=== PATIENT | female | born 1940 | race Caucasian/White ===

== ENCOUNTER 2022-09-09 09:46 | Outpatient (OUT) | payer MEDICARE, SELFPAY | END 2022-09-09 09:47 | LOC: WC 09:47 | PROVIDERS: Visit Provider Podiatrist Foot & Ankle Surgery | DX: E11.621 Type 2 diabetes mellitus with foot ulcer (principal); L97.412 Non-pressure chronic ulcer of right heel and midfoot with fat layer exposed | CPT/HCPCS: 11042 ==

== ENCOUNTER 2022-10-03 09:45 | Outpatient (OUT) | payer MEDICARE, SELFPAY | END 2022-10-03 09:46 | disposition home or self-care (01) | LOC: WC 09:45 | PROVIDERS: Visit Provider Podiatrist Foot & Ankle Surgery | DX: E11.621 Type 2 diabetes mellitus with foot ulcer (principal); L02.611 Cutaneous abscess of right foot; L03.818 Cellulitis of other sites; L97.419 Non-pressure chronic ulcer of right heel and midfoot with unspecified severity | CPT/HCPCS: 11042 ==

== ENCOUNTER 2023-04-10 10:10 | Outpatient (REF) | payer MEDICARE, SELFPAY ==
[2023-04-10 12:54] LABS: Alanine Aminotransferase 21 U/L (14-59); Albumin Globulin Ratio 0.7; Albumin Level 3.1 g/dL (3.4-5.0); Alkaline Phosphatase 108 U/L (46-116); Anion Gap 17.1; Aspartate Amino Transferase 17 U/L (15-37); BUN Creatinine Ratio 24.5; Bilirubin Total 0.2 mg/dL (0.2-1.0); Carbon Dioxide 25.5 mmol/L (21.0-32.0); Chloride 101 mmol/L (98-107); Chol HDL Ratio 3.3; Cholesterol 194 mg/dL (<=200); Estimated GFR (African America >60 (>=60); Estimated GFR (Non-African Ame 52 (>=60); Globulin 4.4 g/dL; Glucose 246 mg/dL (74-106); HDL Cholesterol 59 mg/dL (40-60); Potassium 4.6 mmol/L (3.5-5.1); Sodium 139 mmol/L (136-145); Thyroid Stimulating Hormone 6.157 uIU/mL (0.358-3.740); Total Protein 7.5 g/dL (6.4-8.2); Triglycerides 130 mg/dL (<=150)
== END 2023-04-10 10:11 | disposition home or self-care (01) ==
LOC: LAB 10:10
PROVIDERS: Visit Provider Family Medicine
DX: E11.8 Type 2 diabetes mellitus with unspecified complications (principal)
CPT/HCPCS: 36415; 80053; 80061; 83036; 84436; 84443

== ENCOUNTER 2023-04-16 15:01 | Outpatient (REF) | payer MEDICARE, SELFPAY ==
--- OUTSIDE RECORDS SUMMARY | 2023-04-16 15:06 | XMS_ITS | CCD ---
Author Name Unknown Address [address] [place] [address] Organization [facility] Care Team Providers Care Telephone Quotation Clerk Name Role Phone SAVANNAH CUEVA Primary Care Physician [facility] [facility] [place] Attending Unavailable [facility] Consulting Un[facility] DR ALARCON Admitting Unavailable ANAY, DR NUÑEZ Primary Care Unavailable HIGHLANDER, LETY Leahy Attending Unavailable HIGHLANDERLETY Admitting Unavailable WEST, DR ZEENAT Summers Consulting Unavailable ANAY, DR NUÑEZ Primary Care Unavailable LETY HOLGUIN Consulting Unavailable GWENANDERLETY Admitting Unavailable HIGHLANDER, LETY Leahy Attending Unavailable ANAY, DR NUÑEZ Primary Care Unavailable HIGHLANDER, LETY Leahy Attending Unavailable GWENANDERLETY Admitting Unavailable ANAY, DR NUÑEZ Primary Care Unavailable ANAY, DR NUÑEZ Primary Care Unavailable HIGHLANDER, LETY Leahy Admitting Unavailable GWENANDER, LETY Leahy Attending Unavailable TANYA MARCH Attending Unavailable TANYA MARCH Attending Unavailable TANYA MARCH Attending Unavailable ATNYA MARCH Admitting Unavailable PUNEET BUENO Attending Unavailable SAVANNAH CUEVA Referring Unavailable SAVANNAH CUEVA Attending Unavailable SAVANNAH CUEVA Referring Unavailable Allergies Allergy Classification Reported Allergen(s) Allergy Type Date of Onset Reaction(s) Facility (4 sources) Contrast media; Translations: [Contrast Dye] Drug allergy Itching [facility] (6 sources) Penicillins; Translations: [penicillins] Drug allergy 5 Unknown (qualifier value) [facility] (4 sources) Sulfonamides (Antibiotic); Translations: [sulfa drugs] Drug allergy Unknown (qualifier value) [facility] (1 source) Iodine (And Iodine Containting Drugs) Drug allergy (disorder) 0 [facility] (2 sources) Sulfonamides (Antibiotic) Drug allergy (disorder) 5 [facility] Medications Current Medications Medication Drug Class(es) Dates Sig (Normalized) Sig (Original) amoxicillin 500 mg / clavulanate 125 mg oral tablet (3 sources) Penicillin-class Antibacterial Start: 03-31-2022 Augmentin 500 mg-125 mg Tab 500 mg, Oral, Every other day, 30 cap(s), Refill(s) 6, [facility]/pharmacy #[id number], 165, cm, 11/04/21 12:20:00 EDT, Height/Length Dosing, 88, kg, 11/04/21 12:20:00 EDT, Weight Dosing Start Date: 03/31/22 Status: Ordered busPIRone hydrochloride 10 mg oral tablet (3 sources) Start: 11-21-2019 take 1 mg by mouth twice daily busPIRone 10 mg Tab mg tab(s), Oral, BID, Refills(s) 0 Start Date: 11/21/19 Status: Ordered D-mannose (3 sources) Start: 02-18-2021 D-mannose D-mannose Start Date: 02/18/21 Status: Ordered donepezil (3 sources) Start: 12-03-2018 donepezil Oral, Once a day (at bedtime), Refills(s) 0 Start Date: 12/03/18 Status: Ordered estradiol 0.1 mg/g vaginal cream (3 sources) Start: 02-18-2021 estradiol 0.1 mg/g vaginal cream 1 gm, Vaginal, MonFri, # 42.5 gm, Refills(s) 3, Pharmacy: [facility]/pharmacy #[id number], 165, cm, 02/18/21 10:54:00 EST, Height/Length Dosing, 87, kg, 11/21/19 13:18:00 EDT, Weight Dosing Start Date: 02/18/21 Status: Ordered Synthroid (3 sources) l-Thyroxine Start: 12-03-2018 Synthroid Oral, Daily, Refills(s) 0 Start Date: 12/03/18 Status: Ordered metFORMIN hydrochloride 500 mg / SITagliptin 50 mg oral tablet (3 sources) Biguanide, Dipeptidyl Peptidase 4 Inhibitor Start: 02-18-2021 Janumet 50 mg/500 mg oral tablet 1 tab(s), Oral, BID, 60 tab(s), Refill(s) 0 Start Date: 02/18/21 Status: Ordered 24 hr mirabegron 25 mg extended release oral tablet (3 sources) beta3-Adrenergic Agonist Start: 05-07-2022 End: 01-02-2023 take 1 tablet by mouth once daily Myrbetriq 25 mg oral tablet, extended release 25 mg = 1 tab(s), Oral, Daily, X 30 day(s), # 30 tab(s), Refills(s) 7, Pharmacy: [facility]/pharmacy #[id number], 165, cm, 05/07/22 13:26:00 EST, Height/Length Dosing, 88, kg, 05/07/22 13:26:00 EST, Weight Dosing Start Date: 05/07/22 Stop Date: 01/02/23 Status: Ordered Omeprazole (3 sources) Proton Pump Inhibitor Start: 10-08-2020 omeprazole Oral, Daily, Refills(s) 0 Start Date: 10/08/20 Status: Ordered QUEtiapine 100 mg oral tablet (6 sources) Atypical Antipsychotic Start: 02-18-2021 take 1 mg by mouth twice daily quetiapine 100 mg Tab mg tab(s), Oral, BID, Refills(s) 0 Start Date: 02/18/21 Status: Ordered Start: 12-03-2018 quetiapine Ora l, Refills(s) 0 Start Date: 12/03/18 Status: Ordered Trazodone (3 sources) Serotonin Reuptake Inhibitor Start: 12-03-2018 trazodone Oral, Refi lls(s) 0 Start Date: 12/03/18 Status: Ordered Verapamil (3 sources) Calcium Channel Sarah Start: 12-03-2018 verapa mil Refills(s) 0 Start Date: 12/03/18 Status: Ordered Vitamin D (3 sources) Start: 02-18-2021 Vitamin D International_Unit, Oral, qWeek, Refills(s) 0 Start Date: 02/18/21 Status: Ordered Problems Active Problems Problem Classification Problem Date Documented Date Episodic/Chronic Cancer of breast (3 sources) Malignant tumor of breast 12-03-2018 Chronic Cardiac dysrhythmias (4 sources) Atrial fibrillation; Translations: [Unspecified atrial fibrillation] Onset: 06-06-2022 12-03-2018 Chronic Chronic ulcer of skin (3 sources) 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; Translations: [Non-pressure chronic ulcer of other part of right foot with fat layer exposed] Onset: 06-06-2022 Chronic Deficiency and other anemia (1 source) Other iron deficiency anemias; Translations: [OTHER IRON DEFICIENCY ANEMIAS] Onset: 06-06-2022 Episodic Diabetes mellitus with complications (5 sources) Type 2 diabetes mellitus with foot ulcer; Translations: [TYPE 2 DM W/FOOT ULCER] Onset: 06-06-2022 Chronic Diabetes mellitus without complication (7 sources) Diabetes mellitus; Translations: [Type 2 diabetes mellitus without complications] Onset: 02-24-2022 12-03-2018 Chronic Disorders of lipid metabolism (4 sources) Hyperlipidemia; Translations: [Hyperlipidemia, unspecified] Onset: 06-06-2022 12-03-2018 Chronic Esophageal disorders (3 sources) Gastroesophageal reflux disease 12-03-2018 Chronic Essential hypertension (4 sources) Hypertensive disorder; Translations: [Essential (primary) hypertension] Onset: 06-06-2022 12-03-2018 Chronic Genitourinary symptoms and ill-defined conditions (7 sources) 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 sensory awareness; Translations: [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 sensory awareness] Onset: 05-07-2022 Chronic Genitourinary symptoms and ill-defined conditions (6 sources) Must strain to pass urine; Translations: [Urgent desire to urinate] 03-02-2020 Episodic Other connective tissue disease (4 sources) Pain in right foot; Translations: [PAIN IN RIGHT FOOT] Onset: 05-28-2022 Episodic Other diseases of bladder and urethra (4 sources) Urethral stricture; Translations: [Other urethral stricture, female] Onset: 05-07-2022 Episodic Other diseases of kidney and ureters (3 sources) Renal mass 12-03-2018 Chronic Other hereditary and degenerative nervous system conditions (1 source) Other idiopathic peripheral autonomic neuropathy; Translations: [OTH IDIO PERIPH AUTONOM NEUROPATHY] Onset: 06-06-2022 Chronic Other non-traumatic joint disorders (1 source) Other specified arthritis, unspecified site; Translations: [OTHER SPECIFIED ARTHRITIS UNS SITE] Onset: 06-06-2022 Chronic Skin and subcutaneous tissue infections (2 sources) Cutaneous abscess of right foot; Translations: [Cellulitis of other sites] Onset: 06-25-2022 Episodic Thyroid disorders (1 source) Hypothyroidism, unspecified; Translations: [HYPOTHYROIDISM UNSPECIFIED] Onset: 03-01-2022 Chronic Urinary tract infections (4 sources) Urinary tract infectious disease; Translations: [Urinary tract infection, site not specified] Onset: 05-07-2022 Episodic Past or Other Problems Problem Classification Problem Date Documented Da te Episodic/Chronic Other and unspecified benign neoplasm (1 source) Benign neoplasm of left kidney; Translations: [BENIGN NEOPLASM OF LEFT KIDNEY] Onset: 03-01-2022 Episodic Residual codes; unclassified (1 source) Acquired absence of both cervix and uterus; Translations: [ACQUIRED ABSENCE BOTH CERVIX AND UTERUS] Onset: 03-01-2022 Episodic Residual codes; unclassified (1 source) Acquired absence of unspecified breast and nipple; Translations: [ACQUIRED ABSENCE UNS BREAST AND NIPPLE] Onset: 03-01-2022 Episodic Results Test Name Value Interpretation Reference Range Facility Coding Summary.on 05-12-2022 Coding Summary. [id number] Gh 0bWw+PGhlYWQ+ED0QPOUjV 40cbRUeiO5AE1rFCN6MCDP YKURTFO9LHI6anOS6JVghL 2VybiAv BytjsRHxNO64ZKc0EIP4gA qoIAcwwQ6duCUiQ1j9JyCl AL09eA38STteEOKfXeN7Fy ZpbjsgbWFy E5xbRrYmcMKbXxs+PHRhYm xlIHdpZHRoPScxMDAlJyBz hLkwDO0iRn3fCOPqABEsgA xhcHNlOiBj b5vzEMAtIYqmTL7weGfcY0 QyxJW5UMIwh9l7Fw63pHC+ RYWuGTO2mNomEXfqq215Ic Dcz0dlMAE7 hVFwAZzaWJF7J33iz6G9JZ XlTNFgTMK5cKY2rL0smLbk lbswZ4JzkKRoShH2HMA8lT OqgV7xmOyg msnepW5nCgd+B63BTF5UOP UQXC9WSam6N5AcRykviTL+ FT83TQFoCR92qGCeqSGfw0 iynCz8WqRd FWTeJGW2gCisMOjnm1FkKZ DnK31eqAWql1D3YOYjyUug nWRyOlXtdEN7wF2iBByztj kir3vgdljl Rxwwg0kzqr87xA00Y78cQM iiILExMXW0LIKkZXYgeErl gu7qeX5uIk6+JYixp8krs4 pdjCo4CgOz NEZonbFloFkvQHK5t0YvKv 13V9ZmsIvez4BuGyb6yb63 dQSaz6L6kHI1EZamOUPunR 5oKPjyRoQ2 VTYkTyHveS52qJIiPGlpJt 5tgXkiyAqbWO5zNXXfuqhm DWGzoZ6yRMVlpZKxqVvkAT 4wNTBpbjtm z259SaDgQQS7ISSkeGCmN8 ZjdA1eGeLjWZGzKMBkT0Ys aJQyKTddZ859NSbcUhE7GN LmupDgH2Zr VIPwkNieSjI6o2Z4Ug8Gu0 HlbofyWBB9MRyrAJUuBsYw EsViRrP7B6RqLks3GASwwR qpTE3vK4Kf GIAojwrasdnevAX1AGAzMN FruJ10vTOgKDirCv2lp0D9 t109DEXyDVTbtO22Jy8xeK ogMTBwdCBU rG5vbyqbq7qcecvdVdUrVB NzKWp8TSq5EVVqfFvdYuJo NGB0UsX6HHM4pOLtzC9ozN abnyyqxV1j Oyc+Y37pyX8bGTT3XIR3dy umPZDaejNsUJ62QD62E3Xi PjwvdGFibGU+PGRpdiBzdH ldSS6oXaRh g1vzz9SzDCnhZ4WvPTRnQD gfNja9LARqSSS6yIZ6vV3e SRWyFNzso7O7nQO3O4Vzaz Pblr4xw1ju WALnVIyrS46guWWir2B9UH TzdJX2NJWtyKttSkOokQ72 Oyc+IACmhAvxq7PnQoasa0 sti1femBi6 WwVmXJScjuUabCflKBJ7d0 QtOk05V72kAGelBIGqLYPy TPTyRZHkpGoges2fuJ7dYt 8+PGNvbCB3 fNG4hU4zHNZzGaS2GGudI6 94QqQoiWJlNbktg6srs8sj oEm4StYmYMXsrdTavQdhCU N7m0TlUl42 U43xIVkcQZDjDYAdQTCgPZ XzwQytcc5uhO8uAb3+PC9j u3ioel24zO53pQU+PHRkIH H9kKeeJYmj BLBgoC9wRVisYbJ4HYZlJd MpjU10fOKcAJckHa1bdAxe tFlmKM5nHASoxvdge448Lt Afk7qlLHHy yXMoRRqpRAW7N02ld1K3UG NbMVCwICG9kNM9uW7wzCrh bjogbGVmdDsgdmVydGljYW yvWIywL598 IHRvcDsnPlBhdGllbnQgTm YoKTn9K0FtVsh8IUIeeLkt OW7rnOMnZLipDe6zlFxfbJ eaDI7lQPSw diptt409MzUii7pcYTMaqZ AgYHdhZGK1R42ba2Q6ACBt QPHwRKX7oWO7cM5jxWzqaf ogbGVmdDsg rdGrbTcbJYjkIGcdO360GV RvcDsnPkJpcnRoIERhdGU6 VH87NW27nZZnb7W3gMH2C0 BhZGRpbmct rtrxeGZ4ENVvTVOuvG90Pi 1phQcuYz1wSCTpFKR3CGKj nACtP9GsxV2oTqLkIUJhME TzJ3NqoLUf LOgnJ384ZJcuAaP4YPZblx TnY8CkVORmpLmbBsC8n6J2 Uz8MM2G2MG96AR95bOZum0 Z4dXL0P8Bp YNQystykyfbdpXM1CMHjWZ DswQ92By2grWueSe2fNPLg LIM4YXFalOQgY7FvxB0vZp AjMDAwMDAw O5TdsAVoKRpkU411POuuFv D6PNNyocTdL2KrCVUxiNjl NeG7r0F0Ys7GDZv7XJ09TC 18pFQsc6O3 uRQ9O7PwNRDhrtzgpvhbeT O2NLJkJKAtgD20Bf6xnYnh Hp5eNTBlUPR8DVZbxANwC0 LpsC4rFmYt LHFgCRNrK2ZonIEkJTwgB9 81OPfwPzY2GRSgosJcV1Ky HJVltKyfLuI6e8L0Iw0KMN XmIN53YYP2 sNI9YR03ZZ60R5FoDfomsE FibGU+PHRhYmxlIHdpZHRo TTchLYAeCqYzlAfsKV0kWt 9yZGVyLWNv bKklmFXvDyYnx6rtHQXpKU rkZW3ziIxzW6FrsYR7TFKs a2u8Su10S13xP4VfsBX+PG TqbMO3cEZ3 rE8wKjLbAqP8TJmuG354Vy FmqPGbCoiju5gbq8ajzSl1 WsD2FWTsskLdxShlLAG8t0 FeMn36C20x IHdpZHRoPSIxNSUiIHZhbG bxtb9daU8mIb1+PGNvbCB3 jJO2sB8lLrOeLpH6XLewZ4 49InRvcCIv Ytgyy8pqm1gdpNb5EzDvBB JwzzAfpIdmQUM5v9UcFk34 I6CqtLxiw1KtVyt1qc01wZ Dzu6F0sZS3 H3RuHOHlowihyCJglQzcVX 6gDSTvdyxeENUlmD2cUVWq J0p0VxUoQjV9MZsbH0Gbkq F3CLGhvTNu AKxuJMT2M35nb1E2OBRzUT WhINL2bQZ6wF9inEjjltbk bGVmdDsgdmVydGljYWwtYW vzX979HRUt yIipGCMbpU3xQUQfzBLizV olHK2iRNZlcdsbXh5CGF4P BXHFYCKNOJNUVJ54VI53pO Kep7C0xAO0 G6ItRVYqitrpvhnylCT9OI UuESJjgA99cHKyBUszFf2q v6Y9j273GJBeFSNgeJ59Pj 9udDogMTBw bYGEqR0swckdj1zwywukLk KbTYZlANi3XCf7CDTcwQsh FjBsDHS1CmZ6OAI3nCEvaR 1hbGlnbjog mC8yJqa+MDQvMTQvMTkzOT wvdGQ+KXLyUYV9qDrrTJbn CKRhqB4uASFyY8z9QxIdSu O1VStrY9Cw NSKplrquTr80hU8kZyHeVt X4GWrfR4UqhaK4XZEalGSq CSveWYV3R63yi0Y2QXZmEW QkERM1aVU0 bB2hiVyqrloamZGyzJuzlv UdvRbwPEmgDWgaC955OYRo iJzdFfmuMLehLZAtDO89JL 74oCLya9E0 aOO4M4PcLMHbjzbqquwjcO Q0SBAxLSXbfH05rVDvZKgl Or9of3B0u397VKMoHYBzwM 63Km1gfNuf VHDyaXYQaM9jzpizo1ggut eyUsMgNBNaZPu9HKr2KKCq dAonPkNeARH3CpA8OHE3uM QqdO7azDlr gxlreX1qOrc+RmVtYWxlPC 03BG28pSKjs3N1tEA0S3Hv CSXcnqxzwegyvPY2INCqRB UrqA70yJIk TJexQt5hf9K6h481SRFhUG RahI24Ed9slAolOKSbfCHT iN3tjmzbf9ezcwevXnYqYU UoVFs4KCm7 ZJSfgJbjIjRdQKV4LkU0OX K4pBAugJ7axRpyliqyzM2t Oyc+SWOwKWLjz1Ujx0YiOG 73PN80G5Uk PjwvdGFibGU+PHRhYmxlIH dpZHRoPScxMDAlJyBzdHls UP5cXd1eWEMoPOCokVwttZ KjOoSwb3zr GCMnVBkaNR2myQpdA6HchY C3QONea2k1Aw49U66aR3Gh dXA+ZSZylZO3qLT3mE1xDj SoQlK1VAds B806FbHilFBiCjxrj3nwj2 xkfEk8VyCsHAOvhdEuzBtf SMB8j1PkMe66X38lMHssNS RoPSIyMCUi EEOliGbcft1qmB8aRr4+PG KnoSN9dDF9iT3dTtCpTqQ3 DQmeT267PoSjaQCoZgttQ3 7pD0BgwZK+ QJEqFfz3DBFzrQvaHD9xfR JfXEhzVx2vHUA0ViJxWyCe QJoiX6EeHUDvmvtvrwjkfE O8RDEjJTJi rV57Ie7hkKnwPt4tPUEhYP Q2IOOstJOcU1EugN9qTqOe FZXzDBCvA3IjoEVvBTbbQ9 84EOpaPmG4 MKZwpeSsL9IyBGQqdKdcJh S8d8H7Qv1AzEqdaXMdVW9z IeYxHTc9G7UySta7NQVyhM khDY2pvMTu MVmoYy7zwIiboXwkWP1zMV Mfzvksc197PoAcm4zbWRUk mLRzOXgkVYJ0X38oy1H0KS MwMDAwMDA7 pVE0aY2cjCxqgjshyXEnqX hjfyCqpKliSEcwSZkwJ323 XEZtiQbnGgGFUtc5P4QtVe n4ZANbtMcj FB0kaXDnYEcpJf3bmIdrmK evPE6wHECbhvncc895MfIu d3bmUMZbwBPpPDcbRDV7N2 2cu9V4XXHr JKQjZVV9fGP2tT2zkKqbzj ogbGVmdDsgdmVydGljYWwt YXkyV227ELObxDueIn3BRj a5V4QmEjw5 MHWtuMemHY2yzQYbXGbbAh 0osOvsgMaoBX4vKYOedqof v948YwLwb7rcMLNivCMcGT hvXXA1G13f q0J5XXQlALDxTSA5nQG4lN 1hbGlnbjogbGVmdDsgdmVy kDfqWAyaQPglF183BYDxgB snPlBheWVy OjwvdGQ+KG61hm01L2JhMh yqFde6EXEfYWE3zBU3qW1t GSSgZOwll1O1cOI3G4Lyhb Hrhv2gj2om YXBz (more content not included)... Normal [facility] C Urineon 05-09-2022 Bacteria identified Cx Nom (U) Microbiology PROCEDURE: Urine Culture [R1] SOURCE: U Random BODY SITE: COLLECTED DATE/TIME: 05/07/2022 14:02 EST RECEIVED DATE/TIME: 05/07/2022 17:40 EST START DATE/TIME: 05/07/2022 17:40 EST FREE TEXT SOURCE: TANYA MARCH PA-C, PA-C, JENNIFER E FINAL REPORTS Final Report [] Verified Date/Time: 05/09/2022 11:00 EST 25,000 cfu/ml Mixed skin contaminants Mixed omid (multiple species present) >3 colony types Performing Locations R1: This test was performed at: [facility], [address] [place] [address], [id number] [place] [address], [facility] Comment on above: Performed By: #### [id number] #### [facility] [address] [place] [address] Ambulatory Visit Summaryon 0 05-07-2022 Ambulatory Visit Summary MILTON IBRAHIM :1940 Visit Date:05/07/2022 Ambulatory Visit Instructions Your Diagnosis Urinary tract infection 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 sensory awareness Other urethral stricture, female Tests Performed Urnls Dip Stick Auto w/o Microscopy POC [id number] Your Care Team Attending Physician - TANYA MARCH PA-C Primary Care Physician - SAVANNAH CUEVA DO This Is Your Medications List amoxicillin-clavulanat e (Augmentin 500 mg-125 mg Tab) estradiol topical (estradiol 0.1 mg/g vaginal cream) mirabegron (Myrbetriq 25 mg oral tablet, extended release) Contact prescribing physician if questions or concerns Non-Formulary Medication (D-mannose) busPIRone (busPIRone 10 mg Tab) donepezil ergocalciferol (Vitamin D) levothyroxine (Synthroid) metformin-sitagliptin (Janumet 50 mg/500 mg oral tablet) omeprazole quetiapine quetiapine (quetiapine 100 mg Tab) trazodone verapamil [Image Removed: STOP]Stop taking these medications oxybutynin (oxybutynin 5 mg Tab) Procedures Performed Cystourethroscopy with dilation of urethral stricture (03/19/2021), Cystourethroscopy with dilation of urethral stricture (08/19/2016), Urodynamics (07/16/2016), Appendectomy, Bilateral mastectomy, Cholecystectomy, Hysterectomy. Discharge Vitals Heart Rate (Peripheral) 68 Respiratory Rate 16 Blood Pressure 132/74 Height 165 cm Height 65 in Weight 88 kg Weight 193.6 lb BMI 32.32 What to do next Scheduled Follow-Up Appointments Thursday 1:00 PM EDT With: TANYA MARCH PA-C Where: [facility] Patient Educationon 05-07-19 Patient Education Urology Urodynamic Testing What is urodynamic testing? Urodynamic tests are done to determine how well your lower urinary tract is working. The lower urinary tract includes your bladder and the part of your body that drains urine from the bladder (urethra). When your kidneys filter your blood, urine is stored in your bladder until you feel the urge to urinate. Urination requires coordination between the nerves and muscles of your bladder and urethra. When your lower urinary tract is working well, you should be able to: ? Start urinating when your bladder is full. ? Empty your bladder completely. ? Control the flow of your urine. Why do I need urodynamic testing? You may need urodynamic testing to help find the cause of any of these problems: ? Leaking urine (incontinence). ? Problems starting or stopping your urine flow. ? Frequent or painful urination. ? Frequent urinary tract infections. ? Being unable to empty your bladder completely. ? Having strong urges to pass urine (urgency). ? Having a weak flow of urine. How do I prepare for the tests? ? Ask your health care provider about changing or stopping your regular medicines. This is especially important if you are taking diabetes medicines or blood thinners. ? You may be asked to avoid urinating before coming to the test so that you arrive with a full bladder. ? Tell a health care provider about: ? Any allergies you have. ? All medicines you are taking, including vitamins, herbs, eye drops, creams, and yaoq-dbl-rugndkp medicines. ? Whether you are or may be . What are the risks of this testing? Generally, these tests are safe. However, some of the tests have risks, including: ? Discomfort. ? Frequent urge to urinate. ? Bleeding. ? Infection. ? Allergic reactions to medicines or dyes (contrast material). How is urodynamic testing done? You may have various urodynamic tests. The tests may be done separately or may all be done during one testing visit. You may be given an antibiotic medicine before or after testing to help prevent infection. The types of tests that may be done include: Uroflowmetry This test measures how much urine you pass and how long it takes to pass. ? You will urinate into a certain type of toilet or device (flowmeter). ? The device will measure the volume and the time of your urine flow. ? These measurements will be sent to a computer that creates a graph of your urine flow. Postvoid residual measurement This test measures how much urine is left in your bladder after you urinate. ? The test may be done with ultrasound. In this method, sound waves and a computer will be used to create an image of your bladder. ? The test can also be done by inserting a thin, flexible tube (catheter) into your bladder after you urinate. The remaining urine will be removed through the catheter so it can be measured. ? Remaining urine will be measured in milliliters (mL). If you have more than 100 mL left in your bladder after you urinate, your bladder is not emptying as it should. Cystometric testing This test uses a type of bladder catheter that can measure pressure. ? You may be given a medicine to numb the area (local anesthetic). ? The area around the opening of your urethra will be cleaned. ? A urinary catheter will be passed through your urethra into your bladder and used to empty your bladder completely. ? Then a measuring catheter will be placed, and your bladder will be filled with warm, germ-free (sterile) water. ? Pressure measurements will be taken: ? As your bladder fills. ? When you feel the need to urinate. ? As your bladder is emptied. ? You may be asked to cough or bear down to check for leakage. ? In some cases, your bladder may be filled with a material that shows up on X-rays (contrast material) so that X-ray pictures can be taken during the test. Electromyogram This test measures the electrical activity of the nerves and muscles of your bladder and the opening of your urethra. ? Sticky patches (electrodes) will be placed near your rectum and urethra to measure electrical activity. ? The measurements will show how well your nerves are communicating with your muscles. What happens after the testing? ? You should be able to go home right away and do your usual activities. ? You may be told to drink a glass of water every 30 minutes for the first 2 hours after testing. ? Taking a warm bath or using warm, wet cloths (warm compresses) may relieve any discomfort near your urethra. ? Contact your health care provider if you have: ? Pain. ? Blood in your urine. ? Chills. ? Fever. What do the results mean? Talk with your health care provider about what your results mean. Some common causes for abnormal results from urodynamic tests include: ? Enlarged prostate in men. ? Overactive bladder. ? Urinary tract infection. ? Nervous system diseases. (more content not included)... Normal [facility] Urology Office/Clinic Noteon 05-07-2022 Urology Office/Clinic Note Chief Complaint 6m HPI Staff PRW pt here for 4m to incontinence w/o sensory awareness, UTI & Urethral Stricture. *Started on Oxybutynin 5mg QHS at last encounter. Stopped taking due to cognitive side effects. Son did not notice improvement with leaking when she was taking it. *Estradiol Cream 2x/wk. Augmentin 500mg decreased from QD to 2x/wk at last encounter. ((Augmentin was just refilled 03/28 w/ instructions to take QOD)). Has noticed odor to urine about 7-10 days ago. Started taking the Augmentin daily. Was taking it 2x/wk. No new infections since last encounter. Pt denies pain/burning. Son denies visible blood in urine. Still going through 3-4pads a day. Son thinks it may be due to mobility and cognitive status. Son is comfortable with pt's current voiding status. More concerned with UTI's. History of Present Illness staff HPI reviewed and agree. Tests Reviewed: Reviewed UA. Review of Systems PHQ Score Initial Depression Screen Score: 0 no fever, chills, malaise, myalgia. no rash/lesions. no chest pain, palpitations, or SOB. no abdominal pain, nausea, vomiting. no unilateral calf swelling, redness, pain Physical Exam Vitals & Measurements HR: 68(Peripheral) RR: 16 BP: 132/74 HT: 65 in HT: 165 cm WT: 88 kg WT: 193.6 lb BMI: 32.32 General: nontoxic, NAD Mouth: moist mucosa Lungs: normal respiratory effort Cardio: regular rate, good distal perfusion Abdomen: nondistended, no suprapubic distention or tenderness, no CVA tenderness Skin: No rashes or suspicious lesions Assessment/Plan Pt here with her son today. lives w her. does have dementia. 1. Urinary tract infection (N39.0: Urinary tract infection, site not specified) Continues Estradiol Cream 2x/wk. Augmentin 500 mg decreased from QD to 2x/wk at last encounter. Has noticed odor to urine about 7-10 days ago. Started taking the Augmentin daily. Otherwise No new infections since last encounter. Son denies visible blood in urine. UA today shows trace leuks. -send urine for cx -cont Augmentin 500 mg QD, until results from cx. may start new abx pending cx results. To call for refills in future. -cont Estradiol 2x/week 2. 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 Stopped taking due to cognitive side effects. Son did not notice improvement with leaking when she was taking it. Still going through 3-4 pads a day. Son thinks it may be due to mobility and cognitive status. discussed other tx options including other anticholinergics (not recommended due to similar risk of confusion), beta-3s (sometimes difficult to get covered/affordable), botox. son would like to try Myrbetriq. side effects discussed - he will monitor her BP when she's on it and call office if HTN increase. myrbetriq 25mg sent to [facility]. -void q2hrs, void before sensation 3. Other urethral stricture, female (N35.82: Other urethral stricture, female) S/p cysto/UD done 03/20/21. Follow up in 6 mos or sooner if needed. Pt to call with regarding any issues with Myrbetriq. Pt's son acknowledges understanding and agrees with plan. Follow-up With When Contact Information JOAQUIM MEEK, TANYA Weir, URL [address] [place] [address] Additional Instructions: f/u 6 mos Patient Education Urodynamic Testing Documentation recorded by the scrjordan Hobbs accurately reflects the services(s) I performed and decisions made by me. Authenticated by Tanya March PA-C on 05/07/2022 14:05:19. IAshia, personally scribed for MARIA ISABEL Menjivar on 05/07/2022 13:59:04. . Problem List/Past Medical History Ongoing Afib Breast cancer DM - Diabetes mellitus GERD (gastroesophageal reflux disease) Hyperlipidemia Hypertension 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 sensory awareness Other urethral stricture, female Renal mass Straining on urination Urge urinary incontinence Urgency - urination Urinary tract infection Historical No qualifying data Procedure/Surgical History Cystourethroscopy with dilation of urethral stricture (03/19/2021), Cystourethroscopy with dilation of urethral stricture (08/19/2016), Urodynamics (07/16/2016), Appendectomy, Bilateral mastectomy, Cholecystectomy, Hysterectomy. Medications Augmentin 500 mg oral tablet, 500 mg, Oral, Every other day, 2 refills Augmentin 500 mg-125 mg Tab, 500 mg, Oral, Every other day, 6 refills busPIRone 10 mg Tab, Oral, BID D-mannose donepezil, Oral, Once a day (at bedtime) estradiol 0.1 mg/g vaginal cream, 1 gm, Vaginal, MonFri, 3 refills Janumet 50 mg/500 mg oral tablet, 1 tab(s), Oral, BID omeprazole, Oral, Daily oxybutynin 5 mg Tab, 5 mg= 1 tab(s), Oral, Daily, 6 refills, Not taking: Cognitive Side Effects quetiapine, Oral quetiapine 100 mg Tab, Oral, BID Synthroid, Oral, Daily trazodone, Oral verapamil Vitamin D, Oral, qWeek (more content not included)... Normal [facility] Comment on above: Result Comment: Elec tronically Signed By: TANYA MARCH PA-C\.br\Date and Time Signed: 05/07/22 14:05 EST\.br\Electronically Co-Signed By: Ashia Hobbs\.br\Date and Time Co-Signed: 05/07/22 13:59 EST CBC AUTO DIFFon 02-24-2022 BASO # 0.1 103/ul Normal 0.0-0.1 [facility] Comment on above: Performed By: #### C BC #### [facility] [address] [address] [address] Ginette Ivan Basophils/100 WBC (Bld) 0.5 % Normal 0.2-2.0 [facility] Comment on above: Performed By: #### C BC #### [facility] [address] [place], [place] [address] Dr. Ginette Ivan EO # 0.3 103/ul Normal 0.0-0.7 [facility] Comment on above: Performed By: #### C BC #### [facility] [address] [place] [address] Dr. Ginette Ivan Eosinophils/100 WBC (Bld) 2.3 % Normal 0.9-7.0 [facility] Comment on above: Performed By: #### C BC #### [facility] [address] [place] [address] Dr. Ginette Ivan Erythrocyte distribution width (RBC) [Ratio] 13.6 % Normal 11.0-15.0 [facility] Comment on above: Performed By: #### C BC #### [facility] [address] [place] [address] Dr. Ginette Ivan Hematocrit (Bld) [Volume fraction] 36.8 % Normal 36.0-48.0 [facility] Comment on above: Performed By: #### C BC #### [facility] [address] [place] [address] Dr. Ginette Ivan Hemoglobin (Bld) [Mass/Vol] 12.0 g/dL Normal 12.0-16.0 [facility] Comment on above: Performed By: #### C BC #### [facility] [address] [place] [address] Dr. Ginette Ivan IG # 0.03 10e3/ul Normal 0.00-0.03 [facility] Comment on above: Performed By: #### C BC #### [facility] [address] [place] [address] Dr. Ginette Ivan IG % 0.3 % Normal 0.0-0.5 [facility] Comment on above: Performed By: #### C BC #### [facility] [address] [place] [address] Dr. Ginette Ivan LYMPH # 3.9 103/ul Critically high 1.2-3.8 [facility] Comment on above: Performed By: #### C BC #### [facility] [address] [place] [address] Dr. Ginette Ivan Lymphocytes/100 WBC (Bld) 34.8 % Normal 20.5-60.0 [facility] Comment on above: Performed By: #### C BC #### [facility] [address] [place] [address] Dr. Ginette Ivan MANUAL DIFF REQ NO Normal [facility] Comment on above: Performed By: #### C BC #### [facility] [address] [place] [address] Dr. Ginette Ivan MCH (RBC) [Entitic mass] 28.4 pg Normal 26.7-34.0 [facility] Comment on above: Performed By: #### C BC #### [facility] [address] [place] [address] Dr. Ginette Ivan MCHC (RBC) [Mass/Vol] 32.6 g/dL Normal 29.9-35.2 [facility] Comment on above: Performed By: #### C BC #### [facility] [address] [place] [address] Dr. Ginette Ivan MCV (RBC) [Entitic vol] 87.0 fL Normal 81.0-99.0 [facility] Comment on above: Performed By: #### C BC #### [facility] [address] [place] [address] Dr. Ginette Ivan MONO # 0.8 103/ul Normal 0.3-0.8 [facility] Comment on above: Performed By: #### C BC #### [facility] [address] [place] [address] Dr. Ginette Ivan Monocytes/100 WBC (Bld) 7.0 % Normal 1.7-12.0 [facility] Comment on above: Performed By: #### C BC #### [facility] [address] [place] [address] Dr. Ginette Ivan NEUT # 6.2 103/ul Normal 1.4-6.5 [facility] Comment on above: Performed By: #### C BC #### [facility] [address] [place] [address] Dr. Ginette Ivna Neutrophils/100 WBC (Bld) 55.1 % Normal 43.0-75.0 [facility] Comment on above: Performed By: #### C BC #### [facility] [address] [address] [address] Ginette Ivan Platelet mean volume (Bld) [Entitic vol] 9.8 fL Normal 9.5-13.5 [facility] Comment on above: Performed By: #### C BC #### [facility] [address] [place] [address] Dr. Ginette Ivan PLT 304 103/ul Normal 150-450 [facility] Comment on above: Performed By: #### C BC #### [facility] [address] [address] [address] Ginette Ivan RBC 4.23 106/ul Normal 4.20-5.40 [facility] Comment on above: Performed By: #### C BC #### [facility] [address] [place] [address] Dr. Ginette Ivan WBC 11.2 103/ul Critically high 4.0-11.0 [facility] Comment on above: Performed By: #### C BC #### [facility] [address] [place] [address] Dr. Ginette Ivan FREE T4on 02-24-2022 Free T4 [Mass/Vol] 1.17 ng/dL Normal 0.76-1.46 [facility] Comment on above: Performed By: #### F T4 #### [facility] [address] [place] [address] Dr. Ginette Ivan GLYCOHEMOGLOBIN A1Con 2021 ADA RECOMMENDATION SEE BELOW Normal [facility] Comment on above: Result Comment: ADA RECOMMENDED LIMIT 4.0 - 6.0 ADA THERAPEUTIC TARGET < 7.0 ACTION SUGGESTED > 7.0 Performed By: #### A 1C #### [facility] [address] [place] [address] Dr. Ginette Ivan Glucose [Mass/Vol] 134 mg/dL Normal [facility] Comment on above: Performed By: #### A 1C #### [facility] [address] [place] [address] Dr. Ginette Ivan HbA1c (Bld) [Mass fraction] 6.3 % Critically high 4.5-6.2 [facility] Comment on above: Performed By: #### A 1C #### [facility] [address] [address] [address] Ginette Ivan LIPID PROFILEon 02-24-2022 CHOL-HDL RATIO NORM SEE BELOW Normal [facility] Comment on above: Result Comment: 3.3 - 4.4 LOW RISK 4.4 - 7.1 AVERAGE RISK 7.1 - 11.0 MODERATE RISK >11.0 HIGH RISK Performed By: #### T SH, LIPID, CMP #### [facility] [address] [address] [address] Ginette Ivan Cholesterol [Mass/Vol] 211 mg/dL Critically high <=200 [facility] Comment on above: Performed By: #### T SH, LIPID, CMP #### [facility] [address] [address] [address] Ginette Ivan Cholesterol in HDL [Mass/Vol] 62 mg/dL Critically high 40-60 [facility] Comment on above: Performed By: #### T SH, LIPID, CMP #### [facility] [address] [address] [address] Ginette Ivan Cholesterol in LDL [Mass/Vol] 113.6 mg/dL Normal [facility] Comment on above: Performed By: #### T SH, LIPID, CMP #### [facility] [address] [address] [address] Ginette Ivan Cholesterol.total/Ch olesterol in HDL [Mass ratio] 3.4 {ratio} Normal [facility] Comment on above: Performed By: #### T SH, LIPID, CMP #### [facility] [address] [address] [address] Ginette Ivan HDL NORMAL > or = 60 mg/dl - LO W CARDIOVASCULAR RISK <40 mg/dl - HIGH CARDIOVASCULAR RISK Normal [facility] Comment on above: Performed By: #### T SH, LIPID, CMP #### [facility] [address] [address] [address] Ginette Ivan LDL CALC NORMAL SEE BELOW Normal [facility] Comment on above: Result Comment: <100 mg/dl OPTIMAL 100 - 129 mg/dl NEAR OR ABOVE OPTIMAL 130 - 159 mg/dl BORDERLINE HIGH 160 - 189 mg/dl HIGH >190 mg/dl VERY HIGH Performed By: #### T SH, LIPID, CMP #### [facility] [address] [place] [address] Dr. Ginette Ivan Triglyceride [Mass/Vol] 177 mg/dL Critically high <=150 [facility] Comment on above: Performed By: #### T SH, LIPID, CMP #### [facility] [address] [place] [address] Dr. Ginette Ivan VLDL CALC 35.4 mg/dL Normal [facility] Comment on above: Performed By: #### T IFEANYI, LIPID, CMP #### [facility] [address] [place] [address] Dr. Ginette Ivan MICROALBUMIN, RAND URon 11-2 mALB 3.2 mg/L Normal <=30.0 [facility] Comment on above: Performed By: #### M ALBR #### [facility] [address] [place] [address] Dr. Ginette Ivan PROF 14(COMP METB)on 022 Albumin [Mass/Vol] 3.3 g/dL Critically low 3.4-5.0 [facility] Comment on above: Performed By: #### T IFEANYI, LIPID, CMP #### [facility] [address] [place] [address] Dr. Ginette Ivan Albumin/Globulin [Mass ratio] 0.7 {ratio} Normal [facility] Comment on above: Performed By: #### T SH, LIPID, CMP #### [facility] [address] [place] [address] Dr. Ginette Ivan ALP [Catalytic activity/Vol] 117 U/L Critically high 46-116 [facility] Comment on above: Performed By: #### T SH, LIPID, CMP #### [facility] [address] [place] [address] Dr. Ginette Ivan ALT [Catalytic activity/Vol] 11 U/L Critically low 14-59 [facility] Comment on above: Performed By: #### T SH, LIPID, CMP #### [facility] [address] [address] [address] Ginette Ivan Anion gap [Moles/Vol] 12.7 mmol/L Normal [facility] Comment on above: Performed By: #### T SH, LIPID, CMP #### [facility] [address] [address] [address] Ginette Ivan AST [Catalytic activity/Vol] 18 U/L Normal 15-37 [facility] Comment on above: Performed By: #### T SH, LIPID, CMP #### [facility] [address] [address] [address] Ginette Ivan Bilirubin [Mass/Vol] 0.2 mg/dL Normal 0.2-1.0 [facility] Comment on above: Performed By: #### T SH, LIPID, CMP #### [facility] [address] [address] [address] Ginette Ivan Calcium [Mass/Vol] 9.1 mg/dL Normal 8.5-10.1 [facility] Comment on above: Performed By: #### T SH, LIPID, CMP #### [facility] [address] [address] [address] Ginette Ivan Chloride [Moles/Vol] 100 mmol/L Normal 98-107 [facility] Comment on above: Performed By: #### T SH, LIPID, CMP #### [facility] [address] [address] [address] Ginette Ivan CO2 [Moles/Vol] 26.3 mmol/L Normal 21.0-32.0 [facility] Comment on above: Performed By: #### T SH, LIPID, CMP #### [facility] [address] [address] [address] Ginette Ivan Creatinine [Mass/Vol] 0.72 mg/dL Normal 0.55-1.02 [facility] Comment on above: Performed By: #### T SH, LIPID, CMP #### [facility] [address] [address] [address] Ginette Ivan EGFR-AF ESTONIAN >60 Normal >=60 [facility] Comment on above: Performed By: #### T SH, LIPID, CMP #### [facility] [address] [address] [address] Ginette Ivan EGFR-NON AF ESTONIAN >60 Normal >=60 [facility] Comment on above: Performed By: #### T SH, LIPID, CMP #### [facility] [address] [place] [address] Dr. Ginette Ivan Globulin (S) [Mass/Vol] 4.6 g/dL Normal [facility] Comment on above: Performed By: #### T SH, LIPID, CMP #### [facility] [address] [place] [address] Dr. Ginette Ivan Glucose [Mass/Vol] 133 mg/dL Critically high 74-106 [facility] Comment on above: Performed By: #### T SH, LIPID, CMP #### [facility] [address] [place] [address] Dr. Ginette Ivan Potassium [Moles/Vol] 4.0 mmol/L Normal 3.5-5.1 [facility] Comment on above: Performed By: #### T SH, LIPID, CMP #### [facility] [address] [place] [address] Dr. Ginette Ivan Protein [Mass/Vol] 7.9 g/dL Normal 6.4-8.2 [facility] Comment on above: Performed By: #### T SH, LIPID, CMP #### [facility] [address] [place] [address] Dr. Ginette Ivan Sodium [Moles/Vol] 135 mmol/L Critically low 136-145 [facility] Comment on above: Performed By: #### T SH, LIPID, CMP #### [facility] [address] [place] [address] Dr. Ginette Ivan Urea nitrogen [Mass/Vol] 21.0 mg/dL Critically high 7.0-18.0 [facility] Comment on above: Performed By: #### T SH, LIPID, CMP #### [facility] [address] [place] [address] Dr. Ginette Ivan Urea nitrogen/Creatinine [Mass ratio] 29.2 mg/mg Normal [facility] Comment on above: Performed By: #### T SH, LIPID, CMP #### [facility] [address] [place], [place] [address] Dr. Ginette Ivan TSHon 02-24-2022 TSH 9.395 uIU/mL Critically high 0.358-3.740 [facility] Comment on above: Performed By: #### T SH, LIPID, CMP #### [facility] [address] [place], [place] [address] Dr. Ginette Ivan Vital Signs Date Time Vital Sign Value Performing Clinician Faci lity 05-07-2022 13:24-0500 Blood Pressure Location TANYA MARCH [facility] 05-07-2022 13:24-0500 Diastolic blood pressure 74 mm[Hg] TANYA MARCH [facility] 05-07-2022 13:24-0500 Heart rate 68 /min TANYA MARCH [facility] 05-07-2022 13:24-0500 Respiratory rate 16 /min TANYA MARCH [facility] 05-07-2022 13:24-0500 Systolic blood pressure 132 mm[Hg] TANYA MARCH [facility] Encounters Encounter Date Encounter Type Care Provider Facility Start: 03-12-2023 End: 03-13-2023 ambulatory SAVANNAH CUEVA Not Available Start: 11-05-2022 End: 11-06-2022 ambulatory TANYA MARCH Facility:[facility] Start: 11-05-2022 End: 11-05-2022 Patient encounter procedure TANYA MARCH [facility] Start: 08-15-[address] SAVANNAH CUEVA Facility :[facility] Start: 07-14-2022 End: 07-15-2022 ambulatory [facility] Leah[facility] Facility:[facility] Start: 06-18-2022 End: 06-19-2022 ambulatory LETY Leahy [facility] Facility:[facility] Start: 05-28-2022 End: 05-29-2022 ambulatory LETY Leahy [facility] Facility:[facility] Start: 05-07-2022 End: 05-08-2022 ambulatory TANYA MARCH Facility:[facility] Start: 05-07-2022 End: 05-07-2022 Lab Drop off TANYA MARCH [facility] Start: 05-07-2022 End: 05-07-2022 Patient encounter procedure TANYA MARCH [facility] Start: 02-24-2022 End: 02-25-[address] DOCTOR DUKE Facility:[facility] Procedures Date Procedure Procedure Detail Performing Clinician Start: 03-19-2021 Cystourethroscopy wi th dilation of urethral stricture TANYA MARCH Start: 08-19-2016 Cystourethroscopy wi th dilation of urethral stricture TANYA MARCH Start: 07-16-2016 Urodynamic studies VETO ZIEGLER JOAQUIM Appendectomy TANYA MARCH Bilateral mastectomy JENERROLFE R JOAQUIM Cholecystectomy TANYA HARTLEY RY Hysterectomy TANYA MARCH Immunizations Immunization Date Immunization Notes Care Provider Marsha calix 05-29-2020 SARS-CoV-2 (COVID-19 ) mRNA-1273 vaccine TANYA JOAQUIM [facility] 05-07-2020 SARS-CoV-2 (COVID-19 ) mRNA-1273 vaccine TANYA MARCH [facility] 05-01-2020 SARS-CoV-2 (COVID-19 ) mRNA-1273 vaccine TANYA MARCH [facility] 12-25-2017 influenza virus vaccine, unspecified formulation TANYA MARCH [facility] 12-17-2015 influenza virus vaccine, unspecified formulation TANYA MARCH [facility] Payers Date Payer Category Payer Private Health Insurance [id number] 1961 Medicare [id number] 1961 Medicare [id number] 1940 Unknown [id number] 2.16.84 [id number] 1938 Unknown [id number] 2.16.84 [id number] 1938 Unknown [id number] 2.16.84 [id number] 1938 Unknown [id number] 2.16.84 [id number] 1938 Unknown [id number] 2.16.84 [id number] 1938 Unknown [id number] 2.16.8 [id number] 1938 Unknown [id number] 2.16.8 [id number] 1938 Unknown [id number] 2.16.8 [id number] 1938 Unknown [id number] 1938 Unknown [id number] Social History Date Type Detail Facility Start: 05-07-2022 Tobacco smoking status Never s moked tobacco (finding) [facility] Tobacco smoking status Never [facility] Sex Assigned At Female [facility] Functional Status Date Assessment Result Facility 05-07-2022 Functional Status N/A [facility] Clinical Note 05-28-2022 Note Date & Type Note Facility 05-28-2022 Note PROCEDURE: XR FOOT R T MIN 3 VIEWS COMPARISON: 10/17/2019 HISTORY: Pain in right foot FINDINGS: BONES:Remote bimalleolar fractures with internal fixation. Moderate diffuse degenerative changes with joint space narrowing and marginal osteophyte formation. Moderate enthesopathic calcaneus SOFT TISSUES:Negative. No visible soft tissue swelling. EFFUSION:None visible. OTHER: Negative. IMPRESSION: Moderate degenerative changes Electronically authenticated by: ZEENAT WASHINGTON Date: 2022-05-28 18:02 [facility] Discharge instructions 05-07-2022 Note Date & Type Note Facility 05-07-2022 Hospital Discharg e instructions Patient Education 05/07/2022 13:46:19 Urodynamic Testing Urodynamic Testing What is urodynamic testing? Urodynamic tests are done to determine how well your lower urinary tract is working. The lower urinary tract includes your bladder and the part of your body that drains urine from the bladder (urethra). When your kidneys filter your blood, urine is stored in your bladder until you feel the urge to urinate. Urination requires coordination between the nerves and muscles of your bladder and urethra. When your lower urinary tract is working well, you should be able to: Start urinating when your bladder is full. Empty your bladder completely. Control the flow of your urine. Why do I need urodynamic testing? You may need urodynamic testing to help find the cause of any of these problems: Leaking urine (incontinence). Problems starting or stopping your urine flow. Frequent or painful urination. Frequent urinary tract infections. Being unable to empty your bladder completely. Having strong urges to pass urine (urgency). Having a weak flow of urine. How do I prepare for the tests? Ask your health care provider about changing or stopping your regular medicines. This is especially important if you are taking diabetes medicines or blood thinners. You may be asked to avoid urinating before coming to the test so that you arrive with a full bladder. Tell a health care provider about: ?Any allergies you have. ?All medicines you are taking, including vitamins, herbs, eye drops, creams, and [id number] medicines. ?Whether you are or may be . What are the risks of this testing? Generally, these tests are safe. However, some of the tests have risks, including: Discomfort. Frequent urge to urinate. Bleeding. Infection. Allergic reactions to medicines or dyes (contrast material). How is urodynamic testing done? You may have various urodynamic tests. The tests may be done separately or may all be done during one testing visit. You may be given an antibiotic medicine before or after testing to help prevent infection. The types of tests that may be done include: Uroflowmetry This test measures how much urine you pass and how long it takes to pass. You will urinate into a certain type of toilet or device (flowmeter). The device will measure the volume and the time of your urine flow. These measurements will be sent to a computer that creates a graph of your urine flow. Postvoid residual measurement This test measures how much urine is left in your bladder after you urinate. The test may be done with ultrasound. In this method, sound waves and a computer will be used to create an image of your bladder. The test can also be done by inserting a thin, flexible tube (catheter) into your bladder after you urinate. The remaining urine will be removed through the catheter so it can be measured. Remaining urine will be measured in milliliters (mL). If you have more than 100 mL left in your bladder after you urinate, your bladder is not emptying as it should. Cystometric testing This test uses a type of bladder catheter that can measure pressure. You may be given a medicine to numb the area (local anesthetic). The area around the opening of your urethra will be cleaned. A urinary catheter will be passed through your urethra into your bladder and used to empty your bladder completely. Then a measuring catheter will be placed, and your bladder will be filled with warm, germ-free (sterile) water. Pressure measurements will be taken: ?As your bladder fills. ?When you feel the need to urinate. ?As your bladder is emptied. You may be asked to cough or bear down to check for leakage. In some cases, your bladder may be filled with a material that shows up on X-rays (contrast material) so that X-ray pictures can be taken during the test. Electromyogram This test measures the electrical activity of the nerves and muscles of your bladder and the opening of your urethra. Sticky patches (electrodes) will be placed near your rectum and urethra to measure electrical activity. The measurements will show how well your nerves are communicating with your muscles. What happens after the testing? You should be able to go home right away and do your usual activities. You may be told to drink a glass of water every 30 minutes for the first 2 hours after testing. Taking a warm bath or using warm, wet cloths (warm compresses) may relieve any discomfort near your urethra. Contact your health care provider if you have: ?Pain. ?Blood in your urine. ?Chills. ?Fever. What do the results mean? Talk with your health care provider about what your results mean. Some common causes for abnormal results from urodynamic tests include: Enlarged prostate in men. Overactive bladder. Urinary tract infection. Nervous system diseases. Spinal cord damage. Questions to ask your health care provider Ask your health care provider, or the department that is doing the test: When will my results be ready? How will I get my results? What are my treatment options? What other tests do I need? What are my next steps? Summary Urodynamic tests are done to determine how well your lower urinary tract is working. The lower urinary tract includes your bladder and urethra. You may need urodynamic testing to help find the cause of various problems with urination, such as leaking urine (incontinence) or problems starting or stopping your urine flow. You may have various urodynamic tests. The tests may be done separately or may all be done during one testing visit. Talk with your health care provider about what your results mean. Contact your health care provider if you have pain, chills, a fever, or blood in your urine. This information is not intended to replace advice given to you by your health care provider. Make sure you discuss any questions you have with your health care provider. Document Released: 01/11/2008 Document Revised: 07/05/2019 Document Reviewed: 01/18/2018 [employer] Patient Education 2019 [email or web address]. Follow Up Care 11/04/2021 13:08:14 With:TANYA MARCH PA-C, URL Address: [place] [address] When: Unknown [facility] Evaluation + Plan note Note Date & Type Note Facility Evaluation + Plan note Future Appointments Appointment Date:11/05/2022 01:00:00 PM Scheduled Provider:TANYA MARCH PA-C Location:[facility] Appointment Type:URO Office Visit [facility] [employer] Evaluation + Plan note Note Date & Type Note Facility Evaluation + Plan note Future Appointments Appointment Date:11/05/2022 01:00:00 PM Scheduled Provider:TANYA MARCH PA-C Location:[facility] Appointment Type:URO Office Visit Diagnostic Tests PendingUrine Culture 05/07/22 [facility] Hospital course Narrative Note Date & Type Note Facility Hospital course Narrative No data available for this section [facility] [employer] [facility] Discharge instructions Note Date & Type Note Facility Hospital Discharge instructions No data available for this section [facility] Progress note Note Date & Type Note Facility Progress note No data available for this section [facility] Summary Purpose Family History No Family History Records FoundNo Family History Records FoundNo Family History Records Found Advance Directives No Advanced Directives Records FoundNo Advanced Directives Records FoundNo Advanced Directives Records Found Additional Source Comments Patient Care team informatio n (unrecognized section and content) Personnel Name: SAVANNAH CUEVA DO Address: Address: [address] [place] [address] Personnel Name: SAVANNAH CUEVA DO Address: Address: [address] [place] [address] Personnel Name: SAVANNAH CUEVA DO Address: Address: [address] [place] [address], [address] [place], [place] [address] INFORMATION SOURCE (unrecogn ized section and content) DATE CREATED AUTHOR 08/08/2022 [facility] DATE CREATED AUTHOR AUTHOR'S ORGANIZ ATION 11/06/2022 [facility] DATE CREATED AUTHOR AUTHOR'S ORGANIZ ATION 03/14/2023 [facility] FOR RECORDS PERTAINING TO PATIENTS WHO ARE OR HAVE BEEN ENROLLED IN A CHEMICAL DEPENDENCY/SUBSTANCEABUSE PROGRAM, SOME INFORMATION MAY BE OMITTED. This clinical summary was aggregated from multiple sources. Caution should be exercised in using it in the provision of clinical care. This summary normalizes information from multiple sources, and as a consequence, information in this document may materially change the coding, format and clinical context of patient data. In addition, data may be omitted in some cases. CLINICAL DECISIONS SHOULD BE BASED ON THE PRIMARY CLINICAL RECORDS. [facility] [employer] [facility]. provides no warranty or guarantee of the accuracy or completeness of information in this document.
[2023-04-16 15:28] LABS: Creatinine Urine Random 120.54 mg/dL (20.00-300.00); Microalbum Creatinine Ratio Ur 11.6 mg/g (0.0-29.9); Microalbumin Urine Random 1.4 mg/dL (<=30.0)
== END 2023-04-16 15:02 | disposition home or self-care (01) ==
LOC: LAB 15:01
PROVIDERS: Visit Provider Family Medicine
DX: E11.42 Type 2 diabetes mellitus with diabetic polyneuropathy (principal); E78.5 Hyperlipidemia, unspecified; I10 Essential (primary) hypertension; E03.9 Hypothyroidism, unspecified
CPT/HCPCS: 82043; 82570

== ENCOUNTER 2023-11-04 11:57 | Outpatient (REF) | payer MEDICARE, SELFPAY ==
--- OUTSIDE RECORDS SUMMARY | 2023-11-04 12:05 | XMS_ITS | CCD ---
Author Organization [facility] Care Team Providers Care [employer]illery [employer] 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 Name Role Phone LENNY CUEVA Primary Care Physician MIS, DR ALARCON Attending Unavailable MISC, DR ALARCON Consulting [facility]available [facility] DR AL[facility]CON Admitting Unavailable ANAY, DR NUÑEZ Primary Care Unavailable LETY MCCONNELL Attending Unavailable LETY MCCONNELL Admitting Unavailable WEST, DR ZEENAT Summers Consulting Unavailable ANAY, DR NUÑEZ Primary Care Unavailable LETY MCCONNELL Consulting Unavailable LETY MCCONNELL Admitting Unavailable LETY MCCONNELL Attending Unavailable ANAY, DR NUÑEZ Primary Care Unavailable LETY MCCONNELL Attending Unavailable LETY MCCONNELL Admitting Unavailable ANAY, DR NUÑEZ Primary Care Unavailable ANAY, DR NUÑEZ Primary Care Unavailable LETY MCCONNELL Admitting Unavailable LETY MCCONNELL Attending Unavailable TANYA MARCH Attending Unavailable TANYA MARCH Attending Unavailable TANYA MARCH Attending Unavailable TANYA MARCH Admitting Unavailable Lenny Cueva DO Primary Care Provider Faustino Cruz MD Unavailable Kristofer Carlton MD Unavailable [phone] Lety Mcconnell MD Unavailable SHAUNNA BRUNO Attending Unavailable LENNY CUEVA Referring Unavailable SHAUNNA BRUNO Attending Unavailable LENNY CUEVA Attending Unavailable PUNEET BUENO Attending Unavailable LENNY CUEVA Referring Unavailable LENNY CUEVA Attending Unavailable LENNY CUEVA Referring Unavailable Allergies Allergy Classification Reported Allergen(s) Allergy Type Date of Onset Reaction(s) Facility (4 sources) Contrast media; Translations: [Contrast Dye] [facility] ([facility]) Penicillins; Translations: [penicillins] Drug allergy 5 Unknown (qualifier value), Unknown [facility] (4 sources) Sulfonamides (Antibiotic); Translations: [sulfa drugs] Drug allergy Unknown (qualifier value) [facility] (1 source) Iodine (And Iodine Containting Drugs) Drug allergy (disorder) 0 [facility] (2 sources) Sulfonamides (Antibiotic) Drug allergy (disorder) 5 [facility] (4 sources) Sulfonamides (Antibiotic) Drug Allergy 3 [facility] Medications Current Medications Medication Drug Class(es) Dates Sig (Normalized) Sig (Original) amoxicillin 500 mg / clavulanate 125 mg oral tablet (3 sources) Penicillin-class Antibacterial Start: 03-31-2022 Augmentin 500 mg-125 mg Tab 500 mg, Oral, Every other day, 30 cap(s), Refill(s) 6, [id number], 165, cm, 11/04/21 12:20:00 EDT, Height/Length Dosing, 88, kg, 11/04/21 12:20:00 EDT, Weight Dosing Start Date: 03/31/22 Status: Ordered busPIRone hydrochloride 10 mg oral tablet (7 sources) Start: 11-21-2019 take 1 mg by mouth twice daily busPIRone 10 mg Tab mg tab(s), Oral, BID, Refills(s) 0 Start Date: 11/21/19 Status: Ordered collagenase 0.25 unt/mg topical ointment (4 sources) Collagen-specific Enzyme Start: 08-18-2022 Santyl 250 UNIT/GM ointment APPLY TO WOUND DAILY DIRECTED 0 08/18/2022 Active D-mannose (3 sources) Start: 02-18-2021 D-mannose D-mannose Start Date: 02/18/21 Status: Ordered 24 hr dilTIAZem hydrochloride 240 mg extended release oral capsule (4 sources) Calcium Channel Sarah Start: 03-26-2023 End: 03-25-2024 take 1 capsule by mouth every twenty-four hours in the morning dilTIAZem ER (Tiazac) 240 MG 24 hr capsule Indications: Primary hypertension (CMS/HCC) Take 1 capsule (240 mg) by mouth in the morning. 30 capsule 3 03/26/2023 03/25/2024 Active donepezil (7 sources) Start: 12-03-2018 donepezil Oral, Once a day (at bedtime), Refills(s) 0 Start Date: 12/03/18 Status: Ordered donepezil (Arice pt) 10 MG tablet 1 (one) time each day at the same time 0 Active estradiol 0.1 mg/g vaginal cream (3 sources) Start: 02-18-2021 estradiol 0.1 mg/g vaginal cream 1 gm, Vaginal, MonFri, # 42.5 gm, Refills(s) 3, Pharmacy: [id number], 165, cm, 02/18/21 10:54:00 EST, Height/Length Dosing, 87, kg, 11/21/19 13:18:00 EDT, Weight Dosing Start Date: 02/18/21 Status: Ordered levothyroxine sodium 0.075 mg oral tablet (7 sources) l-Thyroxine Start: 04-16-2023 levothyroxine (Synthroid) 75 MCG tablet Indications: Acquired hypothyroidism (CMS/HCC) 1 tablet before a meal qd 90 tablet 3 04/16/2023 Active Start: 12-03-2018 Synthroid Oral , Daily, Refills(s) 0 Start Date: 12/03/18 Status: Ordered memantine hydrochloride 10 mg oral tablet (4 sources) T-iqqggy-X-aspartate Receptor Antagonist Start: 02-04-2023 memantine (Namenda) 10 MG tablet metFORMIN hydrochloride 500 mg / SITagliptin 50 mg oral tablet (7 sources) Biguanide, Dipeptidyl Peptidase 4 Inhibitor Start: 12-02-2022 take 1 tablet by mouth once daily at mealtime Janumet 50-500 MG tablet Indications: Diabetes mellitus due to underlying condition with hyperosmolarity without coma, without long-term current use of insulin (CMS/HCC) TAKE 1 TABLET BY MOUTH EVERY DAY WITH A MEAL FOR 90 DAYS 90 tablet 4 12/02/2022 Active Start: 02-18-2021 Janumet 50 mg/ 500 mg oral tablet 1 tab(s), Oral, BID, 60 tab(s), Refill(s) 0 Start Date: 02/18/21 Status: Ordered 24 hr mirabegron 25 mg extended release oral tablet (3 sources) beta3-Adrenergic Agonist Start: 05-07-2022 End: 01-02-2023 take 1 tablet by mouth once daily Myrbetriq 25 mg oral tablet, extended release 25 mg = 1 tab(s), Oral, Daily, X 30 day(s), # 30 tab(s), Refills(s) 7, Pharmacy: [facility]/pharmacy #[id number], 165, cm, 05/07/22 13:26:00 EST, Height/Length Dosing, 88, kg, 05/07/22 13:26:00 EST, Weight Dosing Start Date: 05/07/22 Stop Date: 01/02/23 Status: Ordered omeprazole 20 mg delayed release oral capsule (7 sources) Proton Pump Inhibitor Start: 05-04-2023 take 1 capsule by mouth once daily 30 minutes before breakfast omeprazole (PriLOSEC) [address] capsule Indications: Gastroesophageal reflux disease without esophagitis TAKE 1 CAPSULE BY MOUTH EVERY DAY 30 MINUTES BEFORE BREAKFAST IN THE MORNING 90 capsule 3 05/04/2023 Active Start: 10-08-2020 omeprazole Ora l, Daily, Refills(s) 0 Start Date: 10/08/20 Status: Ordered QUEtiapine 100 mg oral tablet (10 sources) Atypical Antipsychotic Start: 02-18-2021 take 1 mg by mouth twice daily quetiapine 100 mg Tab mg tab(s), Oral, BID, Refills(s) 0 Start Date: 02/18/21 Status: Ordered Start: 12-03-2018 quetiapine Ora l, Refills(s) 0 Start Date: 12/03/18 Status: Ordered traZODone hydrochloride 100 mg oral tablet (7 sources) Serotonin Reuptake Inhibitor Start: 01-15-2023 take 1 tablet by mouth at bedtime traZODone (Desyrel) 100 MG tablet Take 100 mg by mouth at bedtime 0 01/15/2023 Active Start: 12-03-2018 trazodone Oral , Refills(s) 0 Start Date: 12/03/18 Status: Ordered valproic acid 50 mg/ml oral solution (4 sources) Mood Stabilizer, Anti-epileptic Agent Start: 02-04-2023 valproic acid (Depakene) 250 MG/5ML oral liquid Verapamil (3 sources) Calcium Channel Sarah Start: 12-03-2018 verapa mil Refills(s) 0 Start Date: 12/03/18 Status: Ordered Vitamin D (3 sources) Start: 02-18-2021 Vitamin D International_Unit, Oral, qWeek, Refills(s) 0 Start Date: 02/18/21 Status: Ordered Problems Active Problems Problem Classification Problem Date Documented Date Episodic/Chronic Cancer of breast (7 sources) Malignant tumor of breast ; Translations: [Malignant neoplasm of unspecified site of unspecified female breast] Onset: 03-12-2023 12-03-2018 Chronic Cardiac dysrhythmias (8 sources) Atrial fibrillation; Translations: [Unspecified atrial fibrillation] Onset: 06-06-2022 12-03-2018 Chronic Chronic ulcer of skin (5 sources) 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; Translations: [Non-pressure chronic ulcer of other part of right foot with fat layer exposed] Onset: 06-06-2022 05-07-2023 Chronic Deficiency and other anemia (1 source) Other iron deficiency anemias; Translations: [OTHER IRON DEFICIENCY ANEMIAS] Onset: 06-06-2022 Episodic Delirium, dementia, and amnestic and other cognitive disorders (10 sources) Dementia; Translations: [Unspecified dementia without behavioral disturbance] Onset: 11-04-2022 11-04-2022 Chronic Diabetes mellitus with complications (13 sources) Type 2 diabetes mellitus with foot ulcer; Translations: [Retinopathy due to type 2 diabetes mellitus] Onset: 06-06-2022 Chronic Diabetes mellitus without complication (15 sources) Diabetes mellitus; Translations: [Type 2 diabetes mellitus without complications] Onset: 02-24-2022 12-03-2018 Chronic Disorders of lipid metabolism (8 sources) Hyperlipidemia; Translations: [Hyperlipidemia, unspecified] Onset: 06-06-2022 12-03-2018 Chronic Esophageal disorders (11 sources) Gastroesophageal reflux disease; Translations: [Gastro-esophageal reflux disease without esophagitis] Onset: 11-04-2022 12-03-2018 Chronic Essential hypertension (12 sources) Hypertensive disorder; Translations: [Essential (primary) hypertension] Onset: 06-06-2022 12-03-2018 Chronic Genitourinary symptoms and ill-defined conditions (15 sources) 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 sensory awareness; Translations: [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 sensory awareness] Onset: 05-07-2022 Chronic Genitourinary symptoms and ill-defined conditions (14 sources) Must strain to pass urine; Translations: [Urgent desire to urinate] Onset: 03-12-2023 03-02-2020 Episodic Malaise and fatigue (2 sources) Asthenia; Translations: [Weakness] 05-07-2023 Episodic Miscellaneous mental health disorders (4 sources) Primary insomnia; Translations: [Primary insomnia] Onset: 11-04-2022 11-04-2022 Chronic Other connective tissue disease (4 sources) Pain in right foot; Translations: [PAIN IN RIGHT FOOT] Onset: 05-28-2022 Episodic Other connective tissue disease (2 sources) Pain in right foot; Translations: [Pain in right foot] 05-07-2023 Episodic Other diseases of bladder and urethra (8 sources) Urethral stricture; Translations: [Other urethral stricture, female] Onset: 05-07-2022 Episodic Other diseases of kidney and ureters (7 sources) Renal mass; Translations: [Other specified disorders of kidney and ureter] Onset: 03-12-2023 12-03-2018 Chronic Other hereditary and degenerative nervous [...] other sites] Onset: 06-25-2022 Episodic Thyroid disorders (5 sources) Hypothyroidism, unspecified; Translations: [Hypothyroidism] Onset: 03-01-2022 11-04-2022 Chronic Urinary tract infections (8 sources) Urinary tract infectious disease; Translations: [Urinary tract infection, site not specified] Onset: 05-07-2022 Episodic Past or Other Problems Problem Classification Problem Date Documented Da te Episodic/Chronic Mood disorders (4 sources) Mood disorders Onset: 03-12-2023 03-12-2023 Other and unspecified benign neoplasm (1 source) Benign neoplasm of left kidney; Translations: [BENIGN NEOPLASM OF LEFT KIDNEY] Onset: 03-01-2022 Episodic Other and unspecified benign neoplasm (4 sources) Oncocytoma of left kidney; Translations: [Benign neoplasm of left kidney] Onset: 11-04-2022 11-04-2022 Episodic Residual codes; unclassified (1 source) Acquired absence of both cervix and uterus; Translations: [ACQUIRED ABSENCE BOTH CERVIX AND UTERUS] Onset: 03-01-2022 Episodic Residual codes; unclassified (1 source) Acquired absence of unspecified breast and nipple; Translations: [ACQUIRED ABSENCE UNS BREAST AND NIPPLE] Onset: 03-01-2022 Episodic Residual codes; unclassified (4 sources) Acquired absence of breast; Translations: [Acquired absence of unspecified breast and nipple] Onset: 11-04-2022 11-04-2022 Episodic Residual codes; unclassified (4 sources) Memory impairment; Translations: [Other amnesia] Onset: 11-04-2022 11-04-2022 Episodic Results Test Name Value Interpretation Reference Range Facility Coding Summary.on 05-12-2022 Coding Summary. CD:[id number] Gh 0bWw+PGhlYWQ+XV6ICFCwB 23huQOnnV9VC3xCHI6BERF PBBOXGJ1USQ9drDP9OKogW 2VybiAv HwkdsXMoRQ26HUm3TGY8wG yhIGblgM3dsLDvN5f6YvBe WA72uW96YEiwSMUrJgV7Ac ZpbjsgbWFy W6rmGqZklOTmDwq+PHRhYm xlIHdpZHRoPScxMDAlJyBz wNobYJ2gOt4nSPGnCKEgpS xhcHNlOiBj j7rgZCDmVBmiKC0grWnaT9 ZjeHE3KTAdz5m1Zl31xDZ+ BCQvSJS9wZlsNHaae825Qh Fcp2dmNWL6 mWSzJHydSMD4C54lc6N3TB HvPLElRFE0fLB6hA8faYyg xlsiL8HynVTkKcG4YAN5iS PvkS2jeEnv bxlfxV5fBbe+Q77EUL5GLZ SMMV7IVjs2M7McQivjsGN+ MD54BBMpRY98bLMgvQUxy9 kxeRd7ZaEw LESbCXX0jFneMZckv8NqVF NuO88nwPBrq4I0YDDywLzs wKHzCxBqxLQ3tJ4oHEgwrw ohd6zjzpst Miqjv6sroo50qT97Q13zGC vpNVHeGMV1GXZwQXHzjFsj nz9uoR9qDk6+HYkwe6oyr9 gzeGb3HmAm YENwggOjfCvbIAA2b1HpTc 83M4CnxAobv3PlBrt1hm05 gPOas2Q5gXI1BMrqCAJuiM 3mTCbjVwZ0 RMLiBfYjjA60hCJkUVveZj 3jvNzmvBczGJ6tKRKagzob SJPjbA2eMDCbaUBqfRhjGV 4wNTBpbjtm i946CdVoHSN6AXZkwKHqH4 HgzW7qVkWrLCUvHLDmH7Vw tLJfXFayM759HWvkXbO5PE MesxHfG2Pg SVDzaSfzAjA3o5Z1Op8Je6 YlbzfvBRA3MZthTPYaHqYw BrQrLqF7P1TrKcr5DOOizK tvCX8eR5Oc FTYubrmjuvroqID6AYPhNL SexP75xARyJUtoLi5bl2Z0 v482GUJyNTOteX89Tx6htG ogMTBwdCBU gI5kyumui4xrnkoyKhQvZW XjWWo8IJs8SNZtnGxnQySx NQX0RnO7LJU1cSNkgP1kgC angkljhB3e Oyc+Z23tuZ7yXMF4FNJ2wk pkDYGpwxKzKU95SF65B6Ca PjwvdGFibGU+PGRpdiBzdH enWM0gPmZb l6fol2YsLWzaC4YqYQCwGF qzRwc9PZRgPGX8qUH2jQ5m HVJsTCnoe4O1iYL3T1Rswv Zyrk5py6id PZSkKYjiZ58lkRMug6N3LX QxyLB8ROZvkIqvGnGxkR77 Oyc+CAQttJwlj8AvGipji4 sgc9hwxNa9 UbQcIEUyomNomZmzUNQ4r0 TuYb25B17rRYnrTRAeYGAb RAEpCLWmxVlmqz2ixU0eKm 8+PGNvbCB3 tAS2cW9cAGSiTlR2CTwqI8 52GbAwqVNhUemri9xln6qe dZr5EoTmJFOnwkJenPghXI X1g4UcVr67 J01rFDkdHILbDBXcRATfJG FvnUondk5pkJ3pTa7+PC9j z8efcw48lY61mOT+PHRkIH L7fNapWJdg TIDqjR6jLQqeNoD6QTByWo ZzgC39vXKiMBoyBd3jiOft tAvjRJ2qJLWfpclrg116Rs Wom1gxCDRa wCNnGLjsMKP7F95dd2T8RT GsITYeSRY6sTZ1yO9jbPgj bjogbGVmdDsgdmVydGljYW ffQHtkF774 IHRvcDsnPlBhdGllbnQgTm VfOKa9C9OpNfo4BXZnwIbe GE5bhQVxRFroVq7xpUpmcQ tuAS4rRAXv xanyz056MuYqf0xtHGYnqA BxJNxkASH8L83hp6P3JMGe SBPuXWN0cQU6tG3juUqhzq ogbGVmdDsg pgMxjWudDSofKKnaY028ES RvcDsnPkJpcnRoIERhdGU6 CW36TA66qHPhk0Y9xZX9B8 BhZGRpbmct xnzvgJI8FJHdHIQxlS44Cb 1gtKbyPl7mSYVcMHL5KFOo mKKaV2KprK1zLlBmALKjVM MbS8VoaIZe LFgdP073GNrmNtS3UNKdmb EqV6GnTZPeqLolRjK0j8X2 Il3YL8A7DH17EH93nQCae4 H6vYM0W0Md WZDdhpkxkpcmmTE1DWEvYJ ZkpA91Wb4vbXykUp3dUGPs VSR2UIHosXVqR3XjtI4tCn AjMDAwMDAw D1BitYVxHQpfY044HHmyMp D6TEKkvdUlX0DuJIHkoIvi XvN1h9O0Pv2IYLj0DE34SI 36eOWgo6C5 lGJ4S8OtKOJxsrxchmdsoJ P2NOQeWZJorD70Ru3blItb Qs5qUENoWIM4XTKhaXIhN1 KfkB6iKhLz XGTgNFKaD8ZxaUVqRVrxR4 00IOpuHrZ7FMQjhcHtU9Xa HMPvmEubNlL8a9E4Xj4SUJ FxPV99HEQ0 bRU1DD97IL79F8ToFrmtvQ FibGU+PHRhYmxlIHdpZHRo SSqcEXHcPaBjmLsvOZ3pHs 9yZGVyLWNv lVdmrNPbWcXjr4idTJZzGP ajXT2zsSwfV2XinAO3MITp k9z9Zd42X02dL0QnoUU+PG OmqLK6eSF0 hN9oMyLvVaB4ZOfcQ179Fp VbwJTzYzexx6dio4vaaSl0 DfJ4TUQqwvKanZpgRES6b4 EaCe35C37i IHdpZHRoPSIxNSUiIHZhbG tsnt7ldE4fXw1+PGNvbCB3 lHR0wG9wUjIlGgR4NYisG5 49InRvcCIv Mydqu0zuz4vlsUd4TdFkQJ WubhZytSxcGSK5u1HiCm76 Y0GsgLnoa9HoAsg2oy21oT Ydp1R7wMT8 Z9PzXNRccbfhfCMkaQjkZR 4jTZBsskfhWWXqtN0fUAIs A7b7CzYaTsW7KXcgD4Msom Q7QIHngFDc NGwwXEP4M23ag5J3LOGsPS YoKFV2vKB7sY8mlAsjhuir bGVmdDsgdmVydGljYWwtYW jiK249KHSf uIqbGZDswP6oIFDudMPcoG dhHW2nLOSlmipsUp7NRW9U QTFMGDHTXMYQNJ82NP84hH Tyx1Q7kHK5 D5FoOKKxunctcocfhTX1FM ZvLTBhfJ89qRUsPLvyFr7b x7A6l922TEIfPCRxvE39Ko 9udDogMTBw oIFKyA1slxwle7nveksvPf CbDEGwOCa8VYj5PWOaqFkm GtDxIUC3LeF5RQG4rUVcwT 1hbGlnbjog kR9zZqi+MDQvMTQvMTkzOT wvdGQ+HRDhQFW6gFrvPGiy OMIkdR7dJUHuS6o0IzQtLp F8RJynI1Nm XKAztmsnSj76jC9rTuPzPv M3XNdkI5QcxbB0RAUmdCWw CXvrBQN2E89qw9E0ZGGzWI QqLQI9fPN3 gM4nsSkjfymgnXDbhNevxh ZjpRmyRDcxLTcpR276NIXx cOziCyzmPAeoZNPoUW89ZU 74rBNoi6B2 rXY5W9NbOHWkqhfcwyxvzB C2GDYkCKYxhQ41oUOkAYpz Vu5nq1N8k190BVVxGKIuoB 32Uw0syKqb TDUozFWTsF3pcasrw2kicd dvOjSfMGXsNAt6DAu8MVIw rKqjVnNxWJD3WhM1MGS5hI XifL3ycUir yrmavI3sNph+RmVtYWxlPC 48MH78zGHen7C3iBJ7R2Sk WMYgshdtrstihCL6TQZuNU OxzA38oNWd WDnmSn0fe1W6f039MGHsTN MqhK85Tn8rqZsmTTEyvBHR yN0gamzqh6wzmxddCvLjNJ VjHWg5NGo7 LHPqbOkwIaOnEPK2EhJ5CD O6sAHwsH5xaGrpybiusU6d Oyc+THFfYXRaj6Mre9OhOP 97TC70O9Jy PjwvdGFibGU+PHRhYmxlIH dpZHRoPScxMDAlJyBzdHls UH9iDl2qHULvNOHdzOogxF DjFqXul3ty PAVfNEnyCQ6acDxsS7EokS M9DOBmf3o8Rv50B30fO6Nh dXA+KDKkaOY8xYW1cS5hYt OcCcA5QPgg F882ZuSitXMdXwanz2swq7 dilPi9GhOtUUIruhPcbEjw JSR2f6FrNp84C72jUTqaFD RoPSIyMCUi DJMxmKawuy3imD1pTd2+PG VcmVI8uXW4uU8lOjVlSqS7 JIpzI649OjZawATfEphcN1 4dE5QldRS+ ZJUtTux4TDXdgYtnUO7flT KeHYswLa4gTPE8NmYfPnXe LZczS0WlQEGkbjcoweokfX G4XMFwCXBh tH52Wm7hoFyxKw3eGWSuWB V2OGUigLMkU7VjqN4aEvHq ZMUnCYMbL5UehWJeZJpwA3 04QGxaIuH4 BBCmokRoZ8CvIFHczFwsVc V8x0I7Nv0AvRggjWExVT3v TvTtCBr8Z0ChUiw0UGUgwO sbST1lkLZm XNbwPk9rqNwmkZegZN6pVQ Zcqjxle700WlZnp4ztZDGv hMDpFWmfSGP7Q55jh4O2FQ MwMDAwMDA7 wMT6aT1ceYodkvyttXWsrP qiieWjePwhOEehKXmlN212 JGVqsVoiImBVNzl8W5LoHp u6UVCdqZdg IP3wnBRoYOyeYl6hsPbdwW iaLG6eFWKurvlao451VuQq t1kvWQOuyCMtHJapWSM6Y5 7sv9R3OGFl NRKxCXT6bDV3bH4toUixdm ogbGVmdDsgdmVydGljYWwt PTffY369ORRfpIrrIl4ZRa x3I7MgHnr8 ZHXafZheWW6wzIRrYCllAt 9klUysgFlePB1jKOOoguxj u287PrOod3frVGWdnUIrES qyIUW6I79l j5H9KOExSVOjOOV5pSQ3aL 1hbGlnbjogbGVmdDsgdmVy yUndJIjyLBfaN302NLDepQ snPlBheWVy OjwvdGQ+CZ72nq19I4AnBz kzTzk8WOJdOTY7zEK4dU0d TGKyMGtpo1B7yRO2Q4Haft Rjxa9jl1oi YXBz (more content not included)... [facility] C Urineon 05-09-2022 Bacteria identified Cx Nom [...] Locations R1: This test was performed at: [facility], [address] [place] [address], [facility] , , [facility] Comment on above: Performed By: #### [id number] #### [facility] [address] [place] [address] Ambulatory Visit Summaryon 0 05-07-2022 Ambulatory Visit Summary MILTON IBRAHIM :1940 Visit Date:05/07/2022 Ambulatory Visit Instructions Your Diagnosis Urinary tract infection 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 sensory awareness Other urethral stricture, female Tests Performed Urnls Dip Stick Auto w/o Microscopy POC 50921 Your Care Team Attending Physician - TANYA MARCH PA-C Primary Care Physician - LENNY CUEVA DO This Is Your Medications List [...] TANYA MARCH PA-C Where: [facility] Patient Educationon 05-07-19 Patient Education Urology [...] including vitamins, herbs, eye drops, creams, and cvts-srm-jycbfag medicines. ? Whether you are or may [...] diseases. (more content not included)... Normal [facility] Urology Office/Clinic Noteon 05-07-2022 Urology [...] if HTN increase. myrbetriq 25mg sent to [facility]. -void q2hrs, void before sensation 3. Other urethral stricture, female (N35.82: Other urethral stricture, female) S/p cysto/UD done 03/20/21. Follow up in 6 mos or sooner if needed. Pt to call with regarding any issues with Myrbetriq. Pt's son acknowledges understanding and agrees with plan. Follow-up With When Contact Information JOAQUIM MEEK, TANYA Weir, URL [address] [facility] [place] [address] Additional Instructions: f/u 6 mos Patient Education Urodynamic Testing Documentation recorded by the albert Hobbs accurately reflects the services(s) I performed and decisions made by me. Authenticated by Tanya March PA-C on 05/07/2022 14:05:19. Ashia Collins, personally scribed for MARIA ISABEL Menjivar on [...] Oral, qWeek (more content not included)... Normal [facility] Comment on above: Result Comment: Elec tronically Signed By: TANYA MARCH PA-C\.br\Date and Time Signed: 05/07/22 14:05 EST\.br\Electronically Co-Signed By: Ashia Hobbs\.br\Date and Time Co-Signed: 05/07/22 13:59 EST CBC AUTO DIFFon 02-24-2022 BASO # 0.1 103/ul Normal 0.0-0.1 [facility] Comment on above: Performed By: #### C BC #### [facility] [address] [place] [address] Dr. Ginette Ivan Basophils/100 WBC (Bld) 0.5 % Normal 0.2-2.0 [facility] Comment on above: Performed By: #### C BC #### [facility] [address] [address] [address] Ginette Ivan EO # 0.3 103/ul Normal 0.0-0.7 [facility] Comment on above: Performed By: #### C BC #### [facility] [address] [place] [address] Dr. Ginette Ivan Eosinophils/100 WBC (Bld) 2.3 % Normal 0.9-7.0 [facility] Comment on above: Performed By: #### C BC #### [facility] [address] [place] [address] Dr. Ginette Ivan Erythrocyte distribution width (RBC) [Ratio] 13.6 % Normal 11.0-15.0 [facility] Comment on above: Performed By: #### C BC #### [facility] [address] [place] [address] Dr. Gniette Ivan Hematocrit (Bld) [Volume fraction] 36.8 % Normal 36.0-48.0 [facility] Comment on above: Performed By: #### C BC #### [facility] [address] [place] [address] Dr. Ginette Ivan Hemoglobin (Bld) [Mass/Vol] 12.0 g/dL Normal 12.0-16.0 [facility] Comment on above: Performed By: #### C BC #### [facility] [address] [place] [address] Dr. Ginette Ivan IG # 0.03 10e3/ul Normal 0.00-0.03 [facility] Comment on above: Performed By: #### C BC #### [facility] [address] [place] [address] Dr. Ginette Ivan IG % 0.3 % Normal 0.0-0.5 [facility] Comment on above: Performed By: #### C BC #### [facility] [address] [place] [address] Dr. Ginette Ivan LYMPH # 3.9 103/ul Critically high 1.2-3.8 [facility] Comment on above: Performed By: #### C BC #### [facility] [address] [place] [address] Dr. Ginette Ivan Lymphocytes/100 WBC (Bld) 34.8 % Normal 20.5-60.0 [facility] Comment on above: Performed By: #### C BC #### [facility] [address] [place] [address] Dr. Ginette Ivan MANUAL DIFF REQ NO Normal [facility] Comment on above: Performed By: #### C BC #### [facility] [address] [place] [address] Dr. Ginette Ivan MCH (RBC) [Entitic mass] 28.4 pg Normal 26.7-34.0 [facility] Comment on above: Performed By: #### C BC #### [facility] [address] [place] [address] Dr. Ginette Ivan MCHC (RBC) [Mass/Vol] 32.6 g/dL Normal 29.9-35.2 [facility] Comment on above: Performed By: #### C BC #### [facility] [address] [place] [address] Dr. Ginette Ivan MCV (RBC) [Entitic vol] 87.0 fL Normal 81.0-99.0 [facility] Comment on above: Performed By: #### C BC #### [facility] [address] [place] [address] Dr. Ginette Ivan MONO # 0.8 103/ul Normal 0.3-0.8 [facility] Comment on above: Performed By: #### C BC #### [facility] [address] [place] [address] Dr. Ginette Ivan Monocytes/100 WBC (Bld) 7.0 % Normal 1.7-12.0 [facility] Comment on above: Performed By: #### C BC #### [facility] [address] [place] [address] Dr. Ginette Ivan NEUT # 6.2 103/ul Normal 1.4-6.5 [facility] Comment on above: Performed By: #### C BC #### [facility] [address] [place] [address] Dr. Ginette Ivan Neutrophils/100 WBC (Bld) 55.1 % Normal 43.0-75.0 [facility] Comment on above: Performed By: #### C BC #### [facility] [address] [place] [address] Dr. Ginette Ivan Platelet mean volume (Bld) [Entitic vol] 9.8 fL Normal 9.5-13.5 [facility] Comment on above: Performed By: #### C BC #### [facility] [address] [place] [address] Dr. Ginette Ivan PLT 304 103/ul Normal 150-450 [facility] Comment on above: Performed By: #### C BC #### [facility] [address] [place] [address] Dr. Ginette Ivan RBC 4.23 106/ul Normal 4.20-5.40 [facility] Comment on above: Performed By: #### C BC #### [facility] [address] [place] [address] Dr. Ginette Ivan WBC 11.2 103/ul Critically high 4.0-11.0 [facility] Comment on above: Performed By: #### C BC #### [facility] [facility] [address] [place] [address] Dr. Ginette Ivan FREE T4on 02-24-2022 Free T4 [Mass/Vol] 1.17 ng/dL Normal 0.76-1.46 [facility] Comment on above: Performed By: #### F T4 #### [facility] [address] [place] [address] Dr. Ginette Ivan GLYCOHEMOGLOBIN A1Con 2021 ADA RECOMMENDATION SEE BELOW Normal [facility] Comment on above: Result Comment: ADA RECOMMENDED LIMIT 4.0 - 6.0 ADA THERAPEUTIC TARGET < 7.0 ACTION SUGGESTED > 7.0 Performed By: #### A 1C #### [facility] [address] [place] [address] Dr. Ginette Ivan Glucose [Mass/Vol] 134 mg/dL Normal [facility] Comment on above: Performed By: #### A 1C #### [facility] [address] [place] [address] Dr. Ginette Ivan HbA1c (Bld) [Mass fraction] 6.3 % Critically high 4.5-6.2 [facility] Comment on above: Performed By: #### A 1C #### [facility] [address] [address] [address] Ginette Ivan LIPID PROFILEon 02-24-2022 CHOL-HDL RATIO NORM SEE BELOW Normal [facility] Comment on above: Result Comment: 3.3 - 4.4 LOW RISK 4.4 - 7.1 AVERAGE RISK 7.1 - 11.0 MODERATE RISK >11.0 HIGH RISK Performed By: #### T SH, LIPID, CMP #### [facility] [address] [address] [address] Ginette Ivan Cholesterol [Mass/Vol] 211 mg/dL Critically high <=200 [facility] Comment on above: Performed By: #### T SH, LIPID, CMP #### [facility] [address] [address] [address] Ginette Ivan Cholesterol in HDL [Mass/Vol] 62 mg/dL Critically high 40-60 [facility] Comment on above: Performed By: #### T SH, LIPID, CMP #### [facility] [address] [address] [address] Ginette Ivan Cholesterol in LDL [Mass/Vol] 113.6 mg/dL Normal [facility] Comment on above: Performed By: #### T SH, LIPID, CMP #### [facility] [address] [address] [address] Ginette Ivan Cholesterol.total/Ch olesterol in HDL [Mass ratio] 3.4 {ratio} Normal [facility] Comment on above: Performed By: #### T SH, LIPID, CMP #### [facility] [address] [address] [address] Ginette Ivan HDL NORMAL > or = 60 mg/dl - LO W CARDIOVASCULAR RISK <40 mg/dl - HIGH CARDIOVASCULAR RISK Normal [facility] Comment on above: Performed By: #### T SH, LIPID, CMP #### [facility] [address] [place] [address] Dr. Ginette Ivan LDL CALC NORMAL SEE BELOW Normal [facility] Comment on above: Result Comment: <100 mg/dl OPTIMAL 100 - 129 mg/dl NEAR OR ABOVE OPTIMAL 130 - 159 mg/dl BORDERLINE HIGH 160 - 189 mg/dl HIGH >190 mg/dl VERY HIGH Performed By: #### T SH, LIPID, CMP #### [facility] [address] [address] [address] Ginette Ivan Triglyceride [Mass/Vol] 177 mg/dL Critically high <=150 [facility] Comment on above: Performed By: #### T SH, LIPID, CMP #### [facility] [address] [place] [address] Dr. Ginette Ivan VLDL CALC 35.4 mg/dL Normal [facility] Comment on above: Performed By: #### T SH, LIPID, CMP #### [facility] [address] [place] [address] Dr. Ginette Ivan MICROALBUMIN, RAND URon 01-29 mALB 3.2 mg/L Normal <=30.0 [facility] Comment on above: Performed By: #### M ALBR #### [facility] [address] [place] [address] Dr. Ginette Ivan PROF 14(COMP METB)on 022 Albumin [Mass/Vol] 3.3 g/dL Critically low 3.4-5.0 [facility] Comment on above: Performed By: #### T SH, LIPID, CMP #### [facility] [address] [place] [address] Dr. Ginette Ivan Albumin/Globulin [Mass ratio] 0.7 {ratio} Normal [facility] Comment on above: Performed By: #### T SH, LIPID, CMP #### [facility] [address] [place] [address] Dr. Ginette Ivan ALP [Catalytic activity/Vol] 117 U/L Critically high 46-116 [facility] Comment on above: Performed By: #### T SH, LIPID, CMP #### [facility] [address] [place] [address] Dr. Ginette Ivan ALT [Catalytic activity/Vol] 11 U/L Critically low 14-59 [facility] Comment on above: Performed By: #### T SH, LIPID, CMP #### [facility] [address] [place] [address] Dr. Ginette Ivan Anion gap [Moles/Vol] 12.7 mmol/L Normal [facility] Comment on above: Performed By: #### T IFEANYI, LIPID, CMP #### [facility] [address] [place] [address] Dr. Ginette Ivan AST [Catalytic activity/Vol] 18 U/L Normal 15-37 [facility] Comment on above: Performed By: #### T SH, LIPID, CMP #### [facility] [address] [place] [address] Dr. Ginette Ivan Bilirubin [Mass/Vol] 0.2 mg/dL Normal 0.2-1.0 [facility] Comment on above: Performed By: #### T IFEANYI LIPID, CMP #### [facility] [address] [place] [address] Dr. Ginette Ivan Calcium [Mass/Vol] 9.1 mg/dL Normal 8.5-10.1 [facility] Comment on above: Performed By: #### T IFEANYI, LIPID, CMP #### [facility] [address] [place] [address] Dr. Ginette Ivan Chloride [Moles/Vol] 100 mmol/L Normal 98-107 [facility] Comment on above: Performed By: #### T IFEANYI LIPID, CMP #### [facility] [address] [place] [address] Dr. Ginette Ivan CO2 [Moles/Vol] 26.3 mmol/L Normal 21.0-32.0 [facility] Comment on above: Performed By: #### T IFEANYI, LIPID, CMP #### [facility] [address] [place] [address] Dr. Ginette Ivan Creatinine [Mass/Vol] 0.72 mg/dL Normal 0.55-1.02 [facility] Comment on above: Performed By: #### T SH, LIPID, CMP #### [facility] [address] [place] [address] Dr. Ginette Ivan EGFR-AF [place] >60 Normal >=60 [facility] Comment on above: Performed By: #### T SH, LIPID, CMP #### [facility] [address] [address] [address] Ginette Ivan EGFR-NON AF [place] >60 Normal >=60 [facility] Comment on above: Performed By: #### T IFEANYI, LIPID, CMP #### [facility] [address] [place] [address] Dr. Ginette Ivan Globulin (S) [Mass/Vol] 4.6 g/dL Normal [facility] Comment on above: Performed By: #### T IFEANYI, LIPID, CMP #### [facility] [address] [place] [address] Dr. Ginette Ivan Glucose [Mass/Vol] 133 mg/dL Critically high 74-106 [facility] Comment on above: Performed By: #### T IFEANYI, LIPID, CMP #### [facility] [address] [place] [address] Dr. Ginette Ivan Potassium [Moles/Vol] 4.0 mmol/L Normal 3.5-5.1 [facility] Comment on above: Performed By: #### T IFEANYI, LIPID, CMP #### [facility] [address] [place] [address] Dr. Ginette Ivan Protein [Mass/Vol] 7.9 g/dL Normal 6.4-8.2 [facility] Comment on above: Performed By: #### T IFEANYI, LIPID, CMP #### [facility] [address] [place] [address] Dr. Ginette Ivan Sodium [Moles/Vol] 135 mmol/L Critically low 136-145 [facility] Comment on above: Performed By: #### T IFEANYI, LIPID, CMP #### [facility] [address] [place] [address] Dr. Ginette Ivan Urea nitrogen [Mass/Vol] 21.0 mg/dL Critically high 7.0-18.0 [facility] Comment on above: Performed By: #### T IFEANYI, LIPID, CMP #### [facility] [address] [place] [address] Dr. Ginette Ivan Urea nitrogen/Creatinine [Mass ratio] 29.2 mg/mg Normal [facility] Comment on above: Performed By: #### T IFEANYI, LIPID, CMP #### [facility] [address] [place], [place] [address] Dr. Ginette Ivan TSHon 02-24-2022 TSH 9.395 uIU/mL Critically high 0.358-3.740 [facility] Comment on above: Performed By: #### T SH, LIPID, CMP #### [facility] [address] [place], [place] [address] Dr. Ginette Ivan Vital Signs Date Time Vital Sign Value Performing Clinician Faci lity 05-07-2022 13:24-0500 Blood Pressure Location TANYAPENELOPE HARTLEYRY [facility] 05-07-2022 13:24-0500 Diastolic blood pressure 74 mm[Hg] TANYA JOAQUIM [facility] 05-07-2022 13:24-0500 Heart rate 68 /min TANYA JOAQUIM [facility] 05-07-2022 13:24-0500 Respiratory rate 16 /min TANYA JOAQUIM [facility] 05-07-2022 13:24-0500 Systolic blood pressure 132 mm[Hg] TANYA JOAQUIM 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); Ulcer of right foot with fat layer exposed (CMS/HCC); Diabetes mellitus due to underlying condition with diabetic polyneuropathy, without long-term current use of insulin (CMS/HCC); Right foot pain; Generalized weakness; Dementia without behavioral disturbance ([facility]/HCC) Start: 05-07-2023 End: 05-07-2023 ambulatory SHAUNNA Celestin KIANA Not Available Start: 03-12-2023 End: 03-13-2023 ambulatory LENNY CUEVA Not Available Start: 11-05-2022 End: 11-06-2022 ambulatory TANYA MARCH Facility: [facility] Start: 11-05-2022 End: 11-05-2022 Patient encounter procedure TANYA MARCH [facility] Start: 08-15-[address] LENNY CUEVA Facility :[facility] Start: 07-14-2022 End: 07-15-2022 ambulatory LETY MCCONNELL Facility:[facility] Start: 06-18-2022 End: 06-19-2022 ambulatory LETY MCCONNELL Facility:[facility] Start: 05-28-2022 End: 05-29-2022 ambulatory LETY MCCONNELL Facility: Start: 05-07-2022 End: 05-08-2022 ambulatory TANYA MARCH Facility:[facility] Start: 05-07-2022 End: 05-07-2022 Lab Drop off TANYA MARCH [facility] Start: 05-07-2022 End: 05-07-2022 Patient encounter procedure TANYA MARCH [facility] Start: 02-24-2022 End: 02-25-[address] DOCTOR DUKE Facility:[facility] Procedures Date Procedure Procedure Detail Performing Clinician Start: 11-04-2022 H/O: hysterectomy H/O: hysterectomy Shaunna Bruno DPM Work Phone: Start: 03-19-2021 Cystourethroscopy with dilation of urethral stricture TANYA MARCH Start: 08-19-2016 Cystourethroscopy with dilation of urethral stricture TANYA MARCH Start: 07-16-2016 Urodynamic studies TANYA MARCH Appendectomy TANYA MARCH Bilateral mastectomy MATHEW MARCH Cholecystectomy TANYA MAY Hysterectomy TANYA MARCH Plan of Treatment Date Care Activity Detail Author Start: 03-12-2024 Medicare Annual Well ness (AWV) Medicare Annual Wellness (AWV) [facility] Start: 06-11-2023 Hemoglobin A1c measurement Diabetes: Hemoglobin A1C [facility] Start: 05-27-2023 End: 05-27-2023 Patient encounter procedure 05/27/2023 3:45 PM EST Office Visit [facility] [address] [place] [phone] Shaunna Bruno, DPM [address] [place] [address] [facility] Start: 05-14-2023 Glaucoma screening Diabetes: R etinopathy Screening [facility] Start: 05-07-2023 End: 05-07-2023 Patient encounter procedure 05/07/2023 2:00 PM EST Office Visit [facility] [address] [place] [phone] Shaunna Bruno, DPM [address] [place] [address] [facility] Start: 11-28-2022 Influenza vaccination Influenza Vacc ine (#1) [facility] Start: 02-14-2022 Urine screening for protein Diabetes: Urine Protein Screening [facility] Immunizations Immunization Date Immunization Notes Care Provider Marsha calix 05-29-2020 SARS-CoV-2 (COVID-19 ) mRNA-1273 vaccine TANYA JOAQUIM [facility] 05-07-2020 SARS-CoV-2 (COVID-19 ) mRNA-1273 vaccine TANYA JOAQUIM [facility] 05-01-2020 SARS-CoV-2 (COVID-19 ) mRNA-1273 vaccine TANYA JOAQUIM [facility] 12-25-2017 influenza virus vaccine, unspecified formulation TANYA JOAQUIM [facility] 12-25-2017 influenza, injectabl e, quadrivalent, preservative free Shaunna Wingina DPM Work Phone: [facility] 12-12-2016 influenza, injectabl e, madin alcon canine kidney, preservative free Shaunna Wingina DPM Work Phone: [facility] 12-12-2016 Influenza, injectabl e, Madin [place] Canine Kidney, preservative free, quadrivalent Shaunna Wingina DPM Work Phone: [facility] 12-17-2015 influenza virus vaccine, unspecified formulation TANYA JOAQUIM [facility] 12-17-2015 influenza, injectabl e, quadrivalent, contains preservative Shaunna Wingina DPM Work Phone: [facility] 12-17-2015 influenza, injectabl e, quadrivalent, preservative free Shaunna Wingina DPM Work Phone: [facility] 12-27-2014 influenza, seasonal, injectable, preservative free Shaunna Wingina DPM Work Phone: [facility] 12-27-2014 pneumococcal conjuga te vaccine, 13 valent Shaunna Manzonthal DPM Work Phone: [facility] 03-28-2013 pneumococcal polysaccharide vaccine, 23 valent Shaunna Manzonthal DPM Work Phone: [facility] Payers Date Payer Category Payer Medicare [employer] MEDICARE REPLACEMENT [id number] 2022-Present [address] [address] [place] [address] [id number] 2022 Private Health Insurance [id number] 1961 Medicare [id number] 1961 Medicare [id number] 1938 Unknown [id number]. 593 1938 Unknown [id number] [id number]. 593 1938 Unknown [id number] [id number]. 593 1938 Unknown [id number] [id number]. 593 1938 Unknown [id number] 2.16.840.1.524729.3.579.2. 593 1938 Unknown [id number] [id number]. 727 1938 Unknown [id number] [id number]. 727 1938 Unknown [id number] 2.16.840.1.095838.3.579.2. 727 1938 Unknown [id number] 2.16.840.1.277715.3.579.2. 1259 1938 Unknown [id number] 2.16.840.1.621743.3.579.2. 1259 1938 Unknown [id number] 2.16.840.1.881990.3.579.2. 9 1938 Unknown [id number] [id number]. 9 1938 Unknown [id number]. 1259 Social History Date Type Detail Facility Start: 05-07-2022 End: 03-12-2023 Tobacco smoking status Never smoked tobacco (finding) [facility] Tobacco smoking status Never [facility] Start: 03-12-2023 End: 05-07-2023 Sex Assigned At Female [facility] Start: 03-12-2023 Tobacco use and exposure Smokeless tobacco non-user [facility] Start: 03-12-2023 End: 05-07-2023 Alcohol intake Lifetime non-drinker (finding) [facility] Start: 03-12-2023 End: 05-07-2023 History of Social function [facility] Start: 02-09-2023 Alcohol Comment no caffeine intake [facility] Start: 1940 Sex Assigned At Not on file [facility] NEGATED: Highlighted rowStart: NINF History of tobacco use Passive smoker [facility] Medical Equipment Procedure Code Equipment Code Equipment Origin al Text Equipment Identifier Dates USE 1 TEST STRIP IN VITRO ONCE DAILY 50 DAYS [id number] Start: 03-01-2023 Functional Status Date Assessment Result Facility 05-07-2022 Functional Status N/A [facility] History of Present illness Narrative 05-07-2023 Shaunna Bruno DPM - 05/07/2023 2:00 PM EST Note Date & Type Note Facility 05-07-2023 History of Presen t illness Narrative HPI: Patient presents today for evaluation of a wound/ulcer on the right plantar foot. Wound has been present for months. (02/2023) Previous treatment consists of: Evaluaed by PCP, Dr Cueva, [facility] . Patient has not had a history of amputation. Patient is diabetic. No other complaints. A1C 6.4 Exam: FOOT EXAM: 05/07/23 General Examination: GENERAL APPEARANCE: awake, aware of surroundings, in no acute distress Vascular: DORSALIS PEDIS PULSE: 1/4 bilaterally POSTERIOR TIBIAL PULSE: 0/4 bilaterally TEMPERATURE GRADIENT: warm to cool EDEMA: minimal CAPILLARY FILLING TIME(sec): capillary fill intact bilateral digits less than 3 secs Neurologic: VIBRATORY: not tested SEMMES-SYDNI 5.07 MONOFILAMENT: decreased sensation distal to the midfoot bilaterally Dermatologic: HYPERKERATOSIS: hyperkeratotic lesion with underlying ulcer plantar 1st met head right NAIL PATHOLOGY: digits 1-5 bilateral are intact SKIN PATHOLOGY: ulceration plantar 1st met head right Ulcer: LOCATION: plantar 1st metatarsal head right THICKNESS: full STAGE: Rees stage II PREVIOUS MEASUREMENT: N/a PRE DEBRIDEMENT SIZE: lesion was covered by hyperkeratotic tissue POST DEBRIDEMENT SIZE: 0.4 x 0.2 cm in diameter and 0.3 cm in depth DRAINAGE: none MALODOR: none BASE: granular WOUND EDGES: hyperkeratotic SURROUNDING TISSUE: normal SURROUNDING SOI: none Orthopedic: FOOT MORPHOLOGY: pronation JOINT RANGE OF MOTION: limited ability to ambulate, patient is in a wheelchair at this time. DEFORMITIES: Mild hammertoe deformities 2 through 5 bilaterally MUSCLE STRENGTH: 4/5 for all pedal groups tested Assessment: 1. Ulcer of right foot with fat layer exposed - L97.512 2. 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 Right foot pain - M79.671 5. Generalized weakness- R53.1 6. Dementia without behavioral disturbance - F03.90 Plan: 1. Completed initial examination. Discussed etiology and treatment options with the patient and her sons at length. Debrided ulceration on the plantar 1st met head right with tissue nippers and curette. Minimal bleeding encountered controlled with direct pressure. A total of 0.08 cm2 was debrided today. Dry sterile dressing was applied. This may be one of a series of staged debridements in order to heal this wound which has been present for well over 6 months now. 2. Orders will be sent to home health for daily dressing changes which will include flushing the wound with Vashe soaked sponge for 5 minutes followed by dressing with Medihoney, nonstick Telfa gauze, 4x4s, Kerlix, and Dileep wrap. Patient will continue to ambulate in her postop shoe. A diabetic replacement kit was dispensed today to increase offloading. 3. Patient and family are advised to keep dressings clean and dry. The patient ambulates minimally at this point but is okay to work with physical therapy as long as she ambulates in her postop shoe. 4. Patient is to reappoint in 2 weeks. Family is advised to call if signs of infection develop and progress including increased redness swelling or purulent drainage. 5. I believe the patient would benefit from having a hospital bed in her home. The patient currently sleeps in a recliner and has a restless leg type disorder which causes her to constantly move and put pressure on the right forefoot which will impede the healing of this wound. Chest will require elevation To offload and alleviate painas well as positioning in bed to help offload the right lower extremity and minimize lower extremity edema. This can not be accomplished in her recliner. The patient will likely require this bed for the duration of her life that she has a progressive dementia in addition to her other multiple comorbidities including diabetes with peripheral neuropathy. documented in this encounter [facility] Clinical Note 05-28-2022 Note Date & Type [...] authenticated by: ZEENAT WASHINGTON Date: 2022-05-28 18:02 [facility] Discharge instructions 05-07-2022 Note Date & Type [...] including vitamins, herbs, eye drops, creams, and [id number]-rnegmgv medicines. ?Whether you are or may be [...] 01/11/2008 Document Revised: 07/05/2019 Document Reviewed: 01/18/2018 [employer] Patient Education 2020 [employer]. Follow Up Care 11/04/2021 13:08:14 With:TANYA MARCH PA-C, URL Address: [address] [place] [address] When: Unknown [facility] Evaluation + Plan note Note Date & Type Note Facility Evaluation + Plan note Future Appointments Appointment Date:11/05/2022 01:00:00 PM Scheduled Provider:TANYA MARCH PA-C Location:[facility] Appointment Type:URO Office Visit 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/HCC)- Primary Ulcer of right foot with fat layer exposed (CMS/HCC) Diabetes mellitus due to underlying condition with diabetic polyneuropathy, without long-term current use of insulin (CMS/HCC) Right foot pain Pain in soft tissues of limb Generalized weakness Dementia without behavioral disturbance (CMS/HCC) documented in this encounter [facility] Hospital course Narrative Note Date & Type Note Facility Hospital course Narrative No data available for this section [facility] Hospital Discharge instructions Note Date & Type Note Facility Hospital Discharge instructions No data available for this section [facility] Progress note Note Date & Type Note Facility Progress note No data available for this section [facility] Summary Purpose Family History No Family History Records FoundNo Family History Records FoundNo Family History Records Found Advance Directives No Advanced Directives Records FoundNo Advanced Directives Records FoundNo Advanced Directives Records Found Additional Source Comments Patient Care team informatio n (unrecognized section and content) [employer] 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 Relationship Specialty Start Date End Date Lenny Cueva DO [address] [place] [address] PCP - General Family Medicine 08/05/22 Faustino Cruz MD [address] [place] [address] Referring Physician Neurology 03/12/23 Kristofer Carlton MD [address] [place] [phone] Referring Physician Psychiatry 03/12/23 Lety Mcconnell MD [address] [place] [phone] Referring Physician Podiatry 03/12/23 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 Relationship Specialty Start Date End Date Lenny Cueva DO [address] [place] [address] PCP - General Family Medicine 08/05/22 Faustino Cruz MD [address] [place] [id number] Referring Physician Neurology 03/12/23 Kristofer Carlton MD [address] [place] [address] Referring Physician Psychiatry 03/12/23 Lety Mcconnell MD [address] [place] [address] Referring Physician Podiatry 03/12/23 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 Relationship Specialty Start Date End Date Lenny Cueva DO [address] [address] PCP - General Family Medicine 08/05/22 Faustino Cruz MD [address] [place] [address] Referring Physician Neurology 03/12/23 Kristofer Carlton MD [address] [place] [id number] Referring Physician Psychiatry 03/12/23 Lety Mcconnell MD [address] [place] [address] Referring Physician Podiatry 03/12/23 INFORMATION SOURCE (unrecogn ized section and content) DATE CREATED AUTHOR 08/08/2022 Estefani perez DATE CREATED AUTHOR AUTHOR'S ORGANIZ ATION 11/06/2022 [facility] DATE CREATED AUTHOR AUTHOR'S ORGANIZ ATION 10/14/2023 [facility] EPIC Reason for Visit (unrecogniz ed section and content) Reason Comments Foot Ulcer Specialty Diagnoses / Procedures Referred By Shira t Referred To Contact Podiatry Diagnoses Ulcer of right foot with fat layer exposed ([facility]) Procedures [place] OFFICE/OUTPATIENT [facility] MDM 60 MINUTES Lenny Cueva DO [address] [place] [address] Shaunna Bruno DPM [address] [place] [address] Referral ID Status Reason Start Date Expiration Date V isits Requested Visits Authorized [id number] Closed Specialty Services Required 04/23/2023 10/20/2023 1 1 FOR RECORDS PERTAINING TO PATIENTS WHO ARE [...] BE BASED ON THE PRIMARY CLINICAL RECORDS. [facility]. provides no warranty or guarantee of the accuracy or completeness of information in this document.
[2023-11-04 12:26] LABS: Hematocrit 38.3 % (36.0-48.0); Hemoglobin 12.4 g/dL (12.0-16.0); Mean Corpuscular HGB Conc 32.4 g/dL (29.9-35.2); Mean Corpuscular Hemoglobin 28.4 pg (26.7-34.0); Mean Corpuscular Volume 87.8 fL (81.0-99.0); Mean Platelet Volume 11.4 fL (9.5-13.5); Platelet Count 282 10^3/uL (150-450); Red Blood Count 4.36 10^6/uL (4.20-5.40); Red Cell Distribution Width 13.8 % (11.0-15.0); White Blood Count 10.6 10^3/uL (4.0-11.0)
[2023-11-04 12:28] LABS: Bilirubin Urine NEGATIVE (NEGATIVE); Blood Urine SMALL (NEGATIVE); Clarity Urine CLOUDY (CLEAR); Color Urine YELLOW (YELLOW); Glucose Urine UA NEGATIVE (NEGATIVE); Ketones Urine NEGATIVE (NEGATIVE); Leukocyte Esterase Urine LARGE (NEGATIVE); Nitrite Urine POSITIVE (NEGATIVE); Protein Urine TRACE mg/dL (NEG/TRACE)
[2023-11-04 12:47] LABS: Estimated Average Glucose 134 mg/dL; Glycohemoglobin A1C 6.3 % (4.5-6.2)
[2023-11-04 13:00] LABS: Alanine Aminotransferase 23 U/L (14-59); Albumin Globulin Ratio 0.7; Alkaline Phosphatase 118 U/L (46-116); Anion Gap 14.5; Aspartate Amino Transferase 20 U/L (15-37); BUN Creatinine Ratio 25.4; Bilirubin Total 0.3 mg/dL (0.2-1.0); Calcium 9.5 mg/dL (8.5-10.1); Carbon Dioxide 28.2 mmol/L (21.0-32.0); Chloride 101 mmol/L (98-107); Estimated GFR (African America >60 (>=60); Estimated GFR (Non-African Ame >60 (>=60); Globulin 4.5 g/dL; Glucose 114 mg/dL (74-106); Potassium 4.7 mmol/L (3.5-5.1); Sodium 139 mmol/L (136-145); Total Protein 7.5 g/dL (6.4-8.2)
== END 2023-11-04 11:58 | disposition home or self-care (01) ==
LOC: LAB 11:57
PROVIDERS: Visit Provider Family Medicine
DX: E11.8 Type 2 diabetes mellitus with unspecified complications (principal); G30.9 Alzheimer's disease, unspecified; I48.91 Unspecified atrial fibrillation; R82.998 Other abnormal findings in urine
CPT/HCPCS: 36415; 80053; 81003; 83036; 84443; 85027; 87086; 87150; 87186

== ENCOUNTER 2023-12-16 14:00 | Emergency (ER) | payer MEDICARE, SELFPAY ==
[2023-12-16 14:04] VITALS: BP 157/105; PULSE 109; TEMP 36.8; O2SAT 93
--- NOTE | 2023-12-16 14:05 | CT_ITS ---
The [address] [address] Patient Name: MILTON IBRAHIM MRN: [id number] date: 1940 Sex: F Assigned Patient Location: ER Current Patient Location: ED.MAIN Accession/Order Number: [id number] Exam Date: 12/16/2023 15:18 Report Date: 12/16/2023 17:43 At the request of: ROMY ALDRICH Procedure: CT pelvis w con CT pelvis with contrast, 12/16/2023. HISTORY: Sacral ulcer. COMPARISON: CT abdomen and pelvis, 04/04/2019. TECHNIQUE: Postcontrast axial CT images obtained through the pelvis. Reconstructions obtained in the sagittal and coronal planes. Dose reduction techniques were achieved by using automated exposure control and/or adjustment of mA and/or kV according to patient size and/or use of iterative reconstruction technique. FINDINGS: There is a small decubitus ulcer overlying the lower portion of the sacrum to the left side measuring approximately 4 mm in depth and 6 mm in width. There is surrounding soft tissue swelling and edema. The underlying bone appears to be intact. No abscess identified. There is some swelling and edema around the left hip without a fluid collection or abscess. The visualized pelvic structures are unremarkable. Prior hysterectomy. Diverticulosis of the sigmoid colon. CT/CT pelvis w con IMPRESSION: There is a small area of sacral decubitus ulceration overlying the lower sacrum on the left side measuring 4 mm in depth. This does not extend down to the bone. No evidence of osteomyelitis. No abscess. Electronically authenticated by: BARON MORFIN Date: 12/16/2023 17:43
--- NOTE | 2023-12-16 14:06 | ED.GENADUL1 ---
HPI HPI - General Adult General Chief complaint: Skin/Abscess/Foreign Body Stated complaint: WOUND IRRITATION Time Seen by Provider: 12/16/23 14:03 Source: EMR Mode of arrival: ambulance History of Present Illness HPI narrative: Patient is an 83-year-old female with dementia who presents to the emergency department by ambulance for evaluation of an apparently worsening sacral ulcer. EMS reports that home health manages the patient at home, she has been previously diagnosed with a stage II sacral ulcer but home health thought she should be evaluated in the emergency department as they believe the sacral ulcer is now stage IV and the patient was complaining of increased pain. Unknown if the patient has had any fevers or vomiting. She is apparently a full code. EMS reports that the home health nurse and family were concerned that the patient may have displaced her coccyx as they felt a bulge near the area of the ulcer Related Data Previous Rx's ?Medication ?Instructions ?Recorded doxycycline hyclate 100 mg tablet 100 mg PO BID 10 days #20 tabs 12/16/23 Allergies Allergy/AdvReac Type Severity Reaction Status Date / Time Penicillins Allergy Unknown Unknown Verified 12/16/23 15:08 sulfabenzamide Allergy Unknown Unknown Verified 12/16/23 15:08 Opioid HPI Opioid Management Most Recent Opioid Data: No Data to Display Review of Systems ROS Status of ROS unobtainable due to mental status Exam Narrative Exam Narrative: Gen.: Awake, alert, in no distress Head: Normocephalic, atraumatic ENT: Moist mucous membranes Respiratory: No respiratory distress Back: Stage II sacral ulcer, approximately 3 x 2 cm with surrounding erythema, no palpable deformity of the spine or posterior pelvis Extremities: Moves extremities equally Psych: Normal mood and affect Neuro: No focal neuro deficit Skin: Warm, dry, intact Constitutional Vital Signs, click to edit/add: Last Vital Signs Temp 98.2 F 12/16/23 14:04 Pulse 109 H 12/16/23 14:04 Resp 12/16/23 14:04 BP 157/105 H 12/16/23 14:04 Pulse Ox 93 L 12/16/23 14:04 O2 Del Method Room Air 12/16/23 14:04 Course Vital Signs Vital signs: Vital Signs Temperature 98.2 F 12/16/23 14:04 Pulse Rate 109 H 12/16/23 14:04 Respiratory Rate 12/16/23 14:04 Blood Pressure 157/105 H 12/16/23 14:04 Pulse Oximetry 93 L 12/16/23 14:04 Oxygen Delivery Method Room Air 12/16/23 14:04 Temperature 98.2 F 12/16/23 14:04 Pulse Rate 109 H 12/16/23 14:04 Respiratory Rate 17 12/16/23 14:04 Blood Pressure 157/105 H 12/16/23 14:04 Pulse Oximetry 93 L 12/16/23 14:04 Oxygen Delivery Method Room Air 12/16/23 14:04 Medical Decision Making MDM Narrative Medical decision making narrative: Lab studies are within normal limits, inflammatory markers are elevated. Exam of the sacral area shows a stage II-III ulcer with no evidence of bone exposure or obvious deformity. CT of the pelvis shows no evidence of bony deformity or displacement. No evidence of osteomyelitis or abscess. Patient will be started on antibiotics, referred to wound care, return to the ER if symptoms change or worsen. Patient's son did want to file a DNR order, he states he believes that the patient was a DNR but home health in this facility do not have any DNR on record. This was done by attending physician at the bedside with the patient's son. Patient is now a DNR comfort care. She is discharged home with Augmentin, wound care referral and return to the emergency department if symptoms change or worsen. SHARED APC VISIT, PHYSICIAN ATTESTATION: [id number] I performed a substantive part of the MDM during the patient?s E/M visit. I personally evaluated and examined the patient. I personally made or approved the documented management plan and acknowledge its risk of complications. Medical Records Medical records reviewed: Yes I reviewed the patient's medical records Lab Data Lab results reviewed: Yes I reviewed the patient's lab results Labs: Lab Results 12/16/23 Range/Units 14:37 WBC 10.7 (4.0-11.0) 10^3/uL RBC 4.50 (4.20-5.40) 10^6/uL Hgb 12.6 (12.0-16.0) g/dL Hct 39.5 (36.0-48.0) % MCV 87.8 (81.0-99.0) fL MCH 28.0 (26.7-34.0) pg MCHC 31.9 (29.9-35.2) g/dL RDW 14.1 (11.0-15.0) % Plt Count 433 (150-450) 10^3/uL MPV 9.3 L (9.5-13.5) fL Neut % (Auto) 60.3 (43.0-75.0) % Lymph % (Auto) 30.2 (20.5-60.0) % Custer % (Auto) 6.2 (1.7-12.0) % Eos % (Auto) 2.1 (0.9-7.0) % Baso % (Auto) 0.7 (0.2-2.0) % Neut # (Auto) 6.5 (1.4-6.5) 10^3/uL Lymph # (Auto) 3.2 (1.2-3.8) 10^3/uL Custer # (Auto) 0.7 (0.3-0.8) 10^3/uL Eos # (Auto) 0.2 (0.0-0.7) 10^3/uL Baso # (Auto) 0.1 (0.0-0.1) 10^3/uL Abs Immat Gran (auto) 0.05 H (0.00-0.03) 10^3/uL Imm/Tot Granulo (auto) 0.5 (0.0-0.5) % ESR >130 H (<=30) mm/hr PT 10.4 (9.0-11.6) sec INR 0.98 VBG pH 7.413 (7.330-7.430) VBG pCO2 42.4 (40.0-52.0) mmHg Sodium 135 L (136-145) mmol/L Potassium 4.0 (3.5-5.1) mmol/L Chloride 100 (98-107) mmol/L Carbon Dioxide 28.9 (21.0-32.0) mmol/L Anion Gap 10.1 BUN 20.0 H (7.0-18.0) mg/dL Creatinine 0.67 (0.55-1.02) mg/dL Est GFR ( Amer) >60 (>=60) Est GFR (Non-Af Amer) >60 (>=60) BUN/Creatinine Ratio 29.9 Glucose 157 H (74-106) mg/dL Lactate 1.8 (0.4-2.0) mmol/L Calcium 9.5 (8.5-10.1) mg/dL Total Bilirubin 0.4 (0.2-1.0) mg/dL AST 18 (15-37) U/L ALT 15 (14-59) U/L Alkaline Phosphatase 115 (46-116) U/L C-Reactive Protein 1.37 H (<=0.50) mg/dL Total Protein 8.3 H (6.4-8.2) g/dL Albumin 2.9 L (3.4-5.0) g/dL Globulin 5.4 g/dL Albumin/Globulin Ratio 0.[address] scan - pelvis: Attestation: I have reviewed the pertinent imaging results. Radiologist's impression: ITS Impressions Pelvis CT 12/16/23 14:05 IMPRESSION: There is a small area of sacral decubitus ulceration overlying the lower sacrum on the left side measuring 4 mm in depth. This does not extend down to the bone. No evidence of osteomyelitis. No abscess. Electronically authenticated by: BARON MORFIN Date: 12/16/2023 16:41 Discharge Plan Discharge Chief Complaint: Skin/Abscess/Foreign Body Clinical Impression: Sacral ulcer Patient Disposition: Home, Self-Care Time of Disposition Decision: 16:50 Condition: Good Prescriptions / Home Meds: New doxycycline hyclate 100 mg tablet 100 mg PO BID 10 Days Qty: 20 0RF Print Language: [place] Citizen Instructions: Acute Wounds (ED) Additional Instructions: [address], [place] [address] ? Contact Information For more information or to schedule an appointment please dial the following: [facility] [phone]:[phone] Referrals: Physician,Non-Staff, [Primary Care Provider] - 1 week
--- OUTSIDE RECORDS SUMMARY | 2023-12-16 14:23 | XMS_ITS | CCD ---
Author Organization [facility] Care Team Providers Care Rock Mason Name Role Phone LENNY CUEVA Primary Care Physician MIS, DR ALARCON Attending Unavailable MISC, DR ALARCON Consulting [facility]available [facility] Admitting Unavailable ANAY, [...] Unavailable Lenny Cueva DO Primary Care Provider [phone] Faustino Cruz MD Unavailable Kristofer Carlton MD Unavailable Lety Mcconnell MD Unavailable [phone] SHAUNNA BRUNO Attending Unavailable LENNY CUEVA Referring Unavailable SHAUNNA BRUNO Attending Unavailable LENNY CUEVA Attending Unavailable BONNIE RODRIGUEZ Attending Unavailable PUNEET BEUNO Attending Unavailable LENNY CUEVA Referring Unavailable LENNY CUEVA Attending Unavailable LENNY CUEVA Referring Unavailable Allergies Allergy Classification Reported Allergen(s) Allergy Type Date of Onset Reaction(s) Facility (4 sources) Contrast media; Translations: [Contrast Dye] Drug allergy [facility] (10 sources) Penicillins; Translations: [penicillins] Drug allergy 5 Unknown (qualifier value), Unknown [facility] (4 sources) Sulfonamides (Antibiotic); Translations: [sulfa drugs] Drug allergy Unknown (qualifier value) [facility] (1 source) Iodine (And Iodine Containting Drugs) Drug allergy (disorder) 0 [facility] (2 sources) Sulfonamides (Antibiotic) Drug allergy (disorder) 5 [facility] (4 sources) Sulfonamides (Antibiotic) Drug Allergy 3 [facility] Medications Current Medications Medication Drug Class(es) Dates Sig (Normalized) Sig (Original) amoxicillin 500 mg / clavulanate 125 mg oral tablet (3 sources) Penicillin-class Antibacterial Start: 03-31-2022 Augmentin 500 mg-125 mg Tab 500 mg, Oral, Every other day, 30 cap(s), Refill(s) 6, [facility]/pharmacy #[id number], 165, cm, 11/04/21 12:20:00 EDT, [...] MonFri, # 42.5 gm, Refills(s) 3, Pharmacy: [facility]/pharmacy #[id number], 165, cm, 02/18/21 10:54:00 EST, [...] hydrochloride 10 mg oral tablet (4 sources) F-ovsify-A-aspartate Receptor Antagonist Start: 02-04-2023 memantine (Namenda) 10 [...] day(s), # 30 tab(s), Refills(s) 7, Pharmacy: [facility]/pharmacy #[id number], 165, cm, 05/07/22 13:26:00 EST, [...] Range Facility Coding Summary.on 05-12-2022 Coding Summary. [id number] Gh 0bWw+PGhlYWQ+DJ8VAVTgK 65bjCDfwU6ZJ0zMYT3YTLN NYXCWSO3ASR2koJI5DKdqX 2VybiAv YxifqSJvEH91APj1AVW1wB ncOSfliR5kwIDhQ9w7XyIb BY35sM40SBemAMQvCyE5Jh ZpbjsgbWFy J6wvTtRjhMOaUxr+PHRhYm xlIHdpZHRoPScxMDAlJyBz dIxcDU4nWw3dTOZlVRJcgX xhcHNlOiBj d5gbSLWjEDylMM7woMjgW4 UrzZA1TVSvg9x9Rw20lQY+ QIMvGQZ1hPmfHFmim975Pk Drd7wuAMM0 gZJfTUtkMCK6F48mo8C1HV IhYVGjSBB4oVY9aX0kjFdr aodxT7JeqNUaBbZ5APQ8cO WykI5csUtp stslvH3fGlh+K86PWD8ORR UCBV5NRza6M7LfQeacoPQ+ BK69FLBcSY51aUBlkMDpx8 mlqMb5UjMv FGUsBUN2yUucKCwrj6SbMY NqT26efCJxk6X9ADKgrUgp eEEcLgIrtGP9aR7eNDsofv eod2wacaxq Jtovn6owah40kM97Z94eIF onTZUwTQM0PRHfFHMxyBqi ti9kpO4bHc7+MCpbg6yvy1 qphDk5MqDx TZWbuoAvmEldOSH8m5CjFc 86V7AtwZptm2MgLtf6ak50 aAQbk1H8nCU5BUxlLYKvxN 5bDGavQqM2 DCCrMyFoyP22bMOaBAvvWc 2huLndpRquXA5oANOkcrvy EPEajA4pZHYslQVzdJhgXS 4wNTBpbjtm h663NtSjMJQ9IJQehRLoO4 RylL7hZaJcZIUaDFEvR3Iv pXOvXHtwR148UMzeVdM6WC YmfsDeV9Gp YTCanSwiXmH3d3E7Qd7Xs7 CzefvtUZW5JZimGNGjNzVe LpJhXuB1O5UoXdb3YMZjpE ubVV1jT5Dj IHMsswsxdhviyOS8UUYnLT ZfeV97nTGtMSxgHe7xy4F1 b539ALGbFJDoeM53Jz9diT ogMTBwdCBU zL0deycht7oepcvxCfTeCA DaQHq3DVh3IHZhnZusBwAq NWW1UdF9DPN1dCPdbK2gvP ofvdxrjX6l Oyc+J60jyC9tUJA4WJN3pb xeGPVkpvYfYC86OG37I7Oo PjwvdGFibGU+PGRpdiBzdH dkRG3lXqIz x8elq4YgJQuuB8MmSMMpSS jkMgy0NDIzCDX9oQF5gN2o NIZhRLlnh1Q7zSV2F8Pazo Ewqq9ik5xd WEJzPDssP47vkZVsj6K3GS TwtCY0RCKicUplKcLfuH90 Oyc+YARikBpmo2UqDfcpg6 gtk6aklKb4 AwEnIPIydsLboEqhIDU1q8 AeCe46K73rPIbcTIWrGXFu IINfUZDamViahs9mxQ9nHz 8+PGNvbCB3 xGZ3tU4eRDJoSiJ1ZEqiT1 95GmObkJJoHfsrh0qre3gk kEb8CeFeIFUdltKjeQuoME N2t4PpXi12 C74lLRhsHLThPWFdMFPkFR AbfIgpyg2ynN8jFw8+PC9j d9cqxm98fA32sYR+PHRkIH X3xEemOKnm EIEemP6bVUzjYsI4JNMwYl WgaS44wWJvHQiiRj7pcEic cQroCJ5fMRLqsosby390Ec Aue0yaLDDg jAJvIRtzSTN4W67te9L0GX JxRLByVOE9qYI7jQ1vvKil bjogbGVmdDsgdmVydGljYW xcVWilQ566 IHRvcDsnPlBhdGllbnQgTm KsRMu7D2OtSpa9PNOgvYap LL3ftDCgTKjhRw4loUdqpU laXW9jHJMd qsptk249RwBlr4zzAHTzfA BrAYveWLL0A00bs6P9WDNt RLMjXPF5aCI2fC3yqTqqje ogbGVmdDsg tpLfxUsmZIjjCTojH000CV RvcDsnPkJpcnRoIERhdGU6 AF83CP34yMIgi1M5lCI9U2 BhZGRpbmct ivzfqMK1NNItGRYigF16Ha 5rzZxmWr4vBNXhKZF1QDUz vMUuD6DpmG6lYcElFBDwRV WmT4EgbDHy JNcbI896OWbrQeJ6NFLvwj DhJ6NmXMSegLhePyA1b5E6 Qi1NU5C4ET55ZR03gLLcm2 R7gYU5E2Xs PDSvhwrywtzwyGJ1GDOnTN CvmZ82Vg9hbLnsXr5dLSCz ZSL1XRIcyWXqW8NecA7yJk AjMDAwMDAw B1HriMQrXTglR230TSyaFd M3RTCltvUiY3XbRNFquUmg QdA1h5O8Dn3BPXb1CN57MD 02rBYef6I3 vVQ0B7LdVJMylvmcriwtpP X3DNAmJMNvjI16Ff5mzWxz Fz8jHVVfMGA1SATgkEWhF0 DuoX9eElRg VYCtUNQuB8AatRVhODdwX9 53LWkoDwI3HSUkkjCjS0Hw YADykUawLpV5v0I3Pm2ZIG PsWT48PUP2 nFV5FP16EK59Z4XpZkxhwE FibGU+PHRhYmxlIHdpZHRo OXwpDKDsMkUwoMafXR0bVy 9yZGVyLWNv eMciuIKjAhMqn9grWIWjUW beYR8hwCgxR3JghUZ4PLAd k4u9Aa13F32xS8QywKC+PG HzoEQ0rYD9 yT4yVjWdPrI3PJtnM636Cs JdaUVlHsprk7vsu7qdkKu6 RvZ0DWNhodJpwZwiEJW0j2 WpRl90W28k IHdpZHRoPSIxNSUiIHZhbG cbbt6yjA7yUp3+PGNvbCB3 nHU9aX8aDsBeXaE8EOuqF2 49InRvcCIv Hgrwx0ram8beyNw4FoAcST TqgcYndBzoWOC4d2YzKv64 M0QfcJust0JkUvv0hi22dI Rqd2Z8yXW1 A3OsOEUyyyiqlJYxcVbuBX 0hPAStoldeSZFfmC0dTLYg O6g9HtCiFjB8KQrnF6Gwsh K2WWWghREr CUnhZYN0A96md1B4KVHySA YuCVK6zOR8oI0jjLnitdev bGVmdDsgdmVydGljYWwtYW pgN862FVTm aFyaIREayM1oXOPdxCWkbY yhKK5cSXNvemfeMu0BIG1K KJVFBAOIOHCWUP10PU10wP Uhs7J7mIW2 G8WbNJFiwlacbublcGC9OA LmEIXwiI85dLTaMSywLz2j x4O2x740EPZoBWWeyV82Lp 9udDogMTBw sCFGoX6qmepdk4ykjqvpMw FaUIHnZBp3RRw7KACkrMdb SnClLZD0XeC3EMA8pSOtzD 1hbGlnbjog oG2gSbt+MDQvMTQvMTkzOT wvdGQ+HOUdXKT3rBjfMFkq ACIooY3bLICeL9k5QoMpIn O4TKqnJ3Bj PIKnucbwNr67zL5tUxWpEf X5ZGfpB4YbbdB4WLRquZFq YHstGSY2H33hk6O7GAWlGL ErXIJ7aNB1 qZ5ngZvmrtviaEMnlLvpcx XkyRpkQOexLJheO093JNKl zSytEhmnHCerLCPsFQ32LY 13yRSve7X0 rRM9H3CrPFVrezdnhbuulJ F4QLZaFHJwcL37eXZoOJov Ym8ci7E3x284WKHfURIezB 78Cm0iuQyk DKRagPPQxG1evgevu7qqcq yjJzVtPJXsDEl1JGu0NDZk uUcrQaHdOAV4OdR2FZN6fD ApnQ3vtYtr tvswjV2tPmj+RmVtYWxlPC 99EA17dUFab7B3pXP5F6Af QGAzilwdzcdnxIR7OMMuTI WxeO09bSVj WUdgAx4mf4C5i239SLJwYQ ZnyW26Jt5ouKegWTHxwGCR xA9tkangg0sgxewiMuHbVI DxLXg4FZu7 XVRckGovBtFoZXF6XeC0BN Q1gDSqqT3sqVfrsfsqdL0n Oyc+ECKiGAOcv6Ypj9IyLD 69TS98E2Sy PjwvdGFibGU+PHRhYmxlIH dpZHRoPScxMDAlJyBzdHls NA7zZn8qIJHaIDJojIgopR VzMuYmd9co SPEtQLpkHK2jpJddA6WdsD C7OGJrc8q7Ng08Z07pP8Hi dXA+ZVAakBJ6wSR6gW0uUh TdFgX7VZvh J092VgUebTXyPhzyv4vpx9 eiqLn9KlIvKXZjyvEpaIhe KGL6p0MuMa88O39sEFdaQO RoPSIyMCUi LUOuzZgxxw5qdE5gTk4+PG UaoCM9qNO1aV8xLkCyUvS6 BZgeJ103LaCxdPQmAujbD0 0yC7QyyAH+ YGTsRcw0EQIkgDanBE8bqI LrTCcdHx5dGHK1IlUbPxQh FDcjS4OcIDWucfyjkotelN G4QFRrDAMk zE70Pa1ztSvqIl8iLKDiJU L2CKMygNTyI6IvxD7oUvVj IWReSWOqD2ByeAUyMKixB9 29LRjkSzV9 MGRuvtUoD2PsLDKabTbaGq G3h3B7Hp9PfStarPXdLG3c SzMbJQa0V5UzLjk5OQBcqH vuEK9axHAo JDyoCj9bdLoyaUhePD6tHW Rsyunlu759FiIqy8pjPVCg mOZoLBycFWC0V57gs7G0YU MwMDAwMDA7 hOP0iP5mzHvgeixsjCPqbS uykoCkvAagYEnuIVnbC000 ETDyzJbwOyAVNwh4E1NkOr s3GCWfeChx CB0buUWrISaqLo4zeUnksL xrBA1fJJXpiasmg116QuFt q5fcRWLdsZFbXYogFMS2A4 6te5Y2NGFr KZHcWWO4eUG6yL1lcYlxhj ogbGVmdDsgdmVydGljYWwt PMkpP901ZSTqlMtyJn0ZXm l0K3NrUft1 MHWhvXboAS8ezNBmBDrmJr 4diOnswHgyLV0kAVJmivzy y608MpFau2gqBXGihBNaAR mpKZB0S77h w8R7PWBoWPCjIKJ1dDE2zI 1hbGlnbjogbGVmdDsgdmVy vGntYWlwOZboA421QQDhcN snPlBheWVy OjwvdGQ+TM14wx69L1RwGw iuOcc2ZWMzXAC4nIO1vW9b OZGbLIkhg4I2bHF1V6Gojs Unof9hd0ii YXBz (more content not included)... [facility] C Urineon 05-09-2022 Bacteria identified Cx Nom (U) Microbiology PROCEDURE: Urine Culture [R1] SOURCE: U Random BODY SITE: COLLECTED DATE/TIME: 05/07/2022 14:02 EST RECEIVED DATE/TIME: 05/07/2022 17:40 EST START DATE/TIME: 05/07/2022 17:40 EST FREE TEXT SOURCE: TANYA MARCH PA-C, PA-C, TANYA Weir FINAL REPORTS Final Report [] Verified Date/Time: 05/09/2022 11:00 EST 25,000 cfu/ml Mixed skin contaminants Mixed omid (multiple species present) >3 colony types Performing Locations R1: [facility], [address] [place] [address], [id number] , , [facility] Comment on above: Performed By: #### 2 [id number] #### [facility] [address] [place] [address] Ambulatory Visit Summaryon 0 05-07-2022 Ambulatory Visit Summary MILTON IBRAHIM :1940 Visit Date:05/07/2022 Ambulatory Visit Instructions Your Diagnosis Urinary tract infection 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 sensory awareness Other urethral stricture, female Tests Performed Urnls Dip Stick Auto w/o Microscopy POC [id number] Your Care Team Attending Physician - TANYA [...] TANYA MARCH PA-C Where: [facility] Patient Educationon 05-07-19 Patient Education Urology [...] including vitamins, herbs, eye drops, creams, and nake-fcy-epcxcti medicines. ? Whether you are or may [...] system diseases. (more content not included)... Normal [facility] Urology Office/Clinic Noteon 05-07-2022 Urology Office/Clinic Note [...] if HTN increase. myrbetriq 25mg sent to [facility]. -void q2hrs, void before sensation 3. Other urethral stricture, female (N35.82: Other urethral stricture, female) S/p cysto/UD done 03/20/21. Follow up in 6 mos or sooner if needed. Pt to call with regarding any issues with Myrbetriq. Pt's son acknowledges understanding and agrees with plan. Follow-up With When Contact Information JOAQUIM MEEK, TANYA Weir, [facility] [address] [facility] [place] [address] Additional Instructions: f/u 6 mos Patient Education [...] Oral, qWeek (more content not included)... Normal [facility] Comment on above: Result Comment: Elec tronically Signed By: TANYA MARCH PA-C\.br\Date and Time Signed: 05/07/22 14:05 EST\.br\Electronically Co-Signed By: Ashia Hobbs\.br\Date and Time Co-Signed: 05/07/22 13:59 EST CBC AUTO DIFFon 02-24-2022 BASO # 0.1 103/ul Normal 0.0-0.1 [facility] Comment on above: Performed By: #### C BC #### [facility] [address] [address] [address] Ginette Ivan Basophils/100 WBC (Bld) 0.5 % Normal 0.2-2.0 [facility] Comment on above: Performed By: #### C BC #### [facility] [address] [address] [address] Ginette Ivan EO # 0.3 103/ul Normal 0.0-0.7 [facility] Comment on above: Performed By: #### C BC #### [facility] [address] [place] [address] Dr. Ginette Ivan Eosinophils/100 WBC (Bld) 2.3 % Normal 0.9-7.0 [facility] Comment on above: Performed By: #### C BC #### [facility] [address] [place] [address] Dr. Ginette Ivan Erythrocyte distribution width (RBC) [Ratio] 13.6 % Normal 11.0-15.0 [facility] Comment on above: Performed By: #### C BC #### [facility] [address] [place] [address] Dr. Ginette Ivan Hematocrit (Bld) [Volume fraction] 36.8 % Normal 36.0-48.0 [facility] Comment on above: Performed By: #### C BC #### [facility] [address] [place] [address] Dr. Ginette Ivan Hemoglobin (Bld) [Mass/Vol] 12.0 g/dL Normal 12.0-16.0 [facility] Comment on above: Performed By: #### C BC #### [facility] [address] [place] [address] Dr. Ginette Ivan IG # 0.03 10e3/ul Normal 0.00-0.03 [facility] Comment on above: Performed By: #### C BC #### [facility] [address] [place] [address] Dr. Ginette Ivan IG % 0.3 % Normal 0.0-0.5 [facility] Comment on above: Performed By: #### C BC #### [facility] [address] [place] [address] Dr. Ginette Ivan LYMPH # 3.9 103/ul Critically high 1.2-3.8 [facility] Comment on above: Performed By: #### C BC #### [facility] [address] [place] [address] Dr. Ginette Ivan Lymphocytes/100 WBC (Bld) 34.8 % Normal 20.5-60.0 [facility] Comment on above: Performed By: #### C BC #### [facility] [address] [place] [address] Dr. Ginette Ivan MANUAL DIFF REQ NO Normal [facility] Comment on above: Performed By: #### C BC #### [facility] [address] [place] [address] Dr. Ginette Ivan MCH (RBC) [Entitic mass] 28.4 pg Normal 26.7-34.0 [facility] Comment on above: Performed By: #### C BC #### [facility] [address] [place] [address] Dr. Ginette Ivan MCHC (RBC) [Mass/Vol] 32.6 g/dL Normal 29.9-35.2 [facility] Comment on above: Performed By: #### C BC #### [facility] [address] [place] [address] Dr. Ginette Ivan MCV (RBC) [Entitic vol] 87.0 fL Normal 81.0-99.0 [facility] Comment on above: Performed By: #### C BC #### [facility] [address] [place] [address] Dr. Ginette Ivan MONO # 0.8 103/ul Normal 0.3-0.8 [facility] Comment on above: Performed By: #### C BC #### [facility] [address] [place] [address] Dr. Ginette Ivan Monocytes/100 WBC (Bld) 7.0 % Normal 1.7-12.0 [facility] Comment on above: Performed By: #### C BC #### [facility] [address] [place] [address] Dr. Ginette Ivan NEUT # 6.2 103/ul Normal 1.4-6.5 [facility] Comment on above: Performed By: #### C BC #### [facility] [address] [place] [address] Dr. Ginette Ivan Neutrophils/100 WBC (Bld) 55.1 % Normal 43.0-75.0 [facility] Comment on above: Performed By: #### C BC #### [facility] [address] [place], [place] [id number] Dr. Ginette Ivan Platelet mean volume (Bld) [Entitic vol] 9.8 fL Normal 9.5-13.5 [facility] Comment on above: Performed By: #### C BC #### [facility] [address] [place] [address] Dr. Ginette Ivan PLT 304 103/ul Normal 150-450 [facility] Comment on above: Performed By: #### C BC #### [facility] [address] [place] [address] Dr. Ginette Ivan RBC 4.23 106/ul Normal 4.20-5.40 [facility] Comment on above: Performed By: #### C BC #### [facility] [address] [place] [address] Dr. Ginette Ivan WBC 11.2 103/ul Critically high 4.0-11.0 [facility] Comment on above: Performed By: #### C BC #### [facility] [address] [place] [address] Dr. Ginette Ivan FREE T4on 02-24-2022 Free T4 [Mass/Vol] 1.17 ng/dL Normal 0.76-1.46 [facility] Comment on above: Performed By: #### F T4 #### [facility] [address] [place] [address] Dr. Ginette Ivan GLYCOHEMOGLOBIN A1Con 2021 ADA RECOMMENDATION SEE BELOW Normal [facility] Comment on above: Result Comment: ADA RECOMMENDED LIMIT 4.0 - 6.0 ADA THERAPEUTIC TARGET < 7.0 ACTION SUGGESTED > 7.0 Performed By: #### A 1C #### [facility] [address] [place] [address] Dr. Ginette Ivan Glucose [Mass/Vol] 134 mg/dL Normal [facility] Comment on above: Performed By: #### A 1C #### [facility] [address] [place] [address] Dr. Ginette Ivan HbA1c (Bld) [Mass fraction] 6.3 % Critically high 4.5-6.2 [facility] Comment on above: Performed By: #### A 1C #### [facility] [address] [address] [address] Ginette Ivan LIPID PROFILEon 02-24-2022 CHOL-HDL RATIO NORM SEE BELOW Normal [facility] Comment on above: Result Comment: 3.3 - 4.4 LOW RISK 4.4 - 7.1 AVERAGE RISK 7.1 - 11.0 MODERATE RISK >11.0 HIGH RISK Performed By: #### T SH, LIPID, CMP #### [facility] [address] [address] [address] Ginette Ivan Cholesterol [Mass/Vol] 211 mg/dL Critically high <=200 [facility] Comment on above: Performed By: #### T SH, LIPID, CMP #### [facility] [address] [address] [address] Ginette Ivan Cholesterol in HDL [Mass/Vol] 62 mg/dL Critically high 40-60 [facility] Comment on above: Performed By: #### T IFEANYI, LIPID, CMP #### [facility] [address] [address] [address] Ginette Ivan Cholesterol in LDL [Mass/Vol] 113.6 mg/dL Normal [facility] Comment on above: Performed By: #### T SH, LIPID, CMP #### [facility] [address] [place] [address] Dr. Ginette Ivan Cholesterol.total/Ch olesterol in HDL [Mass ratio] 3.4 {ratio} Normal [facility] Comment on above: Performed By: #### T SH, LIPID, CMP #### [facility] [address] [place] [address] Dr. Ginette Ivan HDL NORMAL > or = 60 mg/dl - LO W CARDIOVASCULAR RISK <40 mg/dl - HIGH CARDIOVASCULAR RISK Normal [facility] Comment on above: Performed By: #### T SH, LIPID, CMP #### [facility] [address] [place] [address] Dr. Ginette Ivan LDL CALC NORMAL SEE BELOW Normal [facility] Comment on above: Result Comment: <100 mg/dl OPTIMAL 100 - 129 mg/dl NEAR OR ABOVE OPTIMAL 130 - 159 mg/dl BORDERLINE HIGH 160 - 189 mg/dl HIGH >190 mg/dl VERY HIGH Performed By: #### T SH, LIPID, CMP #### [facility] [address] [place] [address] Dr. Ginette Ivan Triglyceride [Mass/Vol] 177 mg/dL Critically high <=150 [facility] Comment on above: Performed By: #### T SH, LIPID, CMP #### [facility] [address] [place] [address] Dr. Ginette Ivan VLDL CALC 35.4 mg/dL Normal [facility] Comment on above: Performed By: #### T SH, LIPID, CMP #### [facility] [address] [place] [address] Dr. Ginette Ivan MICROALBUMIN, RAND URon 11-2 mALB 3.2 mg/L Normal <=30.0 [facility] Comment on above: Performed By: #### M ALBR #### [facility] [address] [place] [address] Dr. Ginette Ivan PROF 14(COMP METB)on 022 Albumin [Mass/Vol] 3.3 g/dL Critically low 3.4-5.0 [facility] Comment on above: Performed By: #### T IFEANYI, LIPID, CMP #### [facility] [address] [place] [address] Dr. Ginette Ivan Albumin/Globulin [Mass ratio] 0.7 {ratio} Normal [facility] Comment on above: Performed By: #### T SH, LIPID, CMP #### [facility] [address] [place] [address] Dr. Ginette Ivan ALP [Catalytic activity/Vol] 117 U/L Critically high 46-116 [facility] Comment on above: Performed By: #### T SH, LIPID, CMP #### [facility] [address] [place] [address] Dr. Ginette Ivan ALT [Catalytic activity/Vol] 11 U/L Critically low 14-59 [facility] Comment on above: Performed By: #### T SH, LIPID, CMP #### [facility] [address] [place], [place] [id number] Dr. Ginette Ivan Anion gap [Moles/Vol] 12.7 mmol/L Normal [facility] Comment on above: Performed By: #### T IFEANYI, LIPID, CMP #### [facility] [address] [place] [address] Dr. Ginette Ivan AST [Catalytic activity/Vol] 18 U/L Normal 15-37 [facility] Comment on above: Performed By: #### T IFEANYI, LIPID, CMP #### [facility] [address] [place] [address] Dr. Ginette Ivan Bilirubin [Mass/Vol] 0.2 mg/dL Normal 0.2-1.0 [facility] Comment on above: Performed By: #### T IFEANYI LIPID, CMP #### [facility] [address] [place] [address] Dr. Ginette Ivan Calcium [Mass/Vol] 9.1 mg/dL Normal 8.5-10.1 [facility] Comment on above: Performed By: #### T IFEANYI, LIPID, CMP #### [facility] [address] [place] [address] Dr. Ginette Ivan Chloride [Moles/Vol] 100 mmol/L Normal 98-107 [facility] Comment on above: Performed By: #### T IFEANYI, LIPID, CMP #### [facility] [address] [place] [address] Dr. Ginette Ivan CO2 [Moles/Vol] 26.3 mmol/L Normal 21.0-32.0 [facility] Comment on above: Performed By: #### T IFEANYI, LIPID, CMP #### [facility] [address] [place] [address] Dr. Ginette Ivan Creatinine [Mass/Vol] 0.72 mg/dL Normal 0.55-1.02 [facility] Comment on above: Performed By: #### T IFEANYI, LIPID, CMP #### [facility] [address] [place] [address] Dr. Ginette Ivan EGFR-AF PALESTINIAN >60 Normal >=60 [facility] Comment on above: Performed By: #### T IFEANYI, LIPID, CMP #### [facility] [address] [address] [address] Ginette Ivan EGFR-NON AF PALESTINIAN >60 Normal >=60 [facility] Comment on above: Performed By: #### T SH, LIPID, CMP #### [facility] [address] [address] [address] Ginette Ivan Globulin (S) [Mass/Vol] 4.6 g/dL Normal [facility] Comment on above: Performed By: #### T SH, LIPID, CMP #### [facility] [address] [address] [address] Ginette Ivan Glucose [Mass/Vol] 133 mg/dL Critically high 74-106 T [facility] Comment on above: Performed By: #### T SH, LIPID, CMP #### [facility] [address] [place] [address] Dr. Ginette Ivan Potassium [Moles/Vol] 4.0 mmol/L Normal 3.5-5.1 [facility] Comment on above: Performed By: #### T SH, LIPID, CMP #### [facility] [address] [address] [address] Ginette Ivan Protein [Mass/Vol] 7.9 g/dL Normal 6.4-8.2 [facility] Comment on above: Performed By: #### T SH, LIPID, CMP #### [facility] [address] [place] [address] Dr. Ginette Ivan Sodium [Moles/Vol] 135 mmol/L Critically low 136-145 [facility] Comment on above: Performed By: #### T SH, LIPID, CMP #### [facility] [address] [place] [address] Dr. Ginette Ivan Urea nitrogen [Mass/Vol] 21.0 mg/dL Critically high 7.0-18.0 [facility] Comment on above: Performed By: #### T SH, LIPID, CMP #### [facility] [address] [place] [address] Dr. Ginette Ivan Urea nitrogen/Creatinine [Mass ratio] 29.2 mg/mg Normal [facility] Comment on above: Performed By: #### T SH, LIPID, CMP #### [facility] [address] [place], [place] [address] Dr. Ginette Ivan TSHon 02-24-2022 TSH 9.395 uIU/mL Critically high 0.358-3.740 [facility] Comment on above: Performed By: #### T SH, LIPID, CMP #### [facility] [address] [place], [place] [address] Dr. Ginette Ivan Vital Signs Date Time Vital Sign Value Performing Clinician Faci lity 05-07-2022 13:24-0500 Blood Pressure Location [email or web address] [facility] 05-07-2022 13:24-0500 Diastolic blood pressure 74 mm[Hg] TANYA JOAQUIM [facility] 05-07-2022 13:24-0500 Heart rate 68 /min TANYA JOAQUIM [facility] 05-07-2022 13:24-0500 Respiratory rate 16 /min TANYA JOAQUIM [facility] 05-07-2022 13:24-0500 Systolic blood pressure 132 mm[Hg] TANYA JOAQUIM [facility] Encounters Encounter Date Encounter Type Care Provider Facility Start: 11-04-2023 End: 11-04-2023 ambulatory BONNIE RODRIGUEZ Not Available Start: 10-08-2023 End: 10-08-2023 ambulatory LENNY CUEVA Not Available Start: 05-27-2023 End: 05-27-2023 ambulatory SHAUNNA BRUNO Not Available Start: 05-27-2023 Chart abstracting Shaunna stoll DPM Work Phone: [facility] Start: 05-07-2023 Chart abstracting Shaunna Manzo ntluis DPM Work Phone: [facility] Start: 05-07-2023 End: 05-07-2023 Office outpatient new 30 minutes Shaunna Bruno DPM Work Phone: [facility] Comment on above: 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); Ulcer of right foot with fat layer exposed (CMS/HCC); Diabetes mellitus due to underlying condition with diabetic polyneuropathy, without long-term current use of insulin (CMS/HCC); Right foot pain; Generalized weakness; Dementia without behavioral disturbance (CMS/HCC) Start: 05-07-2023 End: 05-07-2023 ambulatory SHAUNNA BRUNO Not Available Start: 03-12-2023 End: 03-13-2023 ambulatory LENNY CUEVA Not Available Start: 11-05-2022 End: 11-06-2022 ambulatory TANYA MARCH Facility: [facility] Start: 11-05-2022 End: 11-05-2022 Patient encounter procedure TANYA MARCH [facility] Start: 08-15-[address] LENNY CUEVA Facility : Start: 07-14-2022 End: 07-15-2022 ambulatory LETY MCCONNELL Facility:[facility] Start: 06-18-2022 End: 06-19-2022 ambulatory [facility] Leah[facility] Facility:[facility] Start: 05-28-2022 End: 05-29-2022 ambulatory LETY Leahy [facility] Facility: Start: 05-07-2022 End: 05-08-2022 ambulatory TANYA MARCH Facility:[facility] Start: 05-07-2022 End: 05-07-2022 Lab Drop off TANYA MARCH [facility] Start: 05-07-2022 End: 05-07-2022 Patient encounter procedure TANYA MARCH [facility] Start: 02-24-2022 End: 02-25-2022 ambulatory [...] Well ness (AWV) Medicare Annual Wellness (AWV) [facility] Start: 06-11-2023 Hemoglobin A1c measurement Diabetes: Hemoglobin A1C [facility] Start: 05-27-2023 End: 05-27-2023 Patient encounter procedure 05/27/2023 3:45 PM EST Office Visit [facility] [address] [place] [phone] Shaunna Bruno DPM [address] [place] [address] [facility] Start: 05-14-2023 Glaucoma screening Diabetes: R etinopathy Screening [facility] Start: 05-07-2023 End: 05-07-2023 Patient encounter procedure 05/07/2023 2:00 PM EST Office Visit [facility] [address] [place] [phone] Shaunna Bruno DPM [address] [place] [address] [facility] Start: 11-28-2022 Influenza vaccination Influenza Vacc ine (#1) [facility] Start: 02-14-2022 Urine screening for protein Diabetes: Urine Protein Screening [facility] Immunizations Immunization Date Immunization Notes Care Provider Fa cility 05-29-2020 SARS-CoV-2 (COVID-19 ) mRNA-1273 vaccine TANYA JOAQUIM [facility] 05-07-2020 SARS-CoV-2 (COVID-19 ) mRNA-1273 vaccine TANYA JOAQUIM [facility] 05-01-2020 SARS-CoV-2 (COVID-19 ) mRNA-1273 vaccine TANYA JOAQUIM [facility] 12-25-2017 influenza virus vaccine, unspecified formulation TANYA JOAQUIM [facility] 12-25-2017 influenza, injectabl e, quadrivalent, preservative free Shaunna [place] DPM Work Phone: [facility] 12-12-2016 influenza, injectabl e, madin alcon canine kidney, preservative free Shaunna [place] DPM Work Phone: [facility] 12-12-2016 Influenza, injectabl e, Madin Alcon Canine Kidney, preservative free, quadrivalent Shaunna [place] DPM Work Phone: [facility] 12-17-2015 influenza virus vaccine, unspecified formulation TANYA JOAQUIM [facility] 12-17-2015 influenza, injectabl e, quadrivalent, contains preservative Shaunna [place] DPM Work Phone: [facility] 12-17-2015 influenza, injectabl e, quadrivalent, preservative free Shaunna [place] DPM Work Phone: [facility] 12-27-2014 influenza, seasonal, injectable, preservative free Shaunna Manzonthal DPM Work Phone: [facility] 12-27-2014 pneumococcal conjuga te vaccine, 13 valent Shaunna [place] DPM Work Phone: [facility] 03-28-2013 pneumococcal polysaccharide vaccine, 23 valent Shaunna [place] DPM Work Phone: [facility] Payers Date Payer Category Payer Medicare [employer] MEDICARE REPLACEMENT [id number] 2022-Present [address] [address] [place] [address] [id number] 2022 Private Health Insurance [id number] 1959 Medicare [id number] 1961 Medicare [id number] 1938 Unknown [id number] [id number]. 593 1938 Unknown [id number] 2.16.840.1.261909.3.579.2. 593 1938 Unknown [id number] 2.16.840.1.255118.3.579.2. 593 1938 Unknown [id number] 2.16.840.1.675635.3.579.2. 593 1938 Unknown [id number] 2.16.840.1.671727.3.579.2. 593 1938 Unknown [id number] 2.16.840.1.889186.3.579.2. 727 1938 Unknown [id number] 2.16.840.1.754346.3.579.2. 727 1938 Unknown [id number] 2.16.840.1.709254.3.579.2. 727 1938 Unknown [id number] 2.16.840.1.745897.3.579.2. 1259 1938 Unknown [id number] 2.16.840.1.114929.3.579.2. 1259 1938 Unknown [id number] 2.16.840.1.941918.3.579.2. 125 1938 Unknown [id number] 2.16.840.1.898369.3.579.2. 1259 1938 Unknown [id number] 2.16.840.1.466435.3.579.2. 1259 1938 Unknown [id number] 2.16.840.1.869762.3.579.2. 1259 Social History Date Type Detail Facility Start: 05-07-2022 End: 03-12-2023 Tobacco smoking status Never smoked tobacco (finding) [facility] Tobacco smoking status Never [facility] Start: 03-12-2023 End: 05-07-2023 Sex Assigned [address] Female [facility] Start: 03-12-2023 Tobacco use and exposure Smokeless tobacco non-user [facility] Start: 03-12-2023 End: 05-07-2023 Alcohol intake Lifetime non-drinker (finding) [facility] Start: 03-12-2023 End: 05-07-2023 History of Social function [facility] Start: 02-09-2023 Alcohol Comment no caffeine intake [facility] Start: 1940 Sex Assigned At Not on file [facility] NEGATED: Highlighted rowStart: NINF History of tobacco use Passive smoker [facility] Medical Equipment Procedure Code Equipment Code Equipment Origin al Text Equipment Identifier Dates USE 1 TEST STRIP IN VITRO ONCE DAILY 50 DAYS [id number] Start: 03-01-2023 Functional Status Date Assessment Result Facility 05-07-2022 Functional Status N/A [facility] History of Present illness Narrative 05-07-2023 Shaunna Bruno DPM - 05/07/2023 2:00 PM EST Note Date & Type Note Facility 05-07-2023 History of Presen t illness Narrative HPI: Patient presents today for evaluation of a wound/ulcer on the right plantar foot. Wound has been present for months. (02/2023) Previous treatment consists of: Evaluaed by PCP, Dr Cueva, [facility] . Patient has not had a history [...] with peripheral neuropathy. documented in this encounter [facility] Clinical Note 05-28-2022 Note [...] authenticated by: ZEENAT WASHINGTON Date: 2022-05-28 18:02 [facility] Discharge instructions 05-07-2022 Note Date & [...] including vitamins, herbs, eye drops, creams, and niyg-wjr-[id number] medicines. ?Whether you are or may be [...] 01/11/2008 Document Revised: 07/05/2019 Document Reviewed: 01/18/2018 [employer] Patient Education 2020 [employer]. Follow Up Care 11/04/2021 13:08:14 With:TANYA MARCH PA-C, URL Address: [address] [place] [address]. [place] [address] When: Unknown [facility] Evaluation + Plan note Note Date & Type Note Facility Evaluation + Plan note Future Appointments Appointment Date:11/05/2022 01:00:00 PM Scheduled Provider:TANYA MARCH PA-C Location:[facility] Appointment Type:URO Office Visit [facility] Evaluation + Plan note Note Date & Type Note Facility Evaluation + Plan note Future Appointments Appointment Date:11/05/2022 01:00:00 PM Scheduled Provider:TANYA MARCH PA-C Location:[facility] Appointment Type:URO Office Visit Diagnostic Tests PendingUrine Culture 05/07/22 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)- Primary Ulcer of right foot with fat layer exposed (CMS/HCC) Diabetes mellitus due to underlying condition with diabetic polyneuropathy, without long-term current use of insulin (CMS/HCC) Right foot pain Pain in soft tissues of limb Generalized weakness Dementia without behavioral disturbance ([facility]/HCC) documented in this encounter [facility] Hospital course Narrative Note Date & Type Note Facility Hospital course Narrative No data available for this section [facility] Hospital Discharge instructions Note Date & Type Note Facility Hospital Discharge instructions No data available for this section [facility] Progress note Note Date & Type Note Facility Progress note No data available for this section [facility] Summary Purpose Family History No Family History Records FoundNo Family History Records FoundNo Family History Records Found Advance Directives No Advanced Directives Records FoundNo Advanced Directives Records FoundNo Advanced Directives Records Found Additional Source Comments Patient Care team informatio n (unrecognized section and content) Rock Mason Relationship Specialty Start Date End Date Lenny Cueva DO [address] [address] PCP - General Family Medicine 08/05/22 Faustino Cruz MD [address] [place] [address] Referring Physician Neurology 03/12/23 Kristofer Carlton MD [address] [place] [phone] Referring Physician Psychiatry 03/12/23 Lety Mcconnell MD [address] [place] [phone] Referring Physician Podiatry 03/12/23 Rock Mason Relationship Specialty Start Date End Date Lenny Cueva DO [address] [place] [address] PCP - General Family Medicine 08/05/22 Faustino Cruz MD [address] [place] [address] Referring Physician Neurology 03/12/23 Kristofer Carlton MD [address] [place] [phone] Referring Physician Psychiatry 03/12/23 Lety Mcconnell MD [address] [place] [phone] Referring Physician Podiatry 03/12/23 Rock Mason Relationship Specialty Start Date End Date Lenny Cueva DO [address] [place] [address] PCP - General Family Medicine 08/05/22 Faustino Cruz MD [address] [place] [address] Referring Physician Neurology 03/12/23 Kristofer Carlton MD [address] [place] [phone] Referring Physician Psychiatry 03/12/23 Lety Mcconnell MD [address] [place] [phone] Referring Physician Podiatry 03/12/23 INFORMATION SOURCE (unrecogn ized section and content) DATE CREATED AUTHOR 08/08/2022 [facility] DATE CREATED AUTHOR AUTHOR'S ORGANIZ ATION 11/06/2022 Raj Otero [facility] DATE CREATED AUTHOR AUTHOR'S ORGANIZ ATION 11/06/2023 [facility] Special[facility] EPIC Reason for Visit (unrecogniz ed section and content) Reason Comments Foot Ulcer Specialty Diagnoses / Procedures Referred By Contac t Referred To Contact Podiatry Diagnoses Ulcer of right foot with fat layer exposed ([facility]) Procedures SC OFFICE/OUTPATIENT NEW HIGH MDM 60 MINUTES Lenny Cueva, [address] [place] [address] Shaunna Bruno DPM [address] [place] [address] Referral ID Status Reason Start Date Expiration Date V isits Requested Visits Authorized [id number] Closed Specialty Services Required 04/23/2023 10/20/2023 1 [...] BE BASED ON THE PRIMARY CLINICAL RECORDS. [facility] [employer] provides no warranty or guarantee of the accuracy or completeness of information in this document.
[2023-12-16 14:55] LABS: Basophils Absolute Auto 0.1 10^3/uL (0.0-0.1); Basophils Percent Auto 0.7 % (0.2-2.0); Eosinophils Absolute Auto 0.2 10^3/uL (0.0-0.7); Eosinophils Percent Auto 2.1 % (0.9-7.0); Hematocrit 39.5 % (36.0-48.0); Hemoglobin 12.6 g/dL (12.0-16.0); Immature Granulocytes Abs Auto 0.05 10^3/uL (0.00-0.03); Immature Granulocytes Pct Auto 0.5 % (0.0-0.5); Lymphocytes Absolute Auto 3.2 10^3/uL (1.2-3.8); Lymphocytes Percent Auto 30.2 % (20.5-60.0); Mean Corpuscular HGB Conc 31.9 g/dL (29.9-35.2); Mean Corpuscular Volume 87.8 fL (81.0-99.0); Mean Platelet Volume 9.3 fL (9.5-13.5); Monocytes Absolute Auto 0.7 10^3/uL (0.3-0.8); Monocytes Percent Auto 6.2 % (1.7-12.0); Neutrophils Absolute Auto 6.5 10^3/uL (1.4-6.5); Neutrophils Percent Auto 60.3 % (43.0-75.0); Platelet Count 433 10^3/uL (150-450); Red Cell Distribution Width 14.1 % (11.0-15.0); White Blood Count 10.7 10^3/uL (4.0-11.0); pH VBG 7.413 (7.330-7.430)
[2023-12-16 14:56] LABS: PCO2 VBG 42.4 mmHg (40.0-52.0)
[2023-12-16 15:01] LABS: Erythrocyte Sedimentation Rate >130 mm/hr (<=30)
[2023-12-16 15:07] LABS: INR 0.98; Prothrombin Time 10.4 sec (9.0-11.6)
[2023-12-16 15:09] LABS: Alanine Aminotransferase 15 U/L (14-59); Albumin Globulin Ratio 0.5; Albumin Level 2.9 g/dL (3.4-5.0); Alkaline Phosphatase 115 U/L (46-116); Anion Gap 10.1; Aspartate Amino Transferase 18 U/L (15-37); BUN Creatinine Ratio 29.9; Bilirubin Total 0.4 mg/dL (0.2-1.0); C Reactive Protein 1.37 mg/dL (<=0.50); Calcium 9.5 mg/dL (8.5-10.1); Carbon Dioxide 28.9 mmol/L (21.0-32.0); Chloride 100 mmol/L (98-107); Estimated GFR (African America >60 (>=60); Estimated GFR (Non-African Ame >60 (>=60); Globulin 5.4 g/dL; Glucose 157 mg/dL (74-106); Sodium 135 mmol/L (136-145); Total Protein 8.3 g/dL (6.4-8.2)
[2023-12-16] MEDS: 0.9 % SODIUM CHLORIDE 1,000 ML 250 ML IV (15:09)
[2023-12-16] MEDS: FENTANYL CITRATE/PF 100 MCG/2 ML VIAL 25 MCG IV (15:10)
[2023-12-16] MEDS: ONDANSETRON PF 4 MG/2 ML VIAL IV (15:10)
[2023-12-16 15:11] LABS: Lactate/Lactic Acid 1.8 mmol/L (0.4-2.0)
[2023-12-16 18:27] VITALS: BP 124/83; PULSE 89; O2SAT 94
[2023-12-17 10:54] LABS: A. calcoaceticus-baumannii Cpx NOT DETECTED (NOT DETECTE); Bacteroides fragilis NOT DETECTED (NOT DETECTE); Candida albicans NOT DETECTED (NOT DETECTE); Candida auris NOT DETECTED (NOT DETECTE); Candida glabrata NOT DETECTED (NOT DETECTE); Candida krusei NOT DETECTED (NOT DETECTE); Candida parapsilosis NOT DETECTED (NOT DETECTE); Candida tropicalis NOT DETECTED (NOT DETECTE); Cryptococcus neoformans/gattii NOT DETECTED (NOT DETECTE); Enterobacter cloacae complex NOT DETECTED (NOT DETECTE); Enterobacterales NOT DETECTED (NOT DETECTE); Enterococcus faecalis NOT DETECTED (NOT DETECTE); Enterococcus faecium NOT DETECTED (NOT DETECTE); Haemophilus influenzae NOT DETECTED (NOT DETECTE); Klebsiella aerogenes NOT DETECTED (NOT DETECTE); Klebsiella pneumoniae group NOT DETECTED (NOT DETECTE); Listeria monocytogenes NOT DETECTED (NOT DETECTE); Neisseria meningitidis NOT DETECTED (NOT DETECTE); Proteus spp. NOT DETECTED (NOT DETECTE); Pseudomonas aeruginosa NOT DETECTED (NOT DETECTE); Salmonella spp. NOT DETECTED (NOT DETECTE); Serratia marcescens NOT DETECTED (NOT DETECTE); Staphylococcus epidermidis NOT DETECTED (NOT DETECTE); Staphylococcus lugdunensis NOT DETECTED (NOT DETECTE); Stenotrophomonas maltophilia NOT DETECTED (NOT DETECTE); Streptococcus agalactiae NOT DETECTED (NOT DETECTE); Streptococcus pneumoniae NOT DETECTED (NOT DETECTE); Streptococcus pyogenes NOT DETECTED (NOT DETECTE); Streptococcus spp. NOT DETECTED (NOT DETECTE)
[2023-12-17 12:12] LABS: Source Blood
[2023-12-17 12:14] LABS: Staphylococcus spp. DETECTED (NOT DETECTE)
== END 2023-12-16 18:37 | disposition home or self-care (01) ==
PROVIDERS: Physician Assistant; Emergency Provider Emergency Medicine
DX: L89.153 Pressure ulcer of sacral region, stage 3 (principal); Z66 Do not resuscitate
CPT/HCPCS: 36415; 72193; 80053; 82800; 83605; 85025; 85610; 85652; 86140; 87040; 87150; 87186; 96374; 96375; 99285; J2405; J3010; Q9967

== ENCOUNTER 2024-08-12 13:31 | Outpatient (REF) | payer MEDICARE, SELFPAY ==
[2024-08-12 13:56] LABS: Bilirubin Urine NEGATIVE (NEGATIVE); Blood Urine MODERATE (NEGATIVE); Clarity Urine CLOUDY (CLEAR); Color Urine YELLOW (YELLOW); Glucose Urine UA NEGATIVE (NEGATIVE); Ketones Urine NEGATIVE (NEGATIVE); Leukocyte Esterase Urine LARGE (NEGATIVE); Nitrite Urine POSITIVE (NEGATIVE); Protein Urine TRACE mg/dL (NEG/TRACE); Specific Gravity Urine 1.025 (1.005-1.025); Urobilinogen Urine 0.2 EU/dL (0.2-1.0)
== END 2024-08-12 13:32 | disposition home or self-care (01) ==
LOC: LAB 13:31
PROVIDERS: Visit Provider Internal Medicine Hematology & Oncology
DX: N39.0 Urinary tract infection, site not specified (principal)
CPT/HCPCS: 81003; 87086; 87088; 87186

== ENCOUNTER 2025-02-27 14:22 | Outpatient (REF) | payer MEDICARE, SELFPAY ==
--- OUTSIDE RECORDS SUMMARY | 2025-02-17 13:00 | XMS_ITS | Encounter Summary ---
Author Organization [facility] Address [address] [place] [address] Care Team Providers Care Laundry Tub Maker Name Role Phone Lenny Suresh DO Primary Care Provider [phone] Faustino Cruz MD Unavailable [phone] Kristofer Carlton MD Unavailable [phone] Jack Mcconnell MD Unavailable [phone] Reason for Visit * ReasonCommentsMedicare Annual Wellness Visit Subsequent Encounter Details DateTypeDepartmentCare Team (Latest Contact Info)Rnmpvsfvxvx45/21/2025 1:00 PM ESTOffice Visit [facility] [address] [place] [address] Amalia Carrion, PARTS CASTING MACHINE OPERATOR [address] [place] [address] Medicare annual wellness visit, subsequent (Primary Dx); Hypertension, unspecified type; Atrial fibrillation, unspecified type (HCC); Gastroesophageal reflux disease, unspecified whether esophagitis present; 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, without long-term current use of insulin (HCC); Diabetic retinopathy associated with controlled type 2 diabetes mellitus (HCC); 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); Acquired hypothyroidism; Mixed hyperlipidemia; SunDown syndrome; Hallucination; Pressure ulcer of left lower back, stage 1; Difficulty sleeping; Reese catheter in place; History of breast cancer; Acquired absence of breast and absent nipple, unspecified laterality; Renal oncocytoma of left kidney Social History Tobacco UseTypesPacks/DayYears UsedDateSmoking Tobacco: NeverPassive Smoke Exposure: NeverSmokeless Tobacco: Never Tobacco Cessation:Counseling Given: Not Answered Alcohol UseStandard Drinks/WeekCommentsNever0 (1 standard drink = 0.6 oz pure alcohol)no caffeine [id number] Health LiteracyAnswerDate RecordedHow often do you need to have someone help you when you read instructions, pamphlets, or other written material from your doctor or pharmacy?Gaqmlw1510/08/2023Social Connection and Isolation PanelAnswerDate RecordedIn a typical week, how many times do you talk on the phone with family, friends, or neighbors?Never 10/08/2023How often do you get together with friends or relatives?More than three times a week10/08/2023How often do you attend protestant or congregational services?More than 4 times per year10/08/2023o you belong to any clubs or organizations such as protestant groups, unions, fraternal or athletic groups, or school groups?No10/08/2023How often do you attend meetings of the clubs or organizations you belong to?Never10/08/2023re you , , , , never , or living with a partner?Fjrojra0510/08/2023Overall Financial Resource Strain (CARDIA)AnswerDate RecordedHow hard is it for you to pay for the very basics like food, housing, medical care, and heating?Not hard at all10/08/2023HQ-2AnswerDate RecordedPatient Health Questionnaire-2 Score5 02/10/2025[facility] [place] [facility] - Occupational Stress QuestionnaireAnswerDate RecordedDo you feel stress - tense, restless, nervous, or anxious, or unable to sleep at night because yourmind is troubled all the time - these days?To some grqjob6210/08/2023Exercise Vital SignAnswerDate Recorded On average, how many days per week do you engage in moderate to strenuous exercise (like a brisk walk)?0 days10/08/2023On average, how many minutes do you engage in exercise at this level?0 min10/08/2023Hunger Vital SignAnswerDate RecordedWithin the past 12 months, you worried that your food would run out before you got the money to buymore.Never true10/08/2023Within the past 12 months, the food you bought just didn't last and you didn't have money to get more.Never true10/08/2023RAPARE - TransportationAnswerDate RecordedIn the past 12 months, has lack of transportation kept you from medical appointments or from getting medications?No10/08/2023In the past 12 months, has lack of transportation kept you from meetings, work, or from getting things needed for daily living?No10/08/2023Housing Stability Vital SignAnswerDate RecordedIn the last 12 months, was there a time when you were not able to pay the mortgage or rent on time?No10/08/2023In the past 12 months, how many times have you moved where you were living?t any time in the past 12 months, were you homeless or living in a custodial (including now)?No10/08/2023UDIT-CAnswerDate RecordedQ1: How often do you have a drink containing alcohol?Never02/17/2025Q2: How many drinks containing alcohol do you have on a typical day when you are drinking?Patient does not drink02/17/2025Q3: How often do you have six or more drinks on one occasion?Never02/17/2025CommentsUnknownSex and Gender InformationValueDate RecordedSex Assigned at BirthNot on fileLegal SexFemale 06/11/2022 7:15 PM EDTGender IdentityNot on fileSexual OrientationNot on file documented as of this encounter Last Filed Vital Signs Vital SignReadingTime TakenCommentsBlood Cvvlhytt948/7802/17/2025 1:00 PM EST Rwrtb334202/17/2025 1:00 PM LRBDenxsiofwbx13.1 ??C (97 ??F)02/17/2025 1:00 PM EST Respiratory Rate--Oxygen Vulxnrzgfs46%02/17/2025 1:00 PM ESTInhaled Oxygen Concentration--Weight--Height--Body Mass Index--documented in this encounter Functional Status * AUDIT-C ScoreAnswerDate of UznwdpprhmAodvql602/ 4:18 PM Amalia Barreto NP * QuestionAnswerDate of AssessmentAuthorQ1: How often do you have a drink containing alcohol?Never02/17/2025 4:18 PM Amalia Barreto NPQ2: How many drinks containing alcohol do you have on a typical day when you are drinking? Patient does not drink02/17/2025 4:18 PM Amalia Barreto NPQ3: How often do you have six or more drinks on one occasion?Never02/17/2025 4:18 PM Amalia Gaines NP documented as of this encounter Progress Notes * Amalia Carrion NP - 02/17/2025 1:00 PM EST Images from the original note were not included. Subjective Ely Bain is a 84 y.o. female who presents for an annual Medicare wellness visit. She is seen today in her home due to difficulty in getting out of the house due to being bed bound. She continuesto receive home health nursing care for wounds and reese catheter care. Son is primary caregiver. Denies any issues or concerns at this time. Does admit that dementia decline has sped up over th past4 hours and pt is now bed bound and dependent for all care with no discernable speech. Medicare Annual Visit Preventative Care Summary - Date last done DEXA - declined Vision - no recent Dentist - no recent Lipid - 2021 Diabetes - 10/2023 Other Providers: Neurology - [facility] ([place]) Psychiatry - Dr. Carlton Depression Screen PHQ2 Q1: Over the past two weeks, have you felt down, depressed or hopeless? Unable to answer due to dementia Q2: Over the past two weeks, have you felt little interest or pleasure in doing things? Unable to answer due to dementia Fall Risk Assessment Have you fallen two or more times in the past year? Yes - did have one fall out of the bed until 2 rails were obtained for the hospital bed Are you afraid of falling?: No Does the patient require any assistive devices? Dependent on wheelchair for mobility, 3 person assist to get out of bed. Pt is unable to bear weight. Was the patient's timed Up & Go test unsteady or longer than 30 seconds? Pt is not ambulatory Health Risk Assessment In your present state of health, do you have any difficulty performing the following activities: - Preparing food?: Yes - Eating?: on a soft diet - ground beef, small bites - no hard foots, crush pills and put in applesauce or oatmeal - Grocery shopping? Yes - Doing your own housework without help? Yes - Trouble using the phone? Yes - Bathing yourself?: Yes - Getting dressed?: Yes - Using the toilet?:Yes - Moving around from place to place?: Yes Do you exercise for about 20 minutes 3 or more days a week? no Do you manage your own money, credit cards and accounts, pay bills and taxes? yes Do you manage your own medicines without help? no Do you still drive? no If you need help with any of the above, is someone available to help you? yes Do you feel safe in your current home environment? Pt is unable to answer Are you having pain that interferes with your ability to care for yourself or socialize? No Are you a current smoker? No Do you drink alcohol? No How confident are you that you can control and manage most of your health problems? I cannot managemy medical problems Advanced Care Planning Do you have a Living Will? Yes Do you have a DPOA for Healthcare? Yes and son Wojciech Code Status? [facility] Cognitive Screening Cognitive concerns: Severe dementia Comprehensive Medical and Social History: Problem List[1] Medical History[2] Surgical History[3] Allergies[4] Social History Socioeconomic History Marital status: Spouse name: Not on file Number of children: Not on file Years of education: Not on file Highest education level: Not on file Occupational History Not on file Tobacco Use Smoking status: Never Passive exposure: Never Smokeless tobacco: Never Vaping Use Vaping status: Unknown Substance and Sexual Activity Alcohol use: Never Comment: no caffeine intake Drug use: Never Sexual activity: Not Currently Partners: Male control/protection: None Other Topics Concern Not on file Social History Narrative Not on file Social Drivers of Health Financial Resource Strain: Low Risk (10/08/2023) Overall Financial Resource Strain (CARDIA) Difficulty of Paying Living Expenses: Not hard at all Food Insecurity: No Food Insecurity (10/08/2023) Hunger Vital Sign Worried About Running Out of Food in the Last Year: Never true Ran Out of Food in the Last Year: Never true Transportation Needs: No Transportation Needs (10/08/2023) PRAPARE - Transportation Lack of Transportation (Medical): No Lack of Transportation (Non-Medical): No Physical Activity: Inactive (10/08/2023) Exercise Vital Sign Days of Exercise per Week: 0 days Minutes of Exercise per Session: 0 min Stress: Stress Concern Present (10/08/2023) [place] [facility] - Occupational Stress Questionnaire Feeling of Stress : To some extent Social Connections: Moderately Isolated (10/08/2023) Social Connection and Isolation Panel Frequency of Communication with Friends and Family: Never Frequency of Social Gatherings with Friends and Family: More than three times a week Attends Alevism Services: More than 4 times per year Active Member of Clubs or Organizations: No Attends Club or Organization Meetings: Never Marital Status: Intimate Partner Violence: Not on file Housing Stability: Low Risk (10/08/2023) Housing Stability Vital Sign Unable to Pay for Housing in the Last Year: No Number of Times Moved in the Last Year: 0 Homeless in the Last Year: No Current Outpatient Medications Medication Instructions busPIRone (BUSPAR) 15 mg, Oral, 2 times daily dilTIAZem ER (TIAZAC) 240 mg, Oral, Daily donepezil (ARICEPT) 10 mg, Oral, Nightly Janumet 50-500 MG tablet TAKE 1 TABLET BY MOUTH EVERY DAY WITH A MEAL levothyroxine (Synthroid, Levoxyl) 75 MCG tablet TAKE 1 TABLET BY MOUTH BEFORE A MEAL EVERY DAY memantine (NAMENDA) 10 mg, Oral, 2 times daily QUEtiapine (SEROQUEL) 100 mg, Oral, Nightly traZODone (DESYREL) 100 mg, Oral, Nightly Review of Systems Unable to perform ROS: Dementia Son denies any problems or concerns Objective BP 128/78 Pulse 67 Temp 97 ??F SpO2 93% There is no height or weight on file to calculate BMI. Physical Exam Constitutional: Appearance: Normal appearance. She is obese. HENT: Head: Normocephalic and atraumatic. Nose: Nose normal. Mouth/Throat: Mouth: Mucous membranes are moist. Eyes: Conjunctiva/sclera: Conjunctivae normal. Pupils: Pupils are equal, round, and reactive to light. Neck: Vascular: No carotid bruit. Cardiovascular: Rate and Rhythm: Normal rate and regular rhythm. Heart sounds: Normal heart sounds. Pulmonary: Effort: Pulmonary effort is normal. No respiratory distress. Breath sounds: Normal breath sounds. No wheezing, rhonchi or rales. Abdominal: General: Bowel sounds are normal. Palpations: Abdomen is soft. Tenderness: There is no abdominal tenderness. Musculoskeletal: Cervical back: Neck supple. Lymphadenopathy: Cervical: No cervical adenopathy. Skin: General: Skin is warm and dry. Comments: No current open areas - redness to posterior left side Neurological: General: No focal deficit present. Mental Status: She is alert. Comments: Speech is not discernable - speaks gibberish Psychiatric: Mood and Affect: Mood normal. Behavior: Behavior normal. The following health maintenance schedule was reviewed with the patient and provided in printed form in the after-visit summary: Health Maintenance Topic Date Due Diabetes: Retinopathy Screening 05/14/2023 Diabetes: Hemoglobin A1C 06/11/2023 Diabetes: Urine Protein Screening 04/16/2024 Influenza Vaccine (1) 11/28/2024 COVID-19 Vaccine (2024- season) 2024 Pneumococcal Vaccine: 65+ Years Completed During the course of the visit the patient was educated and counseled about appropriate screening and preventive services including: Tdap vaccine Shingles Vaccine RSV vaccine Bone Density (DEXA) Advanced directives: DNI/DNR, has an advanced directive - a copy HAS NOT been provided. Lab draw attempted today. Verbal consent obtained. Number of attempts: 1 - unsuccessful Gauge needle: 23 g butterfly Patient tolerated procedure Well tolerated by patient.. Assessment/Plan 1. Medicare annual wellness visit, subsequent (Primary) Patient here for annual medicare wellness visit. Demographics were updated. Self-assessment was completed. Past medical, family, and social history were updated. The medication list, including supplements being taken, was updated. A list of other current medical providers was established/updated. Time was spend discussing health maintenance issues, ordering proper testing if applicable, and a schedule was provided regarding recommended screening. We discussed safety issues and fall risk. Depression screening was completed and addressed. Fall screening was completed and addressed. Cognitive function was assessed by direct observation and assessment of ability to perform ADL's and IADL's was done. We also discussed advanced directives and code status. Discussed healthy living and maintenance of a healthy weight. Will continue BMI at in office visits. Major risk factors for chronic diseaseincluding family history were discussed and a list was provided with the care plan. 2. Hypertension, unspecified type This is a chronic medical condition that is stable since last assessment. No changes in treatment are suggested at this time. 3. Atrial fibrillation, unspecified type (HCC) This is a chronic medical condition that is stable since last assessment. No changes in treatment are suggested at this time. Regular rate/rhythm today 4. Gastroesophageal reflux disease, unspecified whether esophagitis present This is a chronic medical condition that is stable since last assessment. No changes in treatment are suggested at this time. 5. 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 Diabetic retinopathy associated with controlled type 2 diabetes mellitus (HCC) Pt is unable to get out for vision check due to bed bound status, as well as advancement of Alzheimer's Dementia 7. 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 Acquired hypothyroidism This is a chronic medical condition that is stable since last assessment. No changes in treatment are suggested at this time. 9. Mixed hyperlipidemia Lipid panel ordered Lab draw unsuccessful today 10. SunDown syndrome Follows with neurology This is a chronic medical condition that is stable since last assessment. No changes in treatment are suggested at this time. 11. Hallucination This is a chronic medical condition that is stable since last assessment. No changes in treatment are suggested at this time. 12. Pressure ulcer of left lower back, stage 1 Currently applying Triad Paste - pt tends to lean to left side despite repositioning Home health is monitoring 13. Difficulty sleeping This is a chronic medical condition that is stable since last assessment. No changes in treatment are suggested at this time. 14. Reese catheter in place This is a chronic medical condition that is stable since last assessment. No changes in treatment are suggested at this time. Home health is monitoring 15. History of breast cancer No s/s of reoccurence 16. Acquired absence of breast and absent nipple, unspecified laterality 17. Renal oncocytoma of left kidney No imaging in chart since 2022 Pt is bed bound and son declines any further imaging LIFESTYLE INTERVENTIONS Patient Name: Ely Bain Date of : 1940 Date: 02/17/2025 It has been determined that you may need additional information and a possible referral for a healthier lifestyle. NUTRITION: A healthy diet is one that provides you with essential nutrients from all basic food groups. A healthy diet provides adequate energy while maintaining a healthy weight. A healthy diet reduces risk ofchronic disease. Certain diseases and digestive problems will require more education by someone that is especially trained in nutrition. You may want to make an appointment to discuss your options with your physician. [1] Patient Active Problem List Diagnosis Acquired absence of unspecified breast and nipple Dementia (HCC) Memory loss Diabetic retinopathy associated with controlled type 2 diabetes mellitus (HCC) DM w/o complication type II (HCC) Gastroesophageal reflux disease H/O: hysterectomy HTN (hypertension) Hyperlipidemia Hypothyroidism Insomnia Renal oncocytoma of left kidney SunDown syndrome Afib (HCC) Breast cancer (HCC) Diabetes mellitus (HCC) 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 sensory awareness Other urethral stricture, female Renal mass Straining on urination Urge urinary incontinence Urinary tract infection Urinary urgency GERD (gastroesophageal reflux disease) Hypertension Pseudobulbar affect Alzheimer's dementia (HCC) Hallucination Difficulty sleeping [2] Past Medical History: Diagnosis Date A-fib (HCC) Anxiety 2017 Breast cancer (HCC) Broken ankle 2001 Depression 2017 Diabetes (HCC) Difficulty walking GERD (gastroesophageal reflux disease) HLD (hyperlipidemia) HTN (hypertension) Thyroid disease Weakness of limb [3] Past Surgical History: Procedure Laterality Date APPENDECTOMY BONE RESECTION, RIB Left CHOLECYSTECTOMY FOOT SURGERY Right 10/18/2019 skin lesion HYSTERECTOMY MASTECTOMY MASTECTOMY Right 2014 RIB FRACTURE SURGERY Left rib ressection [4] Allergies Allergen Reactions Penicillins Unknown Sulfa Antibiotics Other Reaction(s): Unknown documented in this encounter Plan of Treatment Not on file documented as of this encounter Visit Diagnoses Diagnosis Medicare annual wellness visit, subsequent- Primary Hypertension, unspecified type Atrial fibrillation, unspecified type (HCC) Gastroesophageal reflux disease, unspecified whether esophagitis present 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, without long-term current use of insulin (HCC) Diabetic retinopathy associated with controlled type 2 diabetes mellitus (HCC) 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) Acquired hypothyroidism Unspecified hypothyroidism Mixed hyperlipidemia SunDown syndrome Hallucination Hallucinations Pressure ulcer of left lower back, stage 1 Difficulty sleeping Unspecified sleep disturbance Reese catheter in place Other postprocedural status History of breast cancer Personal history of malignant neoplasm of breast Acquired absence of breast and absent nipple, unspecified laterality Renal oncocytoma of left kidney documented in this encounter Additional Health Concerns AssessmentNoted TimePHQ-9 Depression Total Score: 3:53 PM EST documented as of this encounter Care Teams Team MemberRelationshipSpecialtyStart DateEnd Date Lenny Suresh DO [address] [address] PCP - GeneralFamily Medicine08/05/22 Faustino Cruz MD [address] [place] [address] Referring IwyxzxjdiZnrcaiuvs18/14/23 Kristofer Carlton MD [address] [place] [id number] Referring JeqhyctuhVwhacnfidb23/14/23 Jack Mcconnell MD [address] [facility] [place] [address] Referring RycaqchwxUywotske69/14/23documented as of this encounter
--- OUTSIDE RECORDS SUMMARY | 2025-02-27 14:26 | XMS_ITS | Clinical Summary ---
Author Organization [facility] Address [address] [place], [place] [address] Care Team Providers Care Chromium Plater Name Role Phone Unavailable Primary Care Provider Unavailabl e Allergies Active AllergyReactionsCriticalityNoted WpmhXshvaipoUwkerjiygzcDperxzf76/15/2013 Sulfa (Sulfonamide Antibiotics)Schupdw0207/12/2012 Medications MedicationSigDispense QuantityRefillsLast FilledStart DateEnd DateStatus sertraline (ZOLOFT) 100 mg tablet Take 1 tablet by mouth once daily.ctive furosemide 40 mg tablet Take 1 tablet by mouth once daily as needed.07/12/2012ctive levothyroxine (SYNTHROID) 50 mcg tablet Take 1 tablet by mouth once daily.ctive verapamil 120 mg tablet Take 1 tablet by mouth three times daily.ctive sitaGLIPtin-metFORMIN (JANUMET XR) 50-500 mg TM24 Take by mouth.Active JANUMET 50-500 mg per tablet 01/09/2014ctive Active Problems ProblemNoted DateDiagnosed DateBreast cancer Overview (07/13/2012): Left; T2N2M0; Family History Medical HistoryRelationCommentsCancerBrotherkidneyHeartBrotherMS [Other]Daughter CancerSister 1kidneyEmphysemaSister 1HeartSister 1HeartSister 2RelationStatus CommentsBrotherDaughterSister 1Sister 2 Social History Tobacco UseTypesPacks/DayYears UsedDateSmoking Tobacco: NeverSmokeless Tobacco: NeverAlcohol UseStandard Drinks/WeekCommentsNo0 (1 standard drink = 0.6 oz pure alcohol)CommentsNoSex and Gender InformationValueDate RecordedSex Assigned at BirthNot on fileLegal VcoVivatp80/02/2012 9:26 AM ESTGender Identity Not on fileSexual OrientationNot on file Last Filed Vital Signs Vital SignReadingTime TakenCommentsBlood Tfbkqhiy659/75007/26/2014 1:55 PM EDT Uhmuk664507/26/2014 1:55 PM DVVXwvebgcnorx23.7 ??C (98 ??F)07/26/2014 1:55 PM EDT Respiratory Rate--Oxygen Saturation--Inhaled Oxygen Concentration--Lfjlcg19.7 kg (189 lb)07/26/2014 1:55 PM YLGOsuqrz424.6 cm (5' 6 )07/26/2014 1:55 PM EDT verified dmcBody Mass Index30.51007/26/2014 1:55 PM EDT Plan of Treatment Health MaintenanceDue DateLast DoneCommentsAnxiety Fumovshoy69/14/1957Depression Cctogxwdg66/14/1957DTaP,Tdap,Td Vaccine (1 - Tdap)1957Pneumococcal Vaccine: 50+ (1 of 1 - PCV)1988Shingrix Vaccine (1 of 2)1988Bone Density Rruyihbxj33/14/2004RSV Vaccine (1 - 1-dose 75+ series)2013Diabetes Xjqfuksjg64dvance Directive Kpqkddbwha00/01/2025ovid-19 Vaccine ( - season)2024Influenza Vaccine (#1)2024 Procedures Procedure NamePriorityDate/TimeAssociated DiagnosisCommentsCOMPREHENSIVE METABOLIC YPKIAQrvrrfu35/29/2015 2:00 PM EDT Breast cancer (HCC) from Last 3 Months or Most Recently Relevant to Health Maintenance Results * (ABNORMAL) COMP METABOLIC PANEL (07/26/2014 2:00 PM EDT)ComponentValueRef RangeTest MethodAnalysis TimePerformed AtPathologist SignatureProtein, Total 7.86.0 - 8.4 g/dL07/27/2014 3:[facility]ORYAlbumin 4.63.5 - 5.0 g/dL07/27/2014 3:20 AM [facility] LABORATORYCalcium 9.88.5 - 10.5 mg/dL07/27/2014 3:20 AM [facility] Bilirubin, Total0.30.0 - 1.5 mg/dL07/27/2014 3:20 AM [facility] LABORATORYAlkaline Lqtnfeetfxy2008 - 150 U/L07/27/2014 3:20 AM [facility] YIYOVWUUWDNRA655 - 40 U/L07/27/2014 3:20 AM [facility] TZLFEUVSDZBokxhnt2305 - 100 mg/dL07/27/2014 3:20 AM [facility] AUXTQPTCIGGLT646 - 25 mg/dL07/27/2014 3:20 AM [facility] LABORATORYCreatinine0.55(L)0.70 - 1.40 mg/dL07/27/2014 3:20 AM [facility] GQXWHFPSVSRcvixl235317 - 148 mmol/L07/27/2014 3:20 AM [facility] LABORATORYPotassium4.63.5 - 5.0 mmol/L07/27/2014 3:20 AM T [facility] OOCWJXPZTAXttaubja07325 - 110 mmol/L07/27/2014 3:20 AM [facility] PYSVCFFIJIHY52576 - 32 mmol/L07/27/2014 3:20 AM [facility] LABORATORYAnion Bxj356 - 15 mmol/L07/27/2014 3:20 AM [facility] ZPOFINBQTLQWP016 - 45 U/L07/27/2014 3:20 AM [facility] LABORATORYeGFR->6004 3:20 AM [facility] LABORATORYeGFR-All Other Races>60.07/27/2014 3:20 AM [facility] LABORATORYComment: eGFR (Estimated GFR) Units of measure: mL/min/1.73 meters squared eGFR is derived from the reexpressed MDRD Study equation using the following parameters: serum creatinine, age, gender and race. The creatinine assay has been calibrated to be traceable to IDMS. An eGFR <60 mL/min/1.73m2 for >3 months is consistent with chronic kidney disease. Refer to KDOQI guidelines for clinical interpretation. In patients with unstable renal function, e.g. those with acute kidney injury, the eGFR may not accurately reflect actual GFR. Specimen (Source)Anatomical Location / LateralityCollection Method / Volume Collection TimeReceived TimeBlood specimen (specimen)BLOOD SPECIMEN / Unknown 07/26/2014 2:00 PM EDT07/26/2014 2:02 PM EDT Narrative Authorizing ProviderResult TypeResult StatusHolly Teofilo MANAGER RADIO.CNPLABORATORY Final ResultPerforming OrganizationAddressCity/State/ZIP CodePhone Number [facility] [address] [place] [address] from Last 3 Months or Most Recently Relevant to Health Maintenance Insurance
--- OUTSIDE RECORDS SUMMARY | 2025-02-27 14:26 | XMS_ITS | Encounter Summary ---
Author Organization [facility] Address [address] [place] [address] Care Team Providers Care Salesperson Used Cars Name Role Phone Lenny Suresh DO Primary Care Provider [phone] Faustino Cruz MD Unavailable [phone] Kristofer Carlton MD Unavailable [phone] Jack Mcconnell MD Unavailable [phone] Encounter Details DateTypeDepartmentCare Team (Latest Contact Info)Uiqcyyllgty62/05/2025Telephone [facility] [address] [facility] [address] [place] [id number] Lenny Suresh, DO [address] [facility] [address] [place] [address] Social History Tobacco UseTypesPacks/DayYears UsedDateSmoking Tobacco: NeverPassive Smoke Exposure: NeverSmokeless Tobacco: NeverAlcohol UseStandard Drinks/WeekComments Never0 (1 standard drink = 0.6 oz pure alcohol)no caffeine xmnypfJ2435 Health LiteracyAnswerDate RecordedHow often do you need to have someone help you when you read instructions, pamphlets, or other written material from your doctor or pharmacy?Winkrc0310/08/2023Social Connection and Isolation PanelAnswerDate RecordedIn a typical week, how many times do you talk on the phone with family, friends, or neighbors?Never10/08/2023How often do you get together with friends or relatives?More than three times a week10/08/2023How often do you attend jehovah's witness or episcopal services?More than 4 times per year10/08/2023o you belong to any clubs or organizations such as jehovah's witness groups, unions, fraternal or athletic groups, or school groups?No10/08/2023How often do you attend meetings of the clubs or organizations you belong to?Never10/08/2023re you , , , , never , or living with a partner? 10/08/2023Overall Financial Resource Strain (CARDIA)AnswerDate RecordedHow hard is it for you to pay for the very basics like food, housing, medical care, and heating?Not hard at all10/08/2023HQ-2AnswerDate RecordedPatient Health Questionnaire-2 Shasl64104/12/2024Fin[facility] [place] [facility] Occupational Health - Occupational Stress QuestionnaireAnswerDate RecordedDo you feel stress - tense, restless, nervous, or anxious, or unable to sleep at night because yourmind is troubled all the time - these days?To some xqwvjw4410/08/2023Exercise Vital Sign AnswerDate RecordedOn average, how many days per week do you engage in moderate to strenuous exercise (like a brisk walk)?0 days10/08/2023On average, how many minutes do you engage in exercise at this level?0 min10/08/2023Hunger Vital Sign AnswerDate RecordedWithin the past 12 months, you worried [...] were you homeless or living in a mcc (including now)?No10/08/2023UDIT-CAnswerDate RecordedQ1: How often do you [...] on file documented as of this encounter Functional Status * AUDIT-C ScoreAnswerDate of NllgdcywrePunjps999/21/2025 4:18 PM Amalia Barreto NP * QuestionAnswerDate of AssessmentAuthorQ1: How often do you have a drink containing alcohol?Never02/17/2025 4:18 PM Amalia Barreto NPQ2: How many drinks containing alcohol do you have on a typical day when you are drinking? Patient does not drink02/17/2025 4:18 PM Amalia Barreto, GRZEGORZQ3: How often do you have six or more drinks on one occasion?Never02/17/2025 4:18 PM Amalia Gaines NP * Over the past 2 weeks, how often have you been bothered by any of the following problems?QuestionAnswerDate of AssessmentAuthorPatient Health Questionnaire-2 Mrqvf38504/12/2024 11:46 AM Obie Sanchez * Little interest or pleasure in doing thingsAnswerDate of AssessmentAuthor Nearly every day02/10/2025 11:46 AM Obie Sanchez * Feeling down, depressed, or hopelessAnswerDate of AssessmentAuthorMore than half the days02/10/2025 11:46 AM Obie Sanchez * QuestionAnswerDate of AssessmentAuthorPatient Health Questionnaire-9 Score15 02/10/2025 11:46 AM ESTMychart, Generic * Trouble falling or staying asleep, or sleeping too muchAnswerDate of AssessmentAuthorNearly every day02/10/2025 11:46 AM ESTMychart, Generic * Feeling tired or having little energyAnswerDate of AssessmentAuthorNearly every day02/10/2025 11:46 AM ESTMychart, Generic * Poor appetite or overeatingAnswerDate of AssessmentAuthorSeveral days 02/10/2025 11:46 AM ESTMychart, Generic * Feeling bad about yourself - or that you are a failure or have let yourself or your family downAnswerDate of AssessmentAuthorSeveral days02/10/2025 11:46 AM ESTMychart, Generic * Trouble concentrating on things, such as reading the newspaper or watching televisionAnswerDate of AssessmentAuthorSeveral days02/10/2025 11:46 AM EST Mycisabellet, Generic * Moving or speaking so slowly that other people could have noticed? Or the opposite - being so fidgety or restless that you have been moving around a lot more than usual.AnswerDate of AssessmentAuthorSeveral days02/10/2025 11:46 AM ESTMychart, Generic * Thoughts that you would be better off or hurting yourself in some way AnswerDate of AssessmentAuthorNot at all02/10/2025 11:46 AM Laura, Generic documented as of this encounter Miscellaneous Notes * Telephone Encounter - Amalia Carrion NP - 02/20/2025 10:03 AM EST MW/chronic condition follow up completed on 02/17/25. Pt is bed bound and dependent for all care. No sensible verbalization. She continues with a reese catheter which home health manages/changes. She also continues with stage 1 pressure on Left lower back, treated with repositioning and Triad wound paste. Son remains primary child care and pt appears well taken care of. No other issues or concerns brought up. Lab draw was attempted on pt, however, she is a very difficult blood draw. I also did not have a way to access clean urine from her reese cathter. She does have home health, so could the orders for the blood and urine be sent to them for an attempt? Any questions please let me know. * Addendum Note - Lenny Suresh DO - 02/03/2025 5:54 PM ESTAddended by: LENNY SURESH on: 02/03/2025 05:54 PM Modules accepted: Orders * Telephone Encounter - Monica Mcconnell - 02/01/2025 2:56 PM EST Sean, patients son, called because he wanted to set up an appointment for her to be seen, however, he is asking for Dr. Suresh to do a virtual visit. He also wanted to see about the visit for her wellness visit that she usually does with Kim Galvan. He says that he has heard about a [facility] provider that does homebound visits, the provider's name is Lynda Carrion. Would this patient qualify to be seen by Lynda? Please advise and call son back. Ph # listed on his information is verified and correct. 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, without long-term current use of insulin (HCC) Expected: 02/03/2025 (Approximate), Expires: 02/03/2026Hemoglobin a1c with eag LabRoutine 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, without long-term current use of insulin (HCC) Expected: 02/03/2025 (Approximate), Expires: 02/03/2026Microalbumin / creatinine, urine ratioLabRoutine 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, without long-term current use of insulin (HCC) Expected: 02/03/2025 (Approximate), Expires: 02/03/2026Urine culture (clean catch)MicrobiologyRoutine Frequent UTI Expected: 02/03/2025 (Approximate), Expires: 02/03/2026TSHLabRoutine Acquired hypothyroidism Expected: 02/03/2025 (Approximate), Expires: 02/03/2026documented as of this encounter Visit Diagnoses Diagnosis Mixed hyperlipidemia- Primary Acquired hypothyroidism Unspecified hypothyroidism 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, without long-term current use of insulin (HCC) Frequent UTI Urinary tract infection, site not specified documented in this encounter Additional Health Concerns AssessmentNoted TimePHQ-9 Depression Total Score: 3:53 PM EST documented as of this encounter Care Teams Team MemberRelationshipSpecialtyStart DateEnd Date Lenny Suresh DO [address] [address] PCP - GeneralFamily Medicine08/05/22 Faustino Cruz MD [address] [place] [address] [place] [address] Referring UyxzllyecXnmwywtqz29/14/23 Kristofer Carlton MD [address] [place] [address] Referring AlmpuqwhoDoxncmcheu84/14/23 Jack Mcconnell MD [address] [facility] [place] [address] Referring AbcnmjiirXjwutalb64/14/23documented as of this encounter
--- OUTSIDE RECORDS SUMMARY | 2025-02-27 14:26 | XMS_ITS | Clinical Summary ---
Author Organization [facility] Address [address] [place] [address] Care Team Providers Care Larry Car Operator Name Role Phone Lenny Suresh DO Primary Care Provider Faustino Cruz MD Unavailable [phone] Kristofer Carlton MD Unavailable [phone] Jack Mcconnell MD Unavailable [phone] Allergies Active AllergyReactionsCriticalityNoted AjxuJbmavehtCrujwqrdejnVflhfjo06/08/2023 Sulfa Oaqturiwynm38/08/2023 Other Reaction(s): Unknown Medications MedicationSigDispense QuantityRefillsLast FilledStart DateEnd DateStatus levothyroxine (Synthroid, Levoxyl) 75 MCG tablet Indications:Acquired hypothyroidismTAKE 1 TABLET BY MOUTH BEFORE A MEAL EVERY DAY 90 tablet 4Active Janumet 50-500 MG tablet Indications:Diabetes mellitus due to underlying condition with hyperosmolarity without coma, without long-term current use of insulin (HCC)TAKE 1 TABLET BY MOUTH EVERY DAY WITH A MEAL 90 tablet 4Active traZODone (Desyrel) 100 MG tablet Indications:Insomnia, unspecified typeTake 1 tablet (100 mg) by mouth at bedtime 90 tablet 415Active donepezil (Aricept) 10 MG tablet Indications:SunDown syndromeTake 1 tablet (10 mg) by mouth at bedtime 90 tablet 5Active QUEtiapine (SEROquel) 100 MG tablet Indications:DeliriumTake 1 tablet (100 mg) by mouth at bedtime 90 tablet 5Active memantine (Namenda) 10 MG tablet Indications:Unspecified dementia, unspecified severity, without behavioral disturbance, psychotic disturbance, mood disturbance, and anxiety (HCC)TAKE 1 TABLET BY MOUTH TWICE A DAY 180 tablet 5Active dilTIAZem ER (Tiazac) 240 MG 24 hr capsule Indications:Primary hypertensionTAKE 1 CAPSULE BY MOUTH EVERY DAY 90 capsule 5Active busPIRone (Buspar) 10 MG tablet Take 1.5 tablets (15 mg) by mouth in the morning and 1.5 tablets (15 mg) before bedtime.5Active Santyl 250 UNIT/GM ointment APPLY TO WOUND DAILY CRGTOGJE74Discontinued(Med list cleanup) busPIRone (Buspar) 10 MG tablet Take 10 mg by mouth in the morning and 10 mg in the evening and 10 mg before bedtime.02/17/2025Discontinued(Dose adjustment) omeprazole (PriLOSEC) [address] capsule Indications:Gastroesophageal reflux disease without esophagitisTAKE 1 CAPSULE BY MOUTH EVERY DAY 30 MINUTES BEFORE BREAKFAST IN THE MORNING 90 capsule Discontinued(Med list cleanup) OneTouch Ultra Test test strip Indications:Type 2 diabetes mellitus with diabetic polyneuropathy (HCC)USE 1 TEST STRIP IN VITRO ONCE DAILY 50 DAYS 50 strip 705/Discontinued(Med list cleanup) nystatin (Nystop) 400183 UNIT/GM powder Indications:Moniliasis skinApply topically 2 (two) times a day 60 g 110/Discontinued(Med list cleanup) traZODone (Desyrel) 100 MG tablet Indications:Insomnia, unspecified typeTAKE 1 TABLET BY MOUTH EVERY DAY AT BEDTIME 90 tablet Discontinued(Med list cleanup) Active Problems ProblemNoted DateDiagnosed DateFoley catheter in place02/17/2025Pseudobulbar flbxjd5811/01/2023 Overview (11/01/2023): 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 She has declined wanting to trial Nudexta. Stable. Jqhzbkckjbqnc24/04/2024 Overview (11/01/2023): She previously had auditory hallucinations and insomnia which have lessened with seroquel. Her son notes that her hallucinations are stable. Difficulty hmksoaoe89/04/4144Mwbm05/14/2023History of breast lvrjah1603/12/2023 Overview (03/12/2023): Left; T2N2M0; 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 sensory cpqkevgko61/14/2023Other urethral stricture, female 03/12/2023Renal mass03/12/2023cquired absence of unspecified breast and nipple 11/04/2022Memory loss11/04/2022iabetic retinopathy associated with controlled type 2 diabetes tycwzpye00/08/2023H/O: wxltlpgsjawu37/08/2023Hyperlipidemia 11/04/20227403Ztaozmylbfrhgx18/08/6363Yqastmwh98/08/2023 Overview (11/01/2023): Persisting but has improved with medications. Her son states that she is sleeping well. Renal oncocytoma of left qzwjkh3711/04/2022SunDown kglesgjr18/08/2023iabetes aysnrbpx90/08/2023ERD (gastroesophageal reflux disease)11/04/2022Hypertension 11/04/2022lzheimer's cuouyysw66/08/2023 Overview (02/20/2025): Dementia in other diseases classified elsewhere without behavioral disturbance 331.0/F02.80 memory loss consistent with dementia. Has seen an improvement since starting Namenda. No longer haviong diarrhea from Aricept. MMSE last visit was which has improved compared to last visit of . >>OVERVIEW FOR DEMENTIA (HCC) WRITTEN ON 11/01/2023 7:15 AM BY JOE RODRIGUEZ MMSE 07/2018 and repeat 03/2019. Currently on Aricept and Namenda. She follows with Dr. Carlton for anxiety and depression which could be contributing to decline in memory and her medications have been adjusted. MOCA 11/2019 was 530. Sleep-wake cycle is off likely contributing to memory loss. She continues to have hallucinations of people that do not seem to be bothersome or a safety concern. She is not consistently taking her medications, she spits them out. She needs 24 hour care. She needs help with ADLs. He understands that she may need more help than he can provide at home without other family members or outside resources. Resolved Problems ProblemNoted DateDiagnosed DateResolved DateStraining on vxjuzxecv35/14/2023 02/17/2025Urge urinary imsduqfzqxzk40Urinary tract infection Urinary abtwxgw95 Encounters DateTypeDepartmentCare UftmDkrbxmdqksj24/21/2025 1:00 PM ESTOffice Visit [facility] [address] [place] [id number] Amalia Carrion NP Medicare annual wellness visit, subsequent (Primary Dx); [...] left lower back, stage 1; Difficulty sleeping; Apple catheter in place; History of breast cancer; Acquired absence of breast and absent nipple, unspecified laterality; Renal oncocytoma of left mazhdm8702/10/20254283Dhdaoh44/05/2025Telephone [facility] [address] [place] [phone] Lenny Suresh DO from Last 3 Months Immunizations ImmunizationAdministration DatesNext DueInfluenza, Injectable, MDCK, preservative free12/12/2016Influenza, Rpiijtihgrq50/28/2018Influenza, injectable, MDCK, preservative free, raiztuhvoidf76/15/2017Influenza, injectable, uoepcytgmfno11/19/2016Influenza, injectable, quadrivalent, preservative free12/25/2017,12/17/2015Influenza, seasonal, injectable, preservative free12/27/2014Moderna SARS-CoV-2 Umxwdqymycs46/08/2021Pneumococcal Conjugate PCV 13012/27/2014Pneumococcal Polysaccharide QJYY0691 Family History Medical HistoryRelationNameCommentsMultiple hglujckjbWxjktckb7Djgxtrfy artery diseaseSiblingMental parifuwIpi1TcbcyyclPwieKvolvsSvheligiMwdtfbg2KnsseXqjvtfnu0 KzdhyDzrwfcEmuivpntJbacwnGrrxdactJymcypyYdxosd0OittlYhf4Xiihxfhr Social History Tobacco UseTypesPacks/DayYears UsedDateSmoking Tobacco: NeverPassive Smoke Exposure: NeverSmokeless Tobacco: Never Tobacco Cessation:Counseling Given: Not Answered Alcohol UseStandard Drinks/WeekCommentsNever0 (1 standard drink = 0.6 oz pure alcohol)no caffeine fkjuidK8710 Health LiteracyAnswerDate RecordedHow often do you need to have someone help you when you read instructions, pamphlets, or other written material from your doctor or pharmacy?Nyagiy7410/08/2023Social Connection and Isolation PanelAnswerDate RecordedIn a typical week, how many times do you talk on the phone with family, friends, or neighbors?Never 10/08/2023How often do you get together with friends or relatives?More than three times a week10/08/2023How often do you attend episcopalian or sabianist services?More than 4 times per year10/08/2023o you belong to any clubs or organizations such as episcopalian groups, unions, fraternal or athletic groups, or school groups?No10/08/2023How often do you attend meetings of the clubs or organizations you belong to?Never10/08/2023re you , , , , never , or living with a partner?Djerenm3710/08/2023Overall Financial Resource Strain (CARDIA)AnswerDate RecordedHow hard is it for you to pay for the very basics like food, housing, medical care, and heating?Not hard at all10/08/2023HQ-2AnswerDate RecordedPatient Health Questionnaire-2 Score5 02/10/2025[facility] [place] [facility] - Occupational Stress QuestionnaireAnswerDate RecordedDo you feel stress - tense, restless, nervous, or anxious, or unable to sleep at night because yourmind is troubled all the time - these days?To some mwnzmy4910/08/2023Exercise Vital SignAnswerDate Recorded On average, how many [...] were you homeless or living in a half-way (including now)?No10/08/2023UDIT-CAnswerDate RecordedQ1: How often do you have a drink containing alcohol?Never02/17/2025Q2: How many drinks containing alcohol do you have on a typical day when you are drinking?Patient does not drink02/17/2025Q3: How often do you have six or more drinks on one occasion?Never11/21/2025CommentsUnknownSex and Gender InformationValueDate RecordedSex Assigned at BirthNot on fileLegal SexFemale 06/11/2022 7:15 PM EDTGender IdentityNot on fileSexual OrientationNot on file Last Filed Vital Signs Vital SignReadingTime TakenCommentsBlood Scvbkczl027/7802/17/2025 1:00 PM EST Ybkul621902/17/2025 1:00 PM MCHFczqeclhgwl25.1 ??C (97 ??F)02/17/2025 1:00 PM EST Respiratory Rate--Oxygen Clqbyodzys41%02/17/2025 1:00 PM ESTInhaled Oxygen Concentration--Ftzean55.9 kg (196 lb)03/12/2023 4:11 PM BVHJjivmi439.1 cm (5' 5 )03/12/2023 4:11 PM ESTBody Mass Index32.6203/12/2023 4:11 PM EST Plan of Treatment Health MaintenanceDue DateLast DoneCommentsDiabetes: Retinopathy Screening /, 01/16/2021, 01/11/2020, Additional history existsDiabetes: Hemoglobin A1C/, 08/11/2022, 02/24/2022, Additional history existsDiabetes: Urine Protein Rqlsvpmxu45/18/769845/, 02/14/2021OVID-19 Vaccine ( season)503/04/2020, 05/07/2020, 05/01/2020 Influenza Vaccine (#1)5012/25/2017, 12/25/2017, 12/12/2016, Additional history existsPneumococcal Vaccine: 65+ UilnsQpetqrbio93/30/2015, 03/28/2013 Procedures Procedure NamePriorityDate/TimeAssociated DiagnosisCommentsPOCT GLYCATED HEMOGLOBIN, HXXYRYsclmwx47/14/2023 4:11 PM EST Type 2 diabetes mellitus without complication, unspecified whether terminal clerk insulin use (HCC) COLOR FUNDUS PHOTOGRAPHY - OU - BOTH LSIHWyiqakt12/15/2023 12:00 PM EST MICROALBUMIN (W/O CREAT)Yoeedly7302/14/2021 from Last 3 Months or Most Recently Relevant to Health Maintenance Results * (ABNORMAL) POCT Glycated hemoglobin, total (03/12/2023 4:11 PM EST)Component ValueRef RangeTest MethodAnalysis TimePerformed AtPathologist Signature Hemoglobin A1C6.4Specimen (Source)Anatomical Location / LateralityCollection Method / VolumeCollection TimeReceived PwciJyihc63/14/2023 4:11 PM EST Narrative Authorizing ProviderResult TypeResult StatusKim Galvan NPPOINT OF CARE TEST ENTER/EDIT ORDERABLESFinal Result * Color Fundus Photography - OU - Both Eyes (05/14/2022 12:00 PM EST)Anatomical RegionLateralityModalityHeadFundus PhotographySpecimen (Source)Anatomical Location / LateralityCollection Method / VolumeCollection TimeReceived Time 05/14/2022 12:00 PM EST Narrative 05/14/2022 12:00 PM EST PERFORMED AT [facility] LOCATION:[id number] [facility] Procedure Note CONVERSION, GENERIC - 08/13/2022 PERFORMED AT [facility] LOCATION:[id number] [facility] Authorizing ProviderResult TypeResult StatusLenny Suresh [facility] Final Result * (ABNORMAL) MICROALBUMIN (W/O CREAT) (02/14/2021)ComponentValueRef RangeTest MethodAnalysis TimePerformed AtPathologist SignatureMALB<1.2(L)[facility] LABComment:mALB reference range not established.Specimen (Source) Anatomical Location / LateralityCollection Method / VolumeCollection Time Received Time02/14/2021 Narrative Authorizing ProviderResult TypeResult StatusKim Galvan NPECW LABSFinal Result Performing OrganizationAddressCity/State/ZIP CodePhone Number [facility] from Last 3 Months or Most Recently Relevant to Health Maintenance Insurance Care Teams Team MemberRelationshipSpecialtyStart DateEnd Date Lenny Suresh DO [address] [facility] [address] [place] [address] PCP - GeneralFamily Medicine08/05/22 Faustino Cruz MD [address] [place] [address] Referring RfhbrtecsKwvyjecqj90/14/23 Kristofer Carlton MD [address] [place] [id number] Referring EuszcqisbAkvtqncquk16/14/23 Jack Mcconnell MD [address] [place] [address] Referring YofltqiqyXmkucexn37/14/23
[2025-02-27 15:02] LABS: Microalbum Creatinine Ratio Ur 28.0 mg/g (0.0-29.9)
--- OUTSIDE RECORDS SUMMARY | 2025-02-27 15:03 | XMS_ITS | CCD ---
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 Name Role Phone LENNY CUEVA Primary Care Physician [phone] MISC, DR ALARCON Attending Unavailable MISC, DR ALARCON Consulting Unavailable MISC, DR ALARCON Admitting Unavailable ANAY, DR NUÑEZ [...] Carlton MD Unavailable Lety Mcconnell MD Unavailable Lety Mcconnell MD Unavailable ERMELINDA WOMACK Attending Unavailable LENNY CUEVA Attending Unavailable BONNIE RODRIGUEZ Attending Unavailable BONNIE RODRIGUEZ Attending Unavailable Faustino Cruz MD Unavailable Willam Tolliver MD Attending Provider Unavailab Lenny Natarajan DO Primary Care Provider [phone] Gerson Tolliver MD Attending Provider Willam Tolliver Admitting Unavailable Willam Tolliver Attending Unavailable Lenny Cueva Primary Care Unavailable Gerson Tolliver Admitting Unavailable Gerson Tolliver Attending Unavailable Alanna Romero APRN Attending Provider Kristofer Carlton MD Unavailable [phone] Lety Mcconnell MD Unavailable Allergies Allergy ClassificationReported Allergen(s)Allergy TypeDate of OnsetReaction(s) Facility (4 sources)Contrast media; Translations: [Contrast Dye][facility] (20 sources)Penicillins; Translations: [penicillins]Drug hpeiwdl15-04-2419 Unknown (qualifier value), [facility] (4 sources)Sulfonamides (Antibiotic); Translations: [sulfa drugs]Drug allergy Unknown (qualifier value)[facility] (1 source)Iodine (And Iodine Containting Drugs)Drug allergy (disorder)04-04-2019 [facility] Repository (2 sources)Sulfonamides (Antibiotic)Drug allergy (disorder)32-24-4245[facility] (14 sources)Sulfonamides (Antibiotic)Drug Oxuqaoo38-70-9291[facility] (3 sources)Sulfonamides (Antibiotic); Translations: [Sulfa (Sulfonamide Antibiotics)]Allergy to -85-4352[facility]ip[facility] (3 sources)Gadolinium-Containing Contrast Medi; Translations: [Gadolinium- Containing Contrast Medi]Allergy to -88-7086JqcapbmMag[facility] (3 sources)Iodinated Contrast Media; Translations: [Iodinated Contrast Media] Allergy to zaeaaqdsg76-76-2095[facility] of [facility] Medications Current Medications MedicationDrug Class(es)DatesSig (Normalized)Sig (Original)amoxicillin 500 mg / clavulanate 125 mg oral tablet (3 sources)Penicillin-class AntibacterialStart: 16-30-4134Qcekbxwuh 500 mg-125 mg Tab 500 mg, Oral, Every other day, 30 cap(s), Refill(s) 6, [id number], 165, cm, 11/04/21 12:20:00 EDT, Height/Length Dosing, 88, kg, 11/04/21 12:20:00 EDT, Weight Dosing Start Date: 03/31/22 Status: OrderedbusPIRone hydrochloride 15 mg oral tablet (19 sources)Start: 89-65-9958zmwr 1 tablet by mouth twice dailyStart: 11-21-2019 take 1 mg by mouth twice dailybusPIRone 10 mg Tab mg tab(s), Oral, BID, Refills(s) 0 Start Date: 11/21/19 Status: Orderedcephalexin 500 mg oral capsule (2 sources)Cephalosporin AntibacterialStart: 99-02-3571hffl 1 capsule by mouth every eight hoursclobetasol propionate 0.5 mg/ml topical cream (2 sources)CorticosteroidStart: 06-23-7168lrnnhjajrbx 0.25 unt/mg topical ointment (14 sources)Collagen-specific EnzymeStart: 46-24-4986Eflpjk 250 UNIT/GM ointment APPLY TO WOUND DAILY DIRECTED 08/18/2022 ActiveD-mannose (3 sources)Start: 83-71-6470S-mannose D-mannose Start Date: 02/18/21 Status: Atiqyoo03 hr dilTIAZem hydrochloride 240 mg extended release oral capsule (17 sources)Calcium Channel BlockerStart: 50-74-1273cusc 1 capsule by mouth once dailydilTIAZem ER (Tiazac) 240 MG 24 hr capsule Indications: Primary hypertension TAKE 1 CAPSULE BY MOUTH EVERY DAY 90 capsule 3 09/26/2024 Active Start: 09-25-2023 End: 32-52-0646lofp 1 capsule by mouth once daily, then take 1 capsule by mouth every twenty-four hoursStart: 03-26-2023 End: 43-40-1383lztp 1 capsule by mouth every twenty-four hours in the morning dilTIAZem ER (Tiazac) 240 MG 24 hr capsule Indications: Primary hypertension (CMS/HCC) Take 1 capsule (240 mg) by mouth in the morning. 30 capsule 3 03/26/2023 03/25/2024 Activedonepezil hydrochloride 10 mg oral tablet (18 sources)Start: 01-11-2024 End: 64-34-0787dtff 1 tablet by mouth at bedtimedonepezil (Aricept) 10 MG tablet Indications: SunDown syndrome Take 1 tablet (10 mg) by mouth at bedtime 90 tablet 04/11/2024 ActiveStart: 92-70-3070exjklcqny Oral, Once a day (at bedtime), Refills(s) 0 Start Date: 12/03/18 Status: Orderedestradiol 0.1 mg/g vaginal cream (3 sources)Start: 22-70-7695tyakewtlr 0.1 mg/g vaginal cream 1 gm, Vaginal, MonFri, # 42.5 gm, Refills(s) 3, Pharmacy: [facility][id number], 165, cm, 02/18/21 10:54:00 EST, Height/Length Dosing, 87, kg, 11/21/19 13:18:00 EDT, Weight Dosing Start Date: 02/18/21 Status: Orderedsodium hypochlorite 2.5 mg/ml topical solution (2 sources)Start: 06-07-5074ehelkapzwizoy sodium 0.075 mg oral tablet (18 sources)l-ThyroxineStart: 29-06-7439jmtg 1 tablet by mouth once daily before mealtimelevothyroxine (Synthroid, Levoxyl) 75 MCG tablet Indications: Acquired hypothyroidism TAKE 1 TABLETBY MOUTH BEFORE A MEAL EVERY DAY 90 tablet 3 01/11/2024 ActiveStart: 16-00-7650slxn 1 tablet by mouth once dailyStart: 31-21-0905drohjwlgkdzny (Synthroid) 75 MCG tablet Indications: Acquired hypothyroidism (CMS/HCC) 1 tablet before a meal qd 90 tablet 3 04/16/2023 Active Start: 02-48-9982Lljlscpas Oral, Daily, Refills(s) 0 Start Date: 12/03/18 Status: Orderedmemantine hydrochloride 10 mg oral tablet (16 sources)C-gyhpvc-F-aspartate Receptor AntagonistStart: 72-95-5726uprk 1 tablet by mouth twice dailymemantine (Namenda) 10 MG tablet Indications: Unspecified dementia, unspecified severity, without behavioral disturbance, psychotic disturbance, mood disturbance, and anxiety (HCC) TAKE 1 TABLET BY [facility] TWICE A DAY 180 tablet 2 08/03/2024 ActiveStart: 00-98-1900aweahazwn (Namenda) 10 MG tabletmetFORMIN hydrochloride 500 mg / SITagliptin 50 mg oral tablet (18 sources)Biguanide, Dipeptidyl Peptidase 4 InhibitorStart: 28-58-0790whkd 1 tablet by mouth once daily at mealtimeJanumet 50-500 MG tablet Indications: Diabetes mellitus due to underlying condition with hyperosmolarity without coma, without long-term current use of insulin (HCC) TAKE 1 TABLET BY MOUTH EVERY DAY WITH A MEAL 90 tablet 4 02/29/2024 ActiveStart: 01-42-0556Lqgxtmb 50 mg/500 mg oral tablet 1 tab(s), Oral, BID, 60 tab(s), Refill(s) 0 Start Date: 02/18/21 St atus: Afovhbo29 hr mirabegron 25 mg extended release oral tablet (3 sources)beta3-Adrenergic AgonistStart: 05-07-2022 End: 55-17-7291auos 1 tablet by mouth once dailyMyrbetriq 25 mg oral tablet, extended release 25 mg = 1 tab(s), Oral, Daily, X 30 day(s), # 30 tab(s), Refills(s) 7, Pharmacy: [facility]/pharmacy #[id number], 165, cm, 05/07/22 13:26:00 EST, Height/Length Dosing, 88, kg, 05/07/22 13:26:00 EST, Weight Dosing Start Date: 05/07/22 Stop Date: 01/02/23 Status: Orderednystatin 100 unt/mg topical powder (10 sources)Polyene AntifungalStart: 10-21-2023 End: 61-85-1805mzcowvzz (Nystop) 658908 UNIT/GM powder Indications: Moniliasis skin Apply topically 2 (two) times a day 60 g 1 01/21/2024 Activeomeprazole 20 mg delayed release oral capsule (17 sources)Proton Pump InhibitorStart: 21-66-9539lqzm 1 capsule by mouth once daily 30 minutes before breakfastomeprazole (PriLOSEC) [address] capsule Indications: Gastroesophageal reflux disease without esophagitis TAKE 1 CAPSULE BY MOUTH EVERY DAY 30 MINUTES BEFORE BREAKFAST IN THE MORNING 90 capsule 3 05/04/2023 ActiveStart: 34-61-2776mrprqbjlqm Oral, Daily, Refills(s) 0 Start Date: 10/08/20 Status: OrderedQUEtiapine 100 mg oral tablet (20 sources)Atypical AntipsychoticStart: 12-22-2023 End: 76-69-2704qrhq 1 tablet by mouth at bedtimeQUEtiapine (SEROquel) 100 MG tablet Indications: Delirium Take 1 tablet (100 mg) by mouth at bedtime 90 tablet 1 06/09/2024 ActiveStart: 04-90-4382ppmh 1 mg by mouth twice daily quetiapine 100 mg Tab mg tab(s), Oral, BID, Refills(s) 0 Start Date: 02/18/21 Status: OrderedStart: 41-05-1388ddtogmpzyc Oral, Refills(s) 0 Start Date: 12/03/18 Status: OrderedtraZODone hydrochloride 100 mg oral tablet (20 sources)Serotonin Reuptake InhibitorStart: 12-22-2023 End: 05-12-1580lwto 1 tablet by mouth at bedtimetraZODone (Desyrel) 100 MG tablet Indications: Insomnia, unspecified type Take 1 tablet (100 mg) bymouth at bedtime 90 tablet 3 03/21/2024 03/21/2025 ActiveStart: 33-09-8679ymht 1 tablet by mouth at bedtimetraZODone (Desyrel) 100 MG tablet Take 100 mg by mouth at bedtime 0 01/15/2023 ActiveStart: 47-34-0756yudrbrojb Oral, Refills(s) 0 Start Date: 12/03/18 Status: Orderedvalproic acid 50 mg/ml oral solution (4 sources)Mood Stabilizer, Anti-epileptic AgentStart: 21-88-7438qrbtevbm acid (Depakene) 250 MG/5ML oral liquidVerapamil (3 sources)Calcium Channel BlockerStart: 69-80-2939lccikyqim Refills(s) 0 Start Date: 12/03/18 Status: OrderedVitamin D (3 sources)Start: 50-98-6418Nyfwffw D International_Unit, Oral, qWeek, Refills(s) 0 Start Date: 02/18/21 Status: Ordered Completed/Discontinued Medications MedicationDrug Class(es)DatesSig (Normalized)Sig (Original)fluconazole 100 mg oral tablet (2 sources)Azole AntifungalStart: 04-05-2024 End: 01-40-6622rhkv 1 tablet by mouth once dailyFluconazole 100 mg tablet Discontinued 100 MG PO Daily April 05, 2024 12:00am August 30, 2024 10:06am Fungal skin infection Superficial mycosis, unspecified Problems Active Problems Problem ClassificationProblemDateDocumented DateEpisodic/Chronic Administrative/social admission (3 sources)Reduced mobility; Translations: [Other reduced mobility]01-11-2024 EpisodicCancer of breast (17 sources)Malignant tumor of breast ; Translations: [Malignant neoplasm of unspecified site of unspecified female breast]Onset: 277685-65-8637Grgmwjy Cardiac dysrhythmias (18 sources)Atrial fibrillation; Translations: [Unspecified atrial fibrillation] Onset: 801828-75-1276HuzmpjgFltuhzz ulcer of skin (13 sources)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; Translations: [Non-pressure chronic ulcer of other part of right foot with fat layer exposed]Onset: 06-06-2022 50-27-4887CaojaikYzljstwheu and other anemia (1 source)Other iron deficiency anemias; Translations: [OTHER IRON DEFICIENCY ANEMIAS]Onset: 48-15-5952WbijputnRdwymuui, dementia, and amnestic and other cognitive disorders (20 sources)Dementia; Translations: [Unspecified dementia without behavioral disturbance]Onset: 242649-88-7707NzykdytTewkadln mellitus with complications (20 sources)Type 2 diabetes mellitus with foot ulcer; Translations: [Retinopathy due to type 2 diabetes mellitus]Onset: 13-90-6714BohuhliGrnarxms mellitus without complication (20 sources)Diabetes mellitus; Translations: [Type 2 diabetes mellitus without complications]Onset: 996978-49-9385ApulfoqNzgtgcfmp of lipid metabolism (18 sources)Hyperlipidemia; Translations: [Hyperlipidemia, unspecified]Onset: 600865-96-8032ToexlfbVsxospoeln disorders (20 sources)Gastroesophageal reflux disease; Translations: [Gastro-esophageal reflux disease without esophagitis]Onset: 323190-88-6019NunmjkvOdpzttqdi hypertension (20 sources)Hypertensive disorder; Translations: [Essential (primary) hypertension]Onset: 188208-72-0387PldplbqJmgiabcrvbtym symptoms and ill- defined conditions (20 sources)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 sensory awareness; Translations: [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 sensory awareness]Onset: 47-18-0593MknrlzbTgnfwqh and fatigue (2 sources)Asthenia; Translations: [Weakness]19-82-8493FyiewbguUesgkhrsmlmaz mental health disorders (4 sources)Primary insomnia; Translations: [Primary insomnia]Onset: 11-04-2022 49-59-4813TnsznfkQteyaga (4 sources)Candidiasis of skin; Translations: [Candidiasis of skin and nail] 62-76-8272CgpflekhEasnh connective tissue disease (4 sources)Pain in right foot; Translations: [PAIN IN RIGHT FOOT]Onset: 01-28-5358AajhfsksScrhn connective tissue disease (2 sources)Pain in right foot; Translations: [Pain in right foot]05-07-2023 EpisodicOther diseases of kidney and ureters (17 sources)Renal mass; Translations: [Other specified disorders of kidney and ureter]Onset: 570834-09-0690XedeajeCmemn hereditary and degenerative nervous system conditions (1 source)Other idiopathic peripheral autonomic neuropathy; Translations: [OTH IDIO PERIPH AUTONOM NEUROPATHY]Onset: 56-17-7839AjsmtrtWokuz non-traumatic joint disorders (1 source)Other specified arthritis, unspecified site; Translations: [OTHER SPECIFIED ARTHRITIS UNS SITE]Onset: 17-26-7525UkmmutdSfhiq skin disorders (3 sources)Skin problem; Translations: [Disorder of the skin and subcutaneous tissue, unspecified]10-70-7972JpiyhtyzAjrghrez codes; unclassified (2 sources)Delirium; Translations: [Disorientation, unspecified]06-09-2024 EpisodicResidual codes; unclassified (3 sources)At risk for impaired skin integrity ; Translations: [Other specified personal risk factors, not elsewhere classified]06-29-3093SikooovhQfygmdye codes; unclassified (3 sources)Pain; Translations: [Pain, unspecified]18-01-4926EziudzltCsng and subcutaneous tissue infections (2 sources)Cutaneous abscess of right foot; Translations: [Cellulitis of other sites]Onset: 54-90-5157IumcwbffUvwcriz disorders (15 sources)Hypothyroidism, unspecified; Translations: [Hypothyroidism]Onset: 724263-95-1091Raxjxof Past or Other Problems Problem ClassificationProblemDateDocumented DateEpisodic/ChronicGenitourinary symptoms and ill-defined conditions (20 sources)Must strain to pass urine; Translations: [Urgent desire to urinate] Onset: 524595-00-5740ScvehtqbBxcy disorders (14 sources)Mood disordersOnset: Other and unspecified benign neoplasm (1 source)Benign neoplasm of left kidney; Translations: [BENIGN NEOPLASM OF LEFT KIDNEY]Onset: 92-78-4208KqdckbhmPgqss and unspecified benign neoplasm (14 sources)Oncocytoma of left kidney; Translations: [Benign neoplasm of left kidney]Onset: 073508-29-6533HonnzjngVqjio diseases of bladder and urethra (18 sources)Urethral stricture; Translations: [Other urethral stricture, female] Onset: 59-07-6170UkvueyuoRfvbbhoy codes; unclassified (1 source)Acquired absence of both cervix and uterus; Translations: [ACQUIRED ABSENCE BOTH CERVIX AND UTERUS]Onset: 85-39-4901PhcwtsoaPgdiihbt codes; unclassified (1 source)Acquired absence of unspecified breast and nipple; Translations: [ACQUIRED ABSENCE UNS BREAST AND NIPPLE]Onset: 34-09-5102CgbzwwgiNdwxzizq codes; unclassified (14 sources)Acquired absence of breast; Translations: [Acquired absence of unspecified breast and nipple]Onset: 394417-20-2278RqekbskqHiyuaauv codes; unclassified (4 sources)Memory impairment; Translations: [Other amnesia]Onset: 11-04-2022 02-58-3110KdvzfyxhDeobcqgo codes; unclassified (10 sources)Amnesia; Translations: [Other amnesia]Onset: EpisodicResidual codes; unclassified (11 sources)Insomnia; Translations: [Insomnia, unspecified]Onset: 11-04-2022 24-27-1348TkffnahjErqszfdl codes; unclassified (12 sources)Hallucinations; Translations: [Hallucinations, unspecified]Onset: 688927-90-9368CrxrlvttCfqhnyde codes; unclassified (10 sources)Difficulty sleeping ; Translations: [Sleep disorder, unspecified] Onset: 366654-93-7975CdgorgfvPvveoob tract infections (20 sources)Urinary tract infectious disease; Translations: [Urinary tract infection, site not specified]Onset: 85-92-8531Cwhlxlst Results Test NameValueInterpretationReference RangeFacilityUrine Cultureon 08-12-2024 Bacteria identified Cx Nom (U)ORGANISM: Escherichia coli (O:ESCCOL) Declo Count >100,000 Aerobic NIKITA Charge (NMIC56) SUSCEPTIBILITY ORGANISM: O:ESCCOL ANTIBIOTIC INTERPRETATION NIKITA Amikacin S <16 Amoxacillin/K Clavulanate S <8 Ampicillin S <8 Ampicillin/Sulbactam S <4 Aztreonam S <4 Cefazolin S <2 Cefepime S <2 Ceftazidime S <1 Ceftazidime/Avibactam S <4 Ceftolozane/Tazobactam S <2 Ceftriaxone S <1 Cefuroxime S <4 Ciprofloxacin S <0.25 Ertapenem S <0.5 Gentamicin S <2 Levofloxacin S <0.5 Meropenem S <1 Meropenem/Vaborbactam S <2 Nitrofurantoin S <32 Piperacillin/Tazobactam S <8 Tetracycline S <4 Tigecycline S <2 Tobramycin S <2 Trimethoprim/Sulfamethoxazole S 02/15 S = SUSCEPTIBLE I = INTERMEDIATE R = RESISTANT BLANK = DATA NOT AVAILABLE, OR DRUG NOT ADVISABLE OR TESTED R* = RESISTANCE DUE TO EXTENDED SPECTRUM BETA-LACTAMASES ESBL = EXTENDED SPECTRUM BETA-LACTAMASE TFG = THYMIDINE-DEPENDENT STRAIN KRYSTA = BETA-LACTAMASE POSITIVE IB = INDUCIBLE BETA-LACTAMASE. APPEARS IN PLACE OF 'S' WITH SPECIES KNOWN TO POSSESS INDUCIBLE BETA-LACTAMASES. POTENTIALLY THEY MAY BECOME RESISTANT TO ALL B-LACTAM DRUGS. PERFORMED BY: [address] [place] [address] PATHOLOGIST FELT PULLER TSERING BOND M.D.[facility] Physician GroupComment on above: Performed By: #### CUU #### [facility] [address] [place] [address] USAUrine cultureOrdered By: Willam Tolliver on 08-12-2024 Bacteria identified Cx Nom (U)Escherichia coliAbnormalChildren'S Hospital For RehabilitationX-ray reportOrdered By: Drew Kathleen on 76-19-2310Wmlmq reportTRIHEALTH [facility] Main [place] [id number] XRay Report Signed Patient: Milton Ibrahim MR#: [id number] : 1940 Acct:[id number] Age/Sex: 83 / F ADM Date: 4 Loc: Room: Type: [facility] Attending Dr: Danielle Albarran APRN Copies to: Danielle Albarran APRN~ Ordering Provider: Danielle Albarran APRN Date of Service: 01/11/24 XR/XR sacrum coccyx min 2V: SACRUM XR sacrum coccyx min 2V 01/11/2024 11:35 AM SIGNS AND SYMPTOMS: Sacral wound PROTOCOL: Frontal and lateral radiographs of the sacrum and coccyx COMPARISON: None FINDINGS: Degenerative changes are noted in the sacroiliac joints and lower lumbar spine. Degenerative changes are partly visualized in the hips. No definite osteolytic or bony destructive process. Vascular calcifications are present in the soft tissues. Enthesophyte formation is noted over the left iliac wing. XR/XR sacrum coccyx min 2V IMPRESSION: No definite osteolytic or bony destructive process. Degenerative changes are noted as above. Impression dictated by: Drew Kathleen M.D.01/11/2024 7:38 PM Dictation Location: [place] [address] Transcribed By: [facility] 01/11/241937 Dictated By: Drew Kathleen II, MD 01/11/241936 Signed By: 01/11/241937 [facility] Work Phone: XR sacrum coccyx min 2Von 78-33-2844JZ sacrum coccyx min 2VTRIHEALTH [facility] Main [place] [id number] XRay Report Signed Patient: Milton Ibrahim MR#: [id number] : 1940 Acct:[id number] Age/Sex: 83 / F ADM Date: 01/11/24 [facility]: [facility] Dr: Danielle Albarran APRN Copies to: Danielle Albarran APRN Ordering Provider: Danielle Albarran APRN Date of Service: 01/11/24 XR/XR sacrum coccyx min 2V: SACRUM XR sacrum coccyx min 2V 01/11/2024 11:35 AM SIGNS AND SYMPTOMS: Sacral wound PROTOCOL: Frontal and lateral radiographs of the sacrum and coccyx COMPARISON: None FINDINGS: Degenerative changes are noted in the sacroiliac joints and lower lumbar spine. Degenerative changes are partly visualized in the hips. No definite osteolytic or bony destructive process. Vascular calcifications are present in the soft tissues. Enthesophyte formation is noted over the left iliac wing. XR/XR sacrum coccyx min 2V IMPRESSION: No definite osteolytic or bony destructive process. Degenerative changes are noted as above. Impression dictated by: Drew Kathleen M.D.01/11/2024 7:38 PM Dictation Location: [place] [address] Transcribed By: [facility] 01/11/241937 Dictated By: Drew Kathleen II, MD 01/11/241936 Signed By: 01/11/241937[facility] Physician GroupCoding Summary.on 05-12-2022 Coding Summary. CD:[id number] [file] YXBz (more content not included)...[facility] Urineon 34-33-7886Sodwmpge identified Cx Nom (U)Microbiology PROCEDURE: Urine Culture [R1] SOURCE: U Random [...] R1: This test was performed at: [facility], [address] [place] [address], [address]- , , VnhjwsFbpxumOhioHealth Doctors HospitalComment on above:Performed By: #### [id number] #### [facility] [address] [place] [address]Deojbgufvz Visit Summaryon 41-35-0224Cpodkihoom Visit Summary MILTON IBRAHIM :1940 Visit Date:05/07/2022 Ambulatory Visit Instructions Your Diagnosis Urinary tract infection 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 sensory awareness Other urethral stricture, female Tests Performed Urnls Dip Stick Auto w/o Microscopy POC 08419 Your Care Team Attending Physician - TANYA MARCH PA-C Primary Care Physician - LENNY CUEVA DO This Is Your Medications List amoxicillin-clavulanate (Augmentin 500 mg-125 mg Tab) estradiol topical [...] dilation of urethral stricture (03/19/2021), Cystourethroscopy with dilationof urethral stricture (08/19/2016), Urodynamics (07/16/2016), Appendectomy, Bilateral mastectomy, Cholecystectomy, Hysterectomy. Discharge Vitals Heart Rate (Peripheral) 68 Respiratory Rate 16 Blood Pressure 132/74 Height 165 cm Height 65 in Weight 88 kg Weight 193.6 lb BMI 32.32 What to do next Scheduled Follow-Up Appointments Thursday 1:00 PM EDT With: TANYA MARCH PA-C Where: [facility] Educationon 71-83-6751Mgunnqb EducationUrology Urodynamic Testing What is urodynamic testing? Urodynamic [...] including vitamins, herbs, eye drops, creams, and hxgp-mje-paxzist medicines. ? Whether you are or may [...] with a material that shows up on X- rays (contrast material) so that X-ray pictures can [...] ? Nervous system diseases. (more content not included)...[facility] HospitalU[facility] Office/Clinic Noteon 46-53-1977Wchjfnz Office/Clinic NoteChief Complaint 6m HPI Staff PRW pt here for 4m to incontinence w/o sensory awareness, UTI & Urethral Stricture. *Started on Oxybutynin 5mg QHS at last encounter. Stopped taking due to cognitive side effects. Sondid not notice improvement with leaking when she [...] new abx pending cx results. To call forrefills in future. -cont Estradiol 2x/week 2. 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 Stopped taking due to cognitive side effects. Sondid not notice improvement with leaking when she was taking it. Still going through 3-4 pads a day. Son thinks it may be due to mobility and cognitive status. discussed other tx options including other anticholinergics (not recommended due to similar risk ofconfusion), beta-3s (sometimes difficult to get covered/affordable), botox. son would like to try Myrbetriq. side effects discussed - he will monitor her BP when she's on it and call office if HTN inc rease. myrbetriq 25mg sent to [facility]. -void q2hrs, void before sensation 3. Other urethral stricture, female (N35.82: Other urethral stricture, female) S/p cysto/UD done 03/20/21. Follow up in 6 mos or sooner if needed. Pt to call with regarding any issues with Myrbetriq. Pt's son acknowledges understanding and agrees with plan. Follow-up With When Contact Information JOAQUIM MEEK, TANYA Weir, URL [address] [address] Additional Instructions: f/u 6 mos Patient Education Urodynamic Testing Documentation recorded by the scribdonovan Hobbs accurately reflects the services(s) I performedand decisions made by me. Authenticated by Tanya [...] dilation of urethral stricture (03/19/2021), Cystourethroscopy with dilationof urethral stricture (08/19/2016), Urodynamics (07/16/2016), Appendectomy, Bilateral [...] Vitamin D, Oral, qWeek (more content not included)...[facility] HospitalComment on above: Result Comment: Electronically Signed By: TANYA MARCH PA-C\.br\Date and Time Signed: 05/07/2313:05 EST\.br\Electronically Co-Signed By: Ashia Hobbs\.br\Date and Time Co-Signed: 05/07/22 13:59 ESTCBC AUTO DIFFon [id number] #0.1 103/ulNormal0.0-0.1The [facility] CenterComment on above:Performed By: #### CBC #### [facility] [address] [place] [address] Dr. Ginette IvanBasophils/100 WBC (Bld)0.5 %Normal0.2-2.0The [facility] Comment on above:Performed By: #### CBC #### [facility] [address] [place] [address] Dr. Ginette Mcgraw #0.3 103/ulNormal0.0-0.7The [facility] CenterComment on above: Performed By: #### CBC #### [facility] [address] [place] [address] Dr. Ginette Liebermanosinophils/100 WBC (Bld)2.3 %Normal0.9-7.0The [facility] Comment on above:Performed By: #### CBC #### [facility] [address] [place] [address] Dr. Ginette Liebermanrythrocyte distribution width (RBC) [Ratio]13.6 %Dlcibn49.0-15.0 The [facility] CenterComment on above:Performed By: #### CBC #### [facility] [address] [place] [address] Dr. Ginette IvanHematocrit (Bld) [Volume fraction]36.8 %Eqtlhg48.0-48.0The [facility] CenterComment on above:Performed By: #### CBC #### [facility] [address] [place] [address] Dr. Ginette IvanHemoglobin (Bld) [Mass/Vol]12.0 g/yMNeunfh59.0-16.0The [facility] CenterComment on above:Performed By: #### CBC #### [facility] [address] [place] [address] Dr. Ginette Leung #0.03 10e3/ulNormal0.00-0.03The [facility] CenterComment on above:Performed By: #### CBC #### [facility] [address] [address] [address] Ginette Leung %0.3 %Normal0.0-0.5The [facility] CenterComment on above: Performed By: #### CBC #### [facility] [address] [address] [address] Ginette Noe #3.9 103/ulCritically high1.2-3.8The [facility] Comment on above:Performed By: #### CBC #### [facility] [address] [address] [address] Ginette Mileshocytes/100 WBC (Bld)34.8 %Kdxhve66.5-60.0The [facility] CenterComment on above:Performed By: #### CBC #### [facility] [address] [place] [address] Dr. Ginette LongUAL DIFF REQNONormalThe [facility] County Health CenterComment on above: Performed By: #### CBC #### [facility] [address] [place] [address] Dr. Ginette Astorga (RBC) [Entitic mass]28.4 goBhmhmy20.7-34.0The [facility] CenterComment on above:Performed By: #### CBC #### [facility] [address] [place] [address] Dr. Ginette Astorga (RBC) [Mass/Vol]32.6 g/vIQeencf37.9-35.2The [facility] CenterComment on above:Performed By: #### CBC #### [facility] [address] [place] [address] Dr. Ginette Astorga (RBC) [Entitic vol]87.0 lPRwkggo52.0-99.0The [facility] CenterComment on above:Performed By: #### CBC #### [facility] [address] [place] [address] Dr. Ginette Mejia #0.8 103/ulNormal0.3-0.8The [facility] CenterComment on above:Performed By: #### CBC #### [facility] [address] [place] [address] Dr. Ginette Patriciaocytes/100 WBC (Bld)7.0 %Normal1.7-12.0The [facility] Comment on above:Performed By: #### CBC #### [facility] [address] [place] [address] Dr. Ginette MaganaUT #6.2 103/ulNormal1.4-6.5The [facility] CenterComment on above:Performed By: #### CBC #### [facility] [address] [place] [address] Dr. Ginette Maganautrophils/100 WBC (Bld)55.1 %Ncxegb57.0-75.0The [facility] CenterComment on above:Performed By: #### CBC #### [facility] [address] [place] [address] Dr. Ginette IvanPlatelet mean volume (Bld) [Entitic vol]9.8 fLNormal9.5-13.5The [facility] CenterComment on above:Performed By: #### CBC #### [facility] [address] [place] [address] Dr. Ginette IvanPLT304 103/paSxaykd771-863Bpy [facility] CenterComment on above: Performed By: #### CBC #### [facility] [address] [place] [address] Dr. Ginette IvanRBC4.23 106/ulNormal4.20-5.40The [facility] County Health CenterComment on above:Performed By: #### CBC #### [facility] [address] [place] [address] Dr. Ginette IvanWBC11.2 103/ulCritically high4.0-11.0The [facility] CenterCommunson healthcare [facility] on above:Performed By: #### CBC #### [facility] [address] [place] [address] Dr. Ginette IvanFRJENNI T4on 90-84-3970Nial T4 [Mass/Vol]1.17 ng/dLNormal0.76-1.46 The [facility] HospitalComment on above:Performed By: #### FT4 #### [facility] [address] [address] [address] Ginette IvanGLYCOHEMOGLOBIN A1Con 77-13-7353IAM RECOMMENDATIONSEE BELOWMarietta Memorial HospitalCommunson healthcare cadillac hospital on above:Result Comment: ADA RECOMMENDED LIMIT 4.0 - 6.0 ADA THERAPEUTIC TARGET < 7.0 ACTION SUGGESTED > 7.0Performed By: #### A1C #### [facility] [address] [place] [address] Dr. Ginette IvanGlucose [Mass/Vol]134 mg/dLRegency Hospital Cleveland EastCommunson healthcare cadillac hospital on above:Performed By: #### A1C #### [facility] [address] [place] [address] Dr. Ginette IvanHbA1c (Bld) [Mass fraction]6.3 %Critically high4.5-6.2[facility] on above:Performed By: #### A1C #### [facility] [address] [place] [address] Dr. Ginette IvanLIPID PROFILEon 82-56-1965TRTO-HDL RATIO NORMSEE BELOWRegency Hospital Cleveland EastCommunson healthcare cadillac hospital on above:Result Comment: 3.3 - 4.4 LOW RISK 4.4 - 7.1 AVERAGE RISK 7.1 - 11.0 MODERATE RISK >11.0 HIGH RISKPerformed By: #### TSH, LIPID, CMP #### [facility] [address] [place] [address] Dr. Ginette IvanCholesterol [Mass/Vol]211 mg/dLCritically high<=200The [facility] on above:Performed By: #### TSH, LIPID, CMP #### [facility] [address] [place] [address] Dr. Ginette IvanCholesterol in HDL [Mass/Vol]62 mg/dLCritically lxqu78-86Dic [facility] on above:Performed By: #### TSH, LIPID, CMP #### [facility] [address] [place] [address] Dr. Yilan ChangCholesterol in LDL [Mass/Vol]113.6 mg/dLRegency Hospital Cleveland EastComment on above:Performed By: #### TSH, LIPID, CMP #### [facility] [address] [place] [address] Dr. Ginette Robertsonesterol.total/Cholesterol in HDL [Mass ratio]3.4 {ratio} NormalThe [facility] CenterCommunson healthcare cadillac hospital on above:Performed By: #### TSH, LIPID, CMP #### [facility] [address] [place] [address] Dr. Ginette Naik NORMAL> or = 60 mg/dl - LOW CARDIOVASCULAR RISK <40 mg/dl - HIGH CARDIOVASCULAR RISKRegency Hospital Cleveland EastCommunson healthcare cadillac hospital on above:Performed By: #### TSH, LIPID, CMP #### [facility] [address] [place] [address] Dr. Ginette Perales CALC NORMALSEE BELOWRegency Hospital Cleveland EastCommunson healthcare cadillac hospital on above:Result Comment: <100 mg/dl OPTIMAL 100 - 129 mg/dl NEAR OR ABOVE OPTIMAL 130 - 159 mg/dl BORDERLINE HIGH 160 - 189 mg/dl HIGH >190 mg/dl VERY HIGH Performed By: #### TSH, LIPID, CMP #### [facility] [address] [place] [address] Dr. Ginette IvanTriglyceride [Mass/Vol]177 mg/dLCritically high<=150The [facility] on above:Performed By: #### TSH, LIPID, CMP #### [facility] [address] [place] [address] Dr. Ginette WeberLDL CALC35.4 mg/dLRegency Hospital Cleveland EastCommunson healthcare cadillac hospital on above: Performed By: #### TSH, LIPID, CMP #### [facility] [address] [place] [address] Dr. Ginette ShuklaALBUMIN, RAND URon 35-57-9212rRKE1.2 mg/LNormal<=30.0The [facility] on above:Performed By: #### MALBR #### [facility] [address] [place] [address] Dr. Ginette IvanPROSimeon 14(COMP METB)on 81-32-4690Mvfydmd [Mass/Vol]3.3 g/dL Critically low3.4-5.0The [facility] CenterComment on above:Performed By: #### TSH, LIPID, CMP #### [facility] [address] [address] [address] Ginette IvanAlbumin/Globulin [Mass ratio]0.7 {ratio}NormalThe [facility] County Health CenterComment on above:Performed By: #### TSH, LIPID, CMP #### [facility] [address] [address] [address] Ginette RiveraP [Catalytic activity/Vol]117 U/LCritically roau67-826Pjl [facility] CenterComment on above:Performed By: #### TSH, LIPID, CMP #### [facility] [address] [address] [address] Ginette RiveraT [Catalytic activity/Vol]11 U/LCritically jea59-48Ety [facility] CenterComment on above:Performed By: #### TSH, LIPID, CMP #### [facility] [address] [address] [address] Ginette [place] gap [Moles/Vol]12.7 mmol/LNormalThe [facility] Comment on above:Performed By: #### TSH, LIPID, CMP #### [facility] [address] [place] [address] Dr. Ginette IvanAST [Catalytic activity/Vol]18 U/OZuymmm70-61Seq [facility] CenterComment on above:Performed By: #### TSH, LIPID, CMP #### [facility] [address] [place] [address] Dr. Ginette IvanBilirubin [Mass/Vol]0.2 mg/dLNormal0.2-1.0The [facility] Comment on above:Performed By: #### TSH, LIPID, CMP #### [facility] [address] [place] [address] Dr. Ginette IvanCalcium [Mass/Vol]9.1 mg/dLNormal8.5-10.1[facility] Comment on above:Performed By: #### TSH, LIPID, CMP #### [facility] [address] [address] [address] Ginette IvanChloride [Moles/Vol]100 mmol/IVljkqs71-902Kti [facility] Comment on above:Performed By: #### TSH, LIPID, CMP #### [facility] [address] [address] [address] Ginette IvanCO2 [Moles/Vol]26.3 mmol/GTpeplt75.0-32.0The [facility] Comment on above:Performed By: #### TSH, LIPID, CMP #### [facility] [address] [address] [address] Ginette IvanCreatinine [Mass/Vol]0.72 mg/dLNormal0.55-1.02The [facility] CenterComment on above:Performed By: #### TSH, LIPID, CMP #### [facility] [address] [address] [address] Peng ChangEGFR-AF TOGOLESE>60Normal>=60The [facility] CenterComment on above:Performed By: #### TSH, LIPID, CMP #### [facility] [address] [address] [address] Ginette LiebermanGFR-NON AF TOGOLESE>60Normal>=60The [facility] CenterComment on above:Performed By: #### TSH, LIPID, CMP #### [facility] [address] [address] [address] Ginette IvanGlobulin (S) [Mass/Vol]4.6 g/dLNormalThe [facility] CenterComment on above:Performed By: #### TSH, LIPID, CMP #### [facility] [address] [address] [address] Ginette IvanGlucose [Mass/Vol]133 mg/dLCritically oxon01-855Scy [facility] CenterComment on above:Performed By: #### TSH, LIPID, CMP #### [facility] [address] [address] [address] Ginette IvanPotassium [Moles/Vol]4.0 mmol/LNormal3.5-5.1The [facility] Comment on above:Performed By: #### TSH, LIPID, CMP #### [facility] [address] [address] [address] Ginette IvanProtein [Mass/Vol]7.9 g/dLNormal6.4-8.2[facility] Comment on above:Performed By: #### TSH, LIPID, CMP #### [facility] [address] [place] [address] Dr. Ginette IvanSodium [Moles/Vol]135 mmol/LCritically mjj498-507Hzm [facility] CenterComment on above:Performed By: #### TSH, LIPID, CMP #### [facility] [address] [place] [address] Dr. Ginette IvanUrea nitrogen [Mass/Vol]21.0 mg/dLCritically high7.0-18.0The [facility] CenterComment on above:Performed By: #### TSH, LIPID, CMP #### [facility] [address] [place] [address] Dr. Ginette Lopez nitrogen/Creatinine [Mass ratio]29.2 mg/mgNormalThe [facility] CenterComment on above:Performed By: #### TSH, LIPID, CMP #### [facility] [address] [place] [address] Dr. Ginette Guevara 56-97-7603HAY6.395 uIU/mLCritically high0.358-3.740[facility] CenterComment on above:Performed By: #### TSH, LIPID, CMP #### [facility] [address] [place] [address] Dr. Ginette Ivan Vital Signs Date TimeVital SignValuePerforming PgqdjyafhAejaltrj92-54-3069 11:12-040Body .7 [degF]Lenny Cueva DO Work Phone: [facility]06-03-2025 11:12-0400 Diastolic blood xoufiwvx90 mm[Hg]Lenny Cueva DO Work Phone: [facility]06-03-2025 11:12-0400 Heart oout909 /minPastacey Anay DO Work Phone: [facility]06-03-2025 11:12-0400 Respiratory rate18 /minPaul Anay DO Work Phone: [facility]06-03-2025 11:12-0400 Systolic blood djawftgs221 mm[Hg]Lenny Cueva DO Work Phone: [facility]02-08-2023 13:24-0500 Blood Pressure LocationJENNKARLIE JOAQUIM [facility]02-08-2023 13:24-0500Diastolic blood kodqpocw54 mm[Hg]TANYA JOAQUIM [facility]02-08-2023 13:24-0500Heart rate68 /minJENNIFER JOAQUIM [facility]02-08-2023 13:24-0500Respiratory rate16 /minJHOANNNIFER JOAQUIM [facility]02-08-2023 13:24-0500Systolic blood chqtgyoh564 mm[Hg]TANYA JOAQUIM [facility] Encounters Encounter DateEncounter TypeCare ProviderFacilityStart: 02-01-2025 End: 06-76-9014Bbfmfjomj encounterPaul Ju Cueva DO Work Phone: [facility] 230Start: 01-31-2025 End: 93-40-1790dgdskmqimnXbuihn Gillmor APRN Work Phone: [phone]-Bfuarkbtp Health NeurologyStart: 01-31-2025 End: 29-58-2538Cvvrnnw encounter Celine Feliciano APRN-[facility] Work Phone: Start: 09-24-2024 End: 17-64-5805VhatlfFkse Ju Cueva DO Work Phone: [facility] 230Comment on above:Primary hypertension Start: 08-30-2024 End: 32-82-7972xjqggihfjcWxel Anay DO Work Phone: [facility] Work Phone: Start: 08-30-2024 End: 44-38-1349Bjzmrnkjlh Taqueria Tolliver MD-Wound Care Donnie Work Phone: Start: 08-12-2024 End: 93-21-3494wovajpjpguQpzwaw P VargasFacility:[facility] Hospitaltart: 08-12-2024 End: 69-21-9187Spqsfpyf ReferredAlvasyl Mattson MD-LAB [facility] Start: 06-07-2024 End: 58-40-8288Lfzbvy outpatient visit 15 minutesErmelinda NICOLAS Work Phone: aNA BELLEVUEComment on above: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 (CMS/HCC) (Primary Dx); Pseudobulbar affect; Hallucination; DeliriumStart: 06-07-2024 End: 33-34-9778eozjgdwpcaZABT HILLNot AvailableStart: 04-10-2024 End: 86-44-9702LvwtzfRbju Ju Cueva DO Work Phone: [facility] 230Comment on above:SunDown syndromeStart: 03-20-2024 End: 16-74-0816OtswkpEbsjlmb C Windnagel ECHOCARDIOGRAPH TECHNICIAN Work Phone: [facility] NEURComment on above:Insomnia, unspecified typeStart: 02-09-2024 End: 96-07-5274tjcqzcjcfuUKBWHQK C WINDNAGELNot AvailableStart: 02-09-2024 End: 59-73-2276Jymedt outpatient visit 15 minutesFelicia C Windnagel ECHOCARDIOGRAPH TECHNICIAN Work Phone: [facility] NE NEUROComment on above: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 (CMS/HCC) (Primary Dx) Start: 01-20-2024 End: 81-00-5240ObfuekFitv J Bruner DO Work Phone: [facility] 230Comment on above:Moniliasis skinStart: 12-25-2023 End: 67-20-6962Btohez OnlyLenny Ju Anay DO Work Phone: [facility] 230Comment on above:Pressure injury of sacral region, stage 4 (CMS/HCC) (Primary Dx)Start: 11-04-2023 End: 94-60-5122pcbucdbfveYEBRSZI C JACINTOGELVimal AvailableStart: 10-08-2023 End: 51-45-9294hzkdbfzpdjXEIU J BRUNERNot AvailableStart: 09-13-9582Qreka abstractCatherine Gottlieb DPM Work Phone: [facility]ODIATRYStart: 55-80-0564Wxunq abstracting Hu Serranohal DPM Work Phone: [facility] PODIATRYStart: 05-07-2023 End: 88-81-8562Ikhaws outpatient new 30 minutesHu Celestin [place] DPM Work Phone: noms [facility] PODIATRYComment on above: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); Ulcer of right foot with fat layer exposed (CMS/HCC); Diabetes mellitus due to underlying condition with diabetic polyneuropathy, without long-term current use of insulin (CMS/HCC); Right foot pain; Generalized weakness; Dementia without behavioral disturbance (CMS/HCC)Start: 11-05-2022 End: 91-57-1753rqaxoevsbrAHJPEUFA E PERRYFacility:EU BellevueStart: 11-05-2022 End: 65-09-1944Wcmoooi encounter procedureJENNIFER E JOAQUIM [facility] start: 19-50-8694floxfahpaqNP PAUL BRUNERFacility:H1 Start: 07-14-2022 End: 40-89-0262espsdphisvTWAAA D HIGHLANDERFacility:S7Dnadd: 06-18-2022 End: 41-81-7534piautaijneFSSLM D HIGHLANDERFacility:P4Hfpdc: 05-28-2022 End: 40-30-6798encosoxsbwOUVPP D HIGHLANDERFacility:A8Zvizf: 05-07-2022 End: 30-28-5098hlqnryuodiHTPWHNSD E PERRYFacility:FTMCStart: 05-07-2022 End: 92-47-8041Ype Drop offJENNIFER E JOAQUIM [facility] Start: 05-07-2022 End: 59-71-8546Vcysxsi encounter procedureJENNIFER E JOAQUIM [facility] start: 02-24-2022 End: 40-59-2003vhwwxuwsdvEQ DOCTOR MISCFacility:H1 Procedures DateProcedureProcedure DetailPerforming ClinicianStart: 19-76-6479Qmzvh culture Lenny Cueva DO Work Phone: Start: 32-40-3569F-ray of sacrum and coccyx, two or more viewsLenny Cueav DO Work Phone: Start: 11-04-2022H/O: hysterectomyH/O: hysterectomy Hu [place] DPM Work Phone: start: 88-10-1739Ubqopfghlnamxtugj with dilation of urethral strictureJENNIFER JOAQUIM Start: 55-52-7925Hudrkzzhbkvpdxmch with dilation of urethral strictureJENNIFER JOAQUIM Start: 73-82-1964Bbrjeokzzu studiesJENNIFER JOAQUIM AppendectomyJENNIFER JOAQUIM Bilateral mastectomyJENNIFER JOAQUIM CholecystectomyJENNIFER JOAQUIM HysterectomyJESTEPHANI MARCH Plan of Treatment DateCare ActivityDetailAuthorStart: 15-00-2312PXEOI-19 Vaccine ( season)COVID-19 Vaccine ( season)NOM HealthcareStart: 11-28-2024 Influenza vaccinationNOWV HealthcareStart: 06-07-2024 End: 48-00-6171Ahvhuxwqamyv consultation with patientNOMS NE NEUROStart: 29-73-6832Vfvpu screening for proteinDiabetes: Urine Protein ScreeningNOWV HealthcareStart: 12-14-2024Medicare Annual Wellness (AWV)Medicare Annual Wellness (AWV)NOM HealthcareStart: 02-09-2024 End: 50-61-5115Afgssdyhvurb consultation with ejhqzbd7702/09/2024 11:20 AM EST Telemedicine [facility] [address] [place] [address] Bonnie Rodriguez, ECHOCARDIOGRAPH TECHNICIAN [address] [place] [address] [facility] NE NEUROStart: 53-35-5913Psjsypiha vaccination Influenza Vaccine (#1)NOM HealthcareStart: 44-38-4824Khutihovgc A1c measurement Diabetes: Hemoglobin P1QLDZB HealthcareStart: 05-27-2023 End: 54-55-3645Vgfajqi encounter jrcjbtxhe83/28/2024 3:45 PM EST Office Visit [facility] [address] [place] [id number] Hu Gottlieb DPM [address] [place] [address] [facility] PODIATRYStart: 20-36-8848Zunwyqif screening Diabetes: Retinopathy ScreeningNOWV HealthcareStart: 05-07-2023 End: 38-68-7057Kfvpxqb encounter gscbpbqip39/08/2024 2:00 PM EST Office Visit [facility] [address] [place] [address] Hu Gottlieb, DPM [address] [place] [address] [facility] PODIATRYStart: 34-97-3610Dfmldjuqo vaccination Influenza Vaccine (#1)[facility] HealthcareStart: 98-16-9995Udzru screening for proteinDiabetes: Urine Protein ScreeningNOExcelsior Springs Medical Center Immunizations Immunization DateImmunizationNotesCare XtigfxtaNyvvsabl92-05-7227LHAE-WoI-1 (COVID-19) mRNA-1273 vaccineJENNIFER JOAQUIM [facility]02-08-2021SARS-CoV-2 (COVID-19) mRNA-9289 vaccineJENNIFER JOAQUIM [facility]02-02-2021SARS-CoV-2 (COVID-19) mRNA-1276 vaccineJENNIFER JOAQUIM [facility]09-28-2018influenza virus vaccine, unspecified formulationJENNIFER JOAQUIM [facility]09-28-2018influenza, injectable, quadrivalent, preservative freeJohn [place] DPM Work Phone: [facility]SmithvilleOvzspiwgrt97-58-8463tmqvwptjd, injectable, madin alcon canine kidney, preservative freeJohn [place] DPM Work Phone: [facility]SmithvilleHbhrpsfdjg19-70-8871Jyohhnwxj, injectable, Madin [place] Canine Kidney, preservative free, quadrivalentJohn [place] DPM Work Phone: [facility]–SmithvilleWpuzqvwgkd30-37-7327hwcuhdbiw virus vaccine, unspecified formulationJENNIFER JOAQUIM [facility] Hospitalue09-19-2016influenza, injectable, quadrivalent, contains preservativeJohn [place] DPM Work Phone: [facility]–SmithvilleQybexxaynj97-52-3033qxzvhuund, injectable, quadrivalent, preservative freeJohn [place] DPM Work Phone: [facility]SmithvilleCemrpqeqpf83-71-5097ebxeznjab, seasonal, injectable, preservative freeJohn [place] DPM Work Phone: [facility]SmithvillePdeikvmtdm70-02-9624mcvrvfdvozkx conjugate vaccine, 13 valentJohn [place] DPM Work Phone: [facility]SmithvilleHmtgwzwimy31-33-8998jbsdmpkeaygq polysaccharide vaccine, 23 valentJohn [place] DPM Work Phone: [facility] Payers DatePayer CategoryPayerPolicy [id number] Health [id number] 2024Self-pay2023MedicareUNITED HEALTHCARE MEDICARE UHC [employer] MEDICARE REPLACEMENT [id number] 2022-Present [address] [address] [place] [id number] 2023Medicare (Managed Care)[employer] Member Subscriber Plan / Payer (Effective 2022-Present) Name: Milotn Ibrahim Relation to Subscriber: Self Name: Milton Ibrahim Subscriber ID: [id number] Payer ID: [id number] (NAIC) Type: Not on file Address: [address] [address] [place] [address] [id number] Health [id number] [id number] [id number] 2.16.840.1.352929.3.57[id number] 2.16.840.1.461715.3.57[id number] 2.16.840.1.115728.3.57[id number] 2.16.840.1.509320.3.57[id number] 2.16.840.1.700091.3.57[id number] 2.16.840.1.740083.3.57[id number] 2.16.840.1.583284.3.57[id number] 2.16.840.1.389397.3.57[id number] 2.16.840.1.258759.3.57[id number] 2.16.840.1.273662.3.57[id number] 2.16.840.1.303549.3.57[id number] 2.16.840.1.620[id number] [id number] 2.16.840.1.99653[id number] 2.16.840.1.206612.3.579.2.531 Social History DateTypeDetailFacilityStart: 05-07-2022 End: 64-50-1889Llzcjyr smoking statusNever smoked tobacco (finding)[facility] [facility] HospitalueStart: [id number] smoking statusNeverExecutive Urology of Mercy [facility] St[facility] HospitalueStart: 03-12-2023 End: 42-64-0552Drw Assigned At BirthFeSt. John of God Hospitaltart: 89-65-7690Titoecr use and exposureSmokeless tobacco non-userNOMS Healthcare Start: 03-12-2023 End: 57-74-4330Ezpahlq intakeLifetime non-drinker (finding)[facility] HealthcareStart: 03-12-2023 End: 51-40-0314Gqadkil of Social functionNOMS HealthcareStart: 54-76-3468Ljqsxeh Commentno caffeine intakeNOMS HealthcareStart: 60-83-3305Ktd Assigned At Not on fileNOMS HealthcareDo you belong to any clubs or organizations such as baptist groups, unions, fraternal or athletic groups, or school groups?NoNOMS HealthcareAre you now , , , , never or living with a partner?WidowedNOMS HealthcareHow often to you have a drink containing alcohol?NeverNOMS HealthcareDo you feel stress - tense, restless, nervous, or anxious, or unable to sleep at night because yourmind is troubled all the time - these days [OSQ]To some extentNOMS Healthcare(I/We) worried whether (my/our) food would run out before (I/we) got money to buy more.Never trueNOMS HealthcareHow often do you need to have someone help you when you read instructions, pamphlets, or other written material from your doctor or pharmacy [SILS]AlwaysNOMS HealthcareStart: 01-26-2024 End: 22-22-2922Dzjfpuw smoking status NHISUnknown if ever smokedVan Wert County HospitalexFemale (finding)[facility] Start: 81-71-2481Vpo Assigned At [facility] NEGATED: Highlighted rowStart: NINFHistory of tobacco usePassive smokerNOWV Healthcare Medical Equipment Procedure CodeEquipment CodeEquipment Original TextEquipment IdentifierDatesUSE 1 TEST STRIP IN VITRO ONCE DAILY 50 [id number]: 35-60-0817ACM 1 TEST STRIP IN VITRO ONCE DAILY 50 [id number]: 08-21-2023 Functional Status Zlgh[id number] StatusN/AExecutive Urology of [facility] Clinical Notes 05-07-2022 to 02-01-2025 Note Date & [id number] Telephone encounter Note* Telephone Encounter - Monica Mcconnell - 02/01/2025 2:56 PM EST Sean, patients son, called because he wanted to set up an appointment for her to be seen, however, he is asking for Dr. Cueva to do a virtual visit. He also [...] on his information is verified and correct. NOMS [id number] Miscellaneous Notes* Telephone Encounter - Monica Mcconnell - 02/01/2025 2:56 PM EST Sean, patients son, called because he wanted to set up an appointment for her to be seen, however, he is asking for Dr. Cueva to do a virtual visit. He also [...] is verified and correct. documented in this encounterSaint Luke's North Hospital–SmithvilleNoanyjpnou02-47-0408 Progress note Author Gerson Tolliver [facility] For RehabilitationNote Date/TimeJune 2024 11:41[place] [address] Wound Center Provider Note Signed Patient: Milton Ibrahim MR#: [id number] 056 : 1940 Acct:[id number] Age/Sex: 84 / F Copies to: MD Lenny Harrison,DO~ HPI Date of Visit Date of Visit: Date of Service: 08/30/2024 Time of Service: 11:39 Narrative HPI: Patient returns today. She is being followed for sacral and medial right buttock ulcer. She has home health. Patient's son is with her at this visit. Ulcers have greatly improved following placement of Paple catheter to prevent soilage of the ulcer. Recent culture grew sensitive E. coli. Patient currently is eating better. She has a specialized mattress. Previous history: Ms. Milton Ibrahim is an 83 year old female presenting today witha sacral wound. Ms. Milton Ibrahim is accompanied by her son who is her caregiver. Ms. Ibrahim presents with advanced dementia so the information was collected with the assistance of the patient's son. The patient is no longer ambulatory and is bed bound due to her dementia and has since developed several pressure wounds in thesacral region since September. This wound in particular was identified by home healthwith concerns for infection and the patient was taken to to the Emergency room in November. At that time the patient was treated with a course of doxycycline and provided care of the wound through home health. Given that the wound remained, the patient was referred to the wound care clinic. The patient's caregiver states that the patient does not notice the patient to be in any significant pain and does notidentify any significant drainage, erythema, or signs of infection in and around the wound. The patient has frequent changes of briefs throughout the day to prevent urine and stool from infecting thewound. The patient does use an air mattress to reduce pressure on the wound. Pelvic x-rays did not show evidence of osteomyelitis. Wound has been granulation tissue. There is no exposed bone. There is no surrounding erythema or induration. There is a moderate to large amount of serous drainage. No necrotic tissue is seen. The patient has a past medical history that includes hypertension, diabetes, anddementia. She has apast surgical history that includes mastectomy and hysterectomy. She is not taking any blood thinners. Subjective Pain Sacrum: Pain Description: Intermittent Wound/Ulcer History When did wound start?: Pressure ulcer was identified in November Mode of Arrival/ Base Wad Operator Adjuster: Personal vehicle Assistive Device Used Today: Wheelchair Lives with:: Children Who helps w/ dressing change?: Family Why Do You Need Help?: Can't Reach Ulcer, Limited mobility, Unable to understand, Unsafe leave homeby self and Taxing effort to leave home Review of Systems ROS Unobtainable: unobtainable due to mental condition [facility] Medical History (Updated 08/30/24 @ 11:38 by Gerson Tolliver MD) Diabetes Hypothyroid Does not walk Breast cancer Dementia Sacral ulcer Surgical History (Updated 01/11/24 @ 11:03 by Margareth Sullivan RN) History of mastectomy Grafts History of Graft History of Graft?: No Exam Physical Exam Vital Signs: Temp Pulse Resp BP O2 Del Method 97.7 F 107 H 18 135/81 Room Air 08/30/24 11:12 08/30/24 11:12 08/30/24 11:12 08/30/24 11:12 08/30/24 11:12 Skin Wounds: wounds noted Neuro General: patient awake Lower/Upper Extremity Exam Vascular Exam-Pulses Right Brachial: Pulse Assessment Method: NIBP Objective Meds/Allergies Home Medications buspirone 15 mg tablet 15 mg PO BID 01/11/24 [History Confirmed 01/11/24] diltiazem HCl 240 mg capsule,24 hr,extended release (Tiadylt ER) 240 mg PO DAILY01/11/24 [History Confirmed 01/11/24] donepezil 10 mg tablet 10 mg PO DAILY 01/11/24 [History Confirmed 01/11/24] levothyroxine 50 mcg tablet (Synthroid) 50 mcg PO DAILY 01/11/24 [History Confirmed 01/11/24] memantine 10 mg tablet 10 mg PO BID 01/11/24 [History Confirmed 01/11/24] quetiapine 100 mg tablet 100 mg PO QHS 01/11/24 [History Confirmed 01/11/24] sitagliptin phosphate 50 mg-metformin 500 mg tablet (Janumet) 1 tab PO DAILY 01/11/24 [History Confirmed 01/11/24] sodium hypochlorite 0.25 % solution (Dakin's Solution) 1 applic topical DAILY 3 weeks #473 mL 01/11/24 [Rx Confirmed 08/30/24] trazodone 100 mg tablet 100 mg PO HS 01/11/24 [History Confirmed 01/11/24] clobetasol 0.05 % topical cream 1 applic topical DAILY 2 weeks #30 grams 05/10/24 [Rx Confirmed 08/30/24] cephalexin 500 mg capsule 500 mg PO Q8H 7 days #21 caps 08/30/24 [Rx] Allergies Gadolinium-Containing Contrast Medi (From Contrast Media) Allergy (Mild, Verified 08/30/24 11:09) Redness of Skin Iodinated Contrast Media (From Contrast Media) Allergy (Mild, Verified 08/30/24 11:09) Redness of Skin Sulfa (Sulfonamide Antibiotics) Allergy (Verified 08/30/24 11:08) Itching Wound/Ulcer Sacrum: Type: Pressure/Injury Ulcer Pressure Ulcer/Injury Staging: Unstageable Bed Appearance: Beefy Red, Delacroix and Yellow Percent of Wound Bed Granulated/Red: 90 Percent of Devitalized: 10 Length (cm): 1.5 Width (cm): 2.0 Depth (cm): 0.1 CM Sq: 3.000 Undermining Position: 0 Undermining Depth: 0 Surrounding Tissue Appearance: Dryness Surrounding Tissue Temp: Warm Drainage Amount: Moderate Drainage Description: Serosanguineous Drainage Odor: No Odor Chemical Cauterization: NA Results Additional Studies: ITS Impressions Sacrum and Coccyx X-Ray 01/11/24 11:35 IMPRESSION: No definite osteolytic or bony destructive process. Degenerative changes are noted as above. Impression dictated by: Drew Kathleen M.D.01/11/2024 7:38 PM Dictation Location: [place] [address] Assessment/Plan Assessment/Plan (1) Stage IV pressure ulcer of sacral region: Code(s): L89.154 - Pressure ulcer of sacral region, stage 4 (2) Limited mobility: Code(s): Z74.09 - Other reduced mobility (3) Dementia: Code(s): F03.90 - Unspecified dementia, unspecified severity, without behavioral disturbance, psychotic disturbance, mood disturbance, and anxiety (4) Fungal skin infection: Code(s): B36.9 - Superficial mycosis, unspecified (5) Dermatosis: Code(s): L98.9 - Disorder of the skin and subcutaneous tissue, unspecified Plan Continue current dressing changes for the sacral ulcer. Will use barrier dressing for the surrounding skin and also place any tape well away from the irritated skin. Patient has home health and son also helps with dressing changes. Will start course of antibiotics for urine infection. Catheter due to be changed in the next coupleweeks. Patient will follow-up in about 3weeks. See Instructions for Orders See Instructions for Orders See Wound Discharge Instructions for Orders: Dictated By: Gerson Tolliver MD DD/ 1139 Signed By: <Electronically signed by MD Gerson Tolliver> 08/30/24 1141 [facility] Work Phone: 1(188) 821-411406-03-2025 Evaluation note* Diagnosis Onset Date Resolution Status Admit Date At high risk for skin breakdown acuteJun2024 11:03amDementiaacuteJune 2024 11:03amDermatosisacute Akila 2024 11:03amDiabetesacuteJune 2024 11:03amFungal skin infection acuteJun2024 11:03amIncontinenceacuteJune 2024 11:03amLimited mobilityacuteJun2024 11:03amPainacuteJune 2024 11:03amPressure ulcer of sacral region, unstageableacuteJun2024 11:03amStage IV pressure ulcer of sacral regionacuteJun2024 11:03am [facility] Work Phone: 1(921) 678-793106-03-2025 [place] [address] Wound Center Provider Note Signed Patient: Milton Ibrahim MR#: [id number] 056 : 1940 Acct:[id number] Age/Sex: 84 / F Copies to: MD Lenny Harrison,DO~ HPI Date of Visit Date of Visit: Date of Service: 08/30/2024 Time of Service: 11:39 Narrative HPI: Patient returns today. She is being followed for sacral and medial right buttock ulcer. She has home health. Patient's son is with her at this visit. Ulcers have greatly improved following placement of Apple catheter to prevent soilage of the ulcer. Recent culture grew sensitive E. coli. Patient currently is eating better. She has a specialized mattress. Previous history: Ms. Milton Ibrahim is an 83 year old female presenting today witha sacral wound. Ms. Milton Ibrahim is accompanied by her son who is her caregiver. Ms. Ibrahim presents with advanced dementia so the information was collected with the assistance of the patient's son. The patient is no longer ambulatory and is bed bound due to her dementia and has since developed several pressure wounds in thesacral region since September. This wound in particular was identified by home healthwith concerns for infection and the patient was taken to to the Emergency room in November. At that time the patient was treated with a course of doxycycline and provided care of the wound through home health. Given that the wound remained, the patient was referred to the wound care clinic. The patient's caregiver states that the patient does not notice the patient to be in any significant pain and does notidentify any significant drainage, erythema, or signs of infection in and around the wound. The patient has frequent changes of briefs throughout the day to prevent urine and stool from infecting thewound. The patient does use an air mattress to reduce pressure on the wound. Pelvic x-rays did not show evidence of osteomyelitis. Wound has been granulation tissue. There is no exposed bone. There is no surrounding erythema or induration. There is a moderate to large amount of serous drainage. No necrotic tissue is seen. The patient has a past medical history that includes hypertension, diabetes, anddementia. She has apast surgical history that includes mastectomy and hysterectomy. She is not taking any blood thinners. Subjective Pain Sacrum: Pain Description: Intermittent Wound/Ulcer History When did wound start?: Pressure ulcer was identified in November Mode of Arrival/ Base Wad Operator Adjuster: Personal vehicle Assistive Device Used Today: Wheelchair Lives with:: Children Who helps w/ dressing change?: Family Why Do You Need Help?: Can't Reach Ulcer, Limited mobility, Unable to understand, Unsafe leave homeby self and Taxing effort to leave home Review of Systems ROS Unobtainable: unobtainable due to mental condition [facility] Medical History (Updated 08/30/24 @ 11:38 by Gerson Tolliver MD) Diabetes Hypothyroid Does not walk Breast cancer Dementia Sacral ulcer Surgical History (Updated 01/11/24 @ 11:03 by Margareth Sullivan RN) History of mastectomy Grafts History of Graft History of Graft?: No Exam Physical Exam Vital Signs: Temp Pulse Resp BP O2 Del Method 97.7 F 107 H 18 135/81 Room Air 08/30/24 11:12 08/30/24 11:12 08/30/24 11:12 08/30/24 11:12 08/30/24 11:12 Skin Wounds: wounds noted Neuro General: patient awake Lower/Upper Extremity Exam Vascular Exam-Pulses Right Brachial: Pulse Assessment Method: NIBP Objective Meds/Allergies Home Medications buspirone 15 mg tablet 15 mg PO BID 01/11/24 [History Confirmed 01/11/24] diltiazem HCl 240 mg capsule,24 hr,extended release (Tiadylt ER) 240 mg PO DAILY01/11/24 [History Confirmed 01/11/24] donepezil 10 mg tablet 10 mg PO DAILY 01/11/24 [History Confirmed 01/11/24] levothyroxine 50 mcg tablet (Synthroid) 50 mcg PO DAILY 01/11/24 [History Confirmed 01/11/24] memantine 10 mg tablet 10 mg PO BID 01/11/24 [History Confirmed 01/11/24] quetiapine 100 mg tablet 100 mg PO QHS 01/11/24 [History Confirmed 01/11/24] sitagliptin phosphate 50 mg-metformin 500 mg tablet (Janumet) 1 tab PO DAILY 01/11/24 [History Confirmed 01/11/24] sodium hypochlorite 0.25 % solution (Dakin's Solution) 1 applic topical DAILY 3 weeks #473 mL 01/11/24 [Rx Confirmed 08/30/24] trazodone 100 mg tablet 100 mg PO HS 01/11/24 [History Confirmed 01/11/24] clobetasol 0.05 % topical cream 1 applic topical DAILY 2 weeks #30 grams 05/10/24 [Rx Confirmed 08/30/24] cephalexin 500 mg capsule 500 mg PO Q8H 7 days #21 caps 08/30/24 [Rx] Allergies Gadolinium-Containing Contrast Medi (From Contrast Media) Allergy (Mild, Verified 08/30/24 11:09) Redness of Skin Iodinated Contrast Media (From Contrast Media) Allergy (Mild, Verified 08/30/24 11:09) Redness of Skin Sulfa (Sulfonamide Antibiotics) Allergy (Verified 08/30/24 11:08) Itching Wound/Ulcer Sacrum: Type: Pressure/Injury Ulcer Pressure Ulcer/Injury Staging: Unstageable Bed Appearance: Beefy Red, Delacroix and Yellow Percent of Wound Bed Granulated/Red: 90 Percent of Devitalized: 10 Length (cm): 1.5 Width (cm): 2.0 Depth (cm): 0.1 CM Sq: 3.000 Undermining Position: 0 Undermining Depth: 0 Surrounding Tissue Appearance: Dryness Surrounding Tissue Temp: Warm Drainage Amount: Moderate Drainage Description: Serosanguineous Drainage Odor: No Odor Chemical Cauterization: NA Results Additional Studies: ITS Impressions Sacrum and Coccyx X-Ray 01/11/24 11:35 IMPRESSION: No definite osteolytic or bony destructive process. Degenerative changes are noted as above. Impression dictated by: Drew Kathleen M.D.01/11/2024 7:38 PM Dictation Location: [place] [address] Assessment/Plan Assessment/Plan (1) Stage IV pressure ulcer of sacral region: Code(s): L89.154 - Pressure ulcer of sacral region, stage 4 (2) Limited mobility: Code(s): Z74.09 - Other reduced mobility (3) Dementia: Code(s): F03.90 - Unspecified dementia, unspecified severity, without behavioral disturbance, psychotic disturbance, mood disturbance, and anxiety (4) Fungal skin infection: Code(s): B36.9 - Superficial mycosis, unspecified (5) Dermatosis: Code(s): L98.9 - Disorder of the skin and subcutaneous tissue, unspecified Plan Continue current dressing changes for the sacral ulcer. Will use barrier dressing for the surrounding skin and also place any tape well away from the irritated skin. Patient has home health and son also helps with dressing changes. Will start course of antibiotics for urine infection. Catheter due to be changed in the next coupleweeks. Patient will follow-up in about 3weeks. See Instructions for Orders See Instructions for Orders See Wound Discharge Instructions for Orders: Dictated By: Gerson Tolliver MD DD/ 1139 Signed By: 08/30/24 1141 [facility]04-22-2025 Progress note Author Gerson Tolliver [facility] For RehabilitationNote Date/TimeApril 2024 12:02[place] [address] Wound Center Provider Note Signed Patient: Milton Ibrahim MR#: [id number] 056 : 1940 Acct:[id number] Age/Sex: 84 / F Copies to: MD Lenny Harrison,DO~ HPI Date of Visit Date of Visit: Date of Service: 07/19/2024 Time of Service: 11:56 Narrative HPI: Patient returns today. She is being followed for sacral ulcer. She has home health. Patient's son is with her at this visit. Ulcer is clean with red granulation tissue. There is no exposed bone. Depth has improved. Patient has had increased maceration of the surrounding skin. Also, on the right buttock, there is an area of eschar medially near the sacral ulcer. According to the son, a lot of this may be secondary to urine contamination of the area. Patient eats well some days and does not eat well for other days. She has a specialized mattress. Previous history: Ms. Milton Ibrahim is an 83 year old female presenting today witha sacral wound. Ms. Milton Ibrahim is accompanied by her son who is her caregiver. Ms. Ibrahim presents with advanced dementia so the information was collected with the assistance of the patient's son. The patient is no longer ambulatory and is bed bound due to her dementia and has since developed several pressure wounds in thesacral region since September. This wound in particular was identified by home healthwith concerns for infection and the patient was taken to to the Emergency room in November. At that time the patient was treated with a course of doxycycline and provided care of the wound through home health. Given that the wound remained, the patient was referred to the wound care clinic. The patient's caregiver states that the patient does not notice the patient to be in any significant pain and does notidentify any significant drainage, erythema, or signs of infection in and around the wound. The patient has frequent changes of briefs throughout the day to prevent urine and stool from infecting thewound. The patient does use an air mattress to reduce pressure on the wound. Pelvic x-rays did not show evidence of osteomyelitis. Wound has been granulation tissue. There is no exposed bone. There is no surrounding erythema or induration. There is a moderate to large amount of serous drainage. No necrotic tissue is seen. The patient has a past medical history that includes hypertension, diabetes, anddementia. She has apast surgical history that includes mastectomy and hysterectomy. She is not taking any blood thinners. Subjective Pain Sacrum: Pain Description: Intermittent Wound/Ulcer History When did wound start?: Pressure ulcer was identified in November Mode of Arrival/ Base Wad Operator Adjuster: Personal vehicle Assistive Device Used Today: Wheelchair Lives with:: Children Who helps w/ dressing change?: Family Why Do You Need Help?: Can't Reach Ulcer, Limited mobility, Unable to understand, Unsafe leave homeby self and Taxing effort to leave home Review of Systems ROS Unobtainable: unobtainable due to mental condition [facility] History (Updated 05/10/24 @ 10:54 by Gerson Tolliver MD) Diabetes Hypothyroid Does not walk Breast cancer Dementia Sacral ulcer Surgical History (Updated 01/11/24 @ 11:03 by Margareth Sullivan RN) History of mastectomy Grafts History of Graft History of Graft?: No Exam Physical Exam Vital Signs: Temp Pulse Resp BP O2 Del Method 97.9 F 118 H 18 124/76 Room Air 07/19/24 10:56 07/19/24 10:56 07/19/24 10:56 07/19/24 10:56 07/19/24 10:56 Skin Wounds: wounds noted Neuro General: patient awake Lower/Upper Extremity Exam Vascular Exam-Pulses Right Brachial: Pulse Assessment Method: NIBP Objective Meds/Allergies Home Medications buspirone 15 mg tablet 15 mg PO BID 01/11/24 [History Confirmed 01/11/24] diltiazem HCl 240 mg capsule,24 hr,extended release (Tiadylt ER) 240 mg PO DAILY01/11/24 [History Confirmed 01/11/24] donepezil 10 mg tablet 10 mg PO DAILY 01/11/24 [History Confirmed 01/11/24] levothyroxine 50 mcg tablet (Synthroid) 50 mcg PO DAILY 01/11/24 [History Confirmed 01/11/24] memantine 10 mg tablet 10 mg PO BID 01/11/24 [History Confirmed 01/11/24] quetiapine 100 mg tablet 100 mg PO QHS 01/11/24 [History Confirmed 01/11/24] sitagliptin phosphate 50 mg-metformin 500 mg tablet (Janumet) 1 tab PO DAILY 01/11/24 [History Confirmed 01/11/24] sodium hypochlorite 0.25 % solution (Dakin's Solution) 1 applic topical DAILY 3 weeks #473 mL 01/11/24 [Rx] trazodone 100 mg tablet 100 mg PO HS 01/11/24 [History Confirmed 01/11/24] fluconazole 100 mg tablet 100 mg PO DAILY 10 days #10 tabs 04/05/24 [Rx] clobetasol 0.05 % topical cream 1 applic topical DAILY 2 weeks #30 grams 05/10/24 [Rx] Allergies Sulfa (Sulfonamide Antibiotics) Allergy (Verified 01/11/24 11:08) Itching Wound/Ulcer Sacrum: Type: Pressure/Injury Ulcer Pressure Ulcer/Injury Staging: Unstageable Bed Appearance: Beefy Red, Brown, Delacroix and Yellow Percent of Wound Bed Granulated/Red: 90 Percent of Devitalized: 10 Length (cm): 10.0 Width (cm): 8.0 Depth (cm): 0.5 CM Sq: 80.000 Undermining Position: 0 Undermining Depth: 0 Surrounding Tissue Appearance: Hyperpigmented Surrounding Tissue Temp: Warm Drainage Amount: Moderate Drainage Description: Serosanguineous Drainage Odor: No Odor Chemical Cauterization: NA Results Additional Studies: ITS Impressions Sacrum and Coccyx X-Ray 01/11/24 11:35 IMPRESSION: No definite osteolytic or bony destructive process. Degenerative changes are noted as above. Impression dictated by: Drew Kathleen M.D.01/11/2024 7:38 PM Dictation Location: [place] [address] Assessment/Plan Assessment/Plan (1) Stage IV pressure ulcer of sacral region: Code(s): L89.154 - Pressure ulcer of sacral region, stage 4 (2) Limited mobility: Code(s): Z74.09 - Other reduced mobility (3) Dementia: Code(s): F03.90 - Unspecified dementia, unspecified severity, without behavioral disturbance, psychotic disturbance, mood disturbance, and anxiety (4) Fungal skin infection: Code(s): B36.9 - Superficial mycosis, unspecified (5) Dermatosis: Code(s): L98.9 - Disorder of the skin and subcutaneous tissue, unspecified Plan Continue current dressing changes for the sacral ulcer. Will use barrier dressing for the surrounding skin and also place any tape well away from the irritated skin. Patient has home health and son also helps with dressing changes. Home health can place a Apple catheter to help prevent urine contamination of the sacral ulcer as well as the surrounding skin. Can continue with clobetasol as needed for the back. Patient will follow-up in about 3weeks. See Instructions for Orders See Instructions for Orders See Wound Discharge Instructions for Orders: Dictated By: Gerson Tolliver MD DD/ 1156 Signed By: <Electronically signed by MD Gerson Tolliver> 07/19/24 1203 [facility] Work Phone: 1(236) 705-699504-22-2025 [place] [address] Wound Center Provider Note Signed Patient: Milton Ibrahim MR#: [id number] 056 : 1940 Acct:[id number] Age/Sex: 84 / F Copies to: MD Lenny Harrison,DO~ HPI Date of Visit Date of Visit: Date of Service: 07/19/2024 Time of Service: 11:56 Narrative HPI: Patient returns today. She is being followed for sacral ulcer. She has home health. Patient's son is with her at this visit. Ulcer is clean with red granulation tissue. There is no exposed bone. Depth has improved. Patient has had increased maceration of the surrounding skin. Also, on the right buttock, there is an area of eschar medially near the sacral ulcer. According to the son, a lot of this may be secondary to urine contamination of the area. Patient eats well some days and does not eat well for other days. She has a specialized mattress. Previous history: Ms. Milton Ibrahim is an 83 year old female presenting today witha sacral wound. Ms. Milton Ibrahim is accompanied by her son who is her caregiver. Ms. Ibrahim presents with advanced dementia so the information was collected with the assistance of the patient's son. The patient is no longer ambulatory and is bed bound due to her dementia and has since developed several pressure wounds in thesacral region since September. This wound in particular was identified by home healthwith concerns for infection and the patient was taken to to the Emergency room in November. At that time the patient was treated with a course of doxycycline and provided care of the wound through home health. Given that the wound remained, the patient was referred to the wound care clinic. The patient's caregiver states that the patient does not notice the patient to be in any significant pain and does notidentify any significant drainage, erythema, or signs of infection in and around the wound. The patient has frequent changes of briefs throughout the day to prevent urine and stool from infecting thewound. The patient does use an air mattress to reduce pressure on the wound. Pelvic x-rays did not show evidence of osteomyelitis. Wound has been granulation tissue. There is no exposed bone. There is no surrounding erythema or induration. There is a moderate to large amount of serous drainage. No necrotic tissue is seen. The patient has a past medical history that includes hypertension, diabetes, anddementia. She has apast surgical history that includes mastectomy and hysterectomy. She is not taking any blood thinners. Subjective Pain Sacrum: Pain Description: Intermittent Wound/Ulcer History When did wound start?: Pressure ulcer was identified in November Mode of Arrival/ Base Wad Operator Adjuster: Personal vehicle Assistive Device Used Today: Wheelchair Lives with:: Children Who helps w/ dressing change?: Family Why Do You Need Help?: Can't Reach Ulcer, Limited mobility, Unable to understand, Unsafe leave homeby self and Taxing effort to leave home Review of Systems ROS Unobtainable: unobtainable due to mental condition [facility] Medical History (Updated 05/10/24 @ 10:54 by Gerson Tolliver MD) Diabetes Hypothyroid Does not walk Breast cancer Dementia Sacral ulcer Surgical History (Updated 01/11/24 @ 11:03 by Margareth Sullivan RN) History of mastectomy Grafts History of Graft History of Graft?: No Exam Physical Exam Vital Signs: Temp Pulse Resp BP O2 Del Method 97.9 F 118 H 18 124/76 Room Air 07/19/24 10:56 07/19/24 10:56 07/19/24 10:56 07/19/24 10:56 07/19/24 10:56 Skin Wounds: wounds noted Neuro General: patient awake Lower/Upper Extremity Exam Vascular Exam-Pulses Right Brachial: Pulse Assessment Method: NIBP Objective Meds/Allergies Home Medications buspirone 15 mg tablet 15 mg PO BID 01/11/24 [History Confirmed 01/11/24] diltiazem HCl 240 mg capsule,24 hr,extended release (Tiadylt ER) 240 mg PO DAILY01/11/24 [History Confirmed 01/11/24] donepezil 10 mg tablet 10 mg PO DAILY 01/11/24 [History Confirmed 01/11/24] levothyroxine 50 mcg tablet (Synthroid) 50 mcg PO DAILY 01/11/24 [History Confirmed 01/11/24] memantine 10 mg tablet 10 mg PO BID 01/11/24 [History Confirmed 01/11/24] quetiapine 100 mg tablet 100 mg PO QHS 01/11/24 [History Confirmed 01/11/24] sitagliptin phosphate 50 mg-metformin 500 mg tablet (Janumet) 1 tab PO DAILY 01/11/24 [History Confirmed 01/11/24] sodium hypochlorite 0.25 % solution (Dakin's Solution) 1 applic topical DAILY 3 weeks #473 mL 01/11/24 [Rx] trazodone 100 mg tablet 100 mg PO HS 01/11/24 [History Confirmed 01/11/24] fluconazole 100 mg tablet 100 mg PO DAILY 10 days #10 tabs 04/05/24 [Rx] clobetasol 0.05 % topical cream 1 applic topical DAILY 2 weeks #30 grams 05/10/24 [Rx] Allergies Sulfa (Sulfonamide Antibiotics) Allergy (Verified 01/11/24 11:08) Itching Wound/Ulcer Sacrum: Type: Pressure/Injury Ulcer Pressure Ulcer/Injury Staging: Unstageable Bed Appearance: Beefy Red, Brown, Delacroix and Yellow Percent of Wound Bed Granulated/Red: 90 Percent of Devitalized: 10 Length (cm): 10.0 Width (cm): 8.0 Depth (cm): 0.5 CM Sq: 80.000 Undermining Position: 0 Undermining Depth: 0 Surrounding Tissue Appearance: Hyperpigmented Surrounding Tissue Temp: Warm Drainage Amount: Moderate Drainage Description: Serosanguineous Drainage Odor: No Odor Chemical Cauterization: NA Results Additional Studies: ITS Impressions Sacrum and Coccyx X-Ray 01/11/24 11:35 IMPRESSION: No definite osteolytic or bony destructive process. Degenerative changes are noted as above. Impression dictated by: Drew Kathleen M.D.01/11/2024 7:38 PM Dictation Location: [place] [address] Assessment/Plan Assessment/Plan (1) Stage IV pressure ulcer of sacral region: Code(s): L89.154 - Pressure ulcer of sacral region, stage 4 (2) Limited mobility: Code(s): Z74.09 - Other reduced mobility (3) Dementia: Code(s): F03.90 - Unspecified dementia, unspecified severity, without behavioral disturbance, psychotic disturbance, mood disturbance, and anxiety (4) Fungal skin infection: Code(s): B36.9 - Superficial mycosis, unspecified (5) Dermatosis: Code(s): L98.9 - Disorder of the skin and subcutaneous tissue, unspecified Plan Continue current dressing changes for the sacral ulcer. Will use barrier dressing for the surrounding skin and also place any tape well away from the irritated skin. Patient has home health and son also helps with dressing changes. Home health can place a Apple catheter to help prevent urine contamination of the sacral ulcer as well as the surrounding skin. Can continue with clobetasol as needed for the back. Patient will follow-up in about 3weeks. See Instructions for Orders See Instructions for Orders See Wound Discharge Instructions for Orders: Dictated By: Gerson Tolliver MD DD/ 1156 Signed By: 07/19/24 1202 [facility]03-18-2025 Progress note Author Gerson Tolliver [facility] RehabilitationNote Date/TimeMarch 2024 10:59[place] [address] Wound Center Provider Note Signed Patient: Milton Ibrahim MR#: [id number] : 1940 Acct:[id number] Age/Sex: 83 / F Copies to: MD Lenny Harrison,DO~ HPI Date of Visit Date of Visit: Date of Service: 06/14/2024 Time of Service: 10:57 Narrative HPI: Patient returns today. She is being followed for sacral ulcer. She has home health. Patient's son is with her at this visit. Ulcer is clean with pink granulation tissue. There is no exposed bone. Measurements are improved. The area of redness on the left side of the back has improved with the clobetasol Patient apparently has been eating well. She has a mattress. Previous history: Ms. Milton Ibrahim is an 83 year old female presenting today witha sacral wound. Ms. Milton Ibrahim is accompanied by her son who is her caregiver. Ms. Ibrahim presents with advanced dementia so the information was collected with the assistance of the patient's son. The patient is no longer ambulatory and is bed bound due to her dementia and has since developed several pressure wounds in thesacral region since September. This wound in particular was identified by home healthwith concerns for infection and the patient was taken to to the Emergency room in November. At that time the patient was treated with a course of doxycycline and provided care of the wound through home health. Given that the wound remained, the patient was referred to the wound care clinic. The patient's caregiver states that the patient does not notice the patient to be in any significant pain and does notidentify any significant drainage, erythema, or signs of infection in and around the wound. The patient has frequent changes of briefs throughout the day to prevent urine and stool from infecting thewound. The patient does use an air mattress to reduce pressure on the wound. Pelvic x-rays did not show evidence of osteomyelitis. Wound has been granulation tissue. There is no exposed bone. There is no surrounding erythema or induration. There is a moderate to large amount of serous drainage. No necrotic tissue is seen. The patient has a past medical history that includes hypertension, diabetes, anddementia. She has apast surgical history that includes mastectomy and hysterectomy. She is not taking any blood thinners. Subjective Pain Sacrum: Pain Description: Intermittent Wound/Ulcer History When did wound start?: Pressure ulcer was identified in November Mode of Arrival/ Base Wad Operator Adjuster: Personal vehicle Assistive Device Used Today: Wheelchair Lives with:: Children Who helps w/ dressing change?: Family Why Do You Need Help?: Can't Reach Ulcer, Limited mobility, Unable to understand, Unsafe leave homeby self and Taxing effort to leave home Review of Systems ROS Unobtainable: unobtainable due to mental condition [facility] Medical History (Updated 05/10/24 @ 10:54 by Gerson Tolliver MD) Diabetes Hypothyroid Does not walk Breast cancer Dementia Sacral ulcer Surgical History (Updated 01/11/24 @ 11:03 by Margareth Sullivan RN) History of mastectomy Grafts History of Graft History of Graft?: No Exam Physical Exam Vital Signs: Temp Pulse Resp BP O2 Del Method 97.5 F L 80 18 120/82 Room Air 06/14/24 10:38 06/14/24 10:38 06/14/24 10:38 06/14/24 10:38 06/14/24 10:38 Skin Wounds: wounds noted Neuro General: patient awake Lower/Upper Extremity Exam Vascular Exam-Pulses Right Brachial: Pulse Assessment Method: NIBP Objective Meds/Allergies Home Medications buspirone 15 mg tablet 15 mg PO BID 01/11/24 [History Confirmed 01/11/24] diltiazem HCl 240 mg capsule,24 hr,extended release (Tiadylt ER) 240 mg PO DAILY01/11/24 [History Confirmed 01/11/24] donepezil 10 mg tablet 10 mg PO DAILY 01/11/24 [History Confirmed 01/11/24] levothyroxine 50 mcg tablet (Synthroid) 50 mcg PO DAILY 01/11/24 [History Confirmed 01/11/24] memantine 10 mg tablet 10 mg PO BID 01/11/24 [History Confirmed 01/11/24] quetiapine 100 mg tablet 100 mg PO QHS 01/11/24 [History Confirmed 01/11/24] sitagliptin phosphate 50 mg-metformin 500 mg tablet (Janumet) 1 tab PO DAILY 01/11/24 [History Confirmed 01/11/24] sodium hypochlorite 0.25 % solution (Dakin's Solution) 1 applic topical DAILY 3 weeks #473 mL 01/11/24 [Rx] trazodone 100 mg tablet 100 mg PO HS 01/11/24 [History Confirmed 01/11/24] fluconazole 100 mg tablet 100 mg PO DAILY 10 days #10 tabs 04/05/24 [Rx] clobetasol 0.05 % topical cream 1 applic topical DAILY 2 weeks #30 grams 05/10/24 [Rx] Allergies Sulfa (Sulfonamide Antibiotics) Allergy (Verified 01/11/24 11:08) Itching Wound/Ulcer Sacrum: Type: Pressure/Injury Ulcer Pressure Ulcer/Injury Staging: Unstageable Bed Appearance: Beefy Red, Delacroix, Rolled Edges and Yellow Percent of Wound Bed Granulated/Red: 90 Percent of Devitalized: 10 Length (cm): 1.5 Width (cm): 0.3 Depth (cm): 0.7 CM Sq: 0.450 Undermining Position: 11-1 Undermining Depth: 0.5 Surrounding Tissue Appearance: Hyperpigmented Surrounding Tissue Temp: Warm Drainage Amount: Moderate Drainage Description: Serosanguineous Drainage Odor: No Odor Chemical Cauterization: NA Results Additional Studies: ITS Impressions Sacrum and Coccyx X-Ray 01/11/24 11:35 IMPRESSION: No definite osteolytic or bony destructive process. Degenerative changes are noted as above. Impression dictated by: Drew Kathleen M.D.01/11/2024 7:38 PM Dictation Location: [place] [address] Assessment/Plan Assessment/Plan (1) Stage IV pressure ulcer of sacral region: Code(s): L89.154 - Pressure ulcer of sacral region, stage 4 (2) Limited mobility: Code(s): Z74.09 - Other reduced mobility (3) Dementia: Code(s): F03.90 - Unspecified dementia, unspecified severity, without behavioral disturbance, psychotic disturbance, mood disturbance, and anxiety (4) Fungal skin infection: Code(s): B36.9 - Superficial mycosis, unspecified (5) Dermatosis: Code(s): L98.9 - Disorder of the skin and subcutaneous tissue, unspecified Plan Continue current dressing changes.. Patient has home health and son also helps with dressing changes. Can continue with clobetasol as needed for the back. Patient will follow-up in about 3weeks. See Instructions for Orders See Instructions for Orders See Wound Discharge Instructions for Orders: Dictated By: Gerson Tolliver MD DD/ 1057 Signed By: <Electronically signed by MD Gerson Tolliver> 06/14/24 1059 [facility] Work Phone: [phone] 265-273903-18-2025 [place] [address] Wound Center Provider Note Signed Patient: Milton Ibrahim MR#: [id number] : 1940 Acct:[id number] Age/Sex: 83 / F Copies to: MD Lenny Harrison,DO~ HPI Date of Visit Date of Visit: Date of Service: 06/14/2024 Time of Service: 10:57 Narrative HPI: Patient returns today. She is being followed for sacral ulcer. She has home health. Patient's son is with her at this visit. Ulcer is clean with pink granulation tissue. There is no exposed bone. Measurements are improved. The area of redness on the left side of the back has improved with the clobetasol Patient apparently has been eating well. She has a mattress. Previous history: Ms. Milton Ibrahim is an 83 year old female presenting today witha sacral wound. Ms. Milton Ibrahim is accompanied by her son who is her caregiver. Ms. Ibrahim presents with advanced dementia so the information was collected with the assistance of the patient's son. The patient is no longer ambulatory and is bed bound due to her dementia and has since developed several pressure wounds in thesacral region since September. This wound in particular was identified by home healthwith concerns for infection and the patient was taken to to the Emergency room in November. At that time the patient was treated with a course of doxycycline and provided care of the wound through home health. Given that the wound remained, the patient was referred to the wound care clinic. The patient's caregiver states that the patient does not notice the patient to be in any significant pain and does notidentify any significant drainage, erythema, or signs of infection in and around the wound. The patient has frequent changes of briefs throughout the day to prevent urine and stool from infecting thewound. The patient does use an air mattress to reduce pressure on the wound. Pelvic x-rays did not show evidence of osteomyelitis. Wound has been granulation tissue. There is no exposed bone. There is no surrounding erythema or induration. There is a moderate to large amount of serous drainage. No necrotic tissue is seen. The patient has a past medical history that includes hypertension, diabetes, anddementia. She has apast surgical history that includes mastectomy and hysterectomy. She is not taking any blood thinners. Subjective Pain Sacrum: Pain Description: Intermittent Wound/Ulcer History When did wound start?: Pressure ulcer was identified in November Mode of Arrival/ Base Wad Operator Adjuster: Personal vehicle Assistive Device Used Today: Wheelchair Lives with:: Children Who helps w/ dressing change?: Family Why Do You Need Help?: Can't Reach Ulcer, Limited mobility, Unable to understand, Unsafe leave homeby self and Taxing effort to leave home Review of Systems ROS Unobtainable: unobtainable due to mental condition [facility] Medical History (Updated 05/10/24 @ 10:54 by Gerson Tolliver MD) Diabetes Hypothyroid Does not walk Breast cancer Dementia Sacral ulcer Surgical History (Updated 01/11/24 @ 11:03 by Margareth Sullivan RN) History of mastectomy Grafts History of Graft History of Graft?: No Exam Physical Exam Vital Signs: Temp Pulse Resp BP O2 Del Method 97.5 F L 80 18 120/82 Room Air 06/14/24 10:38 06/14/24 10:38 06/14/24 10:38 06/14/24 10:38 06/14/24 10:38 Skin Wounds: wounds noted Neuro General: patient awake Lower/Upper Extremity Exam Vascular Exam-Pulses Right Brachial: Pulse Assessment Method: NIBP Objective Meds/Allergies Home Medications buspirone 15 mg tablet 15 mg PO BID 01/11/24 [History Confirmed 01/11/24] diltiazem HCl 240 mg capsule,24 hr,extended release (Tiadylt ER) 240 mg PO DAILY01/11/24 [History Confirmed 01/11/24] donepezil 10 mg tablet 10 mg PO DAILY 01/11/24 [History Confirmed 01/11/24] levothyroxine 50 mcg tablet (Synthroid) 50 mcg PO DAILY 01/11/24 [History Confirmed 01/11/24] memantine 10 mg tablet 10 mg PO BID 01/11/24 [History Confirmed 01/11/24] quetiapine 100 mg tablet 100 mg PO QHS 01/11/24 [History Confirmed 01/11/24] sitagliptin phosphate 50 mg-metformin 500 mg tablet (Janumet) 1 tab PO DAILY 01/11/24 [History Confirmed 01/11/24] sodium hypochlorite 0.25 % solution (Dakin's Solution) 1 applic topical DAILY 3 weeks #473 mL 01/11/24 [Rx] trazodone 100 mg tablet 100 mg PO HS 01/11/24 [History Confirmed 01/11/24] fluconazole 100 mg tablet 100 mg PO DAILY 10 days #10 tabs 04/05/24 [Rx] clobetasol 0.05 % topical cream 1 applic topical DAILY 2 weeks #30 grams 05/10/24 [Rx] Allergies Sulfa (Sulfonamide Antibiotics) Allergy (Verified 01/11/24 11:08) Itching Wound/Ulcer Sacrum: Type: Pressure/Injury Ulcer Pressure Ulcer/Injury Staging: Unstageable Bed Appearance: Beefy Red, Delacroix, Rolled Edges and Yellow Percent of Wound Bed Granulated/Red: 90 Percent of Devitalized: 10 Length (cm): 1.5 Width (cm): 0.3 Depth (cm): 0.7 CM Sq: 0.450 Undermining Position: 11-1 Undermining Depth: 0.5 Surrounding Tissue Appearance: Hyperpigmented Surrounding Tissue Temp: Warm Drainage Amount: Moderate Drainage Description: Serosanguineous Drainage Odor: No Odor Chemical Cauterization: NA Results Additional Studies: ITS Impressions Sacrum and Coccyx X-Ray 01/11/24 11:35 IMPRESSION: No definite osteolytic or bony destructive process. Degenerative changes are noted as above. Impression dictated by: Drew Kathleen M.D.01/11/2024 7:38 PM Dictation Location: [place] [address] Assessment/Plan Assessment/Plan (1) Stage IV pressure ulcer of sacral region: Code(s): L89.154 - Pressure ulcer of sacral region, stage 4 (2) Limited mobility: Code(s): Z74.09 - Other reduced mobility (3) Dementia: Code(s): F03.90 - Unspecified dementia, unspecified severity, without behavioral disturbance, psychotic disturbance, mood disturbance, and anxiety (4) Fungal skin infection: Code(s): B36.9 - Superficial mycosis, unspecified (5) Dermatosis: Code(s): L98.9 - Disorder of the skin and subcutaneous tissue, unspecified Plan Continue current dressing changes.. Patient has home health and son also helps with dressing changes. Can continue with clobetasol as needed for the back. Patient will follow-up in about 3weeks. See Instructions for Orders See Instructions for Orders See Wound Discharge Instructions for Orders: Dictated By: Gerson Tolliver MD DD/ 1057 Signed By: 06/14/24 1059 [facility]03-11-2025 History of Present illness Narrative * MARIA ISABEL Alcantar - 06/07/2024 11:20 AM EDT Subjective Milton Ibrahim is a 83 y.o. year old female No chief complaint on file. Past Medical History: Diagnosis Date A-fib (CMS/HCC) Breast cancer (CMS/HCC) Broken ankle 2001 Depression (CMS/HCC) Diabetes (CMS/HCC) GERD (gastroesophageal reflux disease) HLD (hyperlipidemia) (CMS/HCC) HTN (hypertension) (CMS/HCC) Thyroid disease (CMS/HCC) Past Surgical History: Procedure Laterality Date APPENDECTOMY BONE RESECTION, RIB Left CHOLECYSTECTOMY FOOT SURGERY Right 10/18/2019 skin lesion HYSTERECTOMY MASTECTOMY MASTECTOMY Right 2013 RIB FRACTURE SURGERY Left rib ressection Family History Problem Relation Name Age of Onset Multiple sclerosis Daughter 2 Mental illness Son 2 Coronary artery disease Sibling Social History Tobacco Use Smoking status: Never Passive exposure: Never Smokeless tobacco: Never Substance Use Topics Alcohol use: Never Comment: no caffeine intake Medication Documentation Review Audit Reviewed by Maya Krueger LPN (Licensed Nurse) on 05/27/23 at 1504 Medication Order Taking? Sig Documenting Provider Last Dose Status busPIRone (Buspar) 10 MG tablet [id number] Yes Take 10 mg by mouth in the morning and 10 mg in the evening and 10 mg before bedtime. Kim Galvan NP Taking Active donepezil (Aricept) 10 MG tablet [id number] Yes 1 (one) time each day at the same time Kim Galvan NP Taking Active Janumet 50-500 MG tablet [id number] Yes TAKE 1 TABLET BY MOUTH EVERY DAY WITH A MEAL FOR 90 DAYS Steff Cueva, Taking Active levothyroxine (Synthroid) 75 MCG tablet [id number] Yes 1 tablet before a meal qd Lenny Cueva, DO Taking Active memantine (Namenda) 10 MG tablet [id number] Yes Kim Galvan NP Taking Active omeprazole (PriLOSEC) [address] capsule [id number] Yes TAKE 1 CAPSULE BY MOUTH EVERY DAY 30 MINUTES BEFORE BREAKFAST IN THE MORNING Lenny Cueva, DO Taking Active OneTouch Ultra test strip [id number] Yes USE 1 TEST STRIP IN VITRO ONCE DAILY 50 DAYS Kim Galvan NP Taking Active QUEtiapine (SEROquel) 100 MG tablet [id number] Yes Take 100 mg by mouth at bedtime Kim Galvan NP Taking Active Santyl 250 UNIT/GM ointment [id number] Yes APPLY TO WOUND DAILY DIRECTED Kim Galvan NP Taking Active Tiadylt ER 240 MG 24 hr capsule [id number] Yes TAKE 1 CAPSULE BY MOUTH IN THE MORNING. Lenny Cueva,DO Taking Active traZODone (Desyrel) 100 MG tablet [id number] Yes Take 100 mg by mouth at bedtime Kim Galvan NP Taking Active valproic acid (Depakene) 250 MG/5ML oral liquid [id number] Yes Kim Galvan NP Taking Active HPI HPI Memory loss - video visit attempted and was not audio was not functioning properly. HPI taken from her son via phone visit -patient has home health nursing coming to her home -her son is her FT home care chaplain -seeing wound care for wound -no longer ambulates -no longer doing PT/OT due to cognitive issues -no falls -weak in general but no worsening -she is eating and drinking well -her pills are crushed -she is tolerating the liquid depakote -her food is soft diet, and ground food -son reports that she is not understanding much -son states she cannot hold conversations -she is still mixing up words and not finishing sentences -she is having good and bad days -she sometimes wont sleep for a couple of days ROS Review of Systems Constitutional: Positive for fatigue. Negative for activity change and appetite change. Neurological: Positive for weakness. 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 Currently on Aricept and Namenda. She follows with Dr. Carlton for anxiety and depression which could be contributing to decline in memory and her medications have been adjusted. MOCA 11/2019 was 08/26. Sleep-wake cycle is off likely contributing to memory loss. She continues to have hallucinations of people that do not seem to be bothersome or a safety concern. She is not consistently taking her medications, she spits them out at times. She needs 24 hourcare. She needs help with ADLs. Her son understands that she may need more help than he can provideat home without other family members or outside resources. We did try to stop Aricept and her behavior worsened. Her son restarted this and she has been doing better. Overall, she continues at her current baseline. Hallucination She previously had auditory hallucinations and insomnia which have lessened with seroquel. Her son notes that her hallucinations are unchanged. 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 She has declined wanting to trial Nudexta. At baseline. Visit done via phone call for patient safety and convenience 1. Continue Aricept 10mg daily 2. Conitnue Namenda but change to 10mg BID so it can be crushed 3. Continue trazodone 100mg PO QHS to assess her fatigue. 4. Continue Seroquel 100mg PO QHS for delirium. 5. Continue with PT/OT with [place] 8. Her son understands that he may need to consider placement vs home care. 9. I will see her back in 4 months or sooner if needed 10. She will continue to follow with Dr Carlton documented in this encounterSaint [id number] Progress note Author Gerson Tolliver [facility] For RehabilitationNote Date/TimeFebruary 2024 9:57am [place] [address] Wound Center Provider Note Signed Patient: Milton Ibrahim MR#: [id number] : 1940 Acct:[id number] Age/Sex: 83 / F Copies to: MD Lenny Harrison,DO~ HPI Date of Visit Date of Visit: Date of Service: 05/10/2024 Time of Service: 10:55 Narrative HPI: Patient returns today. She is being followed for sacral ulcer. She has home health. Patient's son is with her at this visit. Ulcer is clean with pink granulation tissue. There is no exposed bone. Measurements are improved. Maceration of the surrounding skin is improved. There is some erythema but no moist open areas of maceration. Patient has had large demarcated area of erythema which is slightly raised on the right side of theback. This has been present for months. Antifungal powder has been used on the site without much improvement. However, patient's son did try clobetasol on it and this did seem to help a lot. Patient apparently has been eating well. She has a mattress. Previous history: Ms. Milton Ibrahim is an 83 year old female presenting today witha sacral wound. Ms. Milton Ibrahim is accompanied by her son who is her caregiver. Ms. Ibrahim presents with advanced dementia so the information was collected with the assistance of the patient's son. The patient is no longer ambulatory and is bed bound due to her dementia and has since developed several pressure wounds in thesacral region since September. This wound in particular was identified by home healthwith concerns for infection and the patient was taken to to the Emergency room in November. At that time the patient was treated with a course of doxycycline and provided care of the wound through home health. Given that the wound remained, the patient was referred to the wound care clinic. The patient's caregiver states that the patient does not notice the patient to be in any significant pain and does notidentify any significant drainage, erythema, or signs of infection in and around the wound. The patient has frequent changes of briefs throughout the day to prevent urine and stool from infecting thewound. The patient does use an air mattress to reduce pressure on the wound. Pelvic x-rays did not show evidence of osteomyelitis. Wound has been granulation tissue. There is no exposed bone. There is no surrounding erythema or induration. There is a moderate to large amount of serous drainage. No necrotic tissue is seen. The patient has a past medical history that includes hypertension, diabetes, anddementia. She has apast surgical history that includes mastectomy and hysterectomy. She is not taking any blood thinners. Subjective Pain Sacrum: Pain Description: Intermittent Wound/Ulcer History When did wound start?: Pressure ulcer was identified in November Mode of Arrival/ Base Wad Operator Adjuster: Personal vehicle Assistive Device Used Today: Wheelchair Lives with:: Children Who helps w/ dressing change?: Family Why Do You Need Help?: Can't Reach Ulcer, Limited mobility, Unable to understand, Unsafe leave homeby self and Taxing effort to leave home Review of Systems ROS Unobtainable: unobtainable due to mental condition [facility] Medical History (Updated 05/10/24 @ 10:54 by Gerson Tolliver MD) Diabetes Hypothyroid Does not walk Breast cancer Dementia Sacral ulcer Surgical History (Updated 01/11/24 @ 11:03 by Margareth Sullivan RN) History of mastectomy Grafts History of Graft History of Graft?: No Exam Physical Exam Vital Signs: Temp Pulse Resp BP O2 Del Method 98.1 F 84 18 115/84 Room Air 05/10/24 10:39 05/10/24 10:39 05/10/24 10:39 04/05/24 10:36 05/10/24 10:39 Skin Wounds: wounds noted Neuro General: patient awake Lower/Upper Extremity Exam Vascular Exam-Pulses Right Brachial: Pulse Assessment Method: NIBP Objective Meds/Allergies Home Medications buspirone 15 mg tablet 15 mg PO BID 01/11/24 [History Confirmed 01/11/24] diltiazem HCl 240 mg capsule,24 hr,extended release (Tiadylt ER) 240 mg PO DAILY01/11/24 [History Confirmed 01/11/24] donepezil 10 mg tablet 10 mg PO DAILY 01/11/24 [History Confirmed 01/11/24] levothyroxine 50 mcg tablet (Synthroid) 50 mcg PO DAILY 01/11/24 [History Confirmed 01/11/24] memantine 10 mg tablet 10 mg PO BID 01/11/24 [History Confirmed 01/11/24] quetiapine 100 mg tablet 100 mg PO QHS 01/11/24 [History Confirmed 01/11/24] sitagliptin phosphate 50 mg-metformin 500 mg tablet (Janumet) 1 tab PO DAILY 01/11/24 [History Confirmed 01/11/24] sodium hypochlorite 0.25 % solution (Dakin's Solution) 1 applic topical DAILY 3 weeks #473 mL 01/11/24 [Rx] trazodone 100 mg tablet 100 mg PO HS 01/11/24 [History Confirmed 01/11/24] fluconazole 100 mg tablet 100 mg PO DAILY 10 days #10 tabs 04/05/24 [Rx] clobetasol 0.05 % topical cream 1 applic topical DAILY 2 weeks #30 grams 05/10/24 [Rx] Allergies Sulfa (Sulfonamide Antibiotics) Allergy (Verified 01/11/24 11:08) Itching Wound/Ulcer Sacrum: Type: Pressure/Injury Ulcer Pressure Ulcer/Injury Staging: Unstageable Bed Appearance: Beefy Red, Delacroix and Yellow Percent of Wound Bed Granulated/Red: 90 Percent of Devitalized: 10 Length (cm): 1.9 Width (cm): 0.6 Depth (cm): 0.5 CM Sq: 1.140 Undermining Position: 11-1 Undermining Depth: 0.5 Surrounding Tissue Appearance: Hyperpigmented Surrounding Tissue Temp: Warm Drainage Amount: Moderate Drainage Description: Serosanguineous Drainage Odor: No Odor Chemical Cauterization: NA Results Additional Studies: ITS Impressions Sacrum and Coccyx X-Ray 01/11/24 11:35 IMPRESSION: No definite osteolytic or bony destructive process. Degenerative changes are noted as above. Impression dictated by: Drew Kathleen M.D.01/11/2024 7:38 PM Dictation Location: [place] [address] Assessment/Plan Assessment/Plan (1) Stage IV pressure ulcer of sacral region: Code(s): L89.154 - Pressure ulcer of sacral region, stage 4 (2) Limited mobility: Code(s): Z74.09 - Other reduced mobility (3) Dementia: Code(s): F03.90 - Unspecified dementia, unspecified severity, without behavioral disturbance, psychotic disturbance, mood disturbance, and anxiety (4) Fungal skin infection: Code(s): B36.9 - Superficial mycosis, unspecified (5) Dermatosis: Code(s): L98.9 - Disorder of the skin and subcutaneous tissue, unspecified Plan Continue collagen and alginate dressings. Can use a wider top dressing so the tape goes on to the healthy buttock skin and not the red irritated skin. Patient has home health and son also helps with dressing changes. Will send a prescription for clobetasol for the dermatosis. Patient will follow-up in about 3weeks. See Instructions for Orders See Instructions for Orders See Wound Discharge Instructions for Orders: Dictated By: Gerson Tolliver MD DD/ 54 Signed By: <Electronically signed by MD Gerson Tolliver> 05/10/24 [address] [facility] Work Phone: 1(460) 349-820402-11-2025 [place] [address] Wound Center Provider Note Signed Patient: Milton Ibrahim MR#: [id number] [id number] : 1940 Acct:[id number] Age/Sex: 83 / F Copies to: MD Lenny Harrison,DO~ HPI Date of Visit Date of Visit: Date of Service: 05/10/2024 Time of Service: 10:55 Narrative HPI: Patient returns today. She is being followed for sacral ulcer. She has home health. Patient's son is with her at this visit. Ulcer is clean with pink granulation tissue. There is no exposed bone. Measurements are improved. Maceration of the surrounding skin is improved. There is some erythema but no moist open areas of maceration. Patient has had large demarcated area of erythema which is slightly raised on the right side of theback. This has been present for months. Antifungal powder has been used on the site without much improvement. However, patient's son did try clobetasol on it and this did seem to help a lot. Patient apparently has been eating well. She has a mattress. Previous history: Ms. Milton Ibrahim is an 83 year old female presenting today witha sacral wound. Ms. Milton Ibrahim is accompanied by her son who is her caregiver. Ms. Ibrahim presents with advanced dementia so the information was collected with the assistance of the patient's son. The patient is no longer ambulatory and is bed bound due to her dementia and has since developed several pressure wounds in thesacral region since September. This wound in particular was identified by home healthwith concerns for infection and the patient was taken to to the Emergency room in November. At that time the patient was treated with a course of doxycycline and provided care of the wound through home health. Given that the wound remained, the patient was referred to the wound care clinic. The patient's caregiver states that the patient does not notice the patient to be in any significant pain and does notidentify any significant drainage, erythema, or signs of infection in and around the wound. The patient has frequent changes of briefs throughout the day to prevent urine and stool from infecting thewound. The patient does use an air mattress to reduce pressure on the wound. Pelvic x-rays did not show evidence of osteomyelitis. Wound has been granulation tissue. There is no exposed bone. There is no surrounding erythema or induration. There is a moderate to large amount of serous drainage. No necrotic tissue is seen. The patient has a past medical history that includes hypertension, diabetes, anddementia. She has apast surgical history that includes mastectomy and hysterectomy. She is not taking any blood thinners. Subjective Pain Sacrum: Pain Description: Intermittent Wound/Ulcer History When did wound start?: Pressure ulcer was identified in November Mode of Arrival/ Base Wad Operator Adjuster: Personal vehicle Assistive Device Used Today: Wheelchair Lives with:: Children Who helps w/ dressing change?: Family Why Do You Need Help?: Can't Reach Ulcer, Limited mobility, Unable to understand, Unsafe leave homeby self and Taxing effort to leave home Review of Systems ROS Unobtainable: unobtainable due to mental condition [facility] Medical History (Updated 05/10/24 @ 10:54 by Gerson Tolliver MD) Diabetes Hypothyroid Does not walk Breast cancer Dementia Sacral ulcer Surgical History (Updated 01/11/24 @ 11:03 by Margareth Sullivan RN) History of mastectomy Grafts History of Graft History of Graft?: No Exam Physical Exam Vital Signs: Temp Pulse Resp BP O2 Del Method 98.1 F 84 18 115/84 Room Air 05/10/24 10:39 05/10/24 10:39 05/10/24 10:39 04/05/24 10:36 05/10/24 10:39 Skin Wounds: wounds noted Neuro General: patient awake Lower/Upper Extremity Exam Vascular Exam-Pulses Right Brachial: Pulse Assessment Method: NIBP Objective Meds/Allergies Home Medications buspirone 15 mg tablet 15 mg PO BID 01/11/24 [History Confirmed 01/11/24] diltiazem HCl 240 mg capsule,24 hr,extended release (Tiadylt ER) 240 mg PO DAILY10/14/24 [History Confirmed 01/11/24] donepezil 10 mg tablet 10 mg PO DAILY 01/11/24 [History Confirmed 01/11/24] levothyroxine 50 mcg tablet (Synthroid) 50 mcg PO DAILY 01/11/24 [History Confirmed 01/11/24] memantine 10 mg tablet 10 mg PO BID 01/11/24 [History Confirmed 01/11/24] quetiapine 100 mg tablet 100 mg PO QHS 01/11/24 [History Confirmed 01/11/24] sitagliptin phosphate 50 mg-metformin 500 mg tablet (Janumet) 1 tab PO DAILY 01/11/24 [History Confirmed 01/11/24] sodium hypochlorite 0.25 % solution (Dakin's Solution) 1 applic topical DAILY 3 weeks #473 mL 01/11/24 [Rx] trazodone 100 mg tablet 100 mg PO HS 01/11/24 [History Confirmed 01/11/24] fluconazole 100 mg tablet 100 mg PO DAILY 10 days #10 tabs 04/05/24 [Rx] clobetasol 0.05 % topical cream 1 applic topical DAILY 2 weeks #30 grams 05/10/24 [Rx] Allergies Sulfa (Sulfonamide Antibiotics) Allergy (Verified 01/11/24 11:08) Itching Wound/Ulcer Sacrum: Type: Pressure/Injury Ulcer Pressure Ulcer/Injury Staging: Unstageable Bed Appearance: Beefy Red, Delacroix and Yellow Percent of Wound Bed Granulated/Red: 90 Percent of Devitalized: 10 Length (cm): 1.9 Width (cm): 0.6 Depth (cm): 0.5 CM Sq: 1.140 Undermining Position: 11-1 Undermining Depth: 0.5 Surrounding Tissue Appearance: Hyperpigmented Surrounding Tissue Temp: Warm Drainage Amount: Moderate Drainage Description: Serosanguineous Drainage Odor: No Odor Chemical Cauterization: NA Results Additional Studies: ITS Impressions Sacrum and Coccyx X-Ray 01/11/24 11:35 IMPRESSION: No definite osteolytic or bony destructive process. Degenerative changes are noted as above. Impression dictated by: Drew Kathleen M.D.01/11/2024 7:38 PM Dictation Location: [place] [address] Assessment/Plan Assessment/Plan (1) Stage IV pressure ulcer of sacral region: Code(s): L89.154 - Pressure ulcer of sacral region, stage 4 (2) Limited mobility: Code(s): Z74.09 - Other reduced mobility (3) Dementia: Code(s): F03.90 - Unspecified dementia, unspecified severity, without behavioral disturbance, psychotic disturbance, mood disturbance, and anxiety (4) Fungal skin infection: Code(s): B36.9 - Superficial mycosis, unspecified (5) Dermatosis: Code(s): L98.9 - Disorder of the skin and subcutaneous tissue, unspecified Plan Continue collagen and alginate dressings. Can use a wider top dressing so the tape goes on to the healthy buttock skin and not the red irritated skin. Patient has home health and son also helps with dressing changes. Will send a prescription for clobetasol for the dermatosis. Patient will follow-up in about 3weeks. See Instructions for Orders See Instructions for Orders See Wound Discharge Instructions for Orders: Dictated By: Gerson Tolliver MD DD/ 54 Signed By: 05/10/[address] [place], [place] 9774101-07-2025 Progress note Author Gerson Tolliver [facility] RehabilitationNote Date/TimeJanuary 2024 10:06am [place] [address] Wound Center Provider Note Signed Patient: Milton Ibrahim MR#: [id number] : 1940 Acct:[id number] Age/Sex: 83 / F Copies to: MD Lenny Harrison,DO~ HPI Date of Visit Date of Visit: Date of Service: 04/05/2024 Time of Service: 11:03 Narrative HPI: Patient returns today. She is being followed for sacral ulcer. She has home health. Patient's son is with her at this visit. Ulcer is clean with pink granulation tissue. There is no exposed bone. Measurements are improved asis depth. Maceration of the surrounding skin is improved. Patient has had large demarcated area of erythema which is slightly raised on the right side of theback. This has been present for months. Antifungal powder has been used on the site. Area has not improved much but there is less moisture however. Patient apparently has been eating well. She has a mattress. Previous history: Ms. Milton Ibrahim is an 83 year old female presenting today witha sacral wound. Ms. Milton Ibrahim is accompanied by her son who is her caregiver. Ms. Ibrahim presents with advanced dementia so the information was collected with the assistance of the patient's son. The patient is no longer ambulatory and is bed bound due to her dementia and has since developed several pressure wounds in thesacral region since September. This wound in particular was identified by home healthwith concerns for infection and the patient was taken to to the Emergency room in November. At that time the patient was treated with a course of doxycycline and provided care of the wound through home health. Given that the wound remained, the patient was referred to the wound care clinic. The patient's caregiver states that the patient does not notice the patient to be in any significant pain and does notidentify any significant drainage, erythema, or signs of infection in and around the wound. The patient has frequent changes of briefs throughout the day to prevent urine and stool from infecting thewound. The patient does use an air mattress to reduce pressure on the wound. Pelvic x-rays did not show evidence of osteomyelitis. Wound has been granulation tissue. There is no exposed bone. There is no surrounding erythema or induration. There is a moderate to large amount of serous drainage. No necrotic tissue is seen. The patient has a past medical history that includes hypertension, diabetes, anddementia. She has apast surgical history that includes mastectomy and hysterectomy. She is not taking any blood thinners. Subjective Pain Sacrum: Pain Description: Intermittent Wound/Ulcer History When did wound start?: Pressure ulcer was identified in November Mode of Arrival/ Base Wad Operator Adjuster: Personal vehicle Assistive Device Used Today: Wheelchair Lives with:: Children Who helps w/ dressing change?: Family Why Do You Need Help?: Can't Reach Ulcer, Limited mobility, Unable to understand, Unsafe leave homeby self and Taxing effort to leave home Review of Systems ROS Unobtainable: unobtainable due to mental condition [facility] (Updated 04/05/24 @ 11:03 by Gerson Tolliver MD) Diabetes Hypothyroid Does not walk Breast cancer Dementia Sacral ulcer Surgical History (Updated 01/11/24 @ 11:03 by Margareth Sullivan RN) History of mastectomy Grafts History of Graft History of Graft?: No Exam Physical Exam Vital Signs: Temp Pulse Resp BP O2 Del Method 98.2 F 105 H 18 115/84 Room Air 04/05/24 10:36 04/05/24 10:36 04/05/24 10:36 04/05/24 10:36 04/05/24 10:36 Skin Wounds: wounds noted Neuro General: patient awake Lower/Upper Extremity Exam Vascular Exam-Pulses Right Brachial: Pulse Assessment Method: NIBP Objective Meds/Allergies Home Medications buspirone 15 mg tablet 15 mg PO BID 01/11/24 [History Confirmed 01/11/24] diltiazem HCl 240 mg capsule,24 hr,extended release (Tiadylt ER) 240 mg PO DAILY01/11/24 [History Confirmed 01/11/24] donepezil 10 mg tablet 10 mg PO DAILY 01/11/24 [History Confirmed 01/11/24] levothyroxine 50 mcg tablet (Synthroid) 50 mcg PO DAILY 01/11/24 [History Confirmed 01/11/24] memantine 10 mg tablet 10 mg PO BID 01/11/24 [History Confirmed 01/11/24] quetiapine 100 mg tablet 100 mg PO QHS 01/11/24 [History Confirmed 01/11/24] sitagliptin phosphate 50 mg-metformin 500 mg tablet (Janumet) 1 tab PO DAILY 01/11/24 [History Confirmed 01/11/24] sodium hypochlorite 0.25 % solution (Dakin's Solution) 1 applic topical DAILY 3 weeks #473 mL 01/11/24 [Rx] trazodone 100 mg tablet 100 mg PO HS 01/11/24 [History Confirmed 01/11/24] fluconazole 100 mg tablet 100 mg PO DAILY 10 days #10 tabs 04/05/24 [Rx] Allergies Sulfa (Sulfonamide Antibiotics) Allergy (Verified 01/11/24 11:08) Itching Wound/Ulcer Sacrum: Type: Pressure/Injury Ulcer Pressure Ulcer/Injury Staging: Unstageable Bed Appearance: Beefy Red, Delacroix and Yellow Percent of Wound Bed Granulated/Red: 25 Percent of Devitalized: 75 Length (cm): 2.5 Width (cm): 0.8 Depth (cm): 0.5 CM Sq: 2.000 Undermining Position: 11-1 Undermining Depth: 0.6 Surrounding Tissue Appearance: Hyperpigmented Surrounding Tissue Temp: Warm Drainage Amount: Moderate Drainage Description: Serosanguineous Drainage Odor: No Odor Chemical Cauterization: NA Results Additional Studies: ITS Impressions Sacrum and Coccyx X-Ray 01/11/24 11:35 IMPRESSION: No definite osteolytic or bony destructive process. Degenerative changes are noted as above. Impression dictated by: Drew Kathleen M.D.01/11/2024 7:38 PM Dictation Location: [place] [address] Assessment/Plan Assessment/Plan (1) Stage IV pressure ulcer of sacral region: Code(s): L89.154 - Pressure ulcer of sacral region, stage 4 (2) Limited mobility: Code(s): Z74.09 - Other reduced mobility (3) Dementia: Code(s): F03.90 - Unspecified dementia, unspecified severity, without behavioral disturbance, psychotic disturbance, mood disturbance, and anxiety (4) Fungal skin infection: Code(s): B36.9 - Superficial mycosis, unspecified Plan Continue collagen and alginate dressings. Can use a wider top dressing so the tape goes on to the healthy buttock skin and not the red irritated skin. Patient has home health and son also helps with dressing changes. Will try oral antifungal agent for the skin infection. Patient will follow-up in about 3weeks. See Instructions for Orders See Instructions for Orders See Wound Discharge Instructions for Orders: Dictated By: Gerson Tolliver MD DD/ 02 Signed By: <Electronically signed by MD Gerson Tolliver> 04/05/24 [facility] Work Phone: 1(338) 782-421501-07-2025 [place] [address] Wound Center Provider Note Signed Patient: Milton Ibrahim MR#: [id number] [id number] : 1940 Acct:[id number] Age/Sex: 83 / F Copies to: MD Lenny Harrison,DO~ HPI Date of Visit Date of Visit: Date of Service: 04/05/2024 Time of Service: 11:03 Narrative HPI: Patient returns today. She is being followed for sacral ulcer. She has home health. Patient's son is with her at this visit. Ulcer is clean with pink granulation tissue. There is no exposed bone. Measurements are improved asis depth. Maceration of the surrounding skin is improved. Patient has had large demarcated area of erythema which is slightly raised on the right side of theback. This has been present for months. Antifungal powder has been used on the site. Area has not improved much but there is less moisture however. Patient apparently has been eating well. She has a mattress. Previous history: Ms. Milton Ibrahim is an 83 year old female presenting today witha sacral wound. Ms. Milton Ibrahim is accompanied by her son who is her caregiver. Ms. Ibrahim presents with advanced dementia so the information was collected with the assistance of the patient's son. The patient is no longer ambulatory and is bed bound due to her dementia and has since developed several pressure wounds in thesacral region since September. This wound in particular was identified by home healthwith concerns for infection and the patient was taken to to the Emergency room in November. At that time the patient was treated with a course of doxycycline and provided care of the wound through home health. Given that the wound remained, the patient was referred to the wound care clinic. The patient's caregiver states that the patient does not notice the patient to be in any significant pain and does notidentify any significant drainage, erythema, or signs of infection in and around the wound. The patient has frequent changes of briefs throughout the day to prevent urine and stool from infecting thewound. The patient does use an air mattress to reduce pressure on the wound. Pelvic x-rays did not show evidence of osteomyelitis. Wound has been granulation tissue. There is no exposed bone. There is no surrounding erythema or induration. There is a moderate to large amount of serous drainage. No necrotic tissue is seen. The patient has a past medical history that includes hypertension, diabetes, anddementia. She has apast surgical history that includes mastectomy and hysterectomy. She is not taking any blood thinners. Subjective Pain Sacrum: Pain Description: Intermittent Wound/Ulcer History When did wound start?: Pressure ulcer was identified in November Mode of Arrival/ Base Wad Operator Adjuster: Personal vehicle Assistive Device Used Today: Wheelchair Lives with:: Children Who helps w/ dressing change?: Family Why Do You Need Help?: Can't Reach Ulcer, Limited mobility, Unable to understand, Unsafe leave homeby self and Taxing effort to leave home Review of Systems ROS Unobtainable: unobtainable due to mental condition [facility] Medical History (Updated 04/05/24 @ 11:03 by Gerson Tolliver MD) Diabetes Hypothyroid Does not walk Breast cancer Dementia Sacral ulcer Surgical History (Updated 01/11/24 @ 11:03 by Margareth Sullivan RN) History of mastectomy Grafts History of Graft History of Graft?: No Exam Physical Exam Vital Signs: Temp Pulse Resp BP O2 Del Method 98.2 F 105 H 18 115/84 Room Air 04/05/24 10:36 04/05/24 10:36 04/05/24 10:36 04/05/24 10:36 04/05/24 10:36 Skin Wounds: wounds noted Neuro General: patient awake Lower/Upper Extremity Exam Vascular Exam-Pulses Right Brachial: Pulse Assessment Method: NIBP Objective Meds/Allergies Home Medications buspirone 15 mg tablet 15 mg PO BID 01/11/24 [History Confirmed 01/11/24] diltiazem HCl 240 mg capsule,24 hr,extended release (Tiadylt ER) 240 mg PO DAILY01/11/24 [History Confirmed 01/11/24] donepezil 10 mg tablet 10 mg PO DAILY 01/11/24 [History Confirmed 01/11/24] levothyroxine 50 mcg tablet (Synthroid) 50 mcg PO DAILY 01/11/24 [History Confirmed 01/11/24] memantine 10 mg tablet 10 mg PO BID 01/11/24 [History Confirmed 01/11/24] quetiapine 100 mg tablet 100 mg PO QHS 01/11/24 [History Confirmed 01/11/24] sitagliptin phosphate 50 mg-metformin 500 mg tablet (Janumet) 1 tab PO DAILY 01/11/24 [History Confirmed 01/11/24] sodium hypochlorite 0.25 % solution (Dakin's Solution) 1 applic topical DAILY 3 weeks #473 mL 01/11/24 [Rx] trazodone 100 mg tablet 100 mg PO HS 01/11/24 [History Confirmed 01/11/24] fluconazole 100 mg tablet 100 mg PO DAILY 10 days #10 tabs 04/05/24 [Rx] Allergies Sulfa (Sulfonamide Antibiotics) Allergy (Verified 01/11/24 11:08) Itching Wound/Ulcer Sacrum: Type: Pressure/Injury Ulcer Pressure Ulcer/Injury Staging: Unstageable Bed Appearance: Beefy Red, Delacroix and Yellow Percent of Wound Bed Granulated/Red: 25 Percent of Devitalized: 75 Length (cm): 2.5 Width (cm): 0.8 Depth (cm): 0.5 CM Sq: 2.000 Undermining Position: 11-1 Undermining Depth: 0.6 Surrounding Tissue Appearance: Hyperpigmented Surrounding Tissue Temp: Warm Drainage Amount: Moderate Drainage Description: Serosanguineous Drainage Odor: No Odor Chemical Cauterization: NA Results Additional Studies: ITS Impressions Sacrum and Coccyx X-Ray 01/11/24 11:35 IMPRESSION: No definite osteolytic or bony destructive process. Degenerative changes are noted as above. Impression dictated by: Drew Kathleen M.D.01/11/2024 7:38 PM Dictation Location: [place] [address] Assessment/Plan Assessment/Plan (1) Stage IV pressure ulcer of sacral region: Code(s): L89.154 - Pressure ulcer of sacral region, stage 4 (2) Limited mobility: Code(s): Z74.09 - Other reduced mobility (3) Dementia: Code(s): F03.90 - Unspecified dementia, unspecified severity, without behavioral disturbance, psychotic disturbance, mood disturbance, and anxiety (4) Fungal skin infection: Code(s): B36.9 - Superficial mycosis, unspecified Plan Continue collagen and alginate dressings. Can use a wider top dressing so the tape goes on to the healthy buttock skin and not the red irritated skin. Patient has home health and son also helps with dressing changes. Will try oral antifungal agent for the skin infection. Patient will follow-up in about 3weeks. See Instructions for Orders See Instructions for Orders See Wound Discharge Instructions for Orders: Dictated By: Gerson Tolliver MD DD/ 1103 Signed By: 04/05/24 1106 [facility]12-23-2024 Telephone encounter Note* Telephone Encounter - Ines Baca NP - 03/21/2024 7:56 AM EST Needs future appointment set up in [place] [id number] Miscellaneous Notes* Telephone Encounter - Ines Baca NP - 03/21/2024 7:56 AM EST Needs future appointment set up in [place] with Bonnie or Cameron [id number] Progress note Author Gerson Tolliver [facility] RehabilitationNote Date/TimeDecest. [facility] 2023 10:44am [place] [address] Wound Center Provider Note Signed Patient: Milton Ibrahim MR#: [id number] : 1940 Acct:[id number] Age/Sex: 83 / F Copies to: MD Lenny Harrison,DO~ HPI Date of Visit Date of Visit: Date of Service: 03/08/2024 Time of Service: 11:40 Narrative HPI: Patient returns today. She is being followed for sacral ulcer. She has home health. Ulcer is clean with pink granulation tissue. There is no exposed bone. Ulcer is slightly improved. Main issue now is some maceration and irritation of the surrounding skin. Patient apparently has been eating well. She has a mattress. Previous history: Ms. Milton Ibrahim is an 83 year old female presenting today witha sacral wound. Ms. Milton Ibrahim is accompanied by her son who is her caregiver. Ms. Ibrahim presents with advanced dementia so the information was collected with the assistance of the patient's son. The patient is no longer ambulatory and is bed bound due to her dementia and has since developed several pressure wounds in thesacral region since September. This wound in particular was identified by home healthwith concerns for infection and the patient was taken to to the Emergency room in November. At that time the patient was treated with a course of doxycycline and provided care of the wound through home health. Given that the wound remained, the patient was referred to the wound care clinic. The patient's caregiver states that the patient does not notice the patient to be in any significant pain and does notidentify any significant drainage, erythema, or signs of infection in and around the wound. The patient has frequent changes of briefs throughout the day to prevent urine and stool from infecting thewound. The patient does use an air mattress to reduce pressure on the wound. Pelvic x-rays did not show evidence of osteomyelitis. Wound has been granulation tissue. There is no exposed bone. There is no surrounding erythema or induration. There is a moderate to large amount of serous drainage. No necrotic tissue is seen. The patient has a past medical history that includes hypertension, diabetes, anddementia. She has apast surgical history that includes mastectomy and hysterectomy. She is not taking any blood thinners. Subjective Pain Sacrum: Pain Description: Intermittent Wound/Ulcer History When did wound start?: Pressure ulcer was identified in November Mode of Arrival/ Base Wad Operator Adjuster: Personal vehicle Assistive Device Used Today: Wheelchair Lives with:: Children Who helps w/ dressing change?: Family Why Do You Need Help?: Can't Reach Ulcer, Limited mobility, Unable to understand, Unsafe leave homeby self and Taxing effort to leave home Review of Systems ROS Unobtainable: unobtainable due to mental condition [facility] Medical History (Updated 01/26/24 @ 11:12 by Gerson Tolliver MD) Diabetes Hypothyroid Does not walk Breast cancer Dementia Sacral ulcer Surgical History (Updated 01/11/24 @ 11:03 by Margareth Sullivan RN) History of mastectomy Grafts History of Graft History of Graft?: No Exam Physical Exam Vital Signs: Temp Pulse Resp BP O2 Del Method 97.7 F 93 16 104/64 Room Air 02/09/24 08:28 02/09/24 08:28 03/08/24 10:53 03/08/24 10:53 03/08/24 10:53 Skin Wounds: wounds noted Neuro General: patient awake Lower/Upper Extremity Exam Vascular Exam-Pulses Right Brachial: Pulse Assessment Method: NIBP Objective Meds/Allergies Home Medications buspirone 15 mg tablet 15 mg PO BID 01/11/24 [History Confirmed 01/11/24] diltiazem HCl 240 mg capsule,24 hr,extended release (Tiadylt ER) 240 mg PO DAILY01/11/24 [History Confirmed 01/11/24] donepezil 10 mg tablet 10 mg PO DAILY 01/11/24 [History Confirmed 01/11/24] levothyroxine 50 mcg tablet (Synthroid) 50 mcg PO DAILY 01/11/24 [History Confirmed 01/11/24] memantine 10 mg tablet 10 mg PO BID 01/11/24 [History Confirmed 01/11/24] quetiapine 100 mg tablet 100 mg PO QHS 01/11/24 [History Confirmed 01/11/24] sitagliptin phosphate 50 mg-metformin 500 mg tablet (Janumet) 1 tab PO DAILY 01/11/24 [History Confirmed 01/11/24] sodium hypochlorite 0.25 % solution (Dakin's Solution) 1 applic topical DAILY 3 weeks #473 mL 01/11/24 [Rx] trazodone 100 mg tablet 100 mg PO HS 01/11/24 [History Confirmed 01/11/24] Allergies Sulfa (Sulfonamide Antibiotics) Allergy (Verified 01/11/24 11:08) Itching Wound/Ulcer Sacrum: Type: Pressure/Injury Ulcer Pressure Ulcer/Injury Staging: Unstageable Bed Appearance: Beefy Red, Delacroix and Yellow Percent of Wound Bed Granulated/Red: 80 Percent of Devitalized: 20 Length (cm): 3.0 Width (cm): 1.3 Depth (cm): 1.0 CM Sq: 3.900 Undermining Position: 12-3 Undermining Depth: 1.0 Surrounding Tissue Appearance: Hyperpigmented Surrounding Tissue Temp: Warm Drainage Amount: Moderate Drainage Description: Serosanguineous Drainage Odor: No Odor Chemical Cauterization: NA Results Additional Studies: ITS Impressions Sacrum and Coccyx X-Ray 01/11/24 11:35 IMPRESSION: No definite osteolytic or bony destructive process. Degenerative changes are noted as above. Impression dictated by: Drew Kathleen M.D.01/11/2024 7:38 PM Dictation Location: [place] [address] Assessment/Plan Assessment/Plan (1) Stage IV pressure ulcer of sacral region: Code(s): L89.154 - Pressure ulcer of sacral region, stage 4 (2) Limited mobility: Code(s): Z74.09 - Other reduced mobility (3) Dementia: Code(s): F03.90 - Unspecified dementia, unspecified severity, without behavioral disturbance, psychotic disturbance, mood disturbance, and anxiety Plan Continue collagen and alginate dressings. Can use a wider top dressing so the tape goes on to the healthy buttock skin and not the red irritated skin. Patient has home health and son also helps with dressing changes. Patient will follow-up in about 3weeks. See Instructions for Orders See Instructions for Orders See Wound Discharge Instructions for Orders: Dictated By: Gerson Tolliver MD DD/ 1140 Signed By: <Electronically signed by MD Gerson Tolliver> 03/08/24 1144 [facility] Work Phone: [phone]) 354-365312-10-2024 [place] [address] Wound Center Provider Note Signed Patient: Milton Ibrahim MR#: [id number] : 1940 Acct:[id number] Age/Sex: 83 / F Copies to: MD Lenny Harrison,DO~ HPI Date of Visit Date of Visit: Date of Service: 03/08/2024 Time of Service: 11:40 Narrative HPI: Patient returns today. She is being followed for sacral ulcer. She has home health. Ulcer is clean with pink granulation tissue. There is no exposed bone. Ulcer is slightly improved. Main issue now is some maceration and irritation of the surrounding skin. Patient apparently has been eating well. She has a mattress. Previous history: Ms. Milton Ibrahim is an 83 year old female presenting today witha sacral wound. Ms. Milton Ibrahim is accompanied by her son who is her caregiver. Ms. Ibrahim presents with advanced dementia so the information was collected with the assistance of the patient's son. The patient is no longer ambulatory and is bed bound due to her dementia and has since developed several pressure wounds in thesacral region since September. This wound in particular was identified by home healthwith concerns for infection and the patient was taken to to the Emergency room in November. At that time the patient was treated with a course of doxycycline and provided care of the wound through home health. Given that the wound remained, the patient was referred to the wound care clinic. The patient's caregiver states that the patient does not notice the patient to be in any significant pain and does notidentify any significant drainage, erythema, or signs of infection in and around the wound. The patient has frequent changes of briefs throughout the day to prevent urine and stool from infecting thewound. The patient does use an air mattress to reduce pressure on the wound. Pelvic x-rays did not show evidence of osteomyelitis. Wound has been granulation tissue. There is no exposed bone. There is no surrounding erythema or induration. There is a moderate to large amount of serous drainage. No necrotic tissue is seen. The patient has a past medical history that includes hypertension, diabetes, anddementia. She has apast surgical history that includes mastectomy and hysterectomy. She is not taking any blood thinners. Subjective Pain Sacrum: Pain Description: Intermittent Wound/Ulcer History When did wound start?: Pressure ulcer was identified in November Mode of Arrival/ Base Wad Operator Adjuster: Personal vehicle Assistive Device Used Today: Wheelchair Lives with:: Children Who helps w/ dressing change?: Family Why Do You Need Help?: Can't Reach Ulcer, Limited mobility, Unable to understand, Unsafe leave homeby self and Taxing effort to leave home Review of Systems ROS Unobtainable: unobtainable due to mental condition [facility] Medical History (Updated 01/26/24 @ 11:12 by Gerson Tolliver MD) Diabetes Hypothyroid Does not walk Breast cancer Dementia Sacral ulcer Surgical History (Updated 01/11/24 @ 11:03 by Margareth Sullivan RN) History of mastectomy Grafts History of Graft History of Graft?: No Exam Physical Exam Vital Signs: Temp Pulse Resp BP O2 Del Method 97.7 F 93 16 104/64 Room Air 02/09/24 08:28 02/09/24 08:28 03/08/24 10:53 03/08/24 10:53 03/08/24 10:53 Skin Wounds: wounds noted Neuro General: patient awake Lower/Upper Extremity Exam Vascular Exam-Pulses Right Brachial: Pulse Assessment Method: NIBP Objective Meds/Allergies Home Medications buspirone 15 mg tablet 15 mg PO BID 01/11/24 [History Confirmed 01/11/24] diltiazem HCl 240 mg capsule,24 hr,extended release (Tiadylt ER) 240 mg PO DAILY01/11/24 [History Confirmed 01/11/24] donepezil 10 mg tablet 10 mg PO DAILY 01/11/24 [History Confirmed 01/11/24] levothyroxine 50 mcg tablet (Synthroid) 50 mcg PO DAILY 01/11/24 [History Confirmed 01/11/24] memantine 10 mg tablet 10 mg PO BID 01/11/24 [History Confirmed 01/11/24] quetiapine 100 mg tablet 100 mg PO QHS 01/11/24 [History Confirmed 01/11/24] sitagliptin phosphate 50 mg-metformin 500 mg tablet (Janumet) 1 tab PO DAILY 01/11/24 [History Confirmed 01/11/24] sodium hypochlorite 0.25 % solution (Dakin's Solution) 1 applic topical DAILY 3 weeks #473 mL 01/11/24 [Rx] trazodone 100 mg tablet 100 mg PO HS 01/11/24 [History Confirmed 01/11/24] Allergies Sulfa (Sulfonamide Antibiotics) Allergy (Verified 01/11/24 11:08) Itching Wound/Ulcer Sacrum: Type: Pressure/Injury Ulcer Pressure Ulcer/Injury Staging: Unstageable Bed Appearance: Beefy Red, Delacroix and Yellow Percent of Wound Bed Granulated/Red: 80 Percent of Devitalized: 20 Length (cm): 3.0 Width (cm): 1.3 Depth (cm): 1.0 CM Sq: 3.900 Undermining Position: 12-3 Undermining Depth: 1.0 Surrounding Tissue Appearance: Hyperpigmented Surrounding Tissue Temp: Warm Drainage Amount: Moderate Drainage Description: Serosanguineous Drainage Odor: No Odor Chemical Cauterization: NA Results Additional Studies: ITS Impressions Sacrum and Coccyx X-Ray 01/11/24 11:35 IMPRESSION: No definite osteolytic or bony destructive process. Degenerative changes are noted as above. Impression dictated by: Drew Kathleen M.D.01/11/2024 7:38 PM Dictation Location: [place] [address] Assessment/Plan Assessment/Plan (1) Stage IV pressure ulcer of sacral region: Code(s): L89.154 - Pressure ulcer of sacral region, stage 4 (2) Limited mobility: Code(s): Z74.09 - Other reduced mobility (3) Dementia: Code(s): F03.90 - Unspecified dementia, unspecified severity, without behavioral disturbance, psychotic disturbance, mood disturbance, and anxiety Plan Continue collagen and alginate dressings. Can use a wider top dressing so the tape goes on to the healthy buttock skin and not the red irritated skin. Patient has home health and son also helps with dressing changes. Patient will follow-up in about 3weeks. See Instructions for Orders See Instructions for Orders See Wound Discharge Instructions for Orders: Dictated By: Gerson Tolliver MD DD/ 1140 Signed By: 03/08/24 1144 [facility]11-12-2024 History of Present illness Narrative * Bonnie Rodriguez NP - 02/09/2024 11:20 AM EST Images from the original note were not included. Patient is here today for follow-up of XXX. I am following the plan of care established by the physician who is present in the office today. Subjective Milton Ibrahim is a 83 y.o. year old female No chief complaint on file. Past Medical History: Diagnosis Date A-fib (CMS/HCC) Breast cancer (CMS/HCC) Broken ankle 2001 Depression (CMS/HCC) Diabetes (CMS/HCC) GERD (gastroesophageal reflux disease) HLD (hyperlipidemia) (CMS/HCC) HTN (hypertension) (CMS/HCC) Thyroid disease (CMS/HCC) Past Surgical History: Procedure Laterality Date APPENDECTOMY BONE RESECTION, RIB Left CHOLECYSTECTOMY FOOT SURGERY Right 10/18/2019 skin lesion HYSTERECTOMY MASTECTOMY MASTECTOMY Right 2014 RIB FRACTURE SURGERY Left rib ressection Family History Problem Relation Name Age of Onset Multiple sclerosis Daughter 2 Mental illness Son 2 Coronary artery disease Sibling Social History Tobacco Use Smoking status: Never Passive exposure: Never Smokeless tobacco: Never Substance Use Topics Alcohol use: Never Comment: no caffeine intake Medication Documentation Review Audit Reviewed by Maya Krueger LPN (Licensed Nurse) on 05/27/23 at 1504 Medication Order Taking? Sig Documenting Provider Last Dose Status busPIRone (Buspar) 10 MG tablet [id number] Yes Take 10 mg by mouth in the morning and 10 mg in the evening and 10 mg before bedtime. Kim Galvan NP Taking Active donepezil (Aricept) 10 MG tablet [id number] Yes 1 (one) time each day at the same time Kim Galvan NP Taking Active Janumet 50-500 MG tablet [id number] Yes TAKE 1 TABLET BY MOUTH EVERY DAY WITH A MEAL FOR 90 DAYS Steff Cueva, Taking Active levothyroxine (Synthroid) 75 MCG tablet [id number] Yes 1 tablet before a meal qd Lenny Cueva, DO Taking Active memantine (Namenda) 10 MG tablet [id number] Yes Kim Galvan NP Taking Active omeprazole (PriLOSEC) [address] capsule [id number] Yes TAKE 1 CAPSULE BY MOUTH EVERY DAY 30 MINUTES BEFORE BREAKFAST IN THE MORNING Lenny Cueva, DO Taking Active OneTouch Ultra test strip [id number] Yes USE 1 TEST STRIP IN VITRO ONCE DAILY 50 DAYS Kim Galvan NP Taking Active QUEtiapine (SEROquel) 100 MG tablet [id number] Yes Take 100 mg by mouth at bedtime Kim Galvan NP Taking Active Santyl 250 UNIT/GM ointment [id number] Yes APPLY TO WOUND DAILY DIRECTED Kim Galvan NP Taking Active Tiadylt ER 240 MG 24 hr capsule [id number] Yes TAKE 1 CAPSULE BY MOUTH IN THE MORNING. Lenny Cueva DO Taking Active traZODone (Desyrel) 100 MG tablet [id number] Yes Take 100 mg by mouth at bedtime Kim Galvan NP Taking Active valproic acid (Depakene) 250 MG/5ML oral liquid [id number] Yes Kim Galvan NP Taking Active HPI HPI Memory loss - HPI taken from her son via televisit -patient has home health nursing coming to her home -her son is her FT home care chaplain -just had a UA and labs with -she does not want to ambulate anymore -PT/OT is working with her -she sleeps a lot -no falls -weak in general but no worsening -she is eating and drinking well -they are crushing her pills now -she is tolerating the liquid depakote -her food is soft diet, and ground food -son reports that she is not understanding much -son states she cannot hold conversations -she is still mixing up words and not finishing sentences -she is having good and bad days -she sometimes wont sleep for a couple of days -she is having increased anxiety, no scary hallucinations. Talks to people that aren't there. Seeing people that are not there . We tried to stop Aricept but she started having increased agitation and hallucinations. When he restarted it and she leveled out very nicely ROS Review of Systems Objective Visit Vitals Smoking Status Never Neurological Exam Limited exam as this was a virtual visit She is drowsy. Sleeps pretty much through the exam. Son is present for exam. Speech is minimal and rambling. Moves her extremities without obvious weakness Unable to assess orientation, Appears orientated to person and knows her son when awake She did not follow even simple requests to participate in exam Assessment and Plan 1. Alzheimer's dementia - G30.9 (Primary), MMSE 07/2018 and repeat 03/2019. Currently on Aricept and Namenda. She follows with Dr. Carlton for anxiety and depression which could be contributing to decline in memory and her medications have been adjusted. MOCA 11/2019 was 08/26. Sleep-wake cycle is off likely contributing to memory loss. She continues to have hallucinations of people that do not seem to be bothersome or a safety concern. She is not consistently taking her medications, shespits them out at times. She needs 24 hour care. She needs help with ADLs. Her son understands thatshe may need more help than he can provide at home without other family members or outside resources. We did try to stop Aricept and her behavior worsened. Her son restarted this and she has been doing better. 2. Hallucination - R44.3, She previously had auditory hallucinations and insomnia which have lessened with seroquel. Her son notes that her hallucinations are stable. 3. 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 She has declined wanting to trial Nudexta. Stable. Diagnoses and all orders for this visit: 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 ([facility]) Visit done via video call for patient safety and convenience 1. Continue Aricept 10mg daily 2. Conitnue Namenda but change to 10mg BID so it can be crushed 3. Continue trazodone 100mg PO QHS to assess her fatigue. 4. Continue Seroquel 100mg PO QHS for delirium. 5. Depakote Dcd. Can consider adding this back in if needed 7. Continue with PT/OT with [facility] 8. Her son understands that he may need to consider placement vs home care. 9. I will see her back in 4 months or sooner if needed 10. She will continue to follow with Dr Carlton documented in this [facility]11-12-2024 Progress note Author Gerson Tolliver [facility] Date/TimeNovember 2023 8:49am [place] [address] Wound Center Provider Note Signed Patient: Milton Ibrahim MR#: [id number] [id number] : 1940 Acct:[id number] Age/Sex: 83 / F Copies to: MD Lenny Harrison,DO~ HPI Date of Visit Date of Visit: Date of Service: 02/09/2024 Time of Service: 09:44 Narrative HPI: Patient returns today. She is being followed for sacral ulcer. She has home health. Ulcer is clean with pink granulation tissue. There is no exposed bone. Depth is improved. Patient apparently has been eating well. She has a mattress. Previous history: Ms. Milton Ibrahim is an 83 year old female presenting today witha sacral wound. Ms. Milton Ibrahim is accompanied by her son who is her caregiver. Ms. Ibrahim presents with advanced dementia so the information was collected with the assistance of the patient's son. The patient is no longer ambulatory and is bed bound due to her dementia and has since developed several pressure wounds in thesacral region since September. This wound in particular was identified by home healthwith concerns for infection and the patient was taken to to the Emergency room in November. At that time the patient was treated with a course of doxycycline and provided care of the wound through home health. Given that the wound remained, the patient was referred to the wound care clinic. The patient's caregiver states that the patient does not notice the patient to be in any significant pain and does notidentify any significant drainage, erythema, or signs of infection in and around the wound. The patient has frequent changes of briefs throughout the day to prevent urine and stool from infecting thewound. The patient does use an air mattress to reduce pressure on the wound. Pelvic x-rays did not show evidence of osteomyelitis. Wound has been granulation tissue. There is no exposed bone. There is no surrounding erythema or induration. There is a moderate to large amount of serous drainage. No necrotic tissue is seen. The patient has a past medical history that includes hypertension, diabetes, anddementia. She has apast surgical history that includes mastectomy and hysterectomy. She is not taking any blood thinners. Subjective Review of Systems ROS Unobtainable: unobtainable due to mental condition [facility] Medical History (Updated 01/26/24 @ 11:12 by Gerson Tolliver MD) Diabetes Hypothyroid Does not walk Breast cancer Dementia Sacral ulcer Surgical History (Updated 01/11/24 @ 11:03 by Margareth Sullivan RN) History of mastectomy Grafts History of Graft History of Graft?: No Exam Physical Exam Vital Signs: Temp Pulse Resp BP O2 Del Method 97.7 F 93 18 141/94 H Room Air 02/09/24 08:28 02/09/24 08:28 02/09/24 08:28 02/09/24 08:28 02/09/24 08:28 Skin Wounds: wounds noted Neuro General: patient awake Lower/Upper Extremity Exam Vascular Exam-Pulses Right Brachial: Pulse Assessment Method: NIBP Objective Meds/Allergies Home Medications buspirone 15 mg tablet 15 mg PO BID 01/11/24 [History Confirmed 01/11/24] diltiazem HCl 240 mg capsule,24 hr,extended release (Tiadylt ER) 240 mg PO DAILY01/11/24 [History Confirmed 01/11/24] donepezil 10 mg tablet 10 mg PO DAILY 01/11/24 [History Confirmed 01/11/24] levothyroxine 50 mcg tablet (Synthroid) 50 mcg PO DAILY 01/11/24 [History Confirmed 01/11/24] memantine 10 mg tablet 10 mg PO BID 01/11/24 [History Confirmed 01/11/24] quetiapine 100 mg tablet 100 mg PO QHS 01/11/24 [History Confirmed 01/11/24] sitagliptin phosphate 50 mg-metformin 500 mg tablet (Janumet) 1 tab PO DAILY 01/11/24 [History Confirmed 01/11/24] sodium hypochlorite 0.25 % solution (Dakin's Solution) 1 applic topical DAILY 3 weeks #473 mL 01/11/24 [Rx] trazodone 100 mg tablet 100 mg PO HS 01/11/24 [History Confirmed 01/11/24] Allergies Sulfa (Sulfonamide Antibiotics) Allergy (Verified 01/11/24 11:08) Itching Wound/Ulcer Sacrum: Type: Pressure/Injury Ulcer Pressure Ulcer/Injury Staging: Unstageable Bed Appearance: Beefy Red, Delacroix and Yellow Percent of Wound Bed Granulated/Red: 80 Percent of Devitalized: 20 Length (cm): 3.0 Width (cm): 1.7 Depth (cm): 1.0 CM Sq: 5.100 Undermining Position: 12-6 Undermining Depth: 1.4 Surrounding Tissue Appearance: Hyperpigmented and Rash/Irritation Surrounding Tissue Temp: Warm Drainage Amount: Moderate Drainage Description: Serosanguineous Drainage Odor: No Odor Chemical Cauterization: NA Results Additional Studies: ITS Impressions Sacrum and Coccyx X-Ray 01/11/24 11:35 IMPRESSION: No definite osteolytic or bony destructive process. Degenerative changes are noted as above. Impression dictated by: Drew Kathleen M.D.01/11/2024 7:38 PM Dictation Location: [place] [address] Assessment/Plan Assessment/Plan (1) Stage IV pressure ulcer of sacral region: Code(s): L89.154 - Pressure ulcer of sacral region, stage 4 (2) Limited mobility: Code(s): Z74.09 - Other reduced mobility (3) Dementia: Code(s): F03.90 - Unspecified dementia, unspecified severity, without behavioral disturbance, psychotic disturbance, mood disturbance, and anxiety Plan Continue collagen and alginate dressings. Patient has home health and son also helps with dressing changes. Patient will follow-up in about 3weeks. See Instructions for Orders See Instructions for Orders See Wound Discharge Instructions for Orders: Dictated By: Gerson Tolliver MD DD/ Signed By: <Electronically signed by MD Gerson Tolliver> 02/09/24 0949 [facility] Work Phone: 1(995) 644-274211-12-2024 [place] [address] Wound Center Provider Note Signed Patient: Milton Ibrahim MR#: [id number] : 1940 Acct:[id number] Age/Sex: 83 / F Copies to: MD Lenny Harrison,DO~ HPI Date of Visit Date of Visit: Date of Service: 02/09/2024 Time of Service: 09:44 Narrative HPI: Patient returns today. She is being followed for sacral ulcer. She has home health. Ulcer is clean with pink granulation tissue. There is no exposed bone. Depth is improved. Patient apparently has been eating well. She has a mattress. Previous history: Ms. Milton Ibrahim is an 83 year old female presenting today witha sacral wound. Ms. Milton Ibrahim is accompanied by her son who is her caregiver. Ms. Ibrahim presents with advanced dementia so the information was collected with the assistance of the patient's son. The patient is no longer ambulatory and is bed bound due to her dementia and has since developed several pressure wounds in thesacral region since September. This wound in particular was identified by home healthwith concerns for infection and the patient was taken to to the Emergency room in November. At that time the patient was treated with a course of doxycycline and provided care of the wound through home health. Given that the wound remained, the patient was referred to the wound care clinic. The patient's caregiver states that the patient does not notice the patient to be in any significant pain and does notidentify any significant drainage, erythema, or signs of infection in and around the wound. The patient has frequent changes of briefs throughout the day to prevent urine and stool from infecting thewound. The patient does use an air mattress to reduce pressure on the wound. Pelvic x-rays did not show evidence of osteomyelitis. Wound has been granulation tissue. There is no exposed bone. There is no surrounding erythema or induration. There is a moderate to large amount of serous drainage. No necrotic tissue is seen. The patient has a past medical history that includes hypertension, diabetes, anddementia. She has apast surgical history that includes mastectomy and hysterectomy. She is not taking any blood thinners. Subjective Review of Systems ROS Unobtainable: unobtainable due to mental condition [facility] Medical History (Updated 01/26/24 @ 11:12 by Gerson Tolliver MD) Diabetes Hypothyroid Does not walk Breast cancer Dementia Sacral ulcer Surgical History (Updated 01/11/24 @ 11:03 by Margareth Sullivan RN) History of mastectomy Grafts History of Graft History of Graft?: No Exam Physical Exam Vital Signs: Temp Pulse Resp BP O2 Del Method 97.7 F 93 18 141/94 H Room Air 02/09/24 08:28 02/09/24 08:28 02/09/24 08:28 02/09/24 08:28 02/09/24 08:28 Skin Wounds: wounds noted Neuro General: patient awake Lower/Upper Extremity Exam Vascular Exam-Pulses Right Brachial: Pulse Assessment Method: NIBP Objective Meds/Allergies Home Medications buspirone 15 mg tablet 15 mg PO BID 01/11/24 [History Confirmed 01/11/24] diltiazem HCl 240 mg capsule,24 hr,extended release (Tiadylt ER) 240 mg PO DAILY01/11/24 [History Confirmed 01/11/24] donepezil 10 mg tablet 10 mg PO DAILY 01/11/24 [History Confirmed 01/11/24] levothyroxine 50 mcg tablet (Synthroid) 50 mcg PO DAILY 01/11/24 [History Confirmed 01/11/24] memantine 10 mg tablet 10 mg PO BID 01/11/24 [History Confirmed 01/11/24] quetiapine 100 mg tablet 100 mg PO QHS 01/11/24 [History Confirmed 01/11/24] sitagliptin phosphate 50 mg-metformin 500 mg tablet (Janumet) 1 tab PO DAILY 01/11/24 [History Confirmed 01/11/24] sodium hypochlorite 0.25 % solution (Dakin's Solution) 1 applic topical DAILY 3 weeks #473 mL 01/11/24 [Rx] trazodone 100 mg tablet 100 mg PO HS 01/11/24 [History Confirmed 01/11/24] Allergies Sulfa (Sulfonamide Antibiotics) Allergy (Verified 01/11/24 11:08) Itching Wound/Ulcer Sacrum: Type: Pressure/Injury Ulcer Pressure Ulcer/Injury Staging: Unstageable Bed Appearance: Beefy Red, Delacroix and Yellow Percent of Wound Bed Granulated/Red: 80 Percent of Devitalized: 20 Length (cm): 3.0 Width (cm): 1.7 Depth (cm): 1.0 CM Sq: 5.100 Undermining Position: 12-6 Undermining Depth: 1.4 Surrounding Tissue Appearance: Hyperpigmented and Rash/Irritation Surrounding Tissue Temp: Warm Drainage Amount: Moderate Drainage Description: Serosanguineous Drainage Odor: No Odor Chemical Cauterization: NA Results Additional Studies: ITS Impressions Sacrum and Coccyx X-Ray 01/11/24 11:35 IMPRESSION: No definite osteolytic or bony destructive process. Degenerative changes are noted as above. Impression dictated by: Drew Kathleen M.D.01/11/2024 7:38 PM Dictation Location: [place] [address] Assessment/Plan Assessment/Plan (1) Stage IV pressure ulcer of sacral region: Code(s): L89.154 - Pressure ulcer of sacral region, stage 4 (2) Limited mobility: Code(s): Z74.09 - Other reduced mobility (3) Dementia: Code(s): F03.90 - Unspecified dementia, unspecified severity, without behavioral disturbance, psychotic disturbance, mood disturbance, and anxiety Plan Continue collagen and alginate dressings. Patient has home health and son also helps with dressing changes. Patient will follow-up in about 3weeks. See Instructions for Orders See Instructions for Orders See Wound Discharge Instructions for Orders: Dictated By: Gerson Tolliver MD DD/ 0944 Signed By: 02/09/24 0949 [facility]10-29-2024 Progress note Author Gerson Tolliver [facility] RehabilitationNote Date/TimeOctober 2023 11:13am [place] [address] Wound Center Provider Note Signed Patient: Milton Ibrahim MR#: [id number] [id number] : 1940 Acct:[id number] Age/Sex: 83 / F Copies to: MD Lenny Harrison,DO~ HPI Date of Visit Date of Visit: Date of Service: 01/26/2024 Time of Service: 10:46 Narrative HPI: Ms. Milton Ibrahim is an 83 year old female presenting today with a sacral wound. Ms. Miltno Ibrahim is accompanied by her son who is her caregiver. Ms. Ibrahim presents with advanced dementia so the information was collected with the assistance of the patient's son. The patient is no longer ambulatory and is bed bound due to her dementia and has since developed several pressure wounds in thesacral region since September. This wound in particular was identified by home healthwith concerns for infection and the patient was taken to to the Emergency room in November. At that time the patient was treated with a course of doxycycline and provided care of the wound through home health. Given that the wound remained, the patient was referred to the wound care clinic. The patient's caregiver states that the patient does not notice the patient to be in any significant pain and does notidentify any significant drainage, erythema, or signs of infection in and around the wound. The patient has frequent changes of briefs throughout the day to prevent urine and stool from infecting thewound. The patient does use an air mattress to reduce pressure on the wound. Pelvic x-rays did not show evidence of osteomyelitis. Wound has been granulation tissue. There is no exposed bone. There is no surrounding erythema or induration. There is a moderate to large amount of serous drainage. No necrotic tissue is seen. The patient has a past medical history that includes hypertension, diabetes, anddementia. She has apast surgical history that includes mastectomy and hysterectomy. She is not taking any blood thinners. Subjective Wound/Ulcer History When did wound start?: Pressure ulcer was identified in November Mode of Arrival/ Base Wad Operator Adjuster: Personal vehicle Assistive Device Used Today: Wheelchair Who helps w/ dressing change?: Family Review of Systems ROS Unobtainable: unobtainable due to mental condition [facility] History (Updated 01/26/24 @ 11:12 by Gerson Tolliver MD) Diabetes Hypothyroid Does not walk Breast cancer Dementia Sacral ulcer Surgical History (Updated 01/11/24 @ 11:03 by Margareth Sullivan RN) History of mastectomy Grafts History of Graft History of Graft?: No Exam Physical Exam Vital Signs: Temp Pulse Resp BP O2 Del Method 97.3 F L 80 20 143/68 H Room Air 01/26/24 10:18 01/11/24 10:54 01/11/24 10:54 01/26/24 10:18 01/26/24 10:18 Const Orientation: awake HEENT Head: atraumatic Eyes Sclera: sclerae normal (Anicteric) Resp Effort & Inspection: normal respiratory effort Auscultation: clear to auscultation bilaterally Cardio Rate: regular rate Rhythm: regular rhythm Skin Wounds: wounds noted Neuro General: patient awake Lower/Upper Extremity Exam Vascular Exam-Pulses Right Brachial: Pulse Assessment Method: Palpation Objective Meds/Allergies Home Medications buspirone 15 mg tablet 15 mg PO BID 01/11/24 [History Confirmed 01/11/24] diltiazem HCl 240 mg capsule,24 hr,extended release (Tiadylt ER) 240 mg PO DAILY01/11/24 [History Confirmed 01/11/24] donepezil 10 mg tablet 10 mg PO DAILY 01/11/24 [History Confirmed 01/11/24] levothyroxine 50 mcg tablet (Synthroid) 50 mcg PO DAILY 01/11/24 [History Confirmed 01/11/24] memantine 10 mg tablet 10 mg PO BID 01/11/24 [History Confirmed 01/11/24] quetiapine 100 mg tablet 100 mg PO QHS 01/11/24 [History Confirmed 01/11/24] sitagliptin phosphate 50 mg-metformin 500 mg tablet (Janumet) 1 tab PO DAILY 01/11/24 [History Confirmed 01/11/24] sodium hypochlorite 0.25 % solution (Dakin's Solution) 1 applic topical DAILY 3 weeks #473 mL 01/11/24 [Rx] trazodone 100 mg tablet 100 mg PO HS 01/11/24 [History Confirmed 01/11/24] Allergies Sulfa (Sulfonamide Antibiotics) Allergy (Verified 01/11/24 11:08) Itching Wound/Ulcer Sacrum: Type: Pressure/Injury Ulcer Pressure Ulcer/Injury Staging: Unstageable Bed Appearance: Beefy Red, Delacroix and Yellow Percent of Wound Bed Granulated/Red: 80 Percent of Devitalized: 20 Length (cm): 2.6 Width (cm): 1.2 Depth (cm): 1.5 CM Sq: 3.120 Undermining Position: 7-1 Undermining Depth: 2 Surrounding Tissue Appearance: Rash/Irritation Surrounding Tissue Temp: Warm Drainage Amount: Moderate Drainage Description: Serosanguineous Drainage Odor: No Odor Chemical Cauterization: NA Results Additional Studies: ITS Impressions Sacrum and Coccyx X-Ray 01/11/24 11:35 IMPRESSION: No definite osteolytic or bony destructive process. Degenerative changes are noted as above. Impression dictated by: Drew Kathleen M.D.01/11/2024 7:38 PM Dictation Location: [place] [address] Assessment/Plan Assessment/Plan (1) Stage IV pressure ulcer of sacral region: Code(s): L89.154 - Pressure ulcer of sacral region, stage 4 (2) Limited mobility: Code(s): Z74.09 - Other reduced mobility (3) Dementia: Code(s): F03.90 - Unspecified dementia, unspecified severity, without behavioral disturbance, psychotic disturbance, mood disturbance, and anxiety Plan Will change to collagen and alginate dressings. Patient has home health and son also helps with dressing changes. Patient will follow-up in about 2 weeks. See Instructions for Orders See Instructions for Orders See Wound Discharge Instructions for Orders: Dictated By: Gerson Tolliver MD DD/ 1046 Signed By: <Electronically signed by MD Gerson Tolliver> 01/26/24 [facility]3 [facility] Work Phone: 1(750) 651-279110-29-2024 [place] [address] Wound Center Provider Note Signed Patient: Milton Ibrahim MR#: [id number] : 1940 Acct:[id number] Age/Sex: 83 / F Copies to: MD Lenny Harrison,DO~ HPI Date of Visit Date of Visit: Date of Service: 01/26/2024 Time of Service: 10:46 Narrative HPI: Ms. Milton Ibrahim is an 83 year old female presenting today with a sacral wound. Ms. Milton Ibrahim is accompanied by her son who is her caregiver. Ms. Ibrahim presents with advanced dementia so the information was collected with the assistance of the patient's son. The patient is no longer ambulatory and is bed bound due to her dementia and has since developed several pressure wounds in thesacral region since September. This wound in particular was identified by home healthwith concerns for infection and the patient was taken to to the Emergency room in November. At that time the patient was treated with a course of doxycycline and provided care of the wound through home health. Given that the wound remained, the patient was referred to the wound care clinic. The patient's caregiver states that the patient does not notice the patient to be in any significant pain and does notidentify any significant drainage, erythema, or signs of infection in and around the wound. The patient has frequent changes of briefs throughout the day to prevent urine and stool from infecting thewound. The patient does use an air mattress to reduce pressure on the wound. Pelvic x-rays did not show evidence of osteomyelitis. Wound has been granulation tissue. There is no exposed bone. There is no surrounding erythema or induration. There is a moderate to large amount of serous drainage. No necrotic tissue is seen. The patient has a past medical history that includes hypertension, diabetes, anddementia. She has apast surgical history that includes mastectomy and hysterectomy. She is not taking any blood thinners. Subjective Wound/Ulcer History When did wound start?: Pressure ulcer was identified in November Mode of Arrival/ Base Wad Operator Adjuster: Personal vehicle Assistive Device Used Today: Wheelchair Who helps w/ dressing change?: Family Review of Systems ROS Unobtainable: unobtainable due to mental condition [facility] Medical History (Updated 01/26/24 @ 11:12 by Gerson Tolliver MD) Diabetes Hypothyroid Does not walk Breast cancer Dementia Sacral ulcer Surgical History (Updated 01/11/24 @ 11:03 by Margareth Sullivan RN) History of mastectomy Grafts History of Graft History of Graft?: No Exam Physical Exam Vital Signs: Temp Pulse Resp BP O2 Del Method 97.3 F L 80 20 143/68 H Room Air 01/26/24 10:18 01/11/24 10:54 01/11/24 10:54 01/26/24 10:18 01/26/24 10:18 Const Orientation: awake HEENT Head: atraumatic Eyes Sclera: sclerae normal (Anicteric) Resp Effort & Inspection: normal respiratory effort Auscultation: clear to auscultation bilaterally Cardio Rate: regular rate Rhythm: regular rhythm Skin Wounds: wounds noted Neuro General: patient awake Lower/Upper Extremity Exam Vascular Exam-Pulses Right Brachial: Pulse Assessment Method: Palpation Objective Meds/Allergies Home Medications buspirone 15 mg tablet 15 mg PO BID 01/11/24 [History Confirmed 01/11/24] diltiazem HCl 240 mg capsule,24 hr,extended release (Tiadylt ER) 240 mg PO DAILY01/11/24 [History Confirmed 01/11/24] donepezil 10 mg tablet 10 mg PO DAILY 01/11/24 [History Confirmed 01/11/24] levothyroxine 50 mcg tablet (Synthroid) 50 mcg PO DAILY 01/11/24 [History Confirmed 01/11/24] memantine 10 mg tablet 10 mg PO BID 01/11/24 [History Confirmed 01/11/24] quetiapine 100 mg tablet 100 mg PO QHS 01/11/24 [History Confirmed 01/11/24] sitagliptin phosphate 50 mg-metformin 500 mg tablet (Janumet) 1 tab PO DAILY 01/11/24 [History Confirmed 01/11/24] sodium hypochlorite 0.25 % solution (Dakin's Solution) 1 applic topical DAILY 3 weeks #473 mL 01/11/24 [Rx] trazodone 100 mg tablet 100 mg PO HS 01/11/24 [History Confirmed 01/11/24] Allergies Sulfa (Sulfonamide Antibiotics) Allergy (Verified 01/11/24 11:08) Itching Wound/Ulcer Sacrum: Type: Pressure/Injury Ulcer Pressure Ulcer/Injury Staging: Unstageable Bed Appearance: Beefy Red, Delacroix and Yellow Percent of Wound Bed Granulated/Red: 80 Percent of Devitalized: 20 Length (cm): 2.6 Width (cm): 1.2 Depth (cm): 1.5 CM Sq: 3.120 Undermining Position: 7-1 Undermining Depth: 2 Surrounding Tissue Appearance: Rash/Irritation Surrounding Tissue Temp: Warm Drainage Amount: Moderate Drainage Description: Serosanguineous Drainage Odor: No Odor Chemical Cauterization: NA Results Additional Studies: ITS Impressions Sacrum and Coccyx X-Ray 01/11/24 11:35 IMPRESSION: No definite osteolytic or bony destructive process. Degenerative changes are noted as above. Impression dictated by: Drew Kathleen M.D.01/11/2024 7:38 PM Dictation Location: [place] [id number] Assessment/Plan Assessment/Plan (1) Stage IV pressure ulcer of sacral region: Code(s): L89.154 - Pressure ulcer of sacral region, stage 4 (2) Limited mobility: Code(s): Z74.09 - Other reduced mobility (3) Dementia: Code(s): F03.90 - Unspecified dementia, unspecified severity, without behavioral disturbance, psychotic disturbance, mood disturbance, and anxiety Plan Will change to collagen and alginate dressings. Patient has home health and son also helps with dressing changes. Patient will follow-up in about 2 weeks. See Instructions for Orders See Instructions for Orders See Wound Discharge Instructions for Orders: Dictated By: Gerson Tolliver MD DD/ 1046 Signed By: 01/26/24 1113 [facility]10-14-2024 Progress note Author Danielle Albarran [facility] RehabilitationNote Date/TimeOctober 2023 11:34am [place] [address] Wound Center Provider Note Signed Patient: Milton Ibrahim MR#: [id number] [id number] : 1940 Acct:[id number] Age/Sex: 83 / F Copies to: Lenny Cueva,DO Danielle Albarran, TUBE DRAWER~ HPI Date of Visit Date of Visit: Date of Service: 01/11/2024 Time of Service: 11:23 Narrative HPI: 01/11/24 Milton is an 83 year old presenting to [facility] wound care for an initial visit for eval and treatment of a sacral pressure ulcer. Her son lives with her and is present for the visit. [facility] and this should continue. I did order a surgical consult and an xray since at this time it is her son's goal to heal the ulcer. Topical silver nitrate was applied todayand the dressing order is for dakins moist dressings daily until next visit. Nutrition and pressure relief will be of utmost importance in the healing process. I did offer to order nutritional labs but at this time we will wait- her son tells us that she eats very well and her appetite is very good. The xray will be done today and so these results will be available for the next appt. A tissue culture wouldbe of benefit once there is enough healthy tissue to sample. Her incontinence could impede healing if the stool were to get in the ulcerated area. 2 week appt. No acute signs of infection today. Transfer was completed with her son and 2 staff members. Healing of the area will be a very lengthy process and it may or may not occur. Subjective Pain Sacrum: Pain Description: Intermittent Wound/Ulcer History When did wound start?: November 28, sacral ulcer Mode of Arrival/ Base Wad Operator Adjuster: W/C van Assistive Device Used Today: Wheelchair Lives with:: Children Who helps w/ dressing change?: Home Health Why Do You Need Help?: Can't Reach Ulcer, Limited mobility, Unable to understand, Unsafe leave homeby self and Taxing effort to leave home Smoking Status: Never smoker [facility] Medical History (Updated 01/11/24 @ 11:28 by Danielle Albarran APRN) Diabetes Hypothyroid Does not walk Breast cancer Dementia Sacral ulcer Surgical History (Updated 01/11/24 @ 11:03 by Margareth Sullivan RN) History of mastectomy Social History Smoking Status: Never smoker Grafts History of Graft History of Graft?: No Exam Physical Exam Vital Signs: Temp Pulse Resp BP O2 Del Method 97.5 F L 80 20 149/66 H Room Air 01/11/24 10:54 01/11/24 10:54 01/11/24 10:54 01/11/24 10:54 01/11/24 10:54 Const General: anxious (at times) and frail appearing Nutritional Appearance: overweight Orientation: alert, awake and confused Lower/Upper Extremity Exam Vascular Exam-Pulses Right Brachial: Pulse Assessment Method: NIBP Objective Meds/Allergies Home Medications buspirone 15 mg tablet 15 mg PO BID 01/11/24 [History Confirmed 01/11/24] diltiazem HCl 240 mg capsule,24 hr,extended release (Tiadylt ER) 240 mg PO DAILY01/11/24 [History Confirmed 01/11/24] donepezil 10 mg tablet 10 mg PO DAILY 01/11/24 [History Confirmed 01/11/24] levothyroxine 50 mcg tablet (Synthroid) 50 mcg PO DAILY 01/11/24 [History Confirmed 01/11/24] memantine 10 mg tablet 10 mg PO BID 01/11/24 [History Confirmed 01/11/24] quetiapine 100 mg tablet 100 mg PO QHS 01/11/24 [History Confirmed 01/11/24] sitagliptin phosphate 50 mg-metformin 500 mg tablet (Janumet) 1 tab PO DAILY 01/11/24 [History Confirmed 01/11/24] sodium hypochlorite 0.25 % solution (Dakin's Solution) 1 applic topical DAILY 3 weeks #473 mL 01/11/24 [Rx] trazodone 100 mg tablet 100 mg PO HS 01/11/24 [History Confirmed 01/11/24] Allergies Sulfa (Sulfonamide Antibiotics) Allergy (Verified 01/11/24 11:08) Itching Wound/Ulcer Sacrum: Type: Pressure/Injury Ulcer Pressure Ulcer/Injury Staging: Unstageable Bed Appearance: Beefy Red, Hypergranulation, Delacroix and Yellow Percent of Wound Bed Granulated/Red: 50 Percent of Devitalized: 50 Length (cm): 2.6 Width (cm): 2 Depth (cm): 1.5 CM Sq: 5.200 Undermining Position: 7-2 Deepest at 10 Undermining Depth: 2.6 Surrounding Tissue Appearance: Delacroix Surrounding Tissue Temp: Warm Drainage Amount: Moderate Drainage Description: Serosanguineous Drainage Odor: No Odor Chemical Cauterization: Chem Caut-Hypergranulation Procedures Time Out: 2 Patient Identifiers, Correct Patient, Correct Side/Site, Correct Procedure and Safety Issues Reviewed Procedure: silver nitrate was applied to the sacral ulcer today in order to knock down the hypergranulated tissue- she tolerated well but more topical lidocaine had to be applied after the procedure, 2% topicallidocaine had been applied prior to the procedure and allowed to sit for about 5 minutes Assessment/Plan Assessment/Plan (1) Pressure ulcer of sacral region, unstageable: Code(s): L89.150 - Pressure ulcer of sacral region, unstageable (2) Limited mobility: Code(s): Z74.09 - Other reduced mobility (3) Dementia: Code(s): F03.90 - Unspecified dementia, unspecified severity, without behavioral disturbance, psychotic disturbance, mood disturbance, and anxiety (4) Diabetes: Code(s): E11.9 - Type 2 diabetes mellitus without complications (5) Incontinence: Code(s): R32 - Unspecified urinary incontinence (6) At high risk for skin breakdown: Code(s): Z91.89 - Other specified personal risk factors, not elsewhere classified (7) Pain: Code(s): R52 - Pain, unspecified Plan see orders and hpi Time spent with patient Time Spent With Patient (min): 15 Dictated By: Danielle Albarran APRN DD/ 112 Signed By: <Electronically signed by DONTA Albarran> 01/11/24 1134 [facility] Work Phone: [phone] 313-431210-14-2024 [place] [address] Wound Center Provider Note Signed Patient: Milton Ibrahim MR#: [id number] : 1940 Acct:[id number] Age/Sex: 83 / F Copies to: Lenny Cueva,DO Danielle Albarran APRN~ HPI Date of Visit Date of Visit: Date of Service: 01/11/2024 Time of Service: 11:23 Narrative HPI: 01/11/24 Milton is an 83 year old presenting to [facility] for an initial visit for eval and treatment of a sacral pressure ulcer. Her son lives with her and is present for the visit. [facility] and this should continue. I did order a surgical consult and an xray since at this time it is her son's goal to heal the ulcer. Topical silver nitrate was applied todayand the dressing order is for dakins moist dressings daily until next visit. Nutrition and pressure relief will be of utmost importance in the healing process. I did offer to order nutritional labs but at this time we will wait- her son tells us that she eats very well and her appetite is very good. The xray will be done today and so these results will be available for the next appt. A tissue culture wouldbe of benefit once there is enough healthy tissue to sample. Her incontinence could impede healing if the stool were to get in the ulcerated area. 2 week appt. No acute signs of infection today. Transfer was completed with her son and 2 staff members. Healing of the area will be a very lengthy process and it may or may not occur. Subjective Pain Sacrum: Pain Description: Intermittent Wound/Ulcer History When did wound start?: November 28, sacral ulcer Mode of Arrival/ Base Wad Operator Adjuster: W/C van Assistive Device Used Today: Wheelchair Lives with:: Children Who helps w/ dressing change?: Home Health Why Do You Need Help?: Can't Reach Ulcer, Limited mobility, Unable to understand, Unsafe leave homeby self and Taxing effort to leave home Smoking Status: Never smoker [facility] Medical History (Updated 01/11/24 @ 11:28 by Danielle Albarran APRN) Diabetes Hypothyroid Does not walk Breast cancer Dementia Sacral ulcer Surgical History (Updated 01/11/24 @ 11:03 by Margareth Sullivan RN) History of mastectomy Social History Smoking Status: Never smoker Grafts History of Graft History of Graft?: No Exam Physical Exam Vital Signs: Temp Pulse Resp BP O2 Del Method 97.5 F L 80 20 149/66 H Room Air 01/11/24 10:54 01/11/24 10:54 01/11/24 10:54 01/11/24 10:54 01/11/24 10:54 Const General: anxious (at times) and frail appearing Nutritional Appearance: overweight Orientation: alert, awake and confused Lower/Upper Extremity Exam Vascular Exam-Pulses Right Brachial: Pulse Assessment Method: NIBP Objective Meds/Allergies Home Medications buspirone 15 mg tablet 15 mg PO BID 01/11/24 [History Confirmed 01/11/24] diltiazem HCl 240 mg capsule,24 hr,extended release (Tiadylt ER) 240 mg PO DAILY01/11/24 [History Confirmed 01/11/24] donepezil 10 mg tablet 10 mg PO DAILY 01/11/24 [History Confirmed 01/11/24] levothyroxine 50 mcg tablet (Synthroid) 50 mcg PO DAILY 01/11/24 [History Confirmed 01/11/24] memantine 10 mg tablet 10 mg PO BID 01/11/24 [History Confirmed 01/11/24] quetiapine 100 mg tablet 100 mg PO QHS 01/11/24 [History Confirmed 01/11/24] sitagliptin phosphate 50 mg-metformin 500 mg tablet (Janumet) 1 tab PO DAILY 01/11/24 [History Confirmed 01/11/24] sodium hypochlorite 0.25 % solution (Dakin's Solution) 1 applic topical DAILY 3 weeks #473 mL 01/11/24 [Rx] trazodone 100 mg tablet 100 mg PO HS 01/11/24 [History Confirmed 01/11/24] Allergies Sulfa (Sulfonamide Antibiotics) Allergy (Verified 01/11/24 11:08) Itching Wound/Ulcer Sacrum: Type: Pressure/Injury Ulcer Pressure Ulcer/Injury Staging: Unstageable Bed Appearance: Beefy Red, Hypergranulation, Delacroix and Yellow Percent of Wound Bed Granulated/Red: 50 Percent of Devitalized: 50 Length (cm): 2.6 Width (cm): 2 Depth (cm): 1.5 CM Sq: 5.200 Undermining Position: 7-2 Deepest at 10 Undermining Depth: 2.6 Surrounding Tissue Appearance: Delacroix Surrounding Tissue Temp: Warm Drainage Amount: Moderate Drainage Description: Serosanguineous Drainage Odor: No Odor Chemical Cauterization: Chem Caut-Hypergranulation Procedures Time Out: 2 Patient Identifiers, Correct Patient, Correct Side/Site, Correct Procedure and Safety Issues Reviewed Procedure: silver nitrate was applied to the sacral ulcer today in order to knock down the hypergranulated tissue- she tolerated well but more topical lidocaine had to be applied after the procedure, 2% topicallidocaine had been applied prior to the procedure and allowed to sit for about 5 minutes Assessment/Plan Assessment/Plan (1) Pressure ulcer of sacral region, unstageable: Code(s): L89.150 - Pressure ulcer of sacral region, unstageable (2) Limited mobility: Code(s): Z74.09 - Other reduced mobility (3) Dementia: Code(s): F03.90 - Unspecified dementia, unspecified severity, without behavioral disturbance, psychotic disturbance, mood disturbance, and anxiety (4) Diabetes: Code(s): E11.9 - Type 2 diabetes mellitus without complications (5) Incontinence: Code(s): R32 - Unspecified urinary incontinence (6) At high risk for skin breakdown: Code(s): Z91.89 - Other specified personal risk factors, not elsewhere classified (7) Pain: Code(s): R52 - Pain, unspecified Plan see orders and hpi Time spent with patient Time Spent With Patient (min): 15 Dictated By: Danielle Albarran APRN DD/ 22 Signed By: 01/11/24 1134 [facility]09-27-2024 History of Present illness Narrative * Lenny Cueva DO - 12/25/2023 3:41 PM EDT Sent Rx for air mattress. documented in [facility] encounter[id number] History of Present illness Narrative* Hu Gottlieb DPM - 05/07/2023 2:00 PM EST HPI: Patient presents today for evaluation of a wound/ulcer on the right plantar foot. Wound has been present for months. (02/2023) Previous treatment consists of: Evaluaed by PCP, Dr Cueva, [facility] . Patient has not had a [...] and treatment options with the patient and hersons at length. Debrided ulceration on the plantar [...] life that she has a progressive dementia inaddition to her other multiple comorbidities including diabetes with peripheral neuropathy. documented in this encounterSaint [facility]–[id number] NotePROCEDURE: XR FOOT RT MIN 3 VIEWS COMPARISON: 10/17/2019 HISTORY: Pain in right foot FINDINGS: BONES:Remote bimalleolar fractures with internal fixation. Moderate diffuse degenerative changes with joint space narrowing and marginal osteophyte formation. Moderate enthesopathic calcaneus SOFT TISSUES:Negative. No visible soft tissue swelling. EFFUSION:None visible. OTHER: Negative. IMPRESSION: Moderate degenerative changes Electronically authenticated by: ZEENAT WASHINGTON Date: 2022-05-28 18:02[facility]02-08-2023 Hospital Discharge instructions Patient Education 05/07/2022 13:46:19 Urodynamic Testing [...] or stopping your regular medicines. This is especiallyimportant if you are taking diabetes medicines or blood thinners. You may be asked to avoid urinating before coming to the test so that you arrive with a full bladder. Tell a health care provider about: ?Any allergies you have. ?All medicines you are taking, including vitamins, herbs, eye drops, creams, and imgc-ilo-bdwvosm medicines. ?Whether you are or may be [...] flexible tube (catheter) into your bladder after youurinate. The remaining urine will be removed through [...] with a material that shows up on X- rays (contrast material) so that X-ray pictures can [...] (warm compresses) may relieve any discomfort near yoururethra. Contact your health care provider if you [...] 01/11/2008 Document Revised: 07/05/2019 Document Reviewed: 01/18/2018 [employer] Patient Education 2020 [employer]. Follow Up Care 11/04/2021 13:08:14 With:TANYA MARCH PA-C, URL Address: [address] [place] [address] [place] [address] When: Unknown [facility] evaluation + Plan note Future Appointments Appointment Date:11/05/2022 01:00:00 PM Scheduled Provider:TANYA MARCH PA-C Location:[facility] Appointment Type:URO Office Visit [facility] evaluation + Plan note Future Appointments Appointment Date:11/05/2022 01:00:00 PM Scheduled Provider:TANYA MARCH PA-C Location:[facility] Appointment Type:URO Office Visit Diagnostic Tests Pending * [facility] Diagnosis 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/HCC)- Primary Ulcer of right foot with fat layer exposed (CMS/HCC) Diabetes mellitus due to underlying condition with diabetic polyneuropathy, without long-term current use of insulin (CMS/HCC) Right foot pain Pain in soft tissues of limb Generalized weakness Dementia without behavioral disturbance ([facility]) [facility] Diagnosis Moniliasis skin Candidiasis of skin and nails [facility]* Diagnosis 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 ([facility])- Primary [facility] in this encounter [facility]* Diagnosis Pressure injury of sacral region, stage 4 ([facility])- Primary [facility]* Diagnosis Insomnia, unspecified type documented in this encounter [facility]* Diagnosis SunDown syndrome [facility]* Diagnosis 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 ([facility])- Primary Pseudobulbar affect Hallucination Hallucinations Delirium Other alteration of consciousness [facility]* Diagnosis Primary hypertension Unspecified essential hypertension documented in this encounter [facility] noteNo assessment information availableWright-[facility] Work Phone: Hospital course Narrative No data available for this section [facility] Hospital Discharge instructions No data available for this section [facility] No data available for this section [facility] reason for referral (narrative)No reason for referral information availableGalion [facility] Work Phone: Summary Purpose Family History No Family History Records FoundNo Family History Records FoundNo Family History Records FoundNo Family History Records Found Advance Directives Advance Directive Response Recorded Date/ Time Advance Directives No January 07, 2024 12:00pm Advance Directive Response Recorded Date/ Time Advance Directives No January 30, 2025 11:49am Chief Complaint and Reason for Visit Chief Complaint Admit Date Unknown August 12, 2024 12:55 pm Open Wound - cart room August 30, 2024 11 :03am Reason for Visit Admit Date At high risk for skin breakdown August 11:03am Dementia August 30, 2024 11:03 am Dermatosis August 30, 2024 11:03 am Diabetes August 30, 2024 11:03 am Fungal skin infection August 30, 2024 11: 03am Incontinence August 30, 2024 11:03 am Limited mobility August 30, 2024 11:03 am Pain August 30, 2024 11:03 am Pressure ulcer of sacral region, unstage able August 30, 2024 11:03am Stage IV pressure ulcer of sacral region August 30, 2024 11:03am Chief Complaint Admit Date SB SHANTELLE/ F/U FOR REFILLS January 31 1:32pm Additional Source Comments Patient Care team informatio n (unrecognized section and content) Team MemberRelationshipSpecialtyStart DateEnd Date Lenny Cueva DO [address] [facility] [address] [place] [address] PCP - GeneralFamily Medicine08/05/22 Faustino Cruz MD [address] [place] [address] Referring ZwhtauyvnYlgmvagbb61/14/23 Kristofer Carlton MD [address] [place] [address] Referring YzskfcftwLuorbprict80/14/23 Lety Mcconnell MD [address] [place] [address] Referring ZniejdcyqWqzosfle67/14/23Team MemberRelationshipSpecialtyStart DateEnd Lenny Cueva DO [address] [address] PCP - GeneralFamily Medicine08/05/22 Faustino Cruz MD [address] [place] [address] Referring BbhydalfqGcqnrsfmt15/14/23 Kristofer Carlton MD [address] [place] [address] Referring XotluhbtwPbqdkjlzml55/14/23 Lety Mcconnell MD [address] [place] [address] Referring RpgvsrrmcTvqzjfme40/14/23Team MemberRelationshipSpecialtyStart DateEnd Lenny Cueva, [address] [facility] [address] [place] [address] PCP - GeneralFamily Medicine08/05/22 Faustino Cruz MD [address] [place] [address] Referring MhsfprryyKvzapgyye15/14/23 Kristofer Carlton MD [address] [place] [address] Referring BxudscordEarstbxedk32/14/23 Lety Mcconnell MD [address] [place] [address] Referring OlsywkcrwNkqoilmj69/14/23Team MemberRelationshipSpecialtyStart DateEnd Date Lenny Cueva, [address] [address] [place] [address] PCP - GeneralFami Medicine08/05/22 Faustino Cruz MD [address] [place] [address] Referring LhgwgpkgbZgoljyxwz47/14/23 Kristofer Carlton MD [address] [place] [address] Referring KcjcwfewgHxvtnzinyw43/14/23 Lety Mcconnell MD [address] [place] [facility] [place] [address] Referring YngtxrwfeAigptrck35/14/23Te MemberRelationshipSpecialtyStart End Lenny Cueva, [address] [place] [id number] [facility]/22 Faustino Cruz MD [address] [place] [address] Referring VqbhsozubJjjyincgn60/14/23 Kristofer Carlton MD [address] [place] [facility] [place] [address] Referring QgqmvrfflMcllxxolui20/14/23 Lety Mcconnell MD [address] [place] [facility] [place] [address] Referring ZyayqkqjlRsedwfrm24/14/23Te MemberRelationshipSpecialtyStart End Lenny Cueva, [address] [address] [facility]08/05/22 Faustino Cruz MD [address] [place] [address] Referring YofmmekrbPsymvjazg18/14/23 Kristofer Carlton MD [address] [place] [facility] [place] [address] Referring TjvzgbueiAtwikvdxso83/14/23 Lety Mcconnell MD [address] [place] [facility] [place] [address] Referring ObcnhvrrhHjijgffk78/14/23Te MemberRelationshipSpecialtyStart End Lenny Cueva, [address] [place] [id number] [facility] - [facility]08/05/22 Faustino Cruz MD [address] [place] [address] Referring FdmjrbcwjCqyifcnaj63/14/23 Kristofer Carlton MD [address] [place] [facility] [place] [address] Referring AipyuoqxxQzkalhxjrf41/14/23 Lety Mcconnell MD [address] [place] [facility] [place] [address] Referring KjamjzvaqIzpqdhqu34/14/23Te MemberRelationshipSpecialtyStart End Lenny Cueva, [address] [address] [facility]08/05/22 Faustino Cruz MD [address] [place] [address] Referring BsndnphwtAwabglklv12/14/23 Kristofer Carlton MD [address] [place] [facility] [place] [address] Referring DsvqakpgqTffpsosgwo81/14/23 Lety Mcconnell MD [address] [place] [address] Referring QrsllpekbDzjrxfmv53/14/23Team MemberRelationshipSpecialtyStart End Lenny Cueva, DO [address] [place] [address] [place], [facility] PCP - [facility] Medicine08/05/22 Faustino Cruz MD [address] [place] [address] Referring LekdkpdnyJmefnydna27/14/23 Kristofer Carlton MD [address] [place] [address] Referring VlrqejpxwWiojgvxwil75/14/23 Lety Mcconnell MD [address] [place] [address] Referring LltmutnctQhawkqtk83/14/23Team MemberRelationshipSpecialtyStart End Date Lenny Cueva, DO [address] [place] [address] [place], [facility] PCP - [facility] Medicine08/05/22 Faustino Cruz MD [address] [place] [place] [address] Referring TxetzubgyGcqjskfiz48/14/23 Kristofer Carlton MD [address] [place] [address] Referring SdmddkopeEbvpmatmio16/14/23 Lety Mcconnell MD [address] [place] [address] Referring QkazqffziNivbaqkx94/14/23 Team Status: Inactive Member Role Status Dates Willam Tolliver MD Attending Provider Active S tart: August 12, 2024 End: August 12, 2024 Team Status: Inactive Member Role Status Dates Lenny Cueva DO Primary Care Provider Active St art: August 30, 2024 End: August 30lfrancisco Tolliver MDAttending ProviderActiveStart: August 30, 2024 End: August 30, 2024 Team Status: Inactive Member Role/Relationship Status Dates Alanna Romero APRN Attending Provider Active Start: January 31, 2025 End: January 31, 2025Team MemberRelationshipSpecialtyStart DateEnd Date Lenny Cueva DO [address] [address] PCP - Generalmily Medicine08/05/22 Faustino Cruz MD [address] [address] Referring FdjeqcbfqQuqimaodf55/14/23 Kristofer Carlton MD [address] [place] [address] Referring MrwjnhomuOvgedqqefl80/14/23 Lety Mcconnell MD [address] [place] [address] Referring GqzuxpkmhSpjhbhdb24/14/23 INFORMATION SOURCE (unrecogn ized section and content) DATE CREATED AUTHOR 08/08/2022 [facility] DATE CREATED AUTHOR AUTHOR'S ORGANIZ ATION 11/06/2022 [facility] DATE CREATED AUTHOR AUTHOR'S ORGANIZ ATION 06/09/2024 [facility] DATE CREATED AUTHOR AUTHOR'S ORGANIZ ATION 10/31/2024 [facility] Reason for Visit (unrecogniz ed section and content) ReasonCommentsFoot UlcerSpecialtyDiagnoses / ProceduresReferred By Contact Referred To ContactPodiatry Diagnoses Ulcer of right foot with fat layer exposed (CMS/HCC) Procedures AR OFFICE/OUTPATIENT NEW HIGH MDM 60 MINUTES Lenny Cueva, [address] [place] [address] [place] [address] Hu Gottlieb, ROSIE [address] [place] [address] [place] [address] Referral IDStatusReasonStart DateExpiration DateVisits RequestedVisits [id number] Specialty Services Required /[id number] DateCommentsMed [id number] Date CommentsMed Huamru444ReasonOnset DateCommentsMed Gmzqul7004/10/2024Reason CommentsMed Refill Goals (unrecognized section and content) Goals may be documented in a n alternate section FOR RECORDS PERTAINING TO PATIENTS WHO ARE [...] BE BASED ON THE PRIMARY CLINICAL RECORDS. [employer] provides no warranty or guarantee of the accuracy or completeness of information in this document.
== END 2025-02-27 14:23 | disposition home or self-care (01) ==
LOC: LAB 14:22
PROVIDERS: Visit Provider Family Medicine
DX: R33.9 Retention of urine, unspecified (principal)
CPT/HCPCS: 82043; 82570; 87086; 87088; 87186

== ENCOUNTER 2025-03-14 13:56 | Outpatient (REF) | payer MEDICARE, SELFPAY ==
--- OUTSIDE RECORDS SUMMARY | 2025-02-27 19:40 | XMS_ITS | Continuity of Care Document ---
Author Organization [facility] Address [address] [place] [address] Phone Care Team Providers Care Diabetes Trainer Name Role Phone Alanna Romero APRN Attending Provider Lenny Suresh DO Attending Provider Care Teams Visit Care Team Team Status: Inactive Member Role/Relationship Status Dates Alanna Romero APRN Attending Provider Active Start: January 31, 2025 End: January 31, 2025 Patient Care Team Team Status: Inactive Member Role/Relationship Status Dates Lenny Suresh DO Attending Provider Active Start : February 27, 2025 End: February 27, 2025 Chief Complaint and Reason for Visit Chief Complaint Admit Date SB SHANTELLE/ F/U FOR REFILLS January 31 1:32pm Reason for Visit Admit Date Debility January 31, 2025 1 :32pm Severe late onset Alzheimer's dementia N ovember 2024 1:32pm Allergies, Adverse Reactions, Alerts Allergen Type Severity Reaction Last Updated Verified Status Gadolinium-Containi ng Contrast Medi Allergy Mild Redness of Skin August 30, 2024 10:09am Yes Active Iodinated Contrast Media Allergy Mild Redness of Skin August 30, 2024 10:09am Yes Active Sulfa (Sulfonamide Antibiotics) Allergy Unknown Itching August 30, 2024 10:08am Yes Active Social History Smoking Status Unknown if ever smoked Observation Status Observation Response Date of Response Legal Sex Female (finding) Sex Assigned At BirthFemaleApril 1940 Problems Active Problems Problem Diagnosis/Recorded Date Onset Date Stat us At high risk for skin breakdown January 11, 2024 10: 27am Unknown Active Urinary tract infection August 30, 2024 10:38am Unknown Active Stage IV pressure ulcer of s acral region January 26, 2024 10:12am Unknown Active Pressure ulcer of sacral reg ion, unstageable January 11, 2024 10:27am Unknown Active Severe late onset Alzheimer's dementia January 31 5:21pm Unknown Active Dermatosis May 10, 2024 10:54am Unknown Active Diabetes January 11, 2024 10:14am Unknown A ctive Pain January 11, 2024 10:27am Unknown A ctive Fungal skin infection April 05, 2024 11:03am Unknow n Active Dementia January 11, 2024 10:01am Unknown A ctive Incontinence January 11, 2024 10:27am Unknown A ctive Limited mobility January 11, 2024 10:27am Unknown Active Debility January 31, 2025 5:22pm Unknown Ac tive Medications Medication Status Dose Units Route Directions Qty Days Refills S tart Date Stop Date End Date Reason(s) Instructions Adherence Trazodone 100 mg tablet Discontinued 100 MG PO Bedtime 30 30 2 Sep 2024 7:19am January 31, 2025 5:24pmQuetiapine 100 mg vepdwfDvcrnbxtemrf441IPHMItshh at yvidyml53306Pbvucqldr 8th, 2025 2:00pmOn License Of [facility]2024 10:49amQuetiapine 100 mg imyfdwFsbuhkjqeaop554ZQJMJfyrn at yowovnr56071Tcvpskfm2024 10:48am January 31, 2025 5:24pmDonepezil 10 mg xfnwooFlxkspjnpngg42SJZMZireiAzhgcsb 2023 11:00pmNov2024 5:24pmMemantine 10 mg tiuisgYblxurqlcwqy60 MGPOTwice dailyOctpikeville medical center 2023 11:00pmNov2024 5:24pmTrazodone 100 mg sltgqdZiujvefjjxuy349DMCUOhpvpvgRunxuyu 2023 11:00pmSept2024 7:19amDiltiazem Hcl (Tiadylt Er) 240 mg capsule,extended release 24 uxRivsgx820 MGPODailyOctpikeville medical center 2023 11:00pmUnknownSitagliptin Phos-Metformin (Janumet) 50-500 mg njjyspIxfpjh2OSKAHOvsrlUiiijrz 2023 11:00pmUnknownLevothyroxine (Synthroid) 50 mcg uhkfxgPztqxu22GERQJPofyxUzoerpy 2023 11:00pmUnknown Quetiapine 100 mg jpufyvSbyatrhlvvjb309FXLPAyqph at bedtimeCorewell Health [facility] 2023 11:00pmSeptember 2024 2:00pmBuspirone 15 mg zpzkhiPvfcmk78VUVOWpjdx daily January 10, 2024 11:00pmUnknownSodium Hypochlorite (Dakin's Solution) 0.25 % jyiullhcZrnnvf7VNFGWSGWUORSCAfzrb686884Ddarbcl 2023 11:00pmcleanse/soak sacral ulcer as per wound ordersUnknownFluconazole 100 mg aesraaFqhnmpkwmjcy398 CEFJJvomr17059Bnmnqcl 2024 12:00amJune 2024 10:06amFungal skin infection Superficial mycosis, unspecifiedClobetasol 0.05 % oawhmLdciwe4XGKYEIPZUGHUBKsvbl 50583Ljxjcirg 2024 12:00amDisorder of skin Disorder of the skin and subcutaneous tissue, unspecifiedUnknownCephalexin 500 mg dybeaioDkhsqv550ZTBAT1A5173Ddni 2024 11:00pmUrinary tract infection Urinary tract infection, site not specifiedUnknownDonepezil 10 mg kctoevPpltlt33 REZKMgdaf396Pplfrdpt 4th, 2025 5:22pmUnknownMemantine 10 mg rgpsmmRfgfoj72QKLJ Twice ptgsh813EurhqmkdJanuary 31, 2025 5:23pmUnknownQuetiapine 100 mg nrjhehEajmbf778 MGPODaily at aakkklc07432Vvfbueqh 4th, 2025 5:23pmUnknownTrazodone 100 mg tablet Ribrry754YIUFOupircm59407Oxofrcnc 4th, 2025 5:23pmUnknown Procedures Procedure Date Performed Status Urine Culture February 27, 2025 active Advance Directives Advance Directive Response Recorded Date/ Time Advance Directives No January 30, 2025 11:49am Insurance Providers Guarantor Ely Bain Address [address]Contact Info.Home Phone: Payer Group Member ID Coverage Type Subscriber Relationship to Subscriber Effective Date Expiration Date Matilda SANCHEZ/SHAY Retired Id: [id number] Miano Id: [id number] [address] [place], [place] [address] Home Phone: Email: [id number] Miano Id: [id number] [address] [place], [place] [address] Home Phone: Email: [email or web address] PFF[facility] Id: [id number] Miano Id: [id number] [address] [place], [place] [address] Home Phone: Email: [email or web address] Encounters Encounter Location(s) Arrival/Admit Date Discharge/Departure Date Discharge/Departure Disposition Provider(s) Departed Physician/ Provider Office Visit -[facility] January 31, 2025 1:32pm January 31, 2025 1:56pm Discharged to home care or self care (routine discharge) Braden Kang APRN Departed Referred -[facility] February 27, 2025 1:34pm February 27, 2025 1:35pm Discharged to home care or self care (routine discharge) Lenny Suresh , Recent Diagnosis Onset Date Admit Date Debility Unknown January 31 1:32pm Severe late onset Alzheimer's dementia Unknown January 31, 2025 1:32pm Assessments Diagnosis Onset Date Resolution Status Admit Date Debility acuteNov2024 1:32pmSevere late onset Alzheimer's dementiaacute January 31, 2025 1:32pm Plan of Treatment Author [facility] 5:27pm 84 year old female patient with severe late onset Alzheimer's dementia with other behavioral disturbances. MMSE 07/2018 22/30 and repeat 03/2019 1830. Currently on Aricept and Namenda. She follows with Dr. Carlton for anxiety and depression which could be contributing to decline in memory and her medications have been adjusted. MOCA 11/2019 was 5/30. Sleep-wake cycle is off likely contributing to memory loss. She was not consistently taking her medications, she spits them out at times. They now are being crushed and put in pudding or the like and she is more complaint. She needs 24 hour care. She needs help with ADLs. Her son understands that she may need more help than he can provide at home without other family members or outside resources. He is there 20/10 with two breaks during the week. We did try to stop Aricept and her behavior worsened. Her son restarted this and she has been doing better. She is on Namenda BID. She has not had a visit since 04/2023 and has had further slow decline in memory. She previously had auditory hallucinations and insomnia which have lessened with seroquel. Her son notes that her hallucinations are unchanged. She continues to have hallucinations of people that do not seem to be bothersome or a safety concern. ?? 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 She has declined wanting to trial Nudexta. At baseline. She would not be able to drop to the ground with an attack as she does not get out of bed. .?. ??. Visit done via televisit for patient safety and convenience per son request. Son is on the phone for visit. She does not leave the house any longer. She is bed ridden. She has not taken steps in over a year. Last outing was to 09/2024 for buttocks wound care. She is incontinent and now has a reese. Son would like to medications as they are and needs refills. . . . PLAN SHANTELLE Dr. Cruz to Continue Aricept 10mg daily Conitnue Namenda 10mg BID Continue trazodone 100mg PO QHS to assess her fatigue. Continue Seroquel 100mg PO QHS for delirium. She will continue to follow with Dr Carlton The diagnosis was all discussed with the patient.?? All questions were answered and they agreed with the treatment plan.?? Patient will call if there are any new issues or questions. Future Tests Future scheduled test information is unavailable Pending Tests Test Name Ordered Date Scheduled Date Urine Culture February 27, 2025 1:34pm Future Visits Future appointment information is unavailable Future Procedures Procedure Name Ordered Date Scheduled Date Urine Culture February 27, 2025 9:20pm [facility] er 2024 1:34pm Future Medications Future medication information is unavailable Patient Instructions Patient instructions are unavailable
--- OUTSIDE RECORDS SUMMARY | 2025-03-14 14:00 | XMS_ITS | Clinical Summary ---
Author Organization [facility] Address [address] [place] [address] Care Team Providers Care Ultrasound Technol Name Role Phone Lenny Suresh DO Primary Care Provider Faustino Cruz MD Unavailable [phone] Kristofer Carlton MD Unavailable [phone] Jack Mcconnell MD Unavailable [phone] Allergies Active AllergyReactionsCriticalityNoted FtrnNyynaipaObcyhzmnvxjArazgjg65/08/2023 Sulfa Ggozvrzkiin58/08/2023 Other Reaction(s): Unknown Medications MedicationSigDispense QuantityRefillsLast FilledStart [...] and 1.5 tablets (15 mg) before bedtime.5Active nitrofurantoin, macrocrystal-monohydrate, (Macrobid) 100 MG capsule Indications:Frequent UTITake 1 capsule (100 mg) by mouth in the morning and 1 capsule (100 mg) before bedtime. Do all this for 7 days. 14 capsule 5Active Santyl 250 UNIT/GM ointment APPLY TO WOUND DAILY IZJNAYQU74Discontinued(Med list cleanup) busPIRone (Buspar) 10 MG tablet Take 10 mg by mouth in the morning and 10 mg in the evening and 10 mg before bedtime.02/17/2025Discontinued(Dose adjustment) omeprazole (PriLOSEC) [address] capsule Indications:Gastroesophageal reflux disease without esophagitisTAKE 1 CAPSULE BY MOUTH EVERY DAY 30 MINUTES BEFORE BREAKFAST IN THE MORNING 90 capsule //Discontinued(Med list cleanup) OneTouch Ultra Test test strip Indications:Type 2 diabetes mellitus with diabetic polyneuropathy (HCC)USE 1 TEST STRIP IN VITRO ONCE DAILY 50 DAYS 50 strip 705//Discontinued(Med list cleanup) nystatin (Nystop) 650307 UNIT/GM powder Indications:Moniliasis skinApply topically 2 (two) times a day 60 g 110//20230330/Discontinued(Med list cleanup) traZODone (Desyrel) 100 MG tablet Indications:Insomnia, unspecified typeTAKE 1 TABLET BY MOUTH EVERY DAY AT BEDTIME 90 tablet Discontinued(Med list cleanup) Active Problems ProblemNoted DateDiagnosed DateFoley catheter in place02/17/2025Pseudobulbar ctdeib8011/01/2023 Overview (11/01/2023): 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 She has declined wanting to trial Nudexta. Stable. Vzyygxhfuhtlz27/04/2024 Overview (11/01/2023): She previously had auditory hallucinations and insomnia which have lessened with seroquel. Her son notes that her hallucinations are stable. Difficulty ebfalyev56/04/9106Wrsd53/14/2023History of breast pfxnbt1403/12/2023 Overview (03/12/2023): Left; T2N2M0; 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 sensory zrweiokys34/14/2023Other urethral stricture, female 03/12/2023Renal mass03/12/2023cquired absence of unspecified breast and nipple 11/04/2022Memory loss11/04/2022iabetic retinopathy associated with controlled type 2 diabetes aqlfwjhw40/08/2023H/O: arqbitvaykbt30/08/2023Hyperlipidemia 11/04/20222487Krnreadevqkprk66/08/4984Nccsdqdw44/08/2023 Overview (11/01/2023): Persisting but has improved with medications. Her son states that she is sleeping well. Renal oncocytoma of left vyafwk5511/04/2022SunDown /08/2023iabetes aosztiwc85/08/2023ERD (gastroesophageal reflux disease)11/04/2022Hypertension 11/04/2022lzheimer's oemhzkjt73/08/2023 Overview (02/20/2025): Dementia in other diseases classified [...] Resolved Problems ProblemNoted DateDiagnosed DateResolved DateStraining on sumyfptid18/14/2023 02/17/2025Urge urinary irypxvgbswam46Urinary tract infection Urinary rjouoow71 Encounters DateTypeDepartmentCare PxsuShshgjwkfmw72/10/2025Telephone [facility] [address] [place] [address] Lenny Suresh, DO Cvvfsky6602/27/2025External Result Encounter [facility] External Department Unsolicited Lenny Suresh, DO 02/27/2025linisync Result Encounter [facility] External Department Unsolicited Lenny Suresh, DO 02/17/2025 1:00 PM ESTOffice Visit [facility] [address] [place] [address] Amalia Carrion NP Medicare annual wellness visit, [...] nipple, unspecified laterality; Renal oncocytoma of left bktfed1802/10/20259488Hlavkw91/05/2025Telephone [facility] [address] [place] [address] Lenny Suresh DO from Last 3 Months Immunizations ImmunizationAdministration DatesNext DueInfluenza, Injectable, MDCK, preservative free12/12/2016Influenza, Ykjjkdzcdkd36/28/2018Influenza, injectable, MDCK, preservative free, pyuybdooxqrw08/15/2017Influenza, injectable, dsabapefpxxv65/19/2016Influenza, injectable, quadrivalent, preservative free12/25/2017,12/17/2015Influenza, seasonal, injectable, preservative free12/27/2014Moderna SARS-CoV-2 Ccyjauwtyxn68/08/2021Pneumococcal Conjugate PCV 13012/27/2014Pneumococcal Polysaccharide VDCU1507 Family History Medical HistoryRelationNameCommentsMultiple adefevqlyIxppiwfr5Ptpgvjvq artery diseaseSiblingMental xhexixgAuq6BvaoalfuSmlvGolkinFmmwtizvOtxkcsz3GirwjTclstvad5 DwcpnTlpdiyVggxndmqPaqkhiZlydzfuuLhbfvywOuppfw3SgvmdAxn7Cjplzoet Social History Tobacco UseTypesPacks/DayYears UsedDateSmoking Tobacco: NeverPassive Smoke Exposure: NeverSmokeless Tobacco: Never Tobacco Cessation:Counseling Given: Not Answered Alcohol UseStandard Drinks/WeekCommentsNever0 (1 standard drink = 0.6 oz pure alcohol)no caffeine ikpihxE7024 Health LiteracyAnswerDate RecordedHow often do you need to have someone help you when you read instructions, pamphlets, or other written material from your doctor or pharmacy?Gnuvkf1510/08/2023Social Connection and Isolation PanelAnswerDate RecordedIn a typical week, how many times do you talk on the phone with family, friends, or neighbors?Never 10/08/2023How often do you get together with friends or relatives?More than three times a week10/08/2023How often do you attend buddhism or hinduism services?More than 4 times per year10/08/2023o you belong to any clubs or organizations such as buddhism groups, unions, fraternal or athletic groups, or school groups?No10/08/2023How often do you attend meetings of the clubs or organizations you belong to?Never10/08/2023re you , , , , never , or living with a partner?Nsklmjq5110/08/2023Overall Financial Resource Strain (CARDIA)AnswerDate RecordedHow hard is it for you to pay for the very basics like food, housing, medical care, and heating?Not hard at all10/08/2023HQ-2AnswerDate RecordedPatient Health Questionnaire-2 Score5 02/10/2025[facility] - Occupational Stress QuestionnaireAnswerDate RecordedDo you feel stress - tense, restless, nervous, or anxious, or unable to sleep at night because yourmind is troubled all the time - these days?To some rcfwia9810/08/2023Exercise Vital SignAnswerDate Recorded On average, how many [...] Last Filed Vital Signs Vital SignReadingTime TakenCommentsBlood Ulwjsabq315/7802/17/2025 1:00 PM EST Rvdjl364902/17/2025 1:00 PM MGWOvuigsdjsxf94.1 ??C (97 ??F)02/17/2025 1:00 PM EST Respiratory Rate--Oxygen Fzfdtwtdvz13%02/17/2025 1:00 PM ESTInhaled Oxygen Concentration--Fjcxyb81.9 kg (196 lb)03/12/2023 4:11 PM JONFzbiev685.1 cm (5' 5 )03/12/2023 4:11 PM ESTBody Mass Index32.6203/12/2023 4:11 PM EST Plan of Treatment Health MaintenanceDue DateLast DoneCommentsDiabetes: Retinopathy Screening /, 01/16/2021, 01/11/2020, Additional history existsDiabetes: Hemoglobin A1C/, 08/11/2022, 02/24/2022, Additional history existsCOVID-19 Vaccine ( season), 05/07/2020, 05/01/2020Influenza Vaccine (#1)5012/25/2017, 12/25/2017, 12/12/2016, Additional history existsDiabetes: Urine Protein Rlofsxuzv93/01/56797804/30/2024, 1Pneumococcal Vaccine: 65+ WvsepMjrfvhfmg79/30/2015, 03/28/2013 Procedures Procedure NamePriorityDate/TimeAssociated DiagnosisCommentsAEROBIC NIKITA CHARGE (NMIC56)Sqeaoca3002/27/2025 1:34 PM EST URINE CULTURE - TOHCNjbyhac99/01/2025 1:34 PM EST [facility] MICROALB CREAT RATIO CKPHYPPxvixrv79/01/2025 1:34 PM EST CULTURE, URINE, QYZBJNNJpusrki85/01/2025 1:34 PM EST POCT GLYCATED HEMOGLOBIN, HTLACTfiivjq64/14/2023 4:11 PM EST Type 2 diabetes mellitus without complication, unspecified whether extermination supervisor insulin use (HCC) COLOR FUNDUS PHOTOGRAPHY - OU - BOTH GKTHTdqyxqu49/15/2023 12:00 PM EST MICROALBUMIN (W/O CREAT)Rvsrvno3902/14/2021 from Last 3 Months or Most Recently Relevant to Health Maintenance Results * (ABNORMAL) URINE CULTURE - [facility] (02/27/2025 1:34 PM EST)ComponentValueRef RangeTest MethodAnalysis TimePerformed AtPathologist SignatureURINE CULTURE - [facility] ??Urine Culture - [facility] SEEFRMC [facility] RESULT^[facility] RESULT (A)TBHURINE CULTURE - FRMCSEEA SEE SCANNED REPORT, ABNORMAL^SEE SCANNED REPORT, ABNORMAL(A)TBHSpecimen (Source)Anatomical Location / LateralityCollection Method / VolumeCollection TimeReceived Time02/27/2025 1:34 PM EST02/27/2025 2:42 PM EST Narrative [facility] - 03/01/2025 2:00 PM EST [facility] Authorizing ProviderResult TypeResult StatusPaul Ju Suresh DOLAB BLOOD ORDERABLES Final ResultPerforming OrganizationAddressCity/State/ZIP CodePhone Number [facility] * (ABNORMAL) AEROBIC NIKITA CHARGE (NMIC56) (02/27/2025 1:34 PM EST)ComponentValue Ref RangeTest MethodAnalysis TimePerformed AtPathologist SignatureAMIKACIN<16 (S)03/01/2025 9:03 AM [facility] CtrAMOXACILLIN/K CLAVULANATE<8/4(S)03/01/2025 9:03 AM [facility] AMPICILLIN<8(S)03/01/2025 9:03 AM [facility] AMPICILLIN/SULBACTAM<4/2(S)03/01/2025 9:03 AM [facility] CtrAZTREONAM<4(S)03/01/2025 9:03 AM [facility] CtrCEFAZOLIN <2(S)03/01/2025 9:03 AM [facility] CtrCEFEPIME<2(S) 03/01/2025 9:03 AM [facility] CtrCEFTAZIDIME<1(S)03/01/2025 9:03 AM [facility] CtrCEFTAZIDIME/AVIBACTAM<4(S)03/01/2025 9:03 AM [facility] CtrCEFTOLOZANE/TAZOBACTAM<2(S)03/01/2025 9:03 AM [facility] CtrCEFTRIAXONE<1(S)03/01/2025 9:03 AM [facility] CtrCEFUROXIME<4(S)03/01/2025 9:03 AM [facility] CtrCIPROFLOXACIN<0.25(S)03/01/2025 9:03 AM [facility] CtrERTAPENEM<0.5(S)03/01/2025 9:03 AM [facility] CtrGENTAMICIN4(S)03/01/2025 9:03 AM [facility] CtrLEVOFLOXACIN<0.5(S)03/01/2025 9:03 AM [facility] CtrMEROPENEM<1(S)03/01/2025 9:03 AM [facility] MEROPENEM/VABORBACTAM<2(S)03/01/2025 9:03 AM [facility] NITROFURANTOIN<32(S)03/01/2025 9:03 AM [facility] PIPERACILLIN/TAZOBACTAM<8(S)03/01/2025 9:03 AM [facility] CtrTETRACYCLINE<4(S)03/01/2025 9:03 AM [facility] TIGECYCLINE<2(S)03/01/2025 9:03 AM [facility] CtrTOBRAMYCIN <2(S)03/01/2025 9:03 AM [facility] TRIMETHOPRIM/SULFAMETHOXAZOLE2/38(S)03/01/2025 9:03 AM [facility] CtrSpecimen (Source)Anatomical Location / LateralityCollection Method / VolumeCollection TimeReceived TimeUrineUrine specimen obtained by clean catch procedure / Roxjues1302/27/2025 1:34 PM EST02/27/2025 9:20 PM ESTComment: Clean-Voided Midstream Narrative Authorizing ProviderResult TypeResult StatusPastacey Suresh DOCAROMONT REGIONAL MEDICAL CENTER - MOUNT HOLLYFinal ResultPerforming OrganizationAddressCity/State/[facility] CodePhone Number [facility] [address] [place] [address], [facility] [address] [place] [address] * [facility] MICROALB CREAT RATIO RANDOM (02/27/2025 1:34 PM EST)ComponentValueRef RangeTest MethodAnalysis TimePerformed AtPathologist SignatureMICROALBUMIN URINE RANDOM2.0<=30.0 mg/dLTBHCREATININE URINE GNGJAS14.3420.00 - 300.00 mg/dL TBHMICROALBUM CREATININE RATIO UR28.00.0 - 29.9 mg/gTBHComment: NO MICROALBUMINURIA ?0-29 MG/G CLINICAL MICROALBUMINURIA ??30-300 MG/G MACROALBUMINURIA >300 MG/G Specimen (Source)Anatomical Location / LateralityCollection Method / Volume Collection TimeReceived Time02/27/2025 1:34 PM EST02/27/2025 2:42 PM EST Narrative [facility] - 02/27/2025 3:06 PM EST Authorizing ProviderResult TypeResult StatusLenny Suresh DOCLINISYNCFinal ResultPerforming OrganizationAddressCity/State/ZIP CodePhone Number [facility] * Urine culture (02/27/2025 1:34 PM EST)ComponentValueRef RangeTest Method Analysis TimePerformed AtPathologist SignatureFR ORGANISMEscherichia coli 03/01/2025 9:03 AM [facility] CtrCOLONY COUNT>100,000 03/01/2025 9:03 AM [facility] CtrSpecimen (Source) Anatomical Location / LateralityCollection Method / VolumeCollection Time Received TimeUrineUrine specimen obtained by clean catch procedure / Unknown 02/27/2025 1:34 PM EST02/27/2025 9:20 PM ESTComment:Clean-Voided Midstream Narrative [facility] - 03/01/2025 9:03 AM EST Diagnosis: URINE RETENTION Comment: Authorizing ProviderResult TypeResult StatusLenny Suresh DOLAB MICROBIOLOGY - GENERAL ORDERABLESFinal ResultPerforming OrganizationAddressCity/State/ZIP Code Phone Number [facility] [address] [place] [id number], [facility] [address] [place] [address] * (ABNORMAL) POCT Glycated hemoglobin, total (03/12/2023 4:11 PM EST)Component ValueRef RangeTest MethodAnalysis TimePerformed AtPathologist Signature Hemoglobin A1C6.4Specimen (Source)Anatomical Location / LateralityCollection Method / VolumeCollection TimeReceived JlhwSmwzk18/14/2023 4:11 PM EST Narrative Authorizing ProviderResult TypeResult StatusKim Galvan POINT OF CARE TEST ENTER/EDIT ORDERABLESFinal Result * Color Fundus Photography - OU - Both Eyes (05/14/2022 12:00 PM EST)Anatomical RegionLateralityModalityHeadFundus PhotographySpecimen (Source)Anatomical Location / LateralityCollection Method / VolumeCollection TimeReceived Time 05/14/2022 12:00 PM EST Narrative 05/14/2022 12:00 PM EST PERFORMED AT [facility] LOCATION:[id number] [facility] Procedure Note CONVERSION, GENERIC - 08/13/2022 PERFORMED AT [facility] LOCATION:[id number] [facility] Authorizing ProviderResult TypeResult StatusLenny Suresh DOOPHTH PHOTOGRAPHY Final Result * (ABNORMAL) MICROALBUMIN (W/O CREAT) (02/14/2021)ComponentValueRef RangeTest MethodAnalysis TimePerformed AtPathologist SignatureMALB<1.2(L)[facility]TER[facility] LABComment:mALB reference range not established.Specimen (Source) Anatomical Location / LateralityCollection Method / VolumeCollection Time Received Time02/14/2021 Narrative Authorizing ProviderResult TypeResult StatusJenna Oral Galvan NPECW LABSFinal Result Performing OrganizationAddressCity/State/ZIP CodePhone Number [facility] from Last 3 Months or Most Recently Relevant to Health Maintenance Insurance Care Teams Team MemberRelationshipSpecialtyStart DateEnd Date Lenny Suresh DO [address] [place] [address] PCP - GeneralFamily Medicine08/05/22 Faustino Cruz MD [address] [place], [place] [id number] Referring EzcxjktebLsetgobxj16/14/23 Kristofer Carlton MD [address] [place] [address] Referring GbawuqsrbUtairfyhco33/14/23 Jack Mcconnell MD [address] [address] Referring CpmpyhcngZforcxke92/14/23
--- OUTSIDE RECORDS SUMMARY | 2025-03-14 14:00 | XMS_ITS | Encounter Summary ---
Author Organization [facility] Address [address] [place] [address] Care Team Providers Care Compliance Administrator Name Role Phone Lenny Suresh DO Primary Care Provider [phone] Faustino Cruz MD Unavailable [phone] Kristofer Carlton MD Unavailable [phone] Jack Mcconnell MD Unavailable [phone] Encounter Details DateTypeDepartmentCare Team (Latest Contact Info)Gkpqhxbwuyn26/05/2025Telephone [facility] [address] [facility] [address] [place] [phone] Lenny Suresh, DO [address] [facility] [address] [place] [address] Social History Tobacco UseTypesPacks/DayYears UsedDateSmoking Tobacco: NeverPassive Smoke Exposure: NeverSmokeless Tobacco: NeverAlcohol UseStandard Drinks/WeekComments Never0 (1 standard drink = 0.6 oz pure alcohol)no caffeine [id number] Health LiteracyAnswerDate RecordedHow often do you need to have someone help you when you read instructions, pamphlets, or other written material from your doctor or pharmacy?Klppne7310/08/2023Social Connection and Isolation PanelAnswerDate RecordedIn a typical week, how many times do you talk on the phone with family, friends, or neighbors?Never10/08/2023How often do you get together with friends or relatives?More than three times a week10/08/2023How often do you attend anabaptist or advent services?More than 4 times per year10/08/2023o you belong to any clubs or organizations such as anabaptist groups, unions, fraternal or athletic groups, or [...] heating?Not hard at all10/08/2023HQ-2AnswerDate RecordedPatient Health Questionnaire-2 Vment60804/12/2024[facility] [place] of Occupational Health - Occupational Stress QuestionnaireAnswerDate RecordedDo you feel stress - tense, restless, nervous, or anxious, or unable to sleep at night because yourmind is troubled all the time - these days?To some afabbt1210/08/2023Exercise Vital Sign AnswerDate RecordedOn average, how many [...] were you homeless or living in a prison (including now)?No10/08/2023UDIT-CAnswerDate RecordedQ1: How often do you [...] encounter Functional Status * AUDIT-C ScoreAnswerDate of LoomnmpmjyUdowfl807/21/2025 4:18 PM Amalia Barreto NP * QuestionAnswerDate [...] the following problems?QuestionAnswerDate of AssessmentAuthorPatient Health Questionnaire-2 Iwkay77904/12/2024 11:46 AM Obie Sanchez * Little interest [...] televisionAnswerDate of AssessmentAuthorSeveral days02/10/2025 11:46 AM EST Mychart, Generic * Moving or speaking so slowly that other people could have noticed? Or the opposite - being so fidgety or restless that you have been moving around a lot more than usual.AnswerDate of AssessmentAuthorSeveral days02/10/2025 11:46 AM ESTMychart, Generic * Thoughts that you would be better off or hurting yourself in some way AnswerDate of AssessmentAuthorNot at all02/10/2025 11:46 AM ESTToo, Generic documented as of this encounter Miscellaneous Notes * Telephone Encounter - Martha Martinez LPN - 03/01/2025 1:55 PM EST Lab orders faxed to [facility] * Telephone Encounter - Amalia Carrion NP - 02/20/2025 10:03 AM EST MW/chronic condition follow up completed on 02/17/25. Pt is bed bound and dependent for all care. No sensible verbalization. She continues with a reese catheter which home health manages/changes. She also continues with stage 1 pressure on Left lower back, treated with repositioning and Triad wound paste. Son remains primary care support representative and pt appears well taken care of. [...] DateEnd Date Lenny Suresh DO [address] [address] PCP - GeneralFamily Medicine08/05/22 Faustino Cruz MD [address] [place] [address] [place] [address] Referring PdrqorrvoKeyentfsj06/14/23 Kristofer Carlton MD [address] [place] [address] Referring HkdxbcqwpBofutjlexx23/14/23 Jack Mcconnell MD [address] [facility] 1 [place] [address] Referring KtzjxrbhhDeqlvchl67/14/23documented as of this encounter
--- OUTSIDE RECORDS SUMMARY | 2025-03-14 14:00 | XMS_ITS | Encounter Summary ---
Author Organization [facility] Address [address] [place] [address] Care Team Providers Care Lodging Facilities Manager Name Role Phone Lenny Suresh DO Primary Care Provider [phone] Faustino Cruz MD Unavailable [phone] Kristofer Carlton MD Unavailable [phone] Jack Mcconnell MD Unavailable [phone] Encounter Details DateTypeDepartmentCare Team (Latest Contact Info)Kixpkdaflkk62/01/2025External Result Encounter [facility] Unsolicited Lenny Suresh, [address] [facility] [address] [place] [address] Social History Tobacco UseTypesPacks/DayYears UsedDateSmoking Tobacco: NeverPassive Smoke Exposure: NeverSmokeless Tobacco: NeverAlcohol UseStandard Drinks/WeekComments Never0 (1 standard drink = 0.6 oz pure alcohol)no caffeine [id number] Health LiteracyAnswerDate RecordedHow often do you need to have someone help you when you read instructions, pamphlets, or other written material from your doctor or pharmacy?Xchptk9310/08/2023Social Connection and Isolation PanelAnswerDate RecordedIn a typical week, how many times do you talk on the phone with family, friends, or neighbors?Never10/08/2023How often do you get together with friends or relatives?More than three times a week10/08/2023How often do you attend worship or presybeterian services?More than 4 times per year10/08/2023o you belong to any clubs or organizations such as worship groups, unions, fraternal or athletic groups, or [...] heating?Not hard at all10/08/2023HQ-2AnswerDate RecordedPatient Health Questionnaire-2 Ebmsb72104/12/2024[facility] [place] of Occupational Health - Occupational Stress QuestionnaireAnswerDate RecordedDo you feel stress - tense, restless, nervous, or anxious, or unable to sleep at night because yourmind is troubled all the time - these days?To some bwawgk6010/08/2023Exercise Vital Sign AnswerDate RecordedOn average, how many [...] were you homeless or living in a mcfp (including now)?No10/08/2023UDIT-CAnswerDate RecordedQ1: How often do you [...] on file documented as of this encounter Plan of Treatment Not on file documented as of this encounter Procedures Procedure NamePriorityDate/TimeAssociated DiagnosisCommentsAEROBIC NIKITA CHARGE (NMIC56)Tfqgnse6902/27/2025 1:34 PM EST CULTURE, URINE, DYQBIJRPxvtvrb79/01/2025 1:34 PM EST documented in this encounter Results * (ABNORMAL) AEROBIC NIKITA CHARGE (NMIC56) (02/27/2025 1:34 PM EST)ComponentValue Ref RangeTest MethodAnalysis TimePerformed AtPathologist SignatureAMIKACIN<16 (S)03/01/2025 9:03 AM [facility] CtrAMOXACILLIN/K CLAVULANATE<8/4(S)03/01/2025 9:03 AM [facility] AMPICILLIN<8(S)03/01/2025 9:03 AM [facility] AMPICILLIN/SULBACTAM<4/2(S)03/01/2025 9:03 AM [facility] CtrAZTREONAM<4(S)03/01/2025 9:03 AM [facility] CtrCEFAZOLIN <2(S)03/01/2025 9:03 AM [facility] CtrCEFEPIME<2(S) 03/01/2025 9:03 AM [facility] CtrCEFTAZIDIME<1(S)03/01/2025 9:03 AM [facility] CtrCEFTAZIDIME/AVIBACTAM<4(S)03/01/2025 9:03 AM [facility] CtrCEFTOLOZANE/TAZOBACTAM<2(S)03/01/2025 9:03 AM [facility] CtrCEFTRIAXONE<1(S)03/01/2025 9:03 AM [facility] CtrCEFUROXIME<4(S)03/01/2025 9:03 AM [facility] CtrCIPROFLOXACIN<0.25(S)03/01/2025 9:03 AM [facility] CtrERTAPENEM<0.5(S)03/01/2025 9:03 AM [facility] CtrGENTAMICIN4(S)03/01/2025 9:03 AM [facility] CtrLEVOFLOXACIN<0.5(S)03/01/2025 9:03 AM [facility] CtrMEROPENEM<1(S)03/01/2025 9:03 AM [facility] MEROPENEM/VABORBACTAM<2(S)03/01/2025 9:03 AM [facility] NITROFURANTOIN<32(S)03/01/2025 9:03 AM [facility] PIPERACILLIN/TAZOBACTAM<8(S)03/01/2025 9:03 AM [facility] CtrTETRACYCLINE<4(S)03/01/2025 9:03 AM [facility] TIGECYCLINE<2(S)03/01/2025 9:03 AM [facility] CtrTOBRAMYCIN <2(S)03/01/2025 9:03 AM [facility] TRIMETHOPRIM/SULFAMETHOXAZOLE2/38(S)03/01/2025 9:03 AM [facility] CtrSpecimen (Source)Anatomical Location / LateralityCollection Method / VolumeCollection TimeReceived TimeUrineUrine specimen obtained by clean catch procedure / Nywnyqp3602/27/2025 1:34 PM EST02/27/2025 9:20 PM ESTComment: Clean-Voided Midstream Narrative Authorizing ProviderResult TypeResult StatusLenny Suresh DOFIRELANDSFinal ResultPerforming OrganizationAddressCity/State/ZIP CodePhone Number [facility] [address] [place] [address], [facility] [address] [place] [address] * Urine culture (02/27/2025 1:34 PM EST)ComponentValueRef RangeTest Method Analysis TimePerformed AtPathologist SignatureFR ORGANISMEscherichia coli 03/01/2025 9:03 AM [facility] CtrCOLONY COUNT>100,000 03/01/2025 9:03 AM [facility] CtrSpecimen (Source) Anatomical Location / LateralityCollection Method / VolumeCollection Time Received TimeUrineUrine specimen obtained by clean catch procedure / Unknown 02/27/2025 1:34 PM EST02/27/2025 9:20 PM ESTComment:Clean-Voided Midstream Narrative [facility] 03/01/2025 9:03 AM EST Diagnosis: URINE RETENTION Comment: Authorizing ProviderResult TypeResult StatusLenny BALES MICROBIOLOGY - GENERAL ORDERABLESFinal ResultPerforming OrganizationAddressCity/State/ZIP Code Phone Number [facility] [address] [place] [address], [facility] [address] [place] [address] documented in this encounter Visit Diagnoses Not on filedocumented in this encounter Additional Health Concerns AssessmentNoted TimePHQ-9 Depression Total Score: 3:53 PM EST documented as of this encounter Care Teams Team MemberRelationshipSpecialtyStart DateEnd Date Lenny Suresh DO [address] [place] [address] PCP - GeneralFamily Medicine08/05/22 Faustino Cruz MD [address] [facility] [place] [address] Referring MpwykbiweUummoqvct60/14/23 Kristofer Carlton MD [address] [place] [address] Referring ZpmmhurolImyypeshuj85/14/23 Jack Mcconnell MD [address] [facility] 1 [place] [address] Referring VkjqpsmlsNunbbshr06/14/23documented as of this encounter
--- OUTSIDE RECORDS SUMMARY | 2025-03-14 14:00 | XMS_ITS | Clinical Summary ---
Author Organization [facility] Address [address] [place], [place] [address] Care Team Providers Care Ammonia Solution Preparer Name Role Phone Unavailable Primary Care Provider Unavailabl e Allergies Active AllergyReactionsCriticalityNoted OzaoKvhbcymhTgxtybxsvcqDnkvwjw90/15/2013 Sulfa (Sulfonamide Antibiotics)Jonynok1407/12/2012 Medications MedicationSigDispense QuantityRefillsLast FilledStart DateEnd DateStatus sertraline [...] InformationValueDate RecordedSex Assigned at BirthNot on fileLegal QhfYpyjfv73/02/2012 9:26 AM ESTGender Identity Not on fileSexual OrientationNot on file Last Filed Vital Signs Vital SignReadingTime TakenCommentsBlood Kditmefv187/75007/26/2014 1:55 PM EDT Qrvqs931307/26/2014 1:55 PM RMDGtfdygoloea95.7 ??C (98 ??F)07/26/2014 1:55 PM EDT Respiratory Rate--Oxygen Saturation--Inhaled Oxygen Concentration--Ycscas73.7 kg (189 lb)07/26/2014 1:55 PM APFHfjhxr217.6 cm (5' 6 )07/26/2014 1:55 PM EDT verified dmcBody Mass Index30.51007/26/2014 1:55 PM EDT Plan of Treatment Health MaintenanceDue DateLast DoneCommentsAnxiety Wtachqzuz78/14/1957Depression Xfrxngsqa46/14/1957DTaP,Tdap,Td Vaccine (1 - Tdap)1957Pneumococcal Vaccine: 50+ (1 of 1 - PCV)1988Shingrix Vaccine (1 of 2)1988Bone Density Hfzxuhnft80/14/2004RSV Vaccine (1 - 1-dose 75+ series)2013Diabetes Nfmvrhrmp57dvance Directive Zazowanlqr64/01/2025ovid-19 Vaccine ( - season)2024Influenza Vaccine (#1)2024 Procedures Procedure NamePriorityDate/TimeAssociated DiagnosisCommentsCOMPREHENSIVE METABOLIC HCEMKTqoiwxl89/29/2015 2:00 PM EDT Breast cancer (HCC) from Last 3 Months or Most Recently Relevant to Health Maintenance Results * (ABNORMAL) COMP METABOLIC PANEL (07/26/2014 2:00 PM EDT)ComponentValueRef RangeTest MethodAnalysis TimePerformed AtPathologist SignatureProtein, Total 7.86.0 - 8.4 g/dL07/27/2014 3:[facility]ORYAlbumin 4.63.5 - 5.0 g/dL07/27/2014 3:20 AM [facility] MA[facility] LABORATORYCalcium 9.88.5 - 10.5 mg/dL07/27/2014 3:20 AM [facility] Bilirubin, Total0.30.0 - 1.5 mg/dL07/27/2014 3:20 AM [facility] MA[facility] LABORATORYAlkaline Lzmmyrelgtr2208 - 150 U/L07/27/2014 3:20 AM [facility] JSFQKSCAJGPNJ508 - 40 U/L07/27/2014 3:20 AM [facility] UMGTEYFOEYBezvkiv2086 - 100 mg/dL07/27/2014 3:20 AM [facility] WESKHUUCFOMGO288 - 25 mg/dL07/27/2014 3:20 AM [facility] MA[facility] LABORATORYCreatinine0.55(L)0.70 - 1.40 mg/dL07/27/2014 3:20 AM [facility] SJJTXGDTTRYgxheb776212 - 148 mmol/L07/27/2014 3:20 AM [facility] MA[facility] LABORATORYPotassium4.63.5 - 5.0 mmol/L07/27/2014 3:20 AM [facility] MA[facility] MOYDDTKOEDLdfgiyga41841 - 110 mmol/L07/27/2014 3:20 AM [facility] WCARLPNCKYPY12287 - 32 mmol/L07/27/2014 3:20 AM [facility] MAIN LABORATORYAnion Pal756 - 15 mmol/L07/27/2014 3:20 AM [facility] MA[facility] UIJRINYQMAIKD141 - 45 U/L07/27/2014 3:20 AM [facility] MA[facility] LABORATORYeGFR->6004 3:20 AM [facility] MAIN LABORATORYeGFR-All Other Races>60.07/27/2014 3:20 AM [facility] MAIN LABORATORYComment: eGFR (Estimated GFR) Units of [...] EDT Narrative Authorizing ProviderResult TypeResult StatusHolly Teofilo EM[employer]SION COATER.CNPLABORATORY Final ResultPerforming OrganizationAddressCity/State/ZIP CodePhone Number [facility] [address] [place] [address] from Last 3 Months or Most Recently Relevant to Health Maintenance Insurance
--- OUTSIDE RECORDS SUMMARY | 2025-03-14 14:00 | XMS_ITS | Encounter Summary ---
Author Organization [facility] Address [address] [place] [address] Care Team Providers Care District Customs Director Name Role Phone Lenny Suresh DO Primary Care Provider [phone] Faustino Cruz MD Unavailable [phone] Kristofer Carlton MD Unavailable [phone] Jcak Mcconnell MD Unavailable [phone] Reason for Visit * ReasonOnset TpywGbeheriwFdrngih99/10/2025 Encounter Details DateTypeDepartmentCare Team (Latest Contact Info)Ysjvlhjwvuq35/10/2025Telephone [facility] [address] [facility] [address] [place] [phone] Lenny Suresh DO [address] [facility] [address] [place] [address] Results Social History Tobacco UseTypesPacks/DayYears UsedDateSmoking Tobacco: NeverPassive Smoke Exposure: NeverSmokeless Tobacco: NeverAlcohol UseStandard Drinks/WeekComments Never0 (1 standard drink = 0.6 oz pure alcohol)no caffeine [id number] Health LiteracyAnswerDate RecordedHow often do you need to have someone help you when you read instructions, pamphlets, or other written material from your doctor or pharmacy?Zwdlqg5610/08/2023Social Connection and Isolation PanelAnswerDate RecordedIn a typical week, how many times do you talk on the phone with family, friends, or neighbors?Never10/08/2023How often do you get together with friends or relatives?More than three times a week10/08/2023How often do you attend sabianism or amish services?More than 4 times per year10/08/2023o you belong to any clubs or organizations such as sabianism groups, unions, fraternal or athletic groups, or [...] heating?Not hard at all10/08/2023HQ-2AnswerDate RecordedPatient Health Questionnaire-2 Xzjal18504/12/2024[facility] [place] [facility] Health - Occupational Stress QuestionnaireAnswerDate RecordedDo you feel stress - tense, restless, nervous, or anxious, or unable to sleep at night because yourmind is troubled all the time - these days?To some maamjp9710/08/2023Exercise Vital Sign AnswerDate RecordedOn average, how many [...] were you homeless or living in a chcf (including now)?No10/08/2023UDIT-CAnswerDate RecordedQ1: How often do you [...] on file documented as of this encounter Miscellaneous Notes * Addendum Note - Davy Martinez LPN - 03/09/2025 1:09 PM ESTAddended by: DAVY MARTINEZ on: 03/09/2025 01:09 PM Modules accepted: Orders * Telephone Encounter - Davy Martinez LPN - 03/09/2025 1:08 PM EST LVM notifying son of culture result and abx being sent in per Dr Suresh. Advised to call if he has any further questions. * Telephone Encounter - Sheba Tanner - 03/08/2025 3:12 PM EST Pt's son called wanting a call back at [phone] to discuss the Urine culture that was done on 02/27. documented in this encounter Plan of Treatment Not on file documented as of this encounter Visit Diagnoses Diagnosis Frequent UTI Urinary tract infection, site not specified documented in this encounter Additional Health Concerns AssessmentNoted TimePHQ-9 Depression Total Score: 3:53 PM EST documented as of this encounter Care Teams Team MemberRelationshipSpecialtyStart DateEnd Date Lenny Suresh DO [address] [address] PCP - GeneralFamily Medicine08/05/22 Faustino Cruz MD [address] [place] [address] [place] [address] Referring WmygrnlssUmndpdwyp36/14/23 Kristofer Carlton MD [address] [place] [address] Referring GmemwlokgDwgmmigfmd82/14/23 Jack Mcconnell MD [address] [facility] 1 [facility] [place] [address] Referring MdokdqsstOxmfjjhz84/14/23documented as of this encounter
[2025-03-14 14:48] LABS: Alanine Aminotransferase 16 U/L (14-59); Albumin Globulin Ratio 0.6; Albumin Level 3.1 g/dL (3.4-5.0); Alkaline Phosphatase 124 U/L (46-116); Anion Gap 12.8; Aspartate Amino Transferase 16 U/L (15-37); Blood Urea Nitrogen 20.0 mg/dL (7.0-18.0); Calcium 9.4 mg/dL (8.5-10.1); Carbon Dioxide 31.6 mmol/L (21.0-32.0); Chloride 101 mmol/L (98-107); Cholesterol 227 mg/dL (<=200); Estimated GFR (African America >60 (>=60 mL/min/1.73m^2); Estimated GFR (Non-African Ame >60 (>=60 mL/min/1.73m^2); Globulin 5.1 g/dL; Glucose 104 mg/dL (74-106); HDL Cholesterol 58 mg/dL (40-60); Potassium 4.4 mmol/L (3.5-5.1); Sodium 141 mmol/L (136-145); Thyroid Stimulating Hormone 2.700 uIU/mL (0.358-3.740); Total Protein 8.2 g/dL (6.4-8.2); Triglycerides 134 mg/dL (<=150); VLDL CHOLESTEROL 26.8 mg/dL
[2025-03-14 15:05] LABS: Hematocrit 41.8 % (36.0-48.0); Hemoglobin 13.4 g/dL (12.0-16.0); Immature Granulocytes Abs Auto 0.04 10^3/uL (0.00-0.03); Immature Granulocytes Pct Auto 0.5 % (0.0-0.5); Lymphocytes Absolute Auto 2.0 10^3/uL (1.2-3.8); Mean Corpuscular HGB Conc 32.1 g/dL (29.9-35.2); Mean Corpuscular Hemoglobin 28.8 pg (26.7-34.0); Mean Corpuscular Volume 89.9 fL (81.0-99.0); Platelet Count 442 10^3/uL (150-450); Red Blood Count 4.65 10^6/uL (4.20-5.40); White Blood Count 7.9 10^3/uL (4.0-11.0)
== END 2025-03-14 13:57 | disposition home or self-care (01) ==
LOC: LAB 13:56
PROVIDERS: Visit Provider Family Medicine
DX: E11.69 Type 2 diabetes mellitus with other specified complication (principal); E03.9 Hypothyroidism, unspecified; I48.91 Unspecified atrial fibrillation; I10 Essential (primary) hypertension
CPT/HCPCS: 36415; 80053; 80061; 83036; 84443; 85025